=== PATIENT | female | born 1970 | race Hispanic/Latino ===

== ENCOUNTER 2022-12-30 19:39 | Emergency (ER) | payer OTHER ==
--- OUTSIDE RECORDS SUMMARY | 2022-12-30 19:44 | XMS REPORT | Continuity of Care Document ---
:1970 Author Organization [facility] Address [address] [place] [address] [place] [id number] Care Team Providers Name Role Phone ROSSY RODRIGUES Primary Care Physician Unavailable RADIOLOGY Attending Clinician Unavailable Cayla Attending Clinician Unavailable Schiffmagnus_Ashley Attending Clinician Unavailable Armspapito_Iam Attending Clinician Unavailable Doctor Unassigned, [place] Attending Clinician Unavailable Ya Mcconnell Attending Clinician YA SHIELDS Attending Clinician Unavailable LEIGH FREEMAN Attending Clinician Unavailable Moraima Attending Clinician Unavailable DR LITZY JESUS Attending Clinician Unavailable DR SANKET BETTS Attending Clinician Unavailable Cayla Admitting Clinician Unavailable Jill Admitting Clinician Unavailable Cruz Admitting Clinician Unavailable YA SHIELDS Admitting Clinician Unavailable Moraima Admitting Clinician Unavailable DR LITZY JESUS Admitting Clinician Unavailable DR SANKET BETTS Admitting Clinician Unavailable Payers Payer Name Policy Type Policy Number Effective Date Expiration Date S michael [facility] [id number] 2022 2023 [facility]CARE 00:00:00 00:00:00 [facility] [id number] (O) [facility] [id number] - [place] PL[place] - [place] ([facility]) [facility] [id number] 2022 [employer] 00:00:00 HEALTHCARE - [place] - EXCHANGE PLAN (O) [place] - [id number] [facility] - [facility] 4 (PPO) Problems Condition Condition Condition Status Onset Resolution Last Treating Co mments Source Name Details Category Date Date Treatment Clinician Date Microscopi Microscopi Problem Active 2022-02 H gal c c 0-16 [facility] hematuria Hematuria 00:00: Urol ogy 00 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 5- Metr o 00:00: Urology 00 Diabetes Diabetes Problem Active 2018-02 [place] mellitus Mellitus 2-13 [facility] 00:00: Urology 00 Vitamin D Vitamin D Problem Active 2018-02 Rosario ston deficiency Deficiency 2-13 Me tro 00:00: Urology 00 Hyperchole Hyperchole Problem Active 2018-02 H gal sterolemia sterolemia 2-13 Me tro 00:00: Urology 00 Hypertrigl Hypertrigl Problem Active 2018-02 H gal yceridemia yceridemia 2-13 Me tro 00:00: Urology Endometrio Endometrio Problem Active 2018-02 H gal sis sis 2-13 [facility] (clinical) (Clinical) 00:00: Ur ology 00 Prolapse Prolapse Problem Active 2018-02 [place] of female of Female 2-13 Met[facility] o genital Genital 00:00: Urology organs Organs 00 Atrophic Atrophic Problem Active 2018-02 [place] vaginitis Vaginitis 2-13 Metr o 00:00: Urology 00 Folic acid Folic Acid Problem Active 2018-02 H gal below below 2-13 [facility] reference Reference 00:00: Urol ogy range Range 00 Atrophic Atrophic Disease Active 2018-02 Unive rs vaginitis vaginitis 1-27 ity of 00:00: [place] [id number] Medical Branch Endometrio Endometrio Disease Active 2018-02 U danielers sis sis 0-01 ity of 00:00: [place] [facility] BMI BMI Disease Active 2018-02 Univers 31.0-31.9, 31.0-31.9, 0-01 it y of adult adult 00:00: [address] Branch Contracept Contracept Disease Active U nivers [place] dorota 8-09 ity of management management 00:[place]: [place] [facility] Obesity Obesity Disease Active Univers (BMI (BMI 8-09 ity of 30.0-34.9) 30.0-34.9) [place] [facility] Controlled Controlled Disease Active U nivers type 2 type 2 09-29 ity of diabetes diabetes 00:00: [place] mellitus mellitus 00 Medica l without without Branch complicati complicati on on Essential Essential Disease Active Uni vers hypertensi hypertensi 09-29 it y of on, benign on, benign 00:00: [place] [facility] History of History of Disease Active U nivers tubal tubal 09-29 ity of ligation ligation 00:00: [place] [facility] Irregular Irregular Disease Active Uni vers menstrual menstrual 09-29 ity of cycle cycle 00:00: Medical Branch 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 2-13 [facility] insipidus Insipidus 00:00: Urol ogy 00 Allergies, Adverse Reactions, Alerts Allergy Allergy Status Severity Reaction(s) Onset Inactive Treating Comm ents Source Name Type Date Date Clinician Iodine Propensi Active Other - See Burning Un sujata ty to comments 5- pain, ity of adverse 00:00: feels [place] reaction 00 like her Medica l s veins are Branch going to explode IODINE DRUG Active Other-Cmnt Univer s INGREDI 5- ity of 00:00: [place] [facility] Cephalex Propensi Active Other - See Lumps U nivers in ty to comments 8- ity of adverse 00:00: [place] reaction 00 Medical s Branch CEPHALEX DRUG Active Other-Cmnt Univ ers IN INGREDI 10-15 ity of 00:00: [place] [facility] Morphine Drug Active Itching Univers Intolera 03-24 ity of nce 00:00: Medical Branch MORPHINE DRUG Active ITCHING Univers INGREDI 2 ity of 00:00: Medical Branch Morphine Allergy Active [place] to [facility] substanc Urology e Fluconaz Allergy Active Photosensiti M chantelle francisco to vity da substanc [facility] Social History Social Habit Start Date Stop Date Quantity Comments Source Gender identity [facility] Sexual orientation Univer sity of [facility] Alcohol intake 2022-10-25 2022-10-25 Current University of 00:00:00 00:00:00 non-drinker of [facility] alcohol Branch (finding) History of Social 2019-09-23 2019-09-23 Univers ity of function 00:00:00 00:00:00 [facility] Tobacco use and 2017-09-29 2017-09-29 Smokeless Universit y of exposure 00:00:00 00:00:00 tobacco non-user [facility] Sex Ass[birth year] At [birth year] Universit y of 00:00:00 00:00:00 [facility] Smoking Status Start Date Stop Date Source Never Smoker [place] [facility] Medications Ordered Filled Start Stop Current Ordering Indication Dosage Frequency Signature Comments Components Source Medication Medication Date Date Medication? Clinician (SIG) Name Name norethindro norethindro No norethindr [place] ne ne 11-01 one [facility] (contracept (contracept 00:00: (contracep Urology [place]) 0.35 [place]ota) 0.35 00 tive) 0.35 mg tablet mg tablet mg tablet Take 1 Take 1 Take 1 tablet tablet tablet every day every day every day by oral by oral by oral route. route. route. acetaminoph acetaminoph No acetaminop [place] en 300 en 300 10-27 hen 300 Metro mg-codeine mg-codeine 00:00: mg-codeine Urology 30 mg 30 mg 00 30 mg tablet Take tablet Take tablet 1 tablet 1 tablet Take 1 every 8 every 8 tablet hours by hours by every 8 oral route oral route hours by as needed as needed oral route for 7 days. for 7 days. as needed for 7 days. ketorolac No 30mg 30 mg, Unive rs (TORADOL) 10-26 Slow IV ity of injection 02:00: 01:21 Push, [place] 30 mg 00 :00 ONCE, 1 Medical dose, On Branch Tue10/25/22 at 2100, Routine HYDROcodone 2022- No 1{tbl} 1 tablet, Univers -acetaminop 10-26 Oral, ity of hen (NORCO 01:45: 01:49 ONCE, 1 [place] as 5) 5-325 mg 00 :00 dose, On [facility] tablet 1 Tue10/25/22 Branc h tablet at 2045, MELVIN traMADoL 50 2022-0 2022- Yes 4647 50mg Take 1 Uni vers mg tablet 10-25 tablet by ity of 00:00: 04:59 mouth [place] 00 :00 every 6 Medical (six) Branch hours as needed for Pain (scale 7-10) for up to 3 days. Indication s: acute pain Ozempic Ozempic No Ozempic [place] 0.25 mg or 0.25 mg or 8-02 0.25 mg or Metro 0.5 mg (2 0.5 mg (2 00:00: 0.5 mg (2 Urology mg/3 mL) mg/3 mL) 00 mg/3 mL) subcutaneou subcutaneou subcutaneo s pen s pen us pen injector injector injector Inject 0.5 Inject 0.5 Inject 0.5 mg every mg every mg every week by week by week by subcutaneou subcutaneou subcutaneo s route for s route for us route 90 days. 90 days. for 90 days. atorvastati atorvastati No atorvastat [place] n 10 mg n 10 mg 6-29 in 10 mg [facility] tablet Take tablet Take 00:00: tablet Urology 1 tablet 1 tablet 00 Take 1 every day every day tablet by oral by oral every day route in route in by oral the the route in evening. evening. the evening. D3-2000 50 D3-2000 50 2022-0 No D3-2000 50 [place] mcg (2,000 mcg (2,000 6-29 mcg (2,000 [facility] unit) unit) 00:00: unit) Urology capsule capsule 00 capsule TAKE 1 TAKE 1 TAKE 1 TABLET BY TABLET BY TABLET BY MOUTH DAILY MOUTH DAILY MOUTH DAILY lisinopril lisinopril No lisinopril [place] 5 mg tablet 5 mg tablet 6-29 5 mg M etro Take 1 Take 1 00:00: tablet Urology tablet tablet 00 Take 1 every day every day tablet by oral by oral every day route in route in by oral the the route in morning. morning. the morning. metformin metformin No metformin [place] ER 500 mg ER 500 mg 6-29 ER 500 mg [facility] tablet,exte tablet,exte 00:00: tablet,ext Urology nded nded 00 ended release 24 release 24 release 24 hr TAKE 2 hr TAKE 2 hr TAKE 2 TABLETS BY TABLETS BY TABLETS BY MOUTH TWICE MOUTH TWICE MOUTH DAILY DAILY TWICE DAILY Accu-Chek Accu-Chek No Accu-Chek [place] Guide test Guide test 6-19 Guide test [facility] strips strips 00:00: strips Urology Check Check 00 Check glucose bid glucose bid glucose bid Accu-Chek Accu-Chek No Accu-Chek [place] Guide Me Guide Me 4-03 Guide Me Met ro Glucose Glucose 00:00: Glucose Urol ogy Meter USE Meter USE 00 Meter USE DAILY DAILY DAILY DIRECTED DIRECTED DIRECTED Ozempic 1 Ozempic 1 2021-02 No Ozempic 1 [place] mg/dose (4 mg/dose (4 1-21 mg/dose (4 [facility] mg/3 mL) mg/3 mL) 00:00: mg/3 mL) U rology subcutaneou subcutaneou 00 subcutaneo s pen s pen us pen injector injector injector Inject 1 mg Inject 1 mg Inject 1 every week every week mg every by by week by subcutaneou subcutaneou subcutaneo s route for s route for us route 90 days. 90 days. for 90 days. metFORMIN 2020-0 Yes metformin Uni vers 1,000 mg 2-18 1,000 mg ity of tablet 11:33: tablet [place] 55 Take 1 Medical tablet Branch twice a day by oral route for 90 days. metFORMIN 2020-0 Yes metformin Uni vers 1,000 mg 2-18 1,000 mg ity of tablet 11:33: tablet [place] 55 Take 1 Medical tablet Branch twice a day by oral route for 90 days. gemfibrozil 2020-0 Yes gemfibrozi Univers 600 mg 2-18 l 600 mg ity of tablet 11:33: tablet [place] 54 Take 1 Medical tablet Branch twice a day by oral route as needed for 90 days. gemfibrozil 2020-0 Yes gemfibrozi Univers 600 mg 2-18 l 600 mg ity of tablet 11:33: tablet [place] 54 Take 1 Medical tablet Branch twice a day by oral route as needed for 90 days. ergocalcife 2020-0 Yes Vitamin D2 Univers rol, 2-18 1,250 mcg ity of vitamin d2, 11:33: (50,000 [place] as 1,250 mcg 47 unit) Medical (50,000 capsule Branch unit) Take 1 capsule capsule every week by oral route as directed for 56 days. ergocalcife 2020-0 Yes Vitamin D2 Univers rol, 2-18 1,250 mcg ity of vitamin d2, 11:33: (50,000 [place] as 1,250 mcg 47 unit) Medical (50,000 capsule Branch unit) Take 1 capsule capsule every week by oral route as directed for 56 days. desmopressi 2020-0 Yes desmopress Univers n 0.2 mg 2-18 in 0.2 mg ity of tablet 11:33: tablet 46 Take 1 Medical tablet Branch every day by oral route in the evening. desmopressi 2020-0 Yes desmopress Univers n 0.2 mg 2-18 in 0.2 mg ity of tablet 11:33: tablet [place] 46 Take 1 Medical tablet Branch every day by oral route in the evening. MICROGESTIN 2020-0 Yes TAKE 1 Univ ers 1.5/30 1-15 TABLET BY ity of 1.5-30 00:00: MOUTH ONCE [place] mg-mcg per 00 DAILY Medical tablet CONTINOUS Branch ACTIVE PILL MICROGESTIN 2020-0 Yes TAKE 1 Univ ers 1.5/30 1-15 TABLET BY ity of 1.5-30 00:00: MOUTH ONCE [place] mg-mcg per 00 DAILY Medical tablet CONTINOUS Branch ACTIVE PILL desmopressi desmopressi No desmopress [place] n 0.2 mg n 0.2 mg in 0.2 mg Me tro tablet TAKE tablet TAKE tablet Urology ONE (1) ONE (1) TAKE ONE TABLET(S) TABLET(S) (1) BY MOUTH BY MOUTH TABLET(S) EVERY EVERY BY MOUTH EVENING. EVENING. EVERY EVENING. glipizide 5 glipizide 5 No glipizide [place] mg tablet mg tablet 5 mg [facility] TAKE ONE TAKE ONE tablet Urolo gy (1) (1) TAKE ONE TABLET(S) TABLET(S) (1) BY MOUTH BY MOUTH TABLET(S) TWICE A TWICE A BY MOUTH DAY. DAY. TWICE A DAY. OneTouch OneTouch No OneTouch [place] ston UltraSoft UltraSoft UltraSoft [facility] Lancets USE Lancets USE Lancets Urology DIRECTED DIRECTED USE DAILY TO DAILY TO DIRECTED TEST BLOOD TEST BLOOD DAILY TO GLUCOSE GLUCOSE TEST BLOOD LEVELS. LEVELS. GLUCOSE LEVELS. terbinafine terbinafine No terbinafin [place] HCl 250 mg HCl 250 mg e HCl 250 [facility] tablet TAKE tablet TAKE mg tablet Urology ONE (1) ONE (1) TAKE ONE TABLET(S) TABLET(S) (1) BY MOUTH BY MOUTH TABLET(S) DAILY. DAILY. BY MOUTH DAILY. tramadol 50 tramadol 50 No tramadol [place] mg tablet mg tablet 50 mg Metr o TAKE ONE TAKE ONE tablet Urolo gy (1) (1) TAKE ONE TABLET(S) TABLET(S) (1) BY MOUTH BY MOUTH TABLET(S) EVERY SIX EVERY SIX BY MOUTH HOURS HOURS EVERY SIX NEEDED FOR NEEDED FOR HOURS PAIN. PAIN. NEEDED FOR PAIN. atorvastati atorvastati No 1 Q1D atorvastat [place] 10 mg n 10 mg in 10 mg da tablet Take tablet Take tablet [facility] 1 tablet 1 tablet Take 1 al every day every day tablet Hea lth by oral by oral every day Outr eac route in route in by oral h the the route in Program evening. evening. the evening. Benadryl Benadryl No Benadryl [place] Allergy Allergy Allergy da [facility] Program cholecalcif cholecalcif No 1capsul Q1D cholecalci [place] taryn taryn e(s) ferol da (vitamin (vitamin (vitamin Epi scop D3) 25 mcg D3) 25 mcg D3) 25 mcg al (1,000 (1,000 (1,000 Health unit) unit) unit) Outreac capsule capsule capsule h Take 1 Take 1 Take 1 Program capsule capsule capsule every day every day every day by oral by oral by oral route. route. route. desmopressi desmopressi No desmopress [place] n 0.2 mg n 0.2 mg in 0.2 mg da tablet TAKE tablet TAKE tablet [facility] 1 TABLET BY 1 TABLET BY TAKE 1 al MOUTH EVERY MOUTH EVERY TABLET BY Health DAY IN THE DAY IN THE MOUTH Ou treac EVENING EVENING EVERY DAY h IN THE Program EVENING glipizide 5 glipizide 5 No glipizide [place] mg tablet mg tablet 5 mg da TAKE 1 TAKE 1 tablet [facility] TABLET BY TABLET BY TAKE 1 al MOUTH ONCE MOUTH ONCE TABLET BY Health DAILY IN DAILY IN MOUTH ONCE O [facility] THE MORNING THE MORNING DAILY IN h THE Program MORNING Januvia 100 Januvia 100 No 1 Q1D Januvia [place] mg tablet mg tablet 100 mg da Take 1 Take 1 tablet [facility] tablet tablet Take 1 al every day every day tablet Hea lth by oral by oral every day Outr eac route in route in by oral h the the route in Program morning. morning. the morning. lisinopril lisinopril No 1 Q1D lisinopril [place] 5 mg tablet 5 mg tablet 5 mg d a Take 1 Take 1 tablet [facility] tablet tablet Take 1 al every day every day tablet Hea lth by oral by oral every day Outr eac route in route in by oral h the the route in Program morning. morning. the morning. metformin metformin No metformin [place] ER 500 mg ER 500 mg ER 500 mg da tablet,exte tablet,exte tablet,ext [facility] nded nded ended al release 24 release 24 release 24 Health hr TAKE 2 hr TAKE 2 hr TAKE 2 Outreac TABLETS BY TABLETS BY TABLETS BY h MOUTH TWICE MOUTH TWICE MOUTH Program DAILY DAILY TWICE DAILY norethindro norethindro No 1 Q1D norethindr [place] ne ne one da (contracept (contracept (contracep [facility] [place]) 0.35 [place]) 0.35 tive) 0.35 al mg tablet mg tablet mg tablet Health Take 1 Take 1 Take 1 Outreac tablet tablet tablet h every day every day every day Program by oral by oral by oral route. route. route. terbinafine terbinafine No 1 Q1D terbinafin [place] HCl 250 mg HCl 250 mg e HCl 250 da tablet Take tablet Take mg tablet [facility] 1 tablet 1 tablet Take 1 al every day every day tablet Hea lth by oral by oral every day Outr eac route as route as by oral h directed directed route as Pro gram for 42 for 42 directed days. days. for 42 days. triamcinolo triamcinolo No triamcinol [place] ne ne one da acetonide acetonide acetonide [facility] 0.1 % 0.1 % 0.1 % al topical topical topical Health ointment ointment ointment Out reac APPLY A APPLY A APPLY A h THIN LAYER THIN LAYER THIN LAYER Program TO THE TO THE TO THE AFFECTED AFFECTED AFFECTED AREA(S) BY AREA(S) BY AREA(S) BY TOPICAL TOPICAL TOPICAL ROUTE 2 ROUTE 2 ROUTE 2 TIMES PER TIMES PER TIMES PER DAY as DAY as DAY as needed needed needed atorvastati atorvastati No 1 Q1D atorvastat [place] 10 mg n 10 mg in 10 mg da tablet Take tablet Take tablet [facility] 1 tablet 1 tablet Take 1 al every day every day tablet Hea lth by oral by oral every day Outr eac route in route in by oral h the the route in Program evening. evening. the evening. Benadryl Benadryl No Benadryl [place] Allergy Allergy Allergy da [facility] Program cholecalcif cholecalcif No 1capsul Q1D cholecalci [place] taryn taryn e(s) ferol da (vitamin (vitamin (vitamin Epi scop D3) 25 mcg D3) 25 mcg D3) 25 mcg al (1,000 (1,000 (1,000 Health unit) unit) unit) Outreac capsule capsule capsule h Take 1 Take 1 Take 1 Program capsule capsule capsule every day every day every day by oral by oral by oral route. route. route. D3-1999 50 D3-1999 50 No D3-1999 50 [place] mcg (2,000 mcg (2,000 mcg (2,000 da unit) unit) unit) [facility] capsule 1 capsule 1 capsule 1 al tab po qd tab po qd tab po qd Health Outreac h Program desmopressi desmopressi No desmopress [place] n 0.2 mg n 0.2 mg in 0.2 mg da tablet TAKE tablet TAKE tablet [facility] 1 TABLET BY 1 TABLET BY TAKE 1 al MOUTH EVERY MOUTH EVERY TABLET BY Health DAY IN THE DAY IN THE MOUTH Ou treac EVENING EVENING EVERY DAY h IN THE Program EVENING glipizide 5 glipizide 5 No glipizide [place] mg tablet mg tablet 5 mg da TAKE 1 TAKE 1 tablet [facility] TABLET BY TABLET BY TAKE 1 al MOUTH TWICE MOUTH TWICE TABLET BY Health DAILY DAILY MOUTH Outreac TWICE h DAILY Program Januvia 100 Januvia 100 No 1 Q1D Januvia [place] mg tablet mg tablet 100 mg da Take 1 Take 1 tablet [facility] tablet tablet Take 1 al every day every day tablet Hea lth by oral by oral every day Outr eac route in route in by oral h the the route in Program morning. morning. the morning. lisinopril lisinopril No 1 Q1D lisinopril [place] 5 mg tablet 5 mg tablet 5 mg d a Take 1 Take 1 tablet [facility] tablet tablet Take 1 al every day every day tablet Hea lth by oral by oral every day Outr eac route in route in by oral h the the route in Program morning. morning. the morning. metformin metformin No metformin [place] ER 500 mg ER 500 mg ER 500 mg da tablet,exte tablet,exte tablet,ext [facility] nded nded ended al release 24 release 24 release 24 Health hr TAKE 2 hr TAKE 2 hr TAKE 2 Outreac TABLETS BY TABLETS BY TABLETS BY h MOUTH TWICE MOUTH TWICE MOUTH Program DAILY DAILY TWICE DAILY norethindro norethindro No 1 Q1D norethindr [place] ne ne one da (contracept (contracept (contracep [facility] [place]) 0.35 [place]) 0.35 tive) 0.35 al mg tablet mg tablet mg tablet Health Take 1 Take 1 Take 1 Outreac tablet tablet tablet h every day every day every day Program by oral by oral by oral route. route. route. triamcinolo triamcinolo No triamcinol [place] ne ne one da acetonide acetonide acetonide [facility] 0.1 % 0.1 % 0.1 % al topical topical topical Health ointment ointment ointment Out reac APPLY A APPLY A APPLY A h THIN LAYER THIN LAYER THIN LAYER Program TO THE TO THE TO THE AFFECTED AFFECTED AFFECTED AREA(S) BY AREA(S) BY AREA(S) BY TOPICAL TOPICAL TOPICAL ROUTE 2 ROUTE 2 ROUTE 2 TIMES PER TIMES PER TIMES PER DAY as DAY as DAY as needed needed needed atorvastati atorvastati No 1 Q1D atorvastat [place] 10 mg n 10 mg in 10 mg da tablet Take tablet Take tablet [facility] 1 tablet 1 tablet Take 1 al every day every day tablet Hea lth by oral by oral every day Outr eac route in route in by oral h the the route in Program evening. evening. the evening. Benadryl Benadryl No Benadryl [place] Allergy Allergy Allergy da [facility] Program cholecalcif cholecalcif No 1capsul Q1D cholecalci [place] taryn taryn e(s) ferol da (vitamin (vitamin (vitamin Epi scop D3) 25 mcg D3) 25 mcg D3) 25 mcg al (1,000 (1,000 (1,000 Health unit) unit) unit) Outreac capsule capsule capsule h Take 1 Take 1 Take 1 Program capsule capsule capsule every day every day every day by oral by oral by oral route. route. route. D3-2000 50 D3-2000 50 No D3-2000 50 [place] mcg (2,000 mcg (2,000 mcg (2,000 da unit) unit) unit) [facility] capsule 1 capsule 1 capsule 1 al tab po qd tab po qd tab po qd Health Outreac h Program desmopressi desmopressi No desmopress [place] n 0.2 mg n 0.2 mg in 0.2 mg da tablet TAKE tablet TAKE tablet [facility] 1 TABLET BY 1 TABLET BY TAKE 1 al MOUTH EVERY MOUTH EVERY TABLET BY Health DAY IN THE DAY IN THE MOUTH Ou treac EVENING EVENING EVERY DAY h IN THE Program EVENING glipizide 5 glipizide 5 No glipizide [place] mg tablet mg tablet 5 mg da TAKE 1 TAKE 1 tablet [facility] TABLET BY TABLET BY TAKE 1 al MOUTH TWICE MOUTH TWICE TABLET BY Health DAILY DAILY MOUTH Outreac TWICE h DAILY Program Januvia 100 Januvia 100 No 1 Q1D Januvia [place] mg tablet mg tablet 100 mg da Take 1 Take 1 tablet [facility] tablet tablet Take 1 al every day every day tablet Hea lth by oral by oral every day Outr eac route in route in by oral h the the route in Program morning. morning. the morning. lisinopril lisinopril No 1 Q1D lisinopril [place] 5 mg tablet 5 mg tablet 5 mg d a Take 1 Take 1 tablet [facility] tablet tablet Take 1 al every day every day tablet Hea lth by oral by oral every day Outr eac route in route in by oral h the the route in Program morning. morning. the morning. metformin metformin No metformin [place] ER 500 mg ER 500 mg ER 500 mg da tablet,exte tablet,exte tablet,ext [facility] nded nded ended al release 24 release 24 release 24 Health hr TAKE 2 hr TAKE 2 hr TAKE 2 Outreac TABLETS BY TABLETS BY TABLETS BY h MOUTH TWICE MOUTH TWICE MOUTH Program DAILY DAILY TWICE DAILY norethindro norethindro No 1 Q1D norethindr [place] ne ne one da (contracept (contracept (contracep [facility] [place]) 0.35 [place]) 0.35 tive) 0.35 al mg tablet mg tablet mg tablet Health Take 1 Take 1 Take 1 Outreac tablet tablet tablet h every day every day every day Program by oral by oral by oral route. route. route. triamcinolo triamcinolo No triamcinol [place] ne ne one da acetonide acetonide acetonide [facility] 0.1 % 0.1 % 0.1 % al topical topical topical Health ointment ointment ointment Out reac APPLY A APPLY A APPLY A h THIN LAYER THIN LAYER THIN LAYER Program TO THE TO THE TO THE AFFECTED AFFECTED AFFECTED AREA(S) BY AREA(S) BY AREA(S) BY TOPICAL TOPICAL TOPICAL ROUTE 2 ROUTE 2 ROUTE 2 TIMES PER TIMES PER TIMES PER DAY as DAY as DAY as needed needed needed Accu-Chek Accu-Chek No Accu-Chek [place] Guide test Guide test Guide test da strips USE strips USE strips USE [facility] DIRECTED DIRECTED a l ONCE A DAY. ONCE A DAY. DIRECTED Health ONCE A Outreac DAY. h Program atorvastati atorvastati No 1 Q1D atorvastat [place] n 10 mg n 10 mg in 10 mg da tablet Take tablet Take tablet [facility] 1 tablet 1 tablet Take 1 al every day every day tablet Hea lth by oral by oral every day Outr eac route in route in by oral h the the route in Program evening. evening. the evening. Benadryl Benadryl No Benadryl [place] Allergy Allergy Allergy da [facility] Program cholecalcif cholecalcif No 1capsul Q1D cholecalci [place] taryn taryn e(s) ferol da (vitamin (vitamin (vitamin Epi scop D3) 25 mcg D3) 25 mcg D3) 25 mcg al (1,000 (1,000 (1,000 Health unit) unit) unit) Outreac capsule capsule capsule h Take 1 Take 1 Take 1 Program capsule capsule capsule every day every day every day by oral by oral by oral route. route. route. D3-1999 50 D3-2000 50 No D3-2000 50 [place] mcg (2,000 mcg (2,000 mcg (2,000 da unit) unit) unit) [facility] capsule 1 capsule 1 capsule 1 al tab po qd tab po qd tab po qd Health Outreac h Program desmopressi desmopressi No desmopress [place] n 0.2 mg n 0.2 mg in 0.2 mg da tablet TAKE tablet TAKE tablet [facility] ONE (1) ONE (1) TAKE ONE al TABLET(S) TABLET(S) (1) Healt h BY MOUTH BY MOUTH TABLET(S) Ou treac ONCE EVERY ONCE EVERY BY MOUTH h EVENING. EVENING. ONCE EVERY P rogram EVENING. lisinopril lisinopril No 1 Q1D lisinopril [place] 5 mg tablet 5 mg tablet 5 mg d a Take 1 Take 1 tablet [facility] tablet tablet Take 1 al every day every day tablet Hea lth by oral by oral every day Outr eac route in route in by oral h the the route in Program morning. morning. the morning. metformin metformin No metformin [facility] ER 500 mg ER 500 mg ER 500 mg da tablet,exte tablet,exte tablet,ext [facility] nded nded ended al release 24 release 24 release 24 Health hr TAKE 2 hr TAKE 2 hr TAKE 2 Outreac TABLETS BY TABLETS BY TABLETS BY h MOUTH TWICE MOUTH TWICE MOUTH Program DAILY DAILY TWICE DAILY norethindro norethindro No norethindr [facility] ne ne one da (contracept (contracept (contracep [facility] [place]) 0.35 dorota) 0.35 tive) 0.35 al mg tablet mg tablet mg tablet Health TAKE ONE TAKE ONE TAKE ONE Out reac (1) (1) (1) h TABLET(S) TABLET(S) TABLET(S) Program BY MOUTH BY MOUTH BY MOUTH DAILY. DAILY. DAILY. OneTouch OneTouch No OneTouch [facility] UltraSoft UltraSoft UltraSoft da Lancets USE Lancets USE Lancets [facility] DIRECTED DIRECTED USE al DAILY TO DAILY TO DIRECTED Hea lth TEST BLOOD TEST BLOOD DAILY TO Outreac GLUCOSE GLUCOSE TEST BLOOD h LEVELS. LEVELS. GLUCOSE Progra m LEVELS. Ozempic 1 Ozempic 1 No 1mg Q1W Ozempic 1 [facility] mg/dose (4 mg/dose (4 mg/dose (4 da mg/3 mL) mg/3 mL) mg/3 mL) Epi scop subcutaneou subcutaneou subcutaneo al s pen s pen us pen Health injector injector injector Out reac Inject 1 mg Inject 1 mg Inject 1 h every week every week mg every Program by by week by subcutaneou subcutaneou subcutaneo s route for s route for us route 90 days. 90 days. for 90 days. triamcinolo triamcinolo No triamcinol [facility] ne ne one da acetonide acetonide acetonide [facility] 0.1 % 0.1 % 0.1 % al topical topical topical Health ointment ointment ointment Out reac APPLY A APPLY A APPLY A h THIN LAYER THIN LAYER THIN LAYER Program TO THE TO THE TO THE AFFECTED AFFECTED AFFECTED AREA(S) BY AREA(S) BY AREA(S) BY TOPICAL TOPICAL TOPICAL ROUTE 2 ROUTE 2 ROUTE 2 TIMES PER TIMES PER TIMES PER DAY as DAY as DAY as needed needed needed Accu-Chek Accu-Chek No Accu-Chek [facility] Guide Me Guide Me Guide Me da Glucose Glucose Glucose [facility] p Meter USE Meter USE Meter USE al DAILY DAILY DAILY [facility]a [facility] DIRECTED DIRECTED DIRECTED Out reac h Program Accu-Chek Accu-Chek No Accu-Chek [facility] Guide test Guide test Guide test da strips USE strips USE strips USE [facility] DIRECTED DIRECTED a l ONCE A DAY. ONCE A DAY. DIRECTED Health ONCE A Outre DAY. h Program atorvastati atorvastati No 1 Q1D atorvastat [facility] n 10 mg n 10 mg in 10 mg da tablet Take tablet Take tablet [facility] 1 tablet 1 tablet Take 1 al every day every day tablet [facility]a l[facility] by oral by oral every day Outr eac route in route in by oral h the the route in Program evening. evening. the evening. Benadryl Benadryl No Benadryl [facility] Allergy Allergy Allergy da [facility] Program D3-1999 50 D3-1999 50 No D3-1999 50 [facility] mcg (2,000 mcg (2,000 mcg (2,000 da unit) unit) unit) [facility] capsule 1 capsule 1 capsule 1 al tab po qd tab po qd tab po qd Health Outreac h Program desmopressi desmopressi No desmopress [facility] n 0.2 mg n 0.2 mg in 0.2 mg da tablet TAKE tablet TAKE tablet [facility] ONE (1) ONE (1) TAKE ONE al TABLET(S) TABLET(S) (1) Healt h BY MOUTH IN BY MOUTH IN TABLET(S) Outreac THE THE BY MOUTH h EVENING. EVENING. IN THE Progr am EVENING. lisinopril lisinopril No 1 Q1D lisinopril [facility] 5 mg tablet 5 mg tablet 5 mg d a Take 1 Take 1 tablet [facility] tablet tablet Take 1 al every day every day tablet Hea lth by oral by oral every day Outr eac route in route in by oral h the the route in Program morning. morning. the morning. metformin metformin No metformin [facility] ER 500 mg ER 500 mg ER 500 mg da tablet,exte tablet,exte tablet,ext [facility] nded nded ended al release 24 release 24 release 24 Health hr TAKE TWO hr TAKE TWO hr TAKE Outreac (2) (2) TWO (2) h TABLET(S) TABLET(S) TABLET(S) Program BY MOUTH BY MOUTH BY MOUTH TWICE A TWICE A TWICE A DAY. DAY. DAY. norethindro norethindro No norethindr [facility] ne ne one da (contracept (contracept (contracep [facility] [place]) 0.35 dorota) 0.35 tive) 0.35 al mg tablet mg tablet mg tablet Health TAKE ONE TAKE ONE TAKE ONE Out reac (1) (1) (1) h TABLET(S) TABLET(S) TABLET(S) Program BY MOUTH BY MOUTH BY MOUTH DAILY. DAILY. DAILY. OneTouch OneTouch No OneTouch [facility] UltraSoft UltraSoft UltraSoft da Lancets USE Lancets USE Lancets [facility] DIRECTED DIRECTED USE al DAILY TO DAILY TO DIRECTED Hea lth TEST BLOOD TEST BLOOD DAILY TO Outreac GLUCOSE GLUCOSE TEST BLOOD h LEVELS. LEVELS. GLUCOSE Progra m LEVELS. Ozempic 1 Ozempic 1 No 1mg Q1W Ozempic 1 [facility] mg/dose (4 mg/dose (4 mg/dose (4 da mg/3 mL) mg/3 mL) mg/3 mL) Epi sc[facility] subcutaneou subcutaneou subcutaneo al s pen s pen [facility] injector injector injector Out reac Inject 1 mg Inject 1 mg Inject 1 h every week every week mg every Program by by week [facility] route for us route 90 days. 90 days. for 90 days. Accu-Chek Accu-Chek No Accu-Chek [facility] Guide Me Guide Me Guide Me da Glucose Glucose Glucose [facility] p Meter USE Meter USE Meter USE al DAILY DAILY DAILY [facility]a lth DIRECTED DIRECTED DIRECTED Out reac h Program Accu-Chek Accu-Chek No Accu-Chek [facility] Guide test Guide test Guide test da strips strips strips [facility] Check Check Check al glucose bid glucose bid glucose Health bid Outreac h Program atorvastati atorvastati No 1 Q1D atorvastat [facility] n 10 mg n 10 mg in 10 mg da tablet Take tablet Take tablet [facility] 1 tablet 1 tablet Take 1 al every day every day tablet [facility]a l[facility] by oral by oral every day Outr eac route in route in by oral h the the route in Program evening. evening. the evening. Benadryl Benadryl No Benadryl [facility] Allergy Allergy Allergy da [facility] Program D3 50 D3-1999 50 No D3 50 [facility] mcg (2,000 mcg (2,000 mcg (2,000 da unit) unit) unit) [facility] capsule 1 capsule 1 capsule 1 al tab po qd tab po qd tab po qd Health Outreac h Program desmopressi desmopressi No desmopress [place] n 0.2 mg n 0.2 mg in 0.2 mg da tablet TAKE tablet TAKE tablet [facility] 1 TABLET BY 1 TABLET BY TAKE 1 al MOUTH EVERY MOUTH EVERY TABLET BY Health DAY IN THE DAY IN THE MOUTH Ou treac EVENING EVENING EVERY DAY h IN THE Program EVENING lisinopril lisinopril No 1 Q1D lisinopril [facility] 5 mg tablet 5 mg tablet 5 mg d a Take 1 Take 1 tablet [facility] tablet tablet Take 1 al every day every day tablet [facility]a lth by oral by oral every day Outr eac route in route in by oral h the the route in Program morning. morning. the morning. metformin metformin No metformin [facility] ER 500 mg ER 500 mg ER 500 mg da tablet,exte tablet,exte tablet,ext [facility] nded nded ended al release 24 release 24 release 24 Health hr TAKE TWO hr TAKE TWO hr TAKE Outreac (2) (2) TWO (2) h TABLET(S) TABLET(S) TABLET(S) Program BY MOUTH BY MOUTH BY MOUTH TWICE A TWICE A TWICE A DAY. DAY. DAY. norethindro norethindro No norethindr [place] ne ne one da (contracept (contracept (contracep [facility] [place]) 0.35 dorota) 0.35 tive) 0.35 al mg tablet mg tablet mg tablet Health TAKE ONE TAKE ONE TAKE ONE Out reac (1) (1) (1) h TABLET(S) TABLET(S) TABLET(S) Program BY MOUTH BY MOUTH BY MOUTH DAILY. DAILY. DAILY. OneTouch OneTouch No OneTouch [facility] UltraSoft UltraSoft UltraSoft da Lancets USE Lancets USE Lancets [facility] DIRECTED DIRECTED USE al DAILY TO DAILY TO DIRECTED Hea lt TEST BLOOD TEST BLOOD DAILY TO Outreac GLUCOSE GLUCOSE TEST BLOOD h LEVELS. LEVELS. GLUCOSE Progra m LEVELS. Ozempic 1 Ozempic 1 No 1mg Q1W Ozempic 1 [facility] mg/dose (4 mg/dose (4 mg/dose (4 da mg/3 mL) mg/3 mL) mg/3 mL) E[facility] subcutaneou subcutaneou subcutaneo al s pen s pen [facility] injector injector injector Out reac Inject 1 mg Inject 1 mg Inject 1 h every week every week mg every Program by by week by subcutaneou subcutaneou subcutaneo s route for s route for us route 90 days. 90 days. for 90 days. Accu-Chek Accu-Chek No Accu-Chek [facility] Guide Me Guide Me Guide Me da Glucose Glucose Glucose [facility] p Meter USE Meter USE Meter USE al DAILY DAILY DAILY Hea lt DIRECTED DIRECTED DIRECTED Out reac h Program Accu-Chek Accu-Chek No Accu-Chek [facility] Guide test Guide test Guide test da strips strips strips [facility] Check Check Check al glucose bid glucose bid glucose Health bid Outreac h Program atorvastati atorvastati No 1 Q1D atorvastat [facility] n 10 mg n 10 mg in 10 mg da tablet Take tablet Take tablet [facility] 1 tablet 1 tablet Take 1 al every day every day tablet [facility]a l[facility] by oral by oral every day Outr eac route in route in by oral h the the route in Program evening. evening. the evening. Benadryl Benadryl No Benadryl [facility] Allergy Allergy Allergy da [facility] Program D3 50 D3-1999 50 No D3 50 [facility] mcg (2,000 mcg (2,000 mcg (2,000 da unit) unit) unit) [facility] capsule capsule capsule al TAKE 1 TAKE 1 TAKE 1 Health TABLET BY TABLET BY TABLET BY Outreac MOUTH DAILY MOUTH DAILY MOUTH h DAILY Program desmopressi desmopressi No desmopress [facility] n 0.2 mg n 0.2 mg in 0.2 mg da tablet TAKE tablet TAKE tablet [facility] ONE (1) ONE (1) TAKE ONE al TABLET(S) TABLET(S) (1) Healt h BY MOUTH BY MOUTH TABLET(S) Ou treac EVERY EVERY BY MOUTH h EVENING. EVENING. EVERY Progra m EVENING. fluconazole fluconazole No fluconazol [facility] 150 mg 150 mg e 150 mg da tablet TAKE tablet TAKE tablet [facility] 1 TABLET BY 1 TABLET BY TAKE 1 al MOUTH x 1 MOUTH x 1 TABLET BY Health MOUTH x 1 Outreac h Program lisinopril lisinopril No 1 Q1D lisinopril [facility] 5 mg tablet 5 mg tablet 5 mg d a Take 1 Take 1 tablet [facility] tablet tablet Take 1 al every day every day tablet [facility]a l[facility] by oral by oral every day Outr eac route in route in by oral h the the route in Program morning. morning. the morning. metformin metformin No metformin [facility] ER 500 mg ER 500 mg ER 500 mg da tablet,exte tablet,exte tablet,ext [facility] nded nded ended al release 24 release 24 release 24 Health hr TAKE 2 hr TAKE 2 hr TAKE 2 Outreac TABLETS BY TABLETS BY TABLETS BY h MOUTH TWICE MOUTH TWICE MOUTH Program DAILY DAILY TWICE DAILY norethindro norethindro No norethindr [place] ne ne one da (contracept (contracept (contracep [facility] [place]) 0.35 dorota) 0.35 tive) 0.35 al mg tablet mg tablet mg tablet Health TAKE ONE TAKE ONE TAKE ONE Out reac (1) (1) (1) h TABLET(S) TABLET(S) TABLET(S) Program BY MOUTH BY MOUTH BY MOUTH DAILY. DAILY. DAILY. OneTouch OneTouch No OneTouch [facility] UltraSoft UltraSoft UltraSoft da Lancets USE Lancets USE Lancets [facility] DIRECTED DIRECTED USE al DAILY TO DAILY TO DIRECTED Hea lth TEST BLOOD TEST BLOOD DAILY TO Outreac GLUCOSE GLUCOSE TEST BLOOD h LEVELS. LEVELS. GLUCOSE Progra m LEVELS. Ozempic Ozempic No .5mL Q1W Ozempic [facility] 0.25 mg or 0.25 mg or 0.25 mg or da 0.5 mg (2 0.5 mg (2 0.5 mg (2 [facility] mg/3 mL) mg/3 mL) mg/3 mL) al subcutaneou subcutaneou subcutameo Health s pen s pen us pen Outreac injector injector injector h Inject 0.5 Inject 0.5 Inject 0.5 Program mL every mL every mL every week by week by week by subcutaneou subcutaneou subcutaneo s route for s route for us route 90 days. 90 days. for 90 days. Ozempic 1 Ozempic 1 No 1mg Q1W Ozempic 1 [facility] mg/dose (4 mg/dose (4 mg/dose (4 da mg/3 mL) mg/3 mL) mg/3 mL) [facility] subcutaneou subcutaneou subcutaneo al s pen s pen us pen Health injector injector injector Out reac Inject 1 mg Inject 1 mg Inject 1 h every week every week mg every Program by by week by subcutaneou subcutaneou subcutaneo s route for s route for us route 90 days. 90 days. for 90 days. terbinafine terbinafine No 1 Q1D terbinafin [facility] HCl 250 mg HCl 250 mg e HCl 250 da tablet Take tablet Take mg tablet [facility] 1 tablet 1 tablet Take 1 al every day every day tablet [facility]a [facility]th by oral by oral every day Outr eac route as route as by oral h directed directed route as Pro gram for 42 for 42 directed days. days. for 42 days. Accu-Chek Accu-Chek No Accu-Chek [facility] Guide Me Guide Me Guide Me da Glucose Glucose Glucose [facility] p Meter USE Meter USE Meter USE al DAILY DAILY DAILY [facility] DIRECTED DIRECTED DIRECTED Out reac h Program Accu-Chek Accu-Chek No Accu-Chek [facility] Guide test Guide test Guide test da strips strips strips [facility] Check Check Check al glucose bid glucose bid glucose Health bid Outreac h Program acetaminoph acetaminoph No 1 Q8H acetaminop [facility] en 300 en 300 hen 300 da mg-codeine mg-codeine mg-codeine [facility] 30 mg 30 mg 30 mg al tablet Take tablet Take tablet Health 1 tablet 1 tablet Take 1 Outre ac every 8 every 8 tablet h hours by hours by every 8 Prog neli oral route oral route hours by as needed as needed oral route for 7 days. for 7 days. as needed for 7 days. atorvastati atorvastati No 1 Q1D atorvastat [facility] n 10 mg n 10 mg in 10 mg da tablet Take tablet Take tablet [facility] 1 tablet 1 tablet Take 1 al every day every day tablet [facility] by oral by oral every day Outr eac route in route in by oral h the the route in Program evening. evening. the evening. Benadryl Benadryl No Benadryl [facility] Allergy Allergy Allergy da [facility] Program D3-1999 50 D3-1999 50 No D3 50 [facility] mcg (2,000 mcg (2,000 mcg (2,000 da unit) unit) unit) [facility] capsule capsule capsule al TAKE 1 TAKE 1 TAKE 1 Health TABLET BY TABLET BY TABLET BY Outreac MOUTH DAILY MOUTH DAILY MOUTH h DAILY Program desmopressi desmopressi No desmopress [place] n 0.2 mg n 0.2 mg in 0.2 mg da tablet TAKE tablet TAKE tablet [facility] ONE (1) ONE (1) TAKE ONE al TABLET(S) TABLET(S) (1) Healt h BY MOUTH BY MOUTH TABLET(S) O[facility] treac EVERY EVERY BY MOUTH h EVENING. EVENING. EVERY Progra m EVENING. fluconazole fluconazole No fluconazol [facility] 150 mg 150 mg e 150 mg da tablet TAKE tablet TAKE tablet [facility] ONE (1) ONE (1) TAKE ONE al TABLET(S) TABLET(S) (1) Healt h BY MOUTH BY MOUTH TABLET(S) [facility] treac ONCE. ONCE. BY MOUTH h ONCE. Program lisinopril lisinopril No 1 Q1D lisinopril [facility] 5 mg tablet 5 mg tablet 5 mg d a Take 1 Take 1 tablet [facility] tablet tablet Take 1 al every day every day tablet [facility] by oral by oral every day Outr eac route in route in by oral h the the route in Program morning. morning. the morning. metformin metformin No metformin [facility] ER 500 mg ER 500 mg ER 500 mg da tablet,exte tablet,exte tablet,ext [facility] nded nded ended al release 24 release 24 release 24 Health hr TAKE 2 hr TAKE 2 hr TAKE 2 Outreac TABLETS BY TABLETS BY TABLETS BY h MOUTH TWICE MOUTH TWICE MOUTH Program DAILY DAILY TWICE DAILY norethindro norethindro No norethindr [place] ne ne one da (contracept (contracept (contracep [facility] [place]) 0.35 dorota) 0.35 tive) 0.35 al mg tablet mg tablet mg tablet Health TAKE ONE TAKE ONE TAKE ONE Out reac (1) (1) (1) h TABLET(S) TABLET(S) TABLET(S) Program BY MOUTH BY MOUTH BY MOUTH DAILY. DAILY. DAILY. OneTouch OneTouch No OneTouch [facility] UltraSoft UltraSoft UltraSoft da Lancets USE Lancets USE Lancets [facility] DIRECTED DIRECTED USE al DAILY TO DAILY TO DIRECTED Hea [facility]th TEST BLOOD TEST BLOOD DAILY TO Outreac GLUCOSE GLUCOSE TEST BLOOD h LEVELS. LEVELS. GLUCOSE Progra m LEVELS. Ozempic Ozempic No Ozempic [facility] 0.25 mg or 0.25 mg or 0.25 mg or da 0.5 mg (2 0.5 mg (2 0.5 mg (2 [facility] mg/3 mL) mg/3 mL) mg/3 mL) al [facility] s pen s pen us pen Outreac injector injector injector h Inject 0.5 Inject 0.5 Inject 0.5 Program mg every mg every mg every week by week by week by [facility] s route for s route for us route 90 days. 90 days. for 90 days. Ozempic 1 Ozempic 1 No 1mg Q1W Ozempic 1 [facility] mg/dose (4 mg/dose (4 mg/dose (4 da mg/3 mL) mg/3 mL) mg/3 mL) Epi scop subcutaneou subcutaneou subcutaneo al s pen s pen us [facility] injector injector injector Out reac Inject 1 mg Inject 1 mg Inject 1 h every week every week mg every Program by by week by subcutaneou subcutaneou subcutaneo s route for s route for us route 90 days. 90 days. for 90 days. terbinafine terbinafine No terbinafin [facility] HCl 250 mg HCl 250 mg e HCl 250 da tablet TAKE tablet TAKE mg tablet [facility] ONE (1) ONE (1) TAKE ONE al TABLET(S) TABLET(S) (1) Healt h BY MOUTH BY MOUTH TABLET(S) Ou treac DAILY. DAILY. BY MOUTH h DAILY. Program tramadol 50 tramadol 50 No tramadol [facility] mg tablet mg tablet 50 mg da TAKE ONE TAKE ONE tablet [facility] (1) (1) TAKE ONE al TABLET(S) TABLET(S) (1) Healt h BY MOUTH BY MOUTH TABLET(S) [facility] EVERY SIX EVERY SIX BY MOUTH h HOURS HOURS EVERY SIX Pr ogram NEEDED FOR NEEDED FOR HOURS PAIN. PAIN. NEEDED FOR PAIN. Accu-Chek Accu-Chek No Accu-Chek [facility] Guide Me Guide Me Guide Me da Glucose Glucose Glucose [facility] p Meter USE Meter USE Meter USE al DAILY DAILY DAILY [facility] DIRECTED DIRECTED DIRECTED Out reac h Program Accu-Chek Accu-Chek No Accu-Chek [facility] Guide test Guide test Guide test da strips strips strips [facility] Check Check Check al glucose bid glucose bid glucose Health bid Outreac h Program acetaminoph acetaminoph No 1 Q8H acetaminop [facility] en 300 en 300 hen 300 da mg-codeine mg-codeine mg-codeine [facility] 30 mg 30 mg 30 mg al tablet Take tablet Take tablet Health 1 tablet 1 tablet Take 1 Outre ac every 8 every 8 tablet h hours by hours by every 8 Prog neli oral route oral route hours by as needed as needed oral route for 7 days. for 7 days. as needed for 7 days. atorvastati atorvastati No 1 Q1D atorvastat [facility] n 10 mg n 10 mg in 10 mg da tablet Take tablet Take tablet [facility] 1 tablet 1 tablet Take 1 al every day every day tablet [facility]a [facility] by oral by oral every day Outr eac route in route in by oral h the the route in Program evening. evening. the evening. Benadryl Benadryl No Benadryl [facility] Allergy Allergy Allergy da [facility] Program D3 50 D3-1999 50 No D3 50 [facility] mcg (2,000 mcg (2,000 mcg (2,000 da unit) unit) unit) [facility] capsule capsule capsule al TAKE 1 TAKE 1 TAKE 1 Health TABLET BY TABLET BY TABLET BY Outreac MOUTH DAILY MOUTH DAILY MOUTH h DAILY Program desmopressi desmopressi No desmopress [facility] n 0.2 mg n 0.2 mg in 0.2 mg da tablet TAKE tablet TAKE tablet [facility] ONE (1) ONE (1) TAKE ONE al TABLET(S) TABLET(S) (1) Healt h BY MOUTH BY MOUTH TABLET(S) [facility] treac EVERY EVERY BY MOUTH h EVENING. EVENING. EVERY Progra m EVENING. lisinopril lisinopril No 1 Q1D lisinopril [facility] 5 mg tablet 5 mg tablet 5 mg d a Take 1 Take 1 tablet [facility] tablet tablet Take 1 al every day every day tablet [facility]a [facility]th by oral by oral every day Outr eac route in route in by oral h the the route in Program morning. morning. the morning. metformin metformin No metformin [facility] ER 500 mg ER 500 mg ER 500 mg da tablet,exte tablet,exte tablet,ext [facility] nded nded ended al release 24 release 24 release 24 Health hr TAKE 2 hr TAKE 2 hr TAKE 2 Outreac TABLETS BY TABLETS BY TABLETS BY h MOUTH TWICE MOUTH TWICE MOUTH Program DAILY DAILY TWICE DAILY norethindro norethindro No 1 Q1D norethindr [place] ne ne one da (contracept (contracept (contracep [facility] [place]) 0.35 dorota) 0.35 tive) 0.35 al mg tablet mg tablet mg tablet Health Take 1 Take 1 Take 1 Outreac tablet tablet tablet h every day every day every day Program by oral by oral by oral route. route. route. OneTouch OneTouch No OneTouch [facility] UltraSoft UltraSoft UltraSoft da Lancets USE Lancets USE Lancets [facility] DIRECTED DIRECTED USE al DAILY TO DAILY TO DIRECTED Hea [facility]th TEST BLOOD TEST BLOOD DAILY TO Outreac GLUCOSE GLUCOSE TEST BLOOD h LEVELS. LEVELS. GLUCOSE Progra m LEVELS. Ozempic Ozempic No Ozempic [facility] 0.25 mg or 0.25 mg or 0.25 mg or da 0.5 mg (2 0.5 mg (2 0.5 mg (2 [facility] mg/3 mL) mg/3 mL) mg/3 mL) al subcutaneou subcutaneou subcutaneo Health s pen s pen us pen Outreac injector injector injector h Inject 0.5 Inject 0.5 Inject 0.5 Program mg every mg every mg every week by week by week by subcutane subcutane subcutaneo s route for s route for us route 90 days. 90 days. for 90 days. Ozempic 1 Ozempic 1 No 1mg Q1W Ozempic 1 [facility] mg/dose (4 mg/dose (4 mg/dose (4 da mg/3 mL) mg/3 mL) mg/3 mL) Epi scop subcutaneou subcutaneou subcutaneo al s pen s pen us pen Health injector injector injector Out reac Inject 1 mg Inject 1 mg Inject 1 h every week every week mg every Program by by week by subcutane subcutane subcutaneo s route for s route for us route 90 days. 90 days. for 90 days. terbinafine terbinafine No terbinafin [facility] HCl 250 mg HCl 250 mg e HCl 250 da tablet TAKE tablet TAKE mg tablet [facility] ONE (1) ONE (1) TAKE ONE al TABLET(S) TABLET(S) (1) Healt h BY MOUTH BY MOUTH TABLET(S) [facility] treac DAILY. DAILY. BY MOUTH h DAILY. Program tramadol 50 tramadol 50 No tramadol [facility] mg tablet mg tablet 50 mg da TAKE ONE TAKE ONE tablet [facility] (1) (1) TAKE ONE al TABLET(S) TABLET(S) (1) Healt h BY MOUTH BY MOUTH TABLET(S) [facility] EVERY SIX EVERY SIX BY MOUTH h HOURS HOURS EVERY SIX Pr ogram NEEDED FOR NEEDED FOR HOURS PAIN. PAIN. NEEDED FOR PAIN. Accu-Chek Accu-Chek No Accu-Chek [facility] Guide Me Guide Me Guide Me da Glucose Glucose Glucose [facility] p Meter USE Meter USE Meter USE al DAILY DAILY DAILY [facility] DIRECTED DIRECTED DIRECTED Out reac h Program Accu-Chek Accu-Chek No Accu-Chek [facility] Guide test Guide test Guide test da strips strips strips [facility] Check Check Check al glucose bid glucose bid glucose Health bid Outreac h Program acetaminoph acetaminoph No 1 Q8H acetaminop [facility] en 300 en 300 hen 300 da mg-codeine mg-codeine mg-codeine [facility] 30 mg 30 mg 30 mg al tablet Take tablet Take tablet Health 1 tablet 1 tablet Take 1 Outre ac every 8 every 8 tablet h hours by hours by every 8 Prog neli oral route oral route hours by as needed as needed oral route for 7 days. for 7 days. as needed for 7 days. atorvastati atorvastati No 1 Q1D atorvastat [facility] n 10 mg n 10 mg in 10 mg da tablet Take tablet Take tablet [facility] 1 tablet 1 tablet Take 1 al every day every day tablet [facility]a [facility]th by oral by oral every day Outr eac route in route in by oral h the the route in Program evening. evening. the evening. Benadryl Benadryl No Benadryl [facility] Allergy Allergy Allergy da [facility]re[facility] Program D3-1999 50 D3-1999 50 No D3 50 [facility] mcg (2,000 mcg (2,000 mcg (2,000 da unit) unit) unit) [facility] capsule capsule capsule al TAKE 1 TAKE 1 TAKE 1 Health TABLET BY TABLET BY TABLET BY Outreac MOUTH DAILY MOUTH DAILY MOUTH h DAILY Program desmopressi desmopressi No desmopress [facility] n 0.2 mg n 0.2 mg in 0.2 mg da tablet TAKE tablet TAKE tablet [facility] ONE (1) ONE (1) TAKE ONE al TABLET(S) TABLET(S) (1) Healt h BY MOUTH BY MOUTH TABLET(S) [facility] treac EVERY EVERY BY MOUTH h EVENING. EVENING. EVERY Progra m EVENING. lisinopril lisinopril No 1 Q1D lisinopril [facility] 5 mg tablet 5 mg tablet 5 mg d a Take 1 Take 1 tablet [facility] tablet tablet Take 1 al every day every day tablet Hea lth by oral by oral every day Outr eac route in route in by oral h the the route in Program morning. morning. the morning. metformin metformin No metformin [facility] ER 500 mg ER 500 mg ER 500 mg da tablet,exte tablet,exte tablet,ext [facility] nded nded ended al release 24 release 24 release 24 Health hr TAKE 2 hr TAKE 2 hr TAKE 2 Outreac TABLETS BY TABLETS BY TABLETS BY h MOUTH TWICE MOUTH TWICE MOUTH Program DAILY DAILY TWICE DAILY norethindro norethindro No 1 Q1D norethindr [place] ne ne one da (contracept (contracept (contracep [facility] [place]) 0.35 dorota) 0.35 tive) 0.35 al mg tablet mg tablet mg tablet Health Take 1 Take 1 Take 1 Outreac tablet tablet tablet h every day every day every day Program by oral by oral by oral route. route. route. OneTouch OneTouch No OneTouch [facility] UltraSoft UltraSoft UltraSoft da Lancets USE Lancets USE Lancets [facility] DIRECTED DIRECTED USE al DAILY TO DAILY TO DIRECTED Hea lth TEST BLOOD TEST BLOOD DAILY TO Outreac GLUCOSE GLUCOSE TEST BLOOD h LEVELS. LEVELS. GLUCOSE Progra m LEVELS. Ozempic Ozempic No Ozempic [facility] 0.25 mg or 0.25 mg or 0.25 mg or da 0.5 mg (2 0.5 mg (2 0.5 mg (2 [facility] mg/3 mL) mg/3 mL) mg/3 mL) al subcutaneou subcutaneou subcutaneo Health s pen s pen us pen Outreac injector injector injector h Inject 0.5 Inject 0.5 Inject 0.5 Program mg every mg every mg every week by week by week by subcutaneou subcutaneou subcutaneo s route for s route for us route 90 days. 90 days. for 90 days. Ozempic 1 Ozempic 1 No 1mg Q1W Ozempic 1 [facility] mg/dose (4 mg/dose (4 mg/dose (4 da mg/3 mL) mg/3 mL) mg/3 mL) Epi scop subcutaneou subcutaneou subcutaneo al s pen s pen us pen Health injector injector injector Out reac Inject 1 mg Inject 1 mg Inject 1 h every week every week mg every Program by by week by subcutaneou subcutaneou subcutaneo s route for s route for us route 90 days. 90 days. for 90 days. tramadol 50 tramadol 50 No tramadol [place] mg tablet mg tablet 50 mg da TAKE ONE TAKE ONE tablet [facility] (1) (1) TAKE ONE al TABLET(S) TABLET(S) (1) Healt h BY MOUTH BY MOUTH TABLET(S) Ou treac EVERY SIX EVERY SIX BY MOUTH h HOURS HOURS EVERY SIX Pr ogram NEEDED FOR NEEDED FOR HOURS PAIN. PAIN. NEEDED FOR PAIN. Immunizations Ordered Immunization Filled Immunization Date Status Commen ts Source Name Name pneumococcal pneumococcal 2020-01-28 Completed [place] polysaccharide PPV23 polysaccharide PPV23 12:22:00 [facility] pneumococcal pneumococcal 2020-01-28 Completed [place] polysaccharide PPV23 polysaccharide PPV23 12:22:00 [facility] pneumococcal pneumococcal 2020-01-28 Completed [place] polysaccharide PPV23 polysaccharide PPV23 12:22:00 [facility] pneumococcal pneumococcal 2020-01-28 Completed [place] polysaccharide PPV23 polysaccharide PPV23 12:22:00 [facility] pneumococcal pneumococcal 2020-01-28 Completed [place] polysaccharide PPV23 polysaccharide PPV23 12:22:00 [facility] pneumococcal pneumococcal 2020-01-28 Completed [place] polysaccharide PPV23 polysaccharide PPV23 12:22:00 [facility] pneumococcal pneumococcal 2020-01-28 Completed [place] polysaccharide PPV23 polysaccharide PPV23 12:22:00 [facility] pneumococcal pneumococcal 2020-01-28 Completed [place] polysaccharide PPV23 polysaccharide PPV23 12:22:00 [facility] pneumococcal pneumococcal 2020-01-28 Completed [place] polysaccharide PPV23 polysaccharide PPV23 12:22:00 [facility] Tdap Tdap 2020-01-28 Completed [place] 12:20:00 [facility] Tdap Tdap 2020-01-28 Completed [place] 12:20:00 [facility] Tdap Tdap 2020-01-28 Completed [place] 12:20:00 [facility] Tdap Tdap 2020-01-28 Completed [place] 12:20:00 [facility] Tdap Tdap 2020-01-28 Completed [place] 12:20:00 [facility] Tdap Tdap 2020-01-28 Completed [place] 12:20:00 [facility] Tdap Tdap 2020-01-28 Completed [place] 12:20:00 [facility] Tdap Tdap 2020-01-28 Completed [place] 12:20:00 [facility] Tdap Tdap 2020-01-28 Completed [place] 12:20:00 [facility] influenza, influenza, Unknown Completed [facility] unspecified unspecified Urology formulation formulation COVID-19 COVID-[address] [facility] (SARS-COV-2) (SARS-COV-2) Urology vaccine, unspecified vaccine, unspecified Tdap Tdap Unknown Completed [facility] Urolog pneumococcal pneumococcal Unknown Completed [facility] polysaccharide PPV23 polysaccharide PPV23 Urology pneumococcal pneumococcal Unknown Completed [place] polysaccharide PPV23 polysaccharide PPV23 [facility] Tdap Tdap Unknown Completed [place] [facility] Vital Signs Vital Name Observation Time Observation Value Comments Source BP Diastolic 2022-12-06 00:00:00 72 mm[Hg] [facility] Urology Body Weight 2022-12-06 00:00:00 159 [lb_av] [facility] Urology BP Systolic 2022-12-06 00:00:00 134 mm[Hg] [facility] Urology Height 2022-12-06 00:00:00 60 [in_i] 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 Index) [facility] BP Systolic 2022-11-22 00:00:00 137 mm[Hg] [place] [facility] Height 2022-11-22 00:00:00 61 [in_i] [place] [facility] Height 2022-11-01 00:00:00 61 [in_i] [place] [facility] Body Weight 2022-11-01 00:00:00 154 [lb_av] [place] [facility] BMI (Body Mass 2022-11-01 00:00:00 29.1 kg/m2 [facility] 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 Index) [facility] BP Systolic 2022-11-01 00:00:00 130 mm[Hg] [place] [facility] BP Diastolic 2022-11-01 00:00:00 72 mm[Hg] [place] [facility] BP Diastolic 2022-10-27 00:00:00 70 mm[Hg] [place] [facility] Body Weight 2022-10-27 00:00:00 2438 [oz_av] [place] [facility] BMI (Body Mass 2022-10-27 00:00:00 28.8 kg/m2 [facility] 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 Index) [facility] BP Systolic 2022-10-27 00:00:00 140 mm[Hg] [place] [facility] Height 2022-10-27 00:00:00 61 [in_i] [place] [facility] Systolic blood 2022-10-26 01:30:00 139 mm[Hg] Univer sity of pressure [facility] Diastolic blood 2022-10-26 01:30:00 83 mm[Hg] [facility] 2022-10-26 01:30:00 80 /min [facility] Respiratory rate 2022-10-26 01:30:00 14 /min [facility] Oxygen saturation in 2022-10-26 01:30:00 97 /min [facility] Arterial blood by [facility] Pulse oximetry [place] Body temperature 2022-10-25 23:37:00 37.22 Renu [facility] Body height 2022-10-25 23:37:00 157.5 cm [facility] Body weight 2022-10-25 23:37:00 72.122 kg [facility] BMI 2022-10-25 23:37:00 29.08 kg/m2 [facility] BP Diastolic 2022-09-15 00:00:00 77 mm[Hg] [place] [facility] Height 2022-09-15 00:00:00 61 [in_i] [place] [facility] BMI (Body Mass 2022-09-15 00:00:00 30.1 kg/m2 [facility] 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 Index) [facility] BP Systolic 2022-09-15 00:00:00 122 mm[Hg] [place] [facility] Body Weight 2022-09-15 00:00:00 2553 [oz_av] [place] [facility] BP Diastolic 2022-08-09 00:00:00 77 mm[Hg] [place] [facility] Height 2022-08-09 00:00:00 61 [in_i] [place] [facility] BMI (Body Mass 2022-08-09 00:00:00 31.4 kg/m2 [facility] 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 Index) [facility] BP Systolic 2022-08-09 00:00:00 134 mm[Hg] [place] [facility] Body Weight 2022-08-09 00:00:00 2663 [oz_av] [place] [facility] BP Diastolic 2022-07-05 00:00:00 71 mm[Hg] [place] [facility] Height 2022-07-05 00:00:00 61 [in_i] [place] [facility] BMI (Body Mass 2022-07-05 00:00:00 31 kg/m2 [place] 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 Index) [facility] BP Systolic 2022-07-05 00:00:00 130 mm[Hg] [place] [facility] Body Weight 2022-07-05 00:00:00 2629 [oz_av] [place] [facility] BP Diastolic 2022-05-05 00:00:00 89 mm[Hg] [place] [facility] Height 2022-05-05 00:00:00 61 [in_i] [place] [facility] BMI (Body Mass 2022-05-05 00:00:00 31.2 kg/m2 [place] 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 Index) [facility] BP Systolic 2022-05-05 00:00:00 139 mm[Hg] [place] [facility] Body Weight 2022-05-05 00:00:00 2641 [oz_av] [place] [facility] BP Diastolic 2022-01-04 00:00:00 80 mm[Hg] [place] [facility] Height 2022-01-04 00:00:00 61 [in_i] [place] [facility] BMI (Body Mass 2022-01-04 00:00:00 31.2 kg/m2 [place] 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 Index) [facility] BP Systolic 2022-01-04 00:00:00 140 mm[Hg] [place] [facility] Body Weight 2022-01-04 00:00:00 2642 [oz_av] [place] [facility] BP Diastolic 2021-09-21 00:00:00 75 mm[Hg] [place] [facility] Height 2021-09-21 00:00:00 61 [in_i] [place] [facility] BMI (Body Mass 2021-09-21 00:00:00 30.7 kg/m2 [place] 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 Index) [facility] BP Systolic 2021-09-21 00:00:00 144 mm[Hg] [place] [facility] Body Weight 2021-09-21 00:00:00 2596 [oz_av] [place] [facility] BP Diastolic 2021-05-25 00:00:00 78 mm[Hg] [place] [facility] Height 2021-05-25 00:00:00 61 [in_i] [place] [facility] BMI (Body Mass 2021-05-25 00:00:00 30.4 kg/m2 [place] 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 Index) [facility] BP Systolic 2021-05-25 00:00:00 134 mm[Hg] [place] [facility] Body Weight 2021-05-25 00:00:00 2576 [oz_av] [place] [facility] BP Diastolic 2021-02-20 00:00:00 79 mm[Hg] [place] [facility] Height 2021-02-20 00:00:00 61 [in_i] [place] [facility] BMI (Body Mass 2021-02-20 00:00:00 30.3 kg/m2 [place] 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 Index) [facility] BP Systolic 2021-02-20 00:00:00 131 mm[Hg] [place] [facility] Body Weight 2021-02-20 00:00:00 2561.6 [oz_av] [place] 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 BP Diastolic 2020-05-05 00:00:00 73 mm[Hg] [place] [facility] Height 2020-05-05 00:00:00 61 [in_i] [place] [facility] BMI (Body Mass 2020-05-05 00:00:00 30.6 kg/m2 [place] 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 Index) [facility] BP Systolic 2020-05-05 00:00:00 125 mm[Hg] [place] [facility] Body Weight 2020-05-05 00:00:00 2592 [oz_av] [place] [facility] BP Diastolic 2020-01-28 00:00:00 76 mm[Hg] [place] [facility] Height 2020-01-28 00:00:00 61 [in_i] [place] [facility] BMI (Body Mass 2020-01-28 00:00:00 30.8 kg/m2 [place] 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 Index) [facility] BP Systolic 2020-01-28 00:00:00 130 mm[Hg] [place] [facility] Body Weight 2020-01-28 00:00:00 2609.6 [oz_av] [place] 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 [facility] Height 2019-11-02 00:00:00 61 [in_i] [place] [facility] BP Diastolic 2019-07-30 00:00:00 82 mm[Hg] [place] [facility] Height 2019-07-30 00:00:00 61 [in_i] [place] [facility] BMI (Body Mass 2019-07-30 00:00:00 31.5 kg/m2 [place] 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 Index) [facility] BP Systolic 2019-07-30 00:00:00 131 mm[Hg] [place] [facility] Body Weight 2019-07-30 00:00:00 2665 [oz_av] [place] [facility] BP Diastolic 2019-04-30 00:00:00 78 mm[Hg] [place] [facility] Height 2019-04-30 00:00:00 61 [in_i] [place] [facility] BMI (Body Mass 2019-04-30 00:00:00 32.4 kg/m2 [place] 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 Index) [facility] BP Systolic 2019-04-30 00:00:00 131 mm[Hg] [place] [facility] Body Weight 2019-04-30 00:00:00 171.7 [lb_av] [place] [facility] BP Diastolic 2019-04-25 00:00:00 83 mm[Hg] [place] [facility] Height 2019-04-25 00:00:00 61 [in_i] [place] [facility] BMI (Body Mass 2019-04-25 00:00:00 32.1 kg/m2 [place] 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 Index) [facility] BP Systolic 2019-04-25 00:00:00 136 mm[Hg] [place] [facility] Body Weight 2019-04-25 00:00:00 169.8 [lb_av] [place] [facility] BP Diastolic 2019-03-05 00:00:00 93 mm[Hg] [place] [facility] Height 2019-03-05 00:00:00 61 [in_i] [place] [facility] BMI (Body Mass 2019-03-05 00:00:00 31.7 kg/m2 [place] 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 Index) [facility] BP Systolic 2019-03-05 00:00:00 150 mm[Hg] [place] [facility] Body Weight 2019-03-05 00:00:00 168 [lb_av] [place] [facility] BP Diastolic 2019-02-02 00:00:00 90 mm[Hg] [place] [facility] Height 2019-02-02 00:00:00 61 [in_i] [place] [facility] BMI (Body Mass 2019-02-02 00:00:00 32 kg/m2 [place] 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 Index) [facility] BP Systolic 2019-02-02 00:00:00 150 mm[Hg] [place] [facility] Body Weight 2019-02-02 00:00:00 169.4 [lb_av] [place] [facility] Procedures Procedure Date / Time Performing Clinician Source Performed MAMMO, screening, 2022-11-01 00:00:00 [place] [facility] ABDOMEN PELVIS WO 2022-10-26 00:26:00 Ya Shields [facility] CONTRAST [facility] Branch LIPASE 2022-10-26 00:15:00 Ya Shields [facility] COMP. METABOLIC PANEL 2022-10-26 00:15:00 Ya Shields [facility] ([id number]) Medical Branch CBC WITH DIFF 2022-10-26 00:15:00 Ya Shields [facility] URINALYSIS 2022-10-26 00:15:00 Ya Shields [facility] RAPID STREP SCREEN FOR 2022-10-26 00:15:00 Ya Shields [facility] GROUP A [facility] RAPID INFLUENZA A/B 2022-10-26 00:15:00 Ya Shields [facility] CONSENT/REFUSAL FOR 2022-10-25 23:28:59 Doctor Delaney [facility] DIAGNOSIS AND TREATMENT [place] [facility] NOTICE OF PRIVACY 2022-10-25 23:28:23 Doctor Delaney [facility] PRACTICES [place] [facility] MAMMO, screening, digital, 2021-05-25 00:00:00 M caseygoreyna [facility] MAMMO, screening, 2019-02-02 00:00:00 [place] [facility] CHEST X-RAY 2019-02-02 00:00:00 [place] [facility] Tubal Ligation [place] [facility] Hernia Repair W/mesh [place] [facility] Appendectomy [place] [facility] Cholecystectomy [place] [facility] Plan of Care Planned Activity Planned Date Details Comments Source Diagnostic Test 2022-12-06 urinalysis, [place] r o Pending 00:00:00 dipstick [code = Urology urinalysis, dipstick] Diagnostic Test 2022-11-22 HbA1c (hemoglobin [place] [facility] Pending 00:00:00 A1c), blood [code = Health O utreach HbA1c (hemoglobin Program A1c), blood] Diagnostic Test 2022-11-22 CMP, serum or [place] [facility] Pending 00:00:00 plasma [code = CMP, Health O [facility]reach serum or plasma] Program Diagnostic Test 2022-11-22 CBC w/ auto diff [place] [facility] Pending 00:00:00 [code = CBC w/ auto Health O [facility]reach diff] Program Diagnostic Test 2022-11-22 vitamin D, [place] [facility] Pending 00:00:00 25-hydroxy, total, Health Ou tre[place] serum [code = Program vitamin D, 25-hydroxy, total, serum] Future Appointment 2023-03-01 Vincenzo Tucker [facility] 09:30:[address]; , [place] [address] Program Future Appointment 2023-01-06 Ward Sewell 00:00:[id number] [facility] Urology [facility] [address]; , [place] [address] Encounters Start End Encounter Admission Attending Care Care Encounter Source Date/Time Date/Time Type Type Clinicians Facility Department ID 2022-12-31 2022-12-31 Outpatient R RADIOLOGY [facility] [id number] Univers 00:00:00 00:00:00 ity of [facility] 2022-12-24 2022-12-24 Outpatient Cayla [place] AKSAGAR [id number] [place] 00:00:00 00:00:00 1103 [facility] 2022-12-06 2022-12-06 Outpatient Schiffman_Z [facility] 501 [id number] [place] 00:00:00 00:00:00 [id number] [facility] 2022-12-06 2022-12-06 Outpatient Schiffman_Z [facility] 501 4 [place] 00:00:00 00:00:00 [id number] [facility] 2022-12-06 2022-12-06 Otoniel U [place] - [id number] H gal 00:00:00 00:00:00 Ward Morrow MD: [id number] [facility] Urology BRANDEN [facility] [address], [place] [address] , Ph. 2022-12-05 2022-12-05 Outpatient Schiffman_Z [facility] 501 4 [place] 00:00:00 00:00:00 [id number] [facility] 2022-11-25 2022-11-25 Outpatient Schiffman_Z [facility] 501 4 [place] 00:00:00 00:00:00 [id number] [facility] 2022-11-25 2022-11-25 Outpatient Schiffman_Z U [facility] 501 4 [place] 00:00:00 00:00:00 [id number] [facility] 2022-11-23 2022-11-23 Outpatient Ravi_Rossy MOJICA [facility] [id number] [place] 00:00:00 00:00:00 1003 [facility] 2022-11-22 2022-11-22 Outpatient Cayla MOJICA [facility] [id number] [place] 00:00:00 00:00:00 1002 [facility] 2022-11-22 2022-11-22 Rossy MO[place] - [id number] M [place] 00:00:00 00:00:00 BRANDEN Rodrigues: Rachelle brewster [id number] [facility] [address] HOP - MEHOP al [facility] [phone] Walsh , Ph. Program 2022-11-19 2022-11-19 Outpatient Lezak_Javiyla [facility] [id number] [place] 00:00:00 00:00:00 0929 [facility] 2022-11-16 2022-11-16 Outpatient Armstrong_B U [facility] 501 [id number] [place] 00:00:00 00:00:00 [id number] [facility] 2022-11-11 2022-11-11 Outpatient Lezak_Javiyla [facility] [id number] [place] 00:00:00 00:00:00 0926 [facility] 2022-11-01 2022-11-01 Outpatient Armstrong_B U U 501 [id number] [place] 00:00:00 00:00:00 [id number] [facility] 2022-11-01 2022-11-01 Outpatient Armstrong_B U U 501 [id number] [place] 00:00:00 00:00:00 [id number] [facility] 2022-11-01 2022-11-01 Outpatient Armstrong_B U U 501 [id number] [place] 00:00:00 00:00:00 [id number] [facility] 2022-11-01 2022-11-01 Bonny [facility] [place] - [id number] [place] 00:00:00 00:00:00 Emilee Bryanteni-Ibit [facility] vin boyer MD: [facility] 2 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 [phone] 2022-10-27 2022-10-27 Outpatient Lezak_Javiyla [facility] [id number] [place] 00:00:00 00:00:00 [id number] [facility] 2022-10-27 2022-10-27 Outpatient Lezak_Javiyla [facility] [id number] [place] 00:00:00 00:00:00 0911 [facility] 2022-10-27 2022-10-27 Outpatient LezakSolo MEHOP MEHOP [id number] [place] 00:00:00 00:00:00 0913 [facility] 2022-10-27 2022-10-27 Outpatient Lezak_Rossy MEHOP MEHOP [id number] [place] 00:00:00 00:00:00 0915 [facility] 2022-10-27 2022-10-27 Outpatient LezakLisayla MEHOP MEHOP [id number] [place] 00:00:00 00:00:00 0919 [facility] 2022-10-27 2022-10-27 Outpatient Lezak_Javiyla MEHOP MEHOP [id number] [place] 00:00:00 00:00:00 0920 [facility] 2022-10-27 2022-10-27 Rossy Glass [facility] [place] - [id number] M atagor 00:00:00 00:00:00 BRANDEN Rodrigues: Rachelle brewster [phone] [facility] [address] HOP - AKHOP [facility] Outre [id number] [facility] , Ph. Program 2022-10-26 2022-10-26 Patient Doctor KHOI [id number] Univers 00:00:00 00:00:00 Secure Msg Unassigned, BRITTANY [id number] [facility] [id number] Edgar [id number] [facility] 019 Branch 2022-10-25 2022-10-25 Emergency [facility] [id number] Univers 18:40:00 21:05:00 Ya SANCHEZ [id number] ity of [place] [id number] [facility] [id number] [facility] 084 Branch 2022-10-25 2022-10-25 Emergency X [facility] ERT [id number] Univers 18:40:00 21:05:00 [facility] 2022-09-17 2022-09-17 Outpatient SFA [facility] [id number] [place] 15:03:42 15:03:42 [id number] Ijeoma Cortés 2022-09-15 2022-09-15 Rossy MO[place] - [id number] M [place] 00:00:00 00:00:00 BRANDEN Rodrigues: Rachelle brewster [id number] [place] [facility] [address] HOP - MEHOP [facility] Outreac [id number] Marie frederick , Ph. Program 2022-09-07 2022-09-07 Outpatient Lezak_Kayla MEHOP MEHOP [id number] [place] 00:00:00 00:00:00 0718 [facility] 2022-09-07 2022-09-07 Outpatient Lezak_aJviyla MEHOP MEHOP [id number] [place] 00:00:00 00:00:00 0726 [facility] 2022-09-07 2022-09-07 Outpatient Lezak_Javiyla MEHOP MEHOP [id number] [place] 00:00:00 00:00:00 0727 [facility] 2022-08-09 2022-08-09 Outpatient Lezak_Javiyla MEHOP MEHOP [id number] [place] 00:00:00 00:00:00 0619 [facility] 2022-08-09 2022-08-09 Outpatient Lezak_Javiyla MEHOP MEHOP [id number] [place] 00:00:00 00:00:00 0620 [facility] 2022-08-09 2022-08-09 Rossy [place] - [id number] M [place] 00:00:00 00:00:00 BRANDEN Rodrigues: Rachelle brewster [id number] [place] [facility] [address] HOP - MEHOP [facility] Outreac [id number] Marie frederick , Ph. Program 2022-07-05 2022-07-05 Outpatient LezakSolo DONALDHOP MEHOP [id number] [place] 00:00:00 00:00:00 0515 [facility] 2022-07-05 2022-07-05 Outpatient LezakSolo DONALDHOP MEHOP [id number] [place] 00:00:00 00:00:00 0516 [facility] 2022-07-05 2022-07-05 Rossy Quan [facility] [place] - [id number] M atagor 00:00:00 00:00:00 BRANDEN Rodrigues: Rachelle brewster [id number] [place] [facility] [address] HOP - [facility] Outre [phone] Marie frederick , Ph. Program 2022-05-27 2022-05-27 Outpatient Lezak_Hueya MEHOP AKHOP [id number] [place] 00:00:00 00:00:00 0512 [facility] 2022-05-05 2022-05-05 Outpatient Lezak_Javiyla MEHOP MEHOP [id number] [place] 00:00:00 00:00:00 0315 [facility] 2022-05-05 2022-05-05 Outpatient LezakSkinnya MEHOP MEHOP [id number] [place] 00:00:00 00:00:00 0316 [facility] 2022-05-05 2022-05-05 Rossy Quan [facility] [place] - [id number] M at[place]or 00:00:00 00:00:00 BRANDEN Rodrigues: Rachelle brewster [id number] [place] [facility] HOP - [facility] [address], [facility] Program [id number] , Ph. 2022-01-04 2022-01-04 Outpatient LezakSkinnya MEHOP MEHOP [id number] [place] 00:00:00 00:00:00 1114 [facility] 2022-01-04 2022-01-04 Rossy [place] - [id number] M at[place] 00:00:00 00:00:00 BRANDEN Rodrigues: Rachelle brewster [phone] [place] [facility] [address] [facility] [place] Program [phone] , Ph. 2021-10-06 2021-10-06 Outpatient Lezak_Rossy AKHOP AKHOP 793 [place] 00:00:00 00:00:00 0816 [facility] 2021-09-21 2021-09-21 Outpatient Lezak_Hueya AK[facility]OP AK[facility]OP [address] [place] 00:00:00 00:00:00 [facility] 2021-09-21 2021-09-21 Ross[place] - [id number] M [place] 00:00:00 00:00:00 BRANDEN Rodrigues: Rachelle brewster [id number] [facility] [place] [facility] [id number] , Ph. 2021-09-17 2021-09-17 Outpatient Lezak_Javiyla AKHOP AKHOP 793 [address] [place] 00:00:00 00:00:00 [facility] 2021-09-09 2021-09-09 Outpatient Lezak_Javiyla MEHOP MEHOP 793 [address] [place] 11:24:00 11:24:00 0720 [facility] 2021-05-25 2021-05-25 Outpatient Lezak_Javiyla AKHOP MEHOP [address] [place] 02:12:00 02:12:00 0404 [facility] 2021-05-25 2021-05-25 Rossy Glass [facility] [place] - [id number] Jamir [place] 00:00:00 00:00:00 BRANDEN Rodrigues: Rachelle brewster [address] [facility] [address] [facility] Program [address] , Ph. 2021-03-30 2021-03-30 Outpatient Lezak_Javiyla AKHOP [facility] [address] [place] 02:57:00 02:57:00 0207 [facility] 2021-02-20 2021-02-20 Outpatient Lezak_Javiyla AKHOP [facility] [address] [place] 04:09:00 04:09:00 1231 [facility] 2021-02-20 2021-02-20 Aixa [place] - [id number] Jamir [place] 00:00:00 00:00:00 Nelson James, [facility] NEWS ASSIGNMENT EDITOR-BC: [facility] [address] [facility] 59 [facility] [address] [place] [address] , Ph. 2021-02-18 2021-02-18 Outpatient Lezak_Javiyla AKHOP [facility] [address] [place] 11:07:00 11:07:00 1229 [facility] 2021-02-10 2021-02-10 Outpatient Lezak_Javiyla AKHOP [facility] 793 [address] [place] 11:25:00 11:25:00 1221 [facility] 2020-05-05 2020-05-05 Outpatient Lezak_Javiyla AKHOP AK[facility]OP 793 [address] [place] 02:08:00 02:08:00 0315 [facility] 2020-05-05 2020-05-05 Rossy Glass [place] - [id number] M [place] 00:00:00 00:00:00 BRANDEN Rodrigues: Rachelle brewster [address] [facility] HOP - [facility] [address], [facility] [place] Program [address] , Ph. 2020-04-21 2020-04-21 Outpatient Lezak_Kayla MEHOP MEHOP [address]93 [address] [place] 02:24:00 02:24:00 0301 [facility] 2020-02-18 2020-02-18 Outpatient Lezak_Kayla MEHOP MEHOP [address] [place] 01:03:00 01:03:00 1228 [facility] 2020-01-28 2020-01-28 Outpatient Lezak_Kayla MEHOP MEHOP [address] [place] 04:34:00 04:34:00 1207 [facility] 2020-01-28 2020-01-28 Rossy Glass [facility] [place] - [id number] [place] 00:00:00 00:00:00 BRANDEN Rodrigues: Rachlele brewster [id number] [facility] [address] [facility] [address], [facility] [place] Program [address] , Ph. 2020-01-14 2020-01-14 Outpatient Lezak_Kayla MEHOP MEHOP [address] [place] 01:02:00 01:02:00 1123 [facility] 2019-12-09 2019-12-09 Outpatient Lezak_Kayla MEHOP MEHOP [address] [place] 01:01:00 01:01:00 1018 [facility] 2019-12-06 2019-12-06 Khalif [facility] [id number] [facility] 09:30:00 09:30:00 LEIGH sotomayor [facility] 2019-11-07 2019-11-07 Outpatient Lezak_Kayla MEHOP MEHOP 793 [address] [place] 10:25:00 10:25:00 0916 [facility] 2019-11-03 2019-11-03 Outpatient LezakSolo MEHOP MEHOP [address] [place] 12:22:00 12:22:00 0912 [facility] 2019-11-02 2019-11-02 Outpatient LezakSolo DONALDHOP MEHOP [address] [place] 12:04:00 12:04:00 0911 [facility] 2019-11-02 2019-11-02 Rossy Glass [facility] [place] - [id number] M [place] 00:00:00 00:00:00 BRANDEN Rodrigues: Rachelle brewster [address] [place] [facility] [place] [facility] [address] , Ph. 2019-11-01 2019-11-01 Outpatient LezakSolo MEHOP MEHOP [address] [place] 01:23:00 01:23:00 0910 [facility] 2019-09-18 2019-09-18 Outpatient LezakSolo MEHOP MEHOP [address]93 [place] 03:08:00 03:08:00 0728 [facility] 2019-07-30 2019-07-30 Outpatient LezakSolo MEHOP MEHOP [address]93 [place] 05:15:00 05:15:00 0608 [facility] 2019-07-30 2019-07-30 Rossy Glass [place] - [id number] M [place] 00:00:00 00:00:00 BRANDEN Rodrigues: Rachelle brewster [address] [place] [facility] [place] [facility] [address] , Ph. 2019-07-10 2019-07-10 Outpatient LezakLisayla MEHOP MEHOP [address] [place] 12:30:00 12:30:00 0519 [facility] 2019-06-05 2019-06-05 Outpatient LezakSolo MEHOP MEHOP 793 [address] [place] 12:38:00 12:38:00 0414 [facility] 2019-05-01 2019-05-01 Outpatient PriyankazakSolo DONALDHOP MEHOP [address]93 [place] 03:08:00 03:08:00 0310 [facility] 2019-04-30 2019-04-30 Outpatient LezakSolo MEHOP MEHOP [address]93 [place] 02:20:00 02:20:00 0309 [facility] 2019-04-30 2019-04-30 Rossy J [facility] [place] - [id number] M [place] 00:00:00 00:00:00 BRANDEN Rodrigues: Rachelle brewster [address] [place] [facility] HOP - [facility]OP [facility] [address] [place] [facility] [address] , Ph. 2019-04-25 2019-04-25 Outpatient StacikSolo MEHOP MEHOP [address] [place] 05:58:00 05:58:00 0304 [facility] 2019-04-25 2019-04-25 Rossy Quan [facility] [place] - [id number] M [place] 00:00:00 00:00:00 BRANDEN Rodrigues: Rachelle brewster [address] [place] [facility] HOP - AK[facility] [address] [place] [facility] [address] , Ph. 2019-03-06 2019-03-06 Outpatient Palermo_Javii MEHOP MEHOP [address] [place] 11:54:00 11:54:00 tlin 0114 [facility] 2019-03-05 2019-03-05 Outpatient Palermo_Kai MEHOP MEHOP [address]93 [place] 12:06:00 12:06:00 tlin 0113 [facility] 2019-03-05 2019-03-05 Jared [place] - [id number] M [place] 00:00:00 00:00:00 Nathaniel Heard MD: [facility] [address] [facility] [address], [facility] [place] Outre [address] h , Ph. Program 2019-02-02 2019-02-02 Aixa [place] - [id number] M atagor 00:00:00 00:00:00 Nelson James, [facility] LOFTSMAN/WOMAN, S: [facility] [address], [address], [place] [address] , Ph. 2017-12-23 2017-12-23 Outpatient C [facility] RAD [id number] [address] 16:52:00 23:59:00 [facility] 2014-04-20 2014-04-20 Emergency E BA, [facility] ECC [id number] [address] 16:59:00 19:05:00 [facility] Results Test Description Test Time Test Comments Results Result Comments Source Urinalysis macro (dipstick) panel - Urine 2022-12-06 15:06:0 0 Test Item Value Reference Range Interpretation Comme nts leukocytes (test code = negative neg leukocytes) urobilinogen (test code = 0.2 E.U./dL sm amt (.5-1mg/dL) urobilinogen) protein (test code = negative See_Comment [Autom ated message] The protein) system which ge nerated this result tra nsmitted reference range : <=150 mg/d. The refer ence range was not used to interpret this result as normal/abnormal . pH (test code = pH) 6.5 4.5-8 blood (test code = blood) trace-intact See_Comment A [ Automated message] The system which ge nerated this result tra nsmitted reference range : <=3 RBC. The reference r shun was not used to int erpret this result as normal/abnormal . specific gravity (test 1.020 1.005-1.025 code = specific gravity) ketone (test code = negative none ketone) bilirubin (test code = negative neg bilirubin) glucose (test code = negative See_Comment [Autom ated message] The glucose) system which ge nerated this result tra nsmitted reference range : <=130 mg/d. The refer ence range was not used to interpret this result as normal/abnormal . color (test code = color) yellow yellow clarity (test code = clear clear or cloudy clarity) nitrite (test code = negative neg nitrite) [facility] UrologyBacterial vaginosis and vaginitis DNA panel - Vaginal fluid by Probe with signal [id number] 00:00:00 Test Item Value Reference Range Interpretation Comments bv result (test code = bv positive A result) lactobacillus spp. (test code = not detected lactobacillus spp.) gardnerella vaginalis (test code detected = gardnerella vaginalis) atopobium vaginae (test code = detected atopobium vaginae) bvab2 (test code = bvab2) detected megasphera spp. (test code = detected megasphera spp.) mobiluncus curtisii (test code = not detected mobiluncus curtisii) mobiluncus mulieris (test code = not detected mobiluncus mulieris) prevotella bivia (test code = not detected prevotella bivia) lactobacillus iners (test code = detected lactobacillus iners) specimen (test code = specimen) see note emy albicans (test code = not detected emy albicans) emy glabrata (test code = not detected emy glabrata) emy parapsilosis (test code not detected = emy parapsilosis) emy tropicalis (test code = not detected emy tropicalis) emy krusei (test code = not detected emy krusei) trichomonas, naat (test code = negative negative trichomonas, naat) [facility] Programpap, IG + CT/NG + HR [id number] 00:00:00 Test Item Value Reference Range Interpretation Comments source: (test code = unspecified source:) slides: (test code = 1 slides:) LMP: (test code = not given LMP:) specimen adequacy: (note) (test code = specimen adequacy:) interpretation: (test nilm/no epith. code = abnormality;see below interpretation:) button broacher: SCOTT christine(ascp) (test code = IAC button broacher:) location: (test code = (note) location:) CPT: (test code = (note) CPT:) HPV high risk interp negative negative (test code = HPV high risk interp) HPV 16 (test code = negative HPV 16) HPV 18 (test code = negative HPV 18) HPV, HR, other negative genotypes (test code = HPV, HR, other genotypes) gonorrhea, naat, negative negative thinprep (test code = gonorrhea, naat, thinprep) chlamydia, naat, negative negative thinprep (test code = chlamydia, naat, thinprep) [facility] Neisseria gonorrhoeae and Trichomonas vaginalis DNA panel - Specimen by MIGUEL with probe [id number] 00:00:00 Test Item Value Reference Range Interpretation Comments Chlamydia trachomatis rRNA negative negative [Presence] in Specimen by MIGUEL with probe detection (test code = 64905-7) Neisseria gonorrhoeae rRNA negative negative [Presence] in Specimen by MIGUEL with probe detection (test code = 61556-2) Trichomonas vaginalis rRNA negative negative [Presence] in Specimen by MIGUEL with probe detection (test code = 76151-9) [facility] - Serum or Plasma by MIGUEL with probe [id number] 00:00:00 Test Item Value Reference Range Interpretation Comments HIV 1 RNA [Presence] in Serum or non reactive non reactive Plasma by MIGUEL with probe detection (test code = 65041-9) HIV 2 RNA [Presence] in Serum or non reactive non reactive Plasma by MIGUEL with probe detection (test code = 37649-3) [facility] panel - Serum or [id number] 00:00:00 Test Item Value Reference Range Interpretation Comments Glucose [Mass/volume] in Serum 91 mg/dL 70-99 or Plasma (test code = 2345-7) Urea nitrogen [Mass/volume] in 10 mg/dL 6-24 Serum or Plasma (test code = 3094-0) Creatinine [Mass/volume] in 0.83 mg/dL 0.57-1.00 Serum or Plasma (test code = 2160-0) Glomerular filtration 86 mL/min/1.73 >59 rate/1.73 sq M.predicted [Volume Rate/Area] in Serum, Plasma or Blood by Creatinine-based formula (CKD-EPI 2020) (test code = 41284-4) Urea nitrogen/Creatinine [Mass 12 9-23 Ratio] in Serum or Plasma (test code = 3097-3) Sodium [Moles/volume] in Serum 142 mmol/L 134-144 or Plasma (test code = 2951-2) Potassium [Moles/volume] in 4.5 mmol/L 3.5-5.2 Serum or Plasma (test code = 2823-3) Chloride [Moles/volume] in 103 mmol/L 96-106 Serum or Plasma (test code = 2074-0) Carbon dioxide, total 23 mmol/L 20-29 [Moles/volume] in Serum or Plasma (test code = 2027-) Calcium [Mass/volume] in Serum 9.4 mg/dL 8.7-10.2 or Plasma (test code = 47243-8) Protein [Mass/volume] in Serum 7.1 g/dL 6.0-8.5 or Plasma (test code = 2885-2) Albumin [Mass/volume] in Serum 4.8 g/dL 3.9-4.9 or Plasma (test code = 1751-7) Globulin [Mass/volume] in 2.3 g/dL 1.5-4.5 Serum by calculation (test code = 64251-2) Albumin/Globulin [Mass Ratio] 2.1 1.2-2.2 in Serum or Plasma (test code = 1759-0) Bilirubin.total [Mass/volume] 0.6 mg/dL 0.0-1.2 in Serum or Plasma (test code = 1974-) Alkaline phosphatase 67 IU/L 44-121 [Enzymatic activity/volume] in Serum or Plasma (test code = 6768-6) Aspartate aminotransferase 15 IU/L 0-40 [Enzymatic activity/volume] in Serum or Plasma (test code = 0-8) Alanine aminotransferase 15 IU/L 0-32 [Enzymatic activity/volume] in Serum or Plasma (test code = 1741-6) [facility] W Auto Differential panel - Blood 2022-10-28 00:00:00 Test Item Value Reference Range Interpretation Comments Leukocytes [#/volume] in Blood 12.5 x10e3/uL 3.4-10.8 H by Automated count (test code = 6690-2) Erythrocytes [#/volume] in 4.99 x10e6/uL 3.77-5.28 Blood by Automated count (test code = 789-8) Hemoglobin [Mass/volume] in 14.9 g/dL 11.1-15.9 Blood (test code = 718-7) Hematocrit [Volume Fraction] of 47.3 % 34.0-46.6 H Blood by Automated count (test code = 4544-3) Erythrocyte mean corpuscular 95 fL 79-97 volume [Entitic volume] by Automated count (test code = 787-2) Erythrocyte mean corpuscular 29.9 pg 26.6-33.0 hemoglobin [Entitic mass] by Automated count (test code = 785-6) Erythrocyte mean corpuscular 31.5 g/dL 31.5-35.7 hemoglobin concentration [Mass/volume] by Automated count (test code = 786-4) Erythrocyte distribution width 12.7 % 11.7-15.4 [Ratio] by Automated count (test code = 788-0) Platelets [#/volume] in Blood 336 x10e3/uL 150-450 by Automated count (test code = 777-3) Neutrophils/100 leukocytes in 71 % not estab. Blood by Automated count (test code = 770-8) Lymphocytes/100 leukocytes in 22 % not estab. Blood by Automated count (test code = 736-9) Monocytes/100 leukocytes in 5 % not estab. Blood by Automated count (test code = 5905-5) Eosinophils/100 leukocytes in 1 % not estab. Blood by Automated count (test code = 713-8) Basophils/100 leukocytes in 1 % not estab. Blood by Automated count (test code = 706-2) immature cells (test code = ballpoint pens assembler immature cells) Neutrophils [#/volume] in Blood 8.8 x10e3/uL 1.4-7.0 H by Automated count (test code = 751-8) Lymphocytes [#/volume] in Blood 2.8 x10e3/uL 0.7-3.1 by Automated count (test code = 731-0) Monocytes [#/volume] in Blood 0.6 x10e3/uL 0.1-0.9 by Automated count (test code = 742-7) Eosinophils [#/volume] in Blood 0.2 x10e3/uL 0.0-0.4 by Automated count (test code = 711-2) Basophils [#/volume] in Blood 0.1 x10e3/uL 0.0-0.2 by Automated count (test code = 704-7) Immature granulocytes/100 0 % not estab. leukocytes in Blood by Automated count (test code = 61342-0) Immature granulocytes 0.0 x10e3/uL 0.0-0.1 [#/volume] in Blood by Automated count (test code = 65767-3) Nucleated erythrocytes/100 ballpoint pens assembler leukocytes [Ratio] in Blood by Automated count (test code = 90765-1) Morphology [Interpretation] in ballpoint pens assembler Blood Narrative (test code = 23298-0) [facility] [Presence] in Serum by RPR 2022-10-28 00:00:00 Test Item Value Reference Range Interpretation Comments Reagin Ab [Presence] in Serum by non reactive non reactive RPR (test code = 34064-2) [facility]atitis [facility] virus IgG Ab [Presence] in Serum or Plasma by [id number] 00:00:00 Test Item Value Reference Range Interpretation Comments Hepatitis C virus IgG Ab non reactive non reactive [Presence] in Serum or Plasma by Immunoassay (test code = 90410-2) [facility]OL[facility] PAN[facility] ([id number]) 2022-10-26 00:48:32 Test Item Value Reference Range Interpretation Comments NA (test code = 142 mmol/L 135-145 9244111708) K (test code = 3.1 mmol/L 3.5-5.0 L 8954030138) CL (test code = 101 mmol/L 98-108 8060280291) CO2 TOTAL (test code = 31 mmol/L 23-31 1384405103) AGAP (test code = 10 2-16 2322344050) BUN (test code = 11 mg/dL 7-23 6423253885) GLUCOSE (test code = 219 mg/dL 70-110 H 6221447014) CREATININE (test code = 0.84 mg/dL 0.50-1.04 1033288139) TOTAL BILI (test code = 0.5 mg/dL 0.1-1.3 8975889837) CALCIUM (test code = 9.7 mg/dL 8.6-10.6 4357584677) T PROTEIN (test code = 8.9 g/dL 6.3-8.2 H 7060276383) ALBUMIN (test code = 4.9 g/dL 3.5-5.0 5737760952) ALK PHOS (test code = 63 U/L 34-122 9454764981) ALTv (test code = 21 U/L 5-35 2-6) AST(SGOT) (test code = 24 U/L 13-40 7706280154) eGFR (test code = 71.8 mL/min/1.73m2 7441738096) YULY (test code = YULY) Association of Glomerular Filtration Rate (GFR) and Staging of Kidney Disease* + --+ --+ ------+| GFR (mL/min/1.73 m2) ?| With Kidney Damage ?| ?Without Kidney Damage+ --------+ --------+ +| ?>90 ?| ?Stage one ?| ? Normal ?+ ---+ ---+ -------+| ?60-89 ?| ?Stage two ?| ? Decreased GFR ? + --+ --+ ------+| ?30-59 ?| ?Stage three ?| ? Stage three ? + --+ --+ ------+| ?15-29 ?| ?Stage four ? | ? Stage four ?+ ---+ ---+ -------+| ?<15 (or dialysis) ? ?| ?Stage five ? | ? Stage five ?+ ---+ ---+ -------+ *Each stage assumes the associated GFR level has been in effect for at least three months. ?Stages 1 to 5, with or without kidney disease, indicate chronic kidney disease. Notes: Determination of stages one and two (with eGFR >59mL/min/1.73 m2) requires estimation of kidney damage for at least three months as defined by structural or functional abnormalities of the kidney, manifested by either:Pathological abnormalities or Markers of kidney damage (including abnormalities in the composition of the blood or urine or abnormalities in imaging tests). Lab Interpretation Abnormal (test code = 63604-6) [facility] 00:47:31 Test Item Value Reference Range Interpretation Comments LIPASE (test code = 8279686535) 247 U/L 0-220 H Lab Interpretation (test code = Abnormal 74513-9) [facility] TexasCBC WITH [id number] 00:44:15 Test Item Value Reference Range Interpretation Comments WBC (test code = 13.10 See_Comment H [Automated 6690-2) message] The sy stem which generated this result transmitted reference range : 4.30 - 11.10 10*3/?L. The reference range was not used to interpret this result as normal/abnormal . RBC (test code = 5.06 See_Comment [Automated 789-8) message] The sy stem which generated this result transmitted reference range : 3.93 - 5.25 10*6/?L. The reference range was not used to interpret this result as normal/abnormal . HGB (test code = 15.2 g/dL 11.6-15.0 H 718-7) HCT (test code = 45.6 % 35.7-45.2 H 4544-3) MCV (test code = 90.1 fL 80.6-95.5 787-2) MCH (test code = 30.0 pg 25.9-32.8 785-6) MCHC (test code = 33.3 g/dL 31.6-35.1 786-4) RDW-SD (test code = 41.4 fL 39.0-49.9 60192-1) RDW-CV (test code = 12.5 % 12.0-15.5 788-0) PLT (test code = 363 See_Comment H [Automated 777-3) message] The sy stem which generated this result transmitted reference range : 166 - 358 10*3/ ?L. The reference r shun was not used to interpret this result as normal/abnormal . MPV (test code = 8.6 fL 9.5-12.9 L 87349-8) NRBC/100 WBC (test 0.0 See_Comment [Automat ed code = 6125387832) message] The system which generated this result transmitted reference range : 0.0 - 10.0 /100 WBCs. The refer ence range was not u sed to interpret th is result as normal/abnormal . NRBC x10^3 (test code See_Comment [Auto mated = 0949469965) message] The s ystem which generated this result transmitted reference range : 10*3/?L. The reference range was not used to interpret this result as normal/abnormal . GRAN MAT (NEUT) % 63.5 % (test code = 770-8) IMM GRAN % (test code 0.40 % = 6947049401) LYMPH % (test code = 28.5 % 736-9) MONO % (test code = 5.3 % 5905-5) EOS % (test code = 1.5 % 713-8) BASO % (test code = 0.8 % 706-2) GRAN MAT x10^3(ANC) 8.33 10*3/uL 1.88-7.09 H (test code = 8483067835) IMM GRAN x10^3 (test 0.05 10*3/uL 0.00-0.06 code = 2696086364) LYMPH x10^3 (test code 3.74 10*3/uL 1.32-3.29 H = 731-0) MONO x10^3 (test code 0.69 10*3/uL 0.33-0.92 = 742-7) EOS x10^3 (test code = 0.19 10*3/uL 0.03-0.39 711-2) BASO x10^3 (test code 0.10 10*3/uL 0.01-0.07 H = 704-7) Lab Interpretation Abnormal (test code = 94723-1) [facility] TexasUrinalysis complete W Reflex Culture panel - [id number] 00:00:00 Test Item Value Reference Range Interpretation Comments Specific gravity of Urine by Test 1.020 1.005-1.030 strip (test code = 5811-5) pH of Urine by Test strip (test 6.5 5.0-7.5 code = 5803-2) Color of Urine (test code = 5778-6) yellow yellow Appearance of Urine (test code = clear clear 5767-9) Leukocyte esterase [Presence] in 1+ negative A Urine by Test strip (test code = 5799-2) Protein [Presence] in Urine by Test trace negative/trace strip (test code = 95341-9) Glucose [Presence] in Urine by Test negative negative strip (test code = 38507-9) Ketones [Presence] in Urine by Test negative negative strip (test code = 2514-8) Hemoglobin [Presence] in Urine by negative negative Test strip (test code = 5794-3) Bilirubin.total [Presence] in Urine negative negative by Test strip (test code = 5770-3) Urobilinogen [Mass/volume] in Urine 1.0 mg/dL 0.2-1.0 by Test strip (test code = 36592-2) Nitrite [Presence] in Urine by Test negative negative strip (test code = 5802-4) Microscopic observation ballpoint pens assembler [Identifier] in Urine sediment by Light microscopy (test code = 60851-0) Leukocytes [#/area] in Urine 0-5 0-5 sediment by Microscopy high power field (test code = 5821-4) Erythrocytes [#/area] in Urine 3-10 0-2 A sediment by Microscopy high power field (test code = 77995-4) Epithelial cells [#/area] in Urine 0-10 0-10 sediment by Microscopy high power field (test code = 5787-7) Epithelial cells.renal [#/area] in ballpoint pens assembler Urine sediment by Microscopy high power field (test code = 61820-7) Casts [Presence] in Urine sediment none seen none seen by Light microscopy (test code = 39051-5) Casts [Type] in Urine sediment by ballpoint pens assembler Light microscopy (test code = 58647-1) Unidentified crystals [Presence] in ballpoint pens assembler Urine sediment by Light microscopy (test code = 5783-6) Crystals [type] in Urine sediment ballpoint pens assembler by Light microscopy (test code = 5782-8) Mucus [Presence] in Urine sediment ballpoint pens assembler by Light microscopy (test code = 8247-9) Bacteria [#/area] in Urine sediment few none seen/few by Microscopy high power field (test code = 5769-5) Yeast [#/area] in Urine sediment by ballpoint pens assembler Microscopy high power field (test code = 5822-2) Trichomonas vaginalis [Presence] in ballpoint pens assembler Urine sediment by Light microscopy (test code = 5813-1) Urine sediment comments by Light ballpoint pens assembler microscopy Narrative (test code = 60311-2) urinalysis reflex (test code = comment urinalysis reflex) Bacteria identified in Urine by no growth Culture (test code = 630-4) [facility]inal[facility] complete W Reflex Culture panel - [id number] 00:00:00 Test Item Value Reference Range Interpretation Comments Specific gravity of Urine by Test 1.020 1.005-1.030 strip (test code = 5811-5) pH of Urine by Test strip (test 6.5 5.0-7.5 code = 5803-2) Color of Urine (test code = 5778-6) yellow yellow Appearance of Urine (test code = clear clear 5767-9) Leukocyte esterase [Presence] in 1+ negative A Urine by Test strip (test code = 5799-2) Protein [Presence] in Urine by Test trace negative/trace strip (test code = 66479-9) Glucose [Presence] in Urine by Test negative negative strip (test code = 53102-4) Ketones [Presence] in Urine by Test negative negative strip (test code = 2514-8) Hemoglobin [Presence] in Urine by negative negative Test strip (test code = 5794-3) Bilirubin.total [Presence] in Urine negative negative by Test strip (test code = 5770-3) Urobilinogen [Mass/volume] in Urine 1.0 mg/dL 0.2-1.0 by Test strip (test code = 78999-1) Nitrite [Presence] in Urine by Test negative negative strip (test code = 5802-4) Microscopic observation ballpoint pens assembler [Identifier] in Urine sediment by Light microscopy (test code = 87349-6) Leukocytes [#/area] in Urine 0-5 0-5 sediment by Microscopy high power field (test code = 5821-4) Erythrocytes [#/area] in Urine 3-10 0-2 A sediment by Microscopy high power field (test code = 87568-0) Epithelial cells [#/area] in Urine 0-10 0-10 sediment by Microscopy high power field (test code = 5787-7) Epithelial cells.renal [#/area] in ballpoint pens assembler Urine sediment by Microscopy high power field (test code = 89850-3) Casts [Presence] in Urine sediment none seen none seen by Light microscopy (test code = 26572-9) Casts [Type] in Urine sediment by ballpoint pens assembler Light microscopy (test code = 12492-5) Unidentified crystals [Presence] in ballpoint pens assembler Urine sediment by Light microscopy (test code = 5783-6) Crystals [type] in Urine sediment ballpoint pens assembler by Light microscopy (test code = 5782-8) Mucus [Presence] in Urine sediment ballpoint pens assembler by Light microscopy (test code = 8247-9) Bacteria [#/area] in Urine sediment few none seen/few by Microscopy high power field (test code = 5769-5) Yeast [#/area] in Urine sediment by ballpoint pens assembler Microscopy high power field (test code = 5822-2) Trichomonas vaginalis [Presence] in ballpoint pens assembler Urine sediment by Light microscopy (test code = 5813-1) Urine sediment comments by Light ballpoint pens assembler microscopy Narrative (test code = 65129-5) urinalysis reflex (test code = comment urinalysis reflex) Bacteria identified in Urine by no growth Culture (test code = 630-4) [facility] ProgramHemoglobin.gastrointestinal.lower [Presence] in Stool by [id number] 00:00:00 Test Item Value Reference Range Interpretation Comments occult blood panel, ia, stool (test negative code = occult blood panel, ia, stool) [facility] ProgramSCR MAMM BILATERAL SARAH CAD DIGITAL 2021-11-20 12:26:29 Name: Destiney : 1970 Sex: F - SCR MAMM BILATERAL SARAH CAD DIGITALBILATERAL DIGITAL SCREENING MAMMOGRAM 3D/2D WITH CAD: 11/17/2021LINICAL: Asymptomatic. Digital breasttomosynthesis was performed in addition to routine CC and MLO views. Current mammographic images were evaluated by [employer] ImageChecker CAD (computer-aided detection) software. Comparison is made to exams dated 10/23/2019 mammogram - [facility] and 10/03/2017 mammogram - [facility]. The tissue of both breasts is heterogeneously dense. This may lower the sensitivity of mammography. There are benign calcifications in both breasts. No suspicious mass, architectural distortion, malignant type calcification, or lymph node abnormality detected. Breast architecture is stable compared to prior exams.IMPRESSION: BENIGNThere is no mammographic evidence of malignancy. Resume annual screeningmammography in one year. (11/18/2022) Snehal Rizvi M.D. scg/penrad:11/20/2021 12:26:29 Technical Support Specialist: Greta Shirley MM, [facility] Mammographyletter sent: BIRADS 1-2 Normal Mammogram BI-RADS: 2 Benignpregnancy test, [id number] 14:37:35 Test Item Value Reference Range Interpretation Comments HCG (test code = HCG) negative [facility] Program[facility] MAMM BILATERAL SARAH CAD DIGITAL 2019-11-07 08:33:03 - SCR MAMM BILATERAL SARAH CAD DIGITALBILATERAL DIGITAL SCREENING MAMMOGRAM 3D/2D WITH CAD: 10/23/2019CLINICAL: Asymptomatic. Digital breast tomosynthesis was performed in addition to routine CC and MLO views. Current mammographic images were evaluated by either a [facility]u or a [employer] ImageChecker CAD (computer aided detection system). No prior exams were available for comparison. The tissue of both breasts is heterogeneously dense. This may lower the sensitivity of mammography. No suspicious mass, architectural distortion, malignant type calcification, or lymph node abnormality detected. IMPRESSION: NEGATIVEThere is no mammographic evidence of malignancy. Resume annual screening mammography in one year. Darius Garcia M.D. /penrad:11/07/2019 08:33:03 Attending Technologist: Laureen Armendariz MM, [facility] MammographyImaging Technologist: Mignon Rodarte MM, [facility] Mammographyletter sent: BIRADS 1-2 Normal Mammogram BI-RADS: 1 NegativeSCR MAMM BILATERAL SARAH CAD [id number] 08:33:03AMENDMENT: 11/09/2019 Darius Garcia M.D. Comparison mammogram now available from 2018Impressionremains the same: There is no mammographic evidence of malignancy. Resume annual screening mammography in one year.Amended BI-RADS: 1 Negative letter sent: BIRADS 1-2 NormalLipid 1995 panel - Serum or [id number] 00:00:00 Test Item Value Reference Range Interpretation Comments cholesterol (test code = 185 mg/dL <200 cholesterol) triglycerides (test code = 313 mg/dL <150 H triglycerides) HDL cholesterol (test code = HDL 34 mg/dL >39 L cholesterol) Cholesterol in LDL [Mass/volume] 109 mg/dL <100 H in Serum or Plasma (test code = 2089-1) risk ratio LDL/HDL (test code = 2.60 ratio <3.22 risk ratio LDL/HDL) [facility]25-Hydroxyvitamin D [Mass/volume] in Serum or [id number] 00:00:00 Test Item Value Reference Range Interpretation Comments vitamin D, 25 oh (test code = 20 NG/mL see below L vitamin D, 25 oh) [facility] 2000 panel - Serum or [id number] 00:00:00 Test Item Value Reference Range Interpretation Comments glucose (test code = glucose) 242 mg/dL 70-99 H BUN (test code = BUN) 11 mg/dL 6-20 creatinine (test code = 0.71 mg/dL 0.60-1.30 creatinine) eGFR amer. (test code 118 mL/min/1.73 >60 = eGFR amer.) eGFR non- amer. (test 102 mL/min/1.73 >60 code = eGFR non- amer.) calc BUN/creat (test code = 15 ratio 6-28 calc BUN/creat) sodium (test code = sodium) 138 mEq/L 133-146 potassium (test code = 4.5 mEq/L 3.5-5.4 potassium) chloride (test code = 97 mEq/L 95-107 chloride) carbon dioxide (test code = 23 mEq/L 19-31 carbon dioxide) calcium (test code = calcium) 9.5 mg/dL 8.5-10.5 protein, total (test code = 7.5 g/dL 6.1-8.3 protein, total) albumin (test code = albumin) 4.3 g/dL 3.5-5.2 calc globulin (test code = 3.2 g/dL 1.9-3.7 calc globulin) calc A/G ratio (test code = 1.3 ratio 1.0-2.6 calc A/G ratio) bilirubin, total (test code = <0.2 <=1.2 bilirubin, total) alkaline phosphatase (test 52 U/L 40-118 code = alkaline phosphatase) AST (test code = AST) 15 U/L 9-40 ALT (test code = ALT) 11 U/L 5-40 [facility] W Auto Differential panel - Blood 2019-04-26 00:00:00 Test Item Value Reference Range Interpretation Comments WBC (test code = WBC) 9.4 K/uL 4.0-11.0 RBC (test code = RBC) 4.56 M/uL 3.80-5.10 hemoglobin (test code = hemoglobin) 13.6 g/dL 11.5-15.5 hematocrit (test code = hematocrit) 41.2 % 34.0-45.0 MCV (test code = MCV) 90.4 fL 80.0-100.0 MCH (test code = MCH) 29.8 pg 27.0-34.0 MCHC (test code = MCHC) 33.0 g/dL 32.0-35.5 RDW (test code = RDW) 12.2 % 11.0-15.0 neutrophils (test code = 63.9 % 40.0-74.0 neutrophils) lymphocytes (test code = 29.1 % 19.0-48.0 lymphocytes) monocytes (test code = monocytes) 4.6 % 4.0-13.0 eosinophils (test code = 1.5 % 0.0-7.0 eosinophils) basophils (test code = basophils) 0.9 % 0.0-2.0 platelet count (test code = 304 K/uL 130-400 platelet count) [facility]Folate [Mass/volume] in Serum or [id number] 00:00:00 Test Item Value Reference Range Interpretation Comments folic acid (test code = folic acid) 4.1 ug/L see below L [facility] HospitalHemoglobin A1c/Hemoglobin.total in [id number] 00:00:00 Test Item Value Reference Range Interpretation Comments Hemoglobin A1c/Hemoglobin.total in 8.5 % 4.2-5.6 H Blood (test code = 4548-4) [facility] Hospital[facility]inalysis complete panel - Urine 2019-04-25 00:00:00 Test Item Value Reference Range Interpretation Comments color (test code = color) yellow yellow-straw appearance (test code = appearance) clear clear specific gravity (test code = 1.014 1.005-1.035 specific gravity) leukocyte esterase (test code = negative negative leukocyte esterase) nitrite (test code = nitrite) negative negative pH (test code = pH) 7.0 5.0-9.0 protein (test code = protein) negative negative glucose (test code = glucose) 3+ negative A ketones (test code = ketones) negative negative urobilinogen (test code = <2.0 <=2.0 urobilinogen) bilirubin (test code = bilirubin) negative negative occult blood (test code = occult 2+ negative A blood) white blood cells (test code = white 0-5 0-5 blood cells) red blood cells (test code = red 0-2 0-5 blood cells) epithelial cells (test code = 0-5 0-10 epithelial cells) bacteria (test code = bacteria) trace negative A [facility]inalysis macro (dipstick) panel - [id number] 09:47:00 Test Item Value Reference Range Interpretation Comments Leukocytes (test code = Leukocytes) small Nitrite (test code = Nitrite) negative Urobilinogen (test code = 1.015 Urobilinogen) Protein (test code = Protein) negative pH (test code = pH) 6.5 Blood (test code = Blood) negative Ketone (test code = Ketone) negative Bilirubin (test code = Bilirubin) negative Glucose (test code = Glucose) negative Appearance (test code = Appearance) cloudy Color (test code = Color) yellow [facility] HospitalThyrotropin [Units/volume] in Serum or [id number] 00:00:00 Test Item Value Reference Range Interpretation Comments TSH reflex to free T4 (test code 1.940 uIU/mL 0.400-4.100 = TSH reflex to free T4) [facility]25-Hydroxyvitamin D [Mass/volume] in Serum or [id number] 00:00:00 Test Item Value Reference Range Interpretation Comments vitamin D, 25 oh (test code = 13 NG/mL see below L vitamin D, 25 oh) [facility] HospitalFolate+Cyanocobalamin [interpretation] in Serum or [id number] 00:00:00 Test Item Value Reference Range Interpretation Comments vitamin B-12 (test code = vitamin 669 pg/mL 200-950 B-12) folic acid (test code = folic acid) 5.6 ug/L see below L [facility] 2000 panel - Serum or [id number] 00:00:00 Test Item Value Reference Range Interpretation Comments glucose (test code = glucose) 191 mg/dL 70-99 H BUN (test code = BUN) 8 mg/dL 6-20 creatinine (test code = 0.67 mg/dL 0.60-1.30 creatinine) eGFR amer. (test code 122 mL/min/1.73 >60 = eGFR amer.) eGFR non- amer. (test 105 mL/min/1.73 >60 code = eGFR non- amer.) calc BUN/creat (test code = 12 ratio 6-28 calc BUN/creat) sodium (test code = sodium) 138 mEq/L 133-146 potassium (test code = 4.2 mEq/L 3.5-5.4 potassium) chloride (test code = 97 mEq/L 95-107 chloride) carbon dioxide (test code = 28 mEq/L 19-31 carbon dioxide) calcium (test code = calcium) 9.9 mg/dL 8.5-10.5 protein, total (test code = 8.3 g/dL 6.1-8.3 protein, total) albumin (test code = albumin) 4.8 g/dL 3.5-5.2 calc globulin (test code = 3.5 g/dL 1.9-3.7 calc globulin) calc A/G ratio (test code = 1.4 ratio 1.0-2.6 calc A/G ratio) bilirubin, total (test code = 0.4 mg/dL <=1.2 bilirubin, total) alkaline phosphatase (test 92 U/L 40-118 code = alkaline phosphatase) AST (test code = AST) 37 U/L 9-40 ALT (test code = ALT) 35 U/L 5-40 [facility]Hem[facility] A1c/Hemoglobin.total in [id number] 00:00:00 Test Item Value Reference Range Interpretation Comments Hemoglobin A1c/Hemoglobin.total in 9.9 % 4.2-5.6 H Blood (test code = 4548-4) [facility] complete panel - Urine 2019-02-03 00:00:00 Test Item Value Reference Range Interpretation Comments color (test code = color) yellow yellow-straw appearance (test code = appearance) cloudy clear A specific gravity (test code = 1.006 1.005-1.035 specific gravity) leukocyte esterase (test code = 3+ negative A leukocyte esterase) nitrite (test code = nitrite) negative negative pH (test code = pH) 7.0 5.0-9.0 protein (test code = protein) negative negative glucose (test code = glucose) negative negative ketones (test code = ketones) negative negative urobilinogen (test code = <2.0 <=2.0 urobilinogen) bilirubin (test code = bilirubin) negative negative occult blood (test code = occult trace negative A blood) white blood cells (test code = white 15-20 0-5 A blood cells) red blood cells (test code = red 5-10 0-5 A blood cells) epithelial cells (test code = 30-50 0-10 A epithelial cells) bacteria (test code = bacteria) 3+ negative A crystals (test code = crystals) (note) none [facility] Hospital[facility] 1996 panel - Serum or Plasma 2019-02-03 00:00:00 Test Item Value Reference Range Interpretation Comments cholesterol (test code = 219 mg/dL <200 H cholesterol) triglycerides (test code = 266 mg/dL <150 H triglycerides) HDL cholesterol (test code = HDL 38 mg/dL >39 L cholesterol) Cholesterol in LDL [Mass/volume] 128 mg/dL <100 H in Serum or Plasma (test code = 2089-1) risk ratio LDL/HDL (test code = 3.36 ratio <3.22 H risk ratio LDL/HDL) [facility] Differential panel - Blood 2019-02-03 00:00:00 Test Item Value Reference Range Interpretation Comments WBC (test code = WBC) 10.3 K/uL 4.0-11.0 RBC (test code = RBC) 5.41 M/uL 3.80-5.10 H hemoglobin (test code = hemoglobin) 16.2 g/dL 11.5-15.5 H hematocrit (test code = hematocrit) 47.3 % 34.0-45.0 H MCV (test code = MCV) 87.4 fL 80.0-100.0 MCH (test code = MCH) 29.9 pg 27.0-34.0 MCHC (test code = MCHC) 34.2 g/dL 32.0-35.5 RDW (test code = RDW) 12.8 % 11.0-15.0 neutrophils (test code = 56.2 % 40.0-74.0 neutrophils) lymphocytes (test code = 35.5 % 19.0-48.0 lymphocytes) monocytes (test code = monocytes) 5.9 % 4.0-13.0 eosinophils (test code = 1.7 % 0.0-7.0 eosinophils) basophils (test code = basophils) 0.7 % 0.0-2.0 platelet count (test code = 245 K/uL 130-400 platelet count) [facility] HospitalGlucose [Mass/volume] in Capillary [id number] 11:33:00 Test Item Value Reference Range Interpretation Comments Blood Glucose: mg/dl (test code = Blood 213 Glucose: mg/dl) [facility]-U/S PELVIS [id number] 16:10:30PELVIC ULTRASOUND:Location code: [id number] HISTORY: Mixed incontinenceComparison: NoneTECHNIQUE: Transabdominal sonography of the pelvis was performed followed byendovaginal scanning for better characterization of the ovaries. FINDINGS: The uterus is uniform in echogenicity measuring 8.9 x 3.6 x 5.0 cm.The endometrium is unremarkable at 5 mm. The right ovary measures 3.0 x 1.0 x 1.9 cm. The left ovary measures 1.6 x 0.8x 1.3 cm. Small follicles are noted bilaterally. Color flow is normal in theovaries bilaterally. There is no adnexal mass or free fluid. IMPRESSION:No acute sonographic abnormality.[facility]-U/S [id number] 16:10:30PELVIC ULTRASOUND:Location code: [id number] HISTORY: Mixed incontinenceComparison: NoneTECHNIQUE: Transabdominal sonography of the pelvis was performed followed byendovaginal scanning for better characterization of the ovaries. FINDINGS: The uterus is uniform in echogenicity measuring 8.9 x 3.6 x 5.0 cm.The endometrium is unremarkable at 5 mm. The right ovary measures 3.0 x 1.0 x 1.9 cm. The left ovary measures 1.6 x 0.8x 1.3 cm. Small follicles are noted bilaterally. Color flow is normal in theovaries bilaterally. There is no adnexal mass or free fluid. IMPRESSION:No acute sonographic abnormality."
[2022-12-30 21:02] LABS: Absolute Lymphocytes (CBC) 3.9 K/uL (0.7-4.9); Hematocrit 41.8 % (36.0-45.0); Lymphocytes % 26.3 % (15.3-44.8); MCV 90.3 fL (80-100); MPV 6.4 fL (7.6-11.3); Platelets 306 thou/uL (152-406); RBC Red Blood Cell Count 4.63 M/uL (3.86-4.86)
[2022-12-30] MEDS ORDERED: METOCLOPRAMIDE 10 MG/2mL INJ ONE (21:11)
[2022-12-30] MEDS ORDERED: DIPHENHYDRAMINE 50 MG/ML VIAL ONE (21:11)
[2022-12-30] MEDS ORDERED: NA CHLORIDE 0.9% 1,000 ML ONE (21:12)
[2022-12-30] MEDS ORDERED: KETOROLAC 30 MG/ML INJ ONE (21:12)
[2022-12-30 21:20] LABS: Potassium 3.4 mEq/L (3.5-5.1)
--- NOTE | 2022-12-30 22:11 | RAD REPORT ---
EXAM DESCRIPTION: CT - Head Brain Wo Cont - 12/30/2022 9:52 pm CLINICAL HISTORY: HEADACHE COMPARISON: Head angio dated 12/30/2022 TECHNIQUE: Noncontrast head CT images were obtained without IV contrast. Multiplanar reformats were generated and reviewed. All CT scans are performed using dose optimization technique as appropriate and may include automated exposure control or mA/KV adjustment according to patient size. FINDINGS: No intracranial hemorrhage, mass, or edema. Midline structures are unremarkable. Normal ventricular caliber for age. Ornelas-white matter differentiation is preserved, without evidence of acute infarct. No abnormal extra- axial fluid collections. Mastoid air cells and visualized portions of the paranasal sinuses are clear. No acute bony findings. IMPRESSION: No evidence of an acute intracranial process.
--- NOTE | 2022-12-30 22:30 | RAD REPORT ---
EXAM DESCRIPTION: CT - Head angio - 12/30/2022 9:52 pm CLINICAL HISTORY: HEADACHE COMPARISON: Neck Angio dated 12/30/2022; Head Brain Wo Cont dated 12/30/2022 TECHNIQUE: Axial CT angiography images of the head was performed with multiplanar and maximum intens ity projection reconstructions. Images performed following intravenous administration of 100mL Isovue 370. All CT scans are performed using dose optimization technique as appropriate and may include automated exposure control or mA/KV adjustment according to patient size. FINDINGS: No evidence of large vessel occlusion. No evidence of aneurysm or dissection flap is detec zee. No flow-limiting stenosis or vascular malformation identified. Antegrade flow is seen in the vertebral arteries. The vertebral arteries are codominant. The visualized dural venous sinuses are grossly patent. IMPRESSION: No evidence of large vessel occlusion or flow-limiting stenosis.
--- NOTE | 2022-12-30 22:48 | RAD REPORT ---
EXAM DESCRIPTION: CT - Neck Angio - 12/30/2022 9:52 pm CLINICAL HISTORY: neck pain with headache COMPARISON: THORAX WO CONTRAST dated 08/14/2011 TECHNIQUE: Axial CT angiography images of the head was performed with multiplanar and maximum intens ity projection reconstructions. Images performed following intravenous administration of 100mL Isovue 370. All CT scans are performed using dose optimization technique as appropriate and may include automated exposure control or mA/KV adjustment according to patient size. Quantification of carotid stenosis, if any, is performed according to NASCET criteria. FINDINGS: A left aortic arch is identified with normal three vessel configuration of the great vesse ls. No significant flow abnormality is seen of the common carotid bilaterally. No significant stenosis is identified involving the cervical segments of both internal carotid arteri es. Normal flow is seen within both vertebral arteries. 5 millimeter left apical nodule, appears new since 2011. IMPRESSION: No significant flow abnormality of the neck vessels is identified. New left apical 5 millimeter nodule since 2011. Additional evaluation by dedicated CT of the chest on outpatient basis is recommended. CAROTID STENOSIS REFERENCE USING NASCET CRITERIA: % ICA stenosis = (1 - narrowest ICA diameter/diameter of distal cervical ICA) x 100. Mild - <50% stenosis. Moderate - 50-69% stenosis. Severe - 70-94% stenosis. Near occlusion - 95-99% stenosis. Occluded - 100% stenosis.
--- NOTE | 2022-12-30 22:55 | ER ---
Nurse's Notes [facility] Name: Keturah Cardoso Age: 52 yrs Sex: Female : 1970 Arrival Date: 12/30/2022 Time: 19:39 Bed 10 Private MD: Diagnosis: Headache;Solitary pulmonary nodule Presentation: 12/30 20:19 Chief complaint: Patient states: I started to have a pain that started in the back of kd3 my neck that started two days ago and now it had spread up to the sides and front of my head. the pain is a 10/10. I have never had a migraine before. Coronavirus screen: Vaccine status:. Coronavirus screen: Vaccine status: Patient reports receiving the 2nd dose of the covid vaccine. Ebola Screen: No symptoms or risks identified at this time. Initial Sepsis Screen: Does the patient meet any 2 criteria? No. Patient's initial sepsis screen is negative. Does the patient have a suspected source of infection? No. Patient's initial sepsis screen is negative. Risk Assessment: Do you want to hurt yourself or someone else? Patient reports no desire to harm self or others. Onset of symptoms was December 30, 2022. 20:19 Method Of Arrival: Ambulatory kd3 20:19 Acuity: STEPHANY 3 kd3 Triage Assessment: 20:21 Headache History: Denies prior headaches. General: Appears uncomfortable, Behavior is kd3 calm, cooperative. Pain: Pain currently is 10 out of 10 on a pain scale. Pain began gradually, Also complains of decreased appetite. Neuro: Level of Consciousness is awake, alert, obeys commands, Oriented to person, place, time, situation. 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 - Social history:: Smoking status: Patient denies any tobacco usage or history of. Screenin:00 [facility] ED Fall Risk Assessment (Adult) History of falling in the last 3 months, iw including since admission No falls in past 3 months (0 pts) Confusion or Disorientation No (0 pts) Intoxicated or Sedated No (0 pts) Impaired Gait No (0 pts) Mobility Assist Device Used No (0 pt) Altered Elimination No (0 pt) Score/Fall Risk Level 0 - 2 = Low Risk. Abuse screen: Denies threats or abuse. Nutritional screening: No deficits noted. Tuberculosis screening: No symptoms or risk factors identified. Assessment: 21:00 General: Appears uncomfortable, well groomed, well developed, well nourished, Behavior iw is calm, cooperative, appropriate for age, Reports I started to have a pain that started in the back of my neck that started two days ago and now it had spread up to the sides and front of my head. the pain is a 10/10. I have never had a migraine before. 21:00 Pain: Complains of pain in neck and head. Pain does not radiate. Pain currently is 10 iw out of 10 on a pain scale. Quality of pain is described as aching, Pain began 2-3 days ago. Is continuous. 21:00 Neuro: Level of Consciousness is awake, alert, obeys commands, Oriented to person, iw place, time, situation, Appropriate for age. Cardiovascular: Capillary refill < 3 seconds Patient's skin is warm and dry. Respiratory: Airway is patent Respiratory effort is even, unlabored, Respiratory pattern is regular, symmetrical. Vital Signs: 20:19 Pulse 76; Resp 16; Temp 98.4(TE); Pulse Ox 98% ; Weight 67.59 kg; kd3 20:19 BP 144 / 86; kd3 22:54 BP 123 / 64; Pulse 77; Resp 16; Pulse Ox 100% on R/A; Pain 8/10; iw 22:54 Pain Scale: Adult iw ED Course: 19:43 Patient arrived in ED. mr 19:45 Talon Baez DO is Attending Physician. ms3 20:21 Triage completed. kd3 20:22 Arm band placed on left wrist. kd3 20:50 Praful Vanegas, RN is Primary Nurse. rv 21:00 Patient has correct armband on for positive identification. Bed in low position. Call iw light in reach. Side rails up X 1. Provided Education on: POC. Verbalized understanding.. 21:00 No provider procedures requiring assistance completed. Flushed left antecubital. iw 21:04 Inserted saline lock: 20 gauge in left antecubital area, using aseptic technique. Blood rv collected. 21:23 Attending Physician role handed off by Talon Baez DO rt 21:23 Steve Poe MD is Attending Physician. rt 21:54 CT Head Brain wo Cont In Process Unspecified. EDMS 21:54 CT Head Angio In Process Unspecified. EDMS 21:54 CT Neck Angio In Process Unspecified. EDMS 22:38 Narcisa Knight, RN is Primary Nurse. iw 23:19 IV discontinued, intact, bleeding controlled, No redness/swelling at site. Pressure iw dressing applied. Administered Medications: 21:03 Drug: metoCLOPramide IVP 10 mg IVP once; over 1 to 2 minutes Route: IVP; Site: left rv antecubital; 22:52 Follow up: Response: No adverse reaction iw 21:03 Drug: diphenhydrAMINE IVP 25 mg IVP once Route: IVP; Site: left antecubital; rv 22:52 Follow up: Response: No adverse reaction iw 21:04 Drug: NS 0.9% IV 1000 ml IV at 1000 ml once Route: IV; Rate: 1000 ml; Site: left rv antecubital; 22:38 Follow up: IV Status: Completed infusion iw 21:04 Drug: Ketorolac IVP 10 mg 10 mg IVP once Route: IVP; Site: left antecubital; rv 22:52 Follow up: Response: No adverse reaction; Pain is decreased iw 23:01 Drug: Cyclobenzaprine PO 10 mg PO once Route: PO; iw 23:13 Follow up: Response: No adverse reaction iw Medication: 21:00 VIS not applicable for this client. iw Outcome: 22:55 Discharge ordered by . rt 23:19 Discharged to home ambulatory, with friend, iw 23:19 Condition: stable 23:19 Discharge instructions given to patient, family, Instructed on discharge instructions, follow up and referral plans. medication usage, Demonstrated understanding of instructions, follow-up care, medications, Prescriptions given X 1, 23:19 Patient left the ED. iw Signatures: Dispatcher [employer] EDWY Milagros Hood, Reg Reg mr Narcisa Knight, RN RN iw Praful Vanegas RN RN rv Talon Baez DO DO ms3 Darlyn Armando RN RN kd3 Steve Poe MD MD rt Corrections: (The following items were deleted from the chart) 23:05 20:19 Chief complaint: Patient states: I started to have a pain that started in the iw back of my neck that started two days ago and now it had spread up to the sides and front of my head. the pain is a 10/. I have never had a migraine before. kd3
--- NOTE | 2022-12-30 22:56 | EDPHYS ---
Physician Documentation [facility] Name: Keturah Cardoso Age: 52 yrs Sex: Female : 1970 Arrival Date: 12/30/2022 Time: 19:39 Bed 10 Private MD: ED Physician Steve Poe HPI: 12/30 20:49 This 52 yrs old Female presents to ER via Ambulatory with complaints of ms3 Headache, Neck pain. 20:49 52-year-old female with past medical history of diabetes and angina presents for ms3 headache that has been ongoing for 2 days. Patient states the pain is in her right neck radiating to her head. Patient endorses nausea. Patient states pain is 10/10.. 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 - Social history:: Smoking status: Patient denies any tobacco usage or history of. ROS: 20:49 Constitutional: Negative for fever, and chills. Neck: Negative for injury, pain, and ms3 swelling, Cardiovascular: Negative for chest pain, and palpitations. Respiratory: Negative for shortness of breath, cough, wheezing, and pleuritic chest pain, Abdomen/GI: Negative for abdominal pain, nausea, vomiting, diarrhea, and constipation, MS/Extremity: Negative for injury and deformity, 20:49 Neuro: Positive for headache, 20:49 All other systems are negative, Exam: 20:49 Constitutional: This is a well developed, well nourished patient who is awake, alert, ms3 and in no acute distress. Head/Face: Normocephalic, atraumatic. Neck: Trachea midline, no cervical lymphadenopathy. Supple, full range of motion without nuchal rigidity, or vertebral point tenderness. No Meningismus. Chest/axilla: Normal chest wall appearance and motion. Nontender with no deformity. Cardiovascular: Regular rate and rhythm with a normal S1 and S2. No gallops, murmurs, or rubs. Normal PMI, no JVD. No pulse deficits. Respiratory: Lungs have equal breath sounds bilaterally, clear to auscultation and percussion. No rales, rhonchi or wheezes noted. No increased work of breathing, no retractions or nasal flaring. Abdomen/GI: Soft, non-tender, with normal bowel sounds. No distension or tympany. No guarding or rebound. No evidence of tenderness throughout. Skin: Warm, dry with normal turgor. Normal color with no rashes, no lesions, and no evidence of cellulitis. MS/ Extremity: Pulses equal, no cyanosis. Neurovascular intact. Full, normal range of motion. Neuro: Awake and alert, GCS 15, oriented to person, place, time, and situation. Cranial nerves II-XII grossly intact. Motor strength 5/5 in all extremities. Sensory grossly intact. Cerebellar exam normal. Normal gait. Vital Signs: 20:19 Pulse 76; Resp 16; Temp 98.4(TE); Pulse Ox 98% ; Weight 67.59 kg; kd3 20:19 BP 144 / 86; kd3 22:54 BP 123 / 64; Pulse 77; Resp 16; Pulse Ox 100% on R/A; Pain 8/10; iw 22:54 Pain Scale: Adult iw MDM: 19:55 Patient medically screened. ms3 20:49 Differential diagnosis: intracerebral hemorrhage, subarachnoid bleed, tension headache. ms3 ED course: Patient with neck pain that radiates to her head. Patient states pain is worse on the right side of her neck. Will obtain labs and CTA head and neck to rule out vertebral artery dissection.. 12/31 01:01 Data reviewed: vital signs, nurses notes, radiologic studies. Independent rt interpretation of the following test(s) in the Emergency Department CT Scan: My interpretation is No hemorrhage seen on interpretation of CT scan images. Counseling: I had a detailed discussion with the patient and/or guardian regarding the historical points, exam findings, and any diagnostic results supporting the discharge/admit diagnosis, lab results, radiology results, the need for outpatient follow up. Response to treatment: the patient's symptoms have markedly improved after treatment. 12/30 19:55 Order name: CBC with Diff; Complete Time: 21:21 ms3 12/30 19:55 Order name: BMP; Complete Time: 21:21 ms3 12/30 19:55 Order name: CT Head Brain wo Cont; Complete Time: 22:34 ms3 12/30 19:55 Order name: CT Head Angio; Complete Time: 22:34 ms3 12/30 19:55 Order name: CT Neck Angio; Complete Time: 22:51 ms3 Administered Medications: 12/30 21:03 Drug: metoCLOPramide IVP 10 mg IVP once; over 1 to 2 minutes Route: IVP; Site: left rv antecubital; 22:52 Follow up: Response: No adverse reaction iw 21:03 Drug: diphenhydrAMINE IVP 25 mg IVP once Route: IVP; Site: left antecubital; rv 22:52 Follow up: Response: No adverse reaction iw 21:04 Drug: NS 0.9% IV 1000 ml IV at 1000 ml once Route: IV; Rate: 1000 ml; Site: left rv antecubital; 22:38 Follow up: IV Status: Completed infusion iw 21:04 Drug: Ketorolac IVP 10 mg 10 mg IVP once Route: IVP; Site: left antecubital; rv 22:52 Follow up: Response: No adverse reaction; Pain is decreased iw 23:01 Drug: Cyclobenzaprine PO 10 mg PO once Route: PO; iw 23:13 Follow up: Response: No adverse reaction iw Disposition Summary: 12/30/22 22:55 Discharge Ordered Notes: Location: Home rt Problem: new rt Symptoms: have improved rt Condition: Stable rt Diagnosis - Headache rt - Solitary pulmonary nodule rt Followup: rt - With: Private Physician - When: 2 - 3 days - Reason: Discharge Instructions: - Discharge Summary Sheet rt - General Headache Without Cause rt - Incidental Abnormal Radiological Finding rt Forms: - Medication Reconciliation Form rt - Thank You Letter rt - Antibiotic Education rt - Prescription Opioid Use rt - Patient Portal Instructions rt - Leadership Thank You Letter rt Prescriptions: - Cyclobenzaprine 10 mg Oral tablet - take 1 tablet ORAL route every 8 hours As needed; 15 tablet; Refills: 0, rt Product Selection Permitted Signatures: Dispatcher [employer] Narcisa Kaminski RN RN iw Praful Vanegas RN RN rv Sims, Marcus, DO DO ms3 Darlyn Armando RN RN kd3 Steve Poe MD MD rt
[2022-12-30] MEDS ORDERED: CYCLOBENZAPRINE 10 MG TAB ONE (23:12)
[2022-12-30 23:48] VITALS: TEMP 98.4
[2022-12-30 23:50] VITALS: BP 123/64; O2SAT 100
== END 2022-12-30 23:19 | disposition home or self-care (01) ==
LOC: ER 19:39
DX: R51.9 Headache, unspecified (principal); R91.1 Solitary pulmonary nodule; M54.2 Cervicalgia; E11.9 Type 2 diabetes mellitus without complications; I10 Essential (primary) hypertension; Z88.5 Allergy status to narcotic agent; Z88.8 Allergy status to other drugs, medicaments and biological substances
CPT/HCPCS: 96361; 85025; 80048; 36415; 70450; 70496; 70498; 96375; 96374; 99284; Q9967; J2765; J1200; J7030

== ENCOUNTER 2023-01-27 20:20 | Emergency (ER) | payer OTHER ==
--- OUTSIDE RECORDS SUMMARY | 2023-01-27 20:25 | XMS REPORT | Continuity of Care Document ---
Author Name Unknown Address [address] [facility] [address] [place] [address] [facility] thconnect Address 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 Name Role Phone RONA RODRIGUES Primary Care Physician Unavailab le RADIOLOGY Attending Clinician Unavailable Cayla Attending Clinician Unavailable Schiffman_Ashley Attending Clinician Unavailable Armstrong_B Attending Clinician Unavailable Doctor Unassigned, [place] Attending Clinician U Ya Chaudhry Attending Clinician YA SHIELDS Attending Clinician Unavailab LEIGH Greco Attending Clinician Unavailabl e Moraima Attending Clinician Unavailable DR LITZY JESUS Attending Clinician DR SANKET Powell BA Attending Clinician Unavailable Cayla Admitting Clinician Unavailable Schiffman_Ashley Admitting Clinician Unavailable Armstrong_B Admitting Clinician Unavailable YA SHIELDS Admitting Clinician Unavailab rich Valera Admitting Clinician Unavailable DR LITZY JESUS Admitting Clinician DR SANKET Powell BA Admitting Clinician Unavailable Payers Payer Name Policy Type Policy Number Effective Date Expirati on Date Source HIM [facility] [id number] 2022 00:00:00 2023 00:00:00 [facility] (O) [id number] [facility] [place] [id number] [facility] [place] - EXCHANGE PLAN (HMO) [id number] 2022 00:00:00 JASVIR [facility] 4 (O) [id number] Problems Condition Name Condition Details Condition Category Status Onset Date Resolution Date Last Treatment Date Treating Clinician Comments Source Microscopi c hematuria Microscopi c Hematuria Problem Active 2022-02 0 00:00: [facility] Diabetes insipidus Diabetes Insipidus Problem Active 06-21 00:00: 00 [facility] Diabetes mellitus Diabetes Mellitus Problem Active 2018-02 00:00: 00 [facility] Vitamin D deficiency Vitamin D Deficiency Problem Active 2018-02 00:00: 00 [facility] Hyperchole sterolemia Hyperchole sterolemia Problem Active 2018-02 00:00: 00 [facility] Hypertrigl yceridemia Hypertrigl yceridemia Problem Active 2018-02 00:00: 00 [facility] Endometrio sis (clinical) Endometrio sis (Clinical) Problem Active 2018-02 00:00: 00 [facility] 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 Problem Active 2018-02 00:00: 00 [facility] Atrophic vaginitis Atrophic Vaginitis Problem Active 2018-02 00:00: 00 [facility] Folic acid below reference range Folic Acid below Reference Range Problem Active 2018-02 00:00: 00 [facility] Atrophic vaginitis Atrophic vaginitis Disease Active 2018-02 00:00: 00 [facility] Endometrio sis Endometrio sis Disease Active 2018-02 00:00: 00 [facility] BMI 31.0-31.9, adult BMI 31.0-31.9, adult Disease Active 2018-02 0 00:00: 00 [facility] Contracept dorota management Contracept dorota management Disease Active 09-29 00:00: 00 [facility] Obesity (BMI 30.0-34.9) Obesity (BMI 30.0-34.9) Disease Active 09-29 00:00: 00 [facility] Controlled type 2 diabetes mellitus without complicati on Controlled type 2 diabetes mellitus without complicati on Disease Active 09-29 00:00: 00 [facility] Essential hypertensi on, benign Essential hypertensi on, benign Disease Active 09-29 00:00: 00 [facility] History of tubal ligation History of tubal ligation Disease Active 09-29 00:00: 00 [facility] Irregular menstrual cycle Irregular menstrual cycle Disease Active 09-29 00:00: 00 [facility] Secondary diabetes insipidus Secondary Diabetes Insipidus Problem Active 2008-02 00:00: 00 [facility] Allergies, Adverse Reactions, Alerts Allergy Name Allergy Type Status Severity Reaction(s) Onset Date Inactive Date Treating Clinician Comments Source Iodine Propensi ty to adverse reaction s Active Other - See comments 07-18 00:00: 00 Burning pain, feels like her veins are going to explode [facility] IODINE DRUG INGREDI Active Other-Cmnt 07-18 00:00: 00 [facility] Cephalex in Propensi ty to adverse reaction s Active Other - See comments 10-15 00:00: 00 Lumps [facility] CEPHALEX IN DRUG INGREDI Active Other-Cmnt 10-15 00:00: 00 [facility] Morphine Drug Intolera nce Active Itching 03-24 00:00: 00 [facility] MORPHINE DRUG INGREDI Active ITCHING 03-24 00:00: 00 [facility] Morphine Allergy to substanc e Active [facility] Fluconaz ole Allergy to substanc e Active Photos[facility]iti vity [facility] Social History Social Habit Start Date Stop Date Quantity Comments Source [facility] Alcohol intake 2022-10-25 00:00:00 2022-10-25 00:00:00 Current non-drinker of alcohol (finding) [facility] History of Social function 2019-09-23 00:00:00 2019-09-23 00:00:00 [facility] Tobacco use and exposure 2017-09-29 00:00:00 2017-09-29 00:00:00 Smokeless tobacco non-user [facility] Sex Assigned At 1970 00:00:00 1970 00:00:00 [facility] Smoking Status Start Date Stop Date Source Never Smoker [facility] Medications Ordered Medication Name Filled Medication Name Start Date Stop Date Current Medication? Ordering Clinician Indication Dosage Frequency Signature (SIG) Comments Components Source norethindro ne (contracept dorota) 0.35 mg tablet Take 1 tablet every day by oral route. norethindro ne (contracept dorota) 0.35 mg tablet Take 1 tablet every day by oral route. 11-01 00:00: 00 No norethindr one (contracep tive) 0.35 mg tablet Take 1 tablet every day by oral route. [facility] acetaminoph en 300 mg-codeine 30 mg tablet Take 1 tablet every 8 hours by oral route as needed for 7 days. acetaminoph en 300 mg-codeine 30 mg tablet Take 1 tablet every 8 hours by oral route as needed for 7 days. 10-27 00:00: 00 No acetaminop hen 300 mg-codeine 30 mg tablet Take 1 tablet every 8 hours by oral route as needed for 7 days. [facility] ketorolac (TORADOL) injection 30 mg 10-26 02:00: 00 10-26 01:21 :00 No 30mg 30 mg, Slow IV Push, ONCE, 1 dose, On Tue10/25/22 at 2100, Routine [facility] HYDROcodone -acetaminop hen (NORCO 5) 5-325 mg tablet 1 tablet 10-26 01:45: 00 10-26 01:49 :00 No 1{tbl} 1 tablet, Oral, ONCE, 1 dose, On Tue10/25/22 at 2045, MELVIN [facility] traMADoL 50 mg tablet 10-25 00:00: 00 10-29 04:59 :00 No 4647 50mg Take 1 tablet by mouth every 6 (six) hours as needed for Pain (scale 7-10) for up to 3 days. Indication s: acute pain [facility] Ozempic 0.25 mg or 0.5 mg (2 mg/3 mL) subcutaneou s pen injector Inject 0.5 mg every week by subcutaneou s route for 90 days. Ozempic 0.25 mg or 0.5 mg (2 mg/3 mL) subcutaneou s pen injector Inject 0.5 mg every week by subcutaneou s route for 90 days. 09-22 00:00: 00 No Ozempic 0.25 mg or 0.5 mg (2 mg/3 mL) subcutaneo us pen injector Inject 0.5 mg every week by subcutaneo us route for 90 days. [facility] atorvastati n 10 mg tablet Take 1 tablet every day by oral route in the evening. atorvastati n 10 mg tablet Take 1 tablet every day by oral route in the evening. 08-19 00:00: 00 No atorvastat in 10 mg tablet Take 1 tablet every day by oral route in the evening. [facility] D3-2000 50 mcg (2,000 unit) capsule TAKE 1 TABLET BY MOUTH DAILY D3-2000 50 mcg (2,000 unit) capsule TAKE 1 TABLET BY MOUTH DAILY 08-19 00:00: 00 No D3-2000 50 mcg (2,000 unit) capsule TAKE 1 TABLET BY MOUTH DAILY [facility] lisinopril 5 mg tablet Take 1 tablet every day by oral route in the morning. lisinopril 5 mg tablet Take 1 tablet every day by oral route in the morning. 08-19 00:00: 00 No lisinopril 5 mg tablet Take 1 tablet every day by oral route in the morning. [facility] metformin ER 500 mg tablet,exte nded release 24 hr TAKE 2 TABLETS BY MOUTH TWICE DAILY metformin ER 500 mg tablet,exte nded release 24 hr TAKE 2 TABLETS BY MOUTH TWICE DAILY 08-19 00:00: 00 No metformin ER 500 mg tablet,ext ended release 24 hr TAKE 2 TABLETS BY MOUTH TWICE DAILY [facility] Accu-Chek Guide test strips Check glucose bid Accu-Chek Guide test strips Check glucose bid 6-19 00:00: 00 No Accu-Chek Guide test strips Check glucose bid [facility] Accu-Chek Guide Me Glucose Meter USE DAILY DIRECTED Accu-Chek Guide Me Glucose Meter USE DAILY DIRECTED 4-03 00:00: 00 No Accu-Chek Guide Me Glucose Meter USE DAILY DIRECTED [facility] Ozempic 1 mg/dose (4 mg/3 mL) subcutaneou s pen injector Inject 1 mg every week by subcutaneou s route for 90 days. Ozempic 1 mg/dose (4 mg/3 mL) subcutaneou s pen injector Inject 1 mg every week by subcutaneou s route for 90 days. 2021-02 1 00:00: 00 No Ozempic 1 mg/dose (4 mg/3 mL) subcutaneo us pen injector Inject 1 mg every week by subcutaneo us route for 90 days. [facility] metFORMIN 1,000 mg tablet 04-10 11:33: 55 Yes metformin 1,000 mg tablet Take 1 tablet twice a day by oral route for 90 days. [facility] metFORMIN 1,000 mg tablet 04-10 11:33: 55 Yes metformin 1,000 mg tablet Take 1 tablet twice a day by oral route for 90 days. [facility] gemfibrozil 600 mg tablet 04-10 11:33: 54 Yes gemfibrozi l 600 mg tablet Take 1 tablet twice a day by oral route as needed for 90 days. [facility] gemfibrozil 600 mg tablet 04-10 11:33: 54 Yes gemfibrozi l 600 mg tablet Take 1 tablet twice a day by oral route as needed for 90 days. [facility] ergocalcife rol, vitamin d2, 1,250 mcg (50,000 unit) capsule 04-10 11:33: 47 Yes Vitamin D2 1,250 mcg (50,000 unit) capsule Take 1 capsule every week by oral route as directed for 56 days. [facility] ergocalcife rol, vitamin d2, 1,250 mcg (50,000 unit) capsule 04-10 11:33: 47 Yes Vitamin D2 1,250 mcg (50,000 unit) capsule Take 1 capsule every week by oral route as directed for 56 days. [facility] desmopressi n 0.2 mg tablet 04-10 11:33: 46 Yes desmopress in 0.2 mg tablet Take 1 tablet every day by oral route in the evening. [facility] desmopressi n 0.2 mg tablet 04-10 11:33: 46 Yes desmopress in 0.2 mg tablet Take 1 tablet every day by oral route in the evening. [facility] MICROGESTIN 1.5/30 1.5-30 mg-mcg per tablet 03-07 00:00: 00 Yes TAKE 1 TABLET BY MOUTH ONCE DAILY CONTINOUS ACTIVE PILL [facility] MICROGESTIN 1.5/30 1.5-30 mg-mcg per tablet 03-07 00:00: 00 Yes TAKE 1 TABLET BY MOUTH ONCE DAILY CONTINOUS ACTIVE PILL [facility] atorvastati n 10 mg tablet Take 1 tablet every day by oral route in the evening. atorvastati n 10 mg tablet Take 1 tablet every day by oral route in the evening. No 1 Q1D atorvastat in 10 mg tablet Take 1 tablet every day by oral route in the evening. [facility] Benadryl Allergy Benadryl Allergy No Benadryl Allergy [facility] cholecalcif taryn (vitamin D3) 25 mcg (1,000 unit) capsule Take 1 capsule every day by oral route. cholecalcif taryn (vitamin D3) 25 mcg (1,000 unit) capsule Take 1 capsule every day by oral route. No 1capsul e(s) Q1D cholecalci ferol (vitamin D3) 25 mcg (1,000 unit) capsule Take 1 capsule every day by oral route. [facility] desmopressi n 0.2 mg tablet TAKE 1 TABLET BY MOUTH EVERY DAY IN THE EVENING desmopressi n 0.2 mg tablet TAKE 1 TABLET BY MOUTH EVERY DAY IN THE EVENING No desmopress in 0.2 mg tablet TAKE 1 TABLET BY MOUTH EVERY DAY IN THE EVENING [facility] glipizide 5 mg tablet TAKE 1 TABLET BY MOUTH ONCE DAILY IN THE MORNING glipizide 5 mg tablet TAKE 1 TABLET BY MOUTH ONCE DAILY IN THE MORNING No glipizide 5 mg tablet TAKE 1 TABLET BY MOUTH ONCE DAILY IN THE MORNING [facility] Januvia 100 mg tablet Take 1 tablet every day by oral route in the morning. Januvia 100 mg tablet Take 1 tablet every day by oral route in the morning. No 1 Q1D Januvia 100 mg tablet Take 1 tablet every day by oral route in the morning. [facility] lisinopril 5 mg tablet Take 1 tablet every day by oral route in the morning. lisinopril 5 mg tablet Take 1 tablet every day by oral route in the morning. No 1 Q1D lisinopril 5 mg tablet Take 1 tablet every day by oral route in the morning. [facility] metformin ER 500 mg tablet,exte nded release 24 hr TAKE 2 TABLETS BY MOUTH TWICE DAILY metformin ER 500 mg tablet,exte nded release 24 hr TAKE 2 TABLETS BY MOUTH TWICE DAILY No metformin ER 500 mg tablet,ext ended release 24 hr TAKE 2 TABLETS BY MOUTH TWICE DAILY [facility] norethindro ne (contracept dorota) 0.35 mg tablet Take 1 tablet every day by oral route. norethindro ne (contracept dorota) 0.35 mg tablet Take 1 tablet every day by oral route. No 1 Q1D norethindr one (contracep tive) 0.35 mg tablet Take 1 tablet every day by oral route. [facility] terbinafine HCl 250 mg tablet Take 1 tablet every day by oral route as directed for 42 days. terbinafine HCl 250 mg tablet Take 1 tablet every day by oral route as directed for 42 days. No 1 Q1D terbinafin e HCl 250 mg tablet Take 1 tablet every day by oral route as directed for 42 days. [facility] triamcinolo ne acetonide 0.1 % topical ointment APPLY A THIN LAYER TO THE AFFECTED AREA(S) BY TOPICAL ROUTE 2 TIMES PER DAY as needed triamcinolo ne acetonide 0.1 % topical ointment APPLY A THIN LAYER TO THE AFFECTED AREA(S) BY TOPICAL ROUTE 2 TIMES PER DAY as needed No triamcinol one acetonide 0.1 % topical ointment APPLY A THIN LAYER TO THE AFFECTED AREA(S) BY TOPICAL ROUTE 2 TIMES PER DAY as needed [facility] atorvastati n 10 mg tablet Take 1 tablet every day by oral route in the evening. atorvastati n 10 mg tablet Take 1 tablet every day by oral route in the evening. No 1 Q1D atorvastat in 10 mg tablet Take 1 tablet every day by oral route in the evening. [facility] Benadryl Allergy Benadryl Allergy No Benadryl Allergy [facility] cholecalcif taryn (vitamin D3) 25 mcg (1,000 unit) capsule Take 1 capsule every day by oral route. cholecalcif taryn (vitamin D3) 25 mcg (1,000 unit) capsule Take 1 capsule every day by oral route. No 1capsul e(s) Q1D cholecalci ferol (vitamin D3) 25 mcg (1,000 unit) capsule Take 1 capsule every day by oral route. [facility] D3-2000 50 mcg (2,000 unit) capsule 1 tab po qd D3-2000 50 mcg (2,000 unit) capsule 1 tab po qd No D3-2000 50 mcg (2,000 unit) capsule 1 tab po qd [facility] desmopressi n 0.2 mg tablet TAKE 1 TABLET BY MOUTH EVERY DAY IN THE EVENING desmopressi n 0.2 mg tablet TAKE 1 TABLET BY MOUTH EVERY DAY IN THE EVENING No desmopress in 0.2 mg tablet TAKE 1 TABLET BY MOUTH EVERY DAY IN THE EVENING [facility] glipizide 5 mg tablet TAKE 1 TABLET BY MOUTH TWICE DAILY glipizide 5 mg tablet TAKE 1 TABLET BY MOUTH TWICE DAILY No glipizide 5 mg tablet TAKE 1 TABLET BY MOUTH TWICE DAILY [facility] Januvia 100 mg tablet Take 1 tablet every day by oral route in the morning. Januvia 100 mg tablet Take 1 tablet every day by oral route in the morning. No 1 Q1D Januvia 100 mg tablet Take 1 tablet every day by oral route in the morning. [facility] lisinopril 5 mg tablet Take 1 tablet every day by oral route in the morning. lisinopril 5 mg tablet Take 1 tablet every day by oral route in the morning. No 1 Q1D lisinopril 5 mg tablet Take 1 tablet every day by oral route in the morning. [facility] metformin ER 500 mg tablet,exte nded release 24 hr TAKE 2 TABLETS BY MOUTH TWICE DAILY metformin ER 500 mg tablet,exte nded release 24 hr TAKE 2 TABLETS BY MOUTH TWICE DAILY No metformin ER 500 mg tablet,ext ended release 24 hr TAKE 2 TABLETS BY MOUTH TWICE DAILY [facility] norethindro ne (contracept dorota) 0.35 mg tablet Take 1 tablet every day by oral route. norethindro ne (contracept dorota) 0.35 mg tablet Take 1 tablet every day by oral route. No 1 Q1D norethindr one (contracep tive) 0.35 mg tablet Take 1 tablet every day by oral route. [facility] triamcinolo ne acetonide 0.1 % topical ointment APPLY A THIN LAYER TO THE AFFECTED AREA(S) BY TOPICAL ROUTE 2 TIMES PER DAY as needed triamcinolo ne acetonide 0.1 % topical ointment APPLY A THIN LAYER TO THE AFFECTED AREA(S) BY TOPICAL ROUTE 2 TIMES PER DAY as needed No triamcinol one acetonide 0.1 % topical ointment APPLY A THIN LAYER TO THE AFFECTED AREA(S) BY TOPICAL ROUTE 2 TIMES PER DAY as needed [facility] atorvastati n 10 mg tablet Take 1 tablet every day by oral route in the evening. atorvastati n 10 mg tablet Take 1 tablet every day by oral route in the evening. No 1 Q1D atorvastat in 10 mg tablet Take 1 tablet every day by oral route in the evening. [facility] Benadryl Allergy Benadryl Allergy No Benadryl Allergy [facility] cholecalcif taryn (vitamin D3) 25 mcg (1,000 unit) capsule Take 1 capsule every day by oral route. cholecalcif taryn (vitamin D3) 25 mcg (1,000 unit) capsule Take 1 capsule every day by oral route. No 1capsul e(s) Q1D cholecalci ferol (vitamin D3) 25 mcg (1,000 unit) capsule Take 1 capsule every day by oral route. [facility] D3-2000 50 mcg (2,000 unit) capsule 1 tab po qd D3-2000 50 mcg (2,000 unit) capsule 1 tab po qd No D3-2000 50 mcg (2,000 unit) capsule 1 tab po qd [facility] desmopressi n 0.2 mg tablet TAKE 1 TABLET BY MOUTH EVERY DAY IN THE EVENING desmopressi n 0.2 mg tablet TAKE 1 TABLET BY MOUTH EVERY DAY IN THE EVENING No desmopress in 0.2 mg tablet TAKE 1 TABLET BY MOUTH EVERY DAY IN THE EVENING [facility] glipizide 5 mg tablet TAKE 1 TABLET BY MOUTH TWICE DAILY glipizide 5 mg tablet TAKE 1 TABLET BY MOUTH TWICE DAILY No glipizide 5 mg tablet TAKE 1 TABLET BY MOUTH TWICE DAILY [facility] Januvia 100 mg tablet Take 1 tablet every day by oral route in the morning. Januvia 100 mg tablet Take 1 tablet every day by oral route in the morning. No 1 Q1D Januvia 100 mg tablet Take 1 tablet every day by oral route in the morning. [facility] lisinopril 5 mg tablet Take 1 tablet every day by oral route in the morning. lisinopril 5 mg tablet Take 1 tablet every day by oral route in the morning. No 1 Q1D lisinopril 5 mg tablet Take 1 tablet every day by oral route in the morning. [facility] metformin ER 500 mg tablet,exte nded release 24 hr TAKE 2 TABLETS BY MOUTH TWICE DAILY metformin ER 500 mg tablet,exte nded release 24 hr TAKE 2 TABLETS BY MOUTH TWICE DAILY No metformin ER 500 mg tablet,ext ended release 24 hr TAKE 2 TABLETS BY MOUTH TWICE DAILY [facility] norethindro ne (contracept dorota) 0.35 mg tablet Take 1 tablet every day by oral route. norethindro ne (contracept dorota) 0.35 mg tablet Take 1 tablet every day by oral route. No 1 Q1D norethindr one (contracep tive) 0.35 mg tablet Take 1 tablet every day [facility] route. [facility] triamcinolo ne acetonide 0.1 % topical ointment APPLY A THIN LAYER TO THE AFFECTED AREA(S) BY TOPICAL ROUTE 2 TIMES PER DAY as needed triamcinolo ne acetonide 0.1 % topical ointment APPLY A THIN LAYER TO THE AFFECTED AREA(S) BY TOPICAL ROUTE 2 TIMES PER DAY as needed No triamcinol one acetonide 0.1 % topical ointment APPLY A THIN LAYER TO THE AFFECTED AREA(S) BY TOPICAL ROUTE 2 TIMES PER DAY as needed [facility] Accu-Chek Guide test strips USE DIRECTED ONCE A DAY. Accu-Chek Guide test strips USE DIRECTED ONCE A DAY. No Accu-Chek Guide test strips USE DIRECTED ONCE A DAY. [facility] atorvastati n 10 mg tablet Take 1 tablet every day by oral route in the evening. atorvastati n 10 mg tablet Take 1 tablet every day by oral route in the evening. No 1 Q1D atorvastat in 10 mg tablet Take 1 tablet every day by oral route in the evening. [facility] Benadryl Allergy Benadryl Allergy No Benadryl Allergy [facility] cholecalcif taryn (vitamin D3) 25 mcg (1,000 unit) capsule Take 1 capsule every day by oral route. cholecalcif taryn (vitamin D3) 25 mcg (1,000 unit) capsule Take 1 capsule every day by oral route. No 1capsul e(s) Q1D cholecalci ferol (vitamin D3) 25 mcg (1,000 unit) capsule Take 1 capsule every day by oral route. [facility] D3-2000 50 mcg (2,000 unit) capsule 1 tab po qd D3-2000 50 mcg (2,000 unit) capsule 1 tab po qd No D3-2000 50 mcg (2,000 unit) capsule 1 tab po qd [facility] desmopressi n 0.2 mg tablet TAKE ONE (1) TABLET(S) BY MOUTH ONCE EVERY EVENING. desmopressi n 0.2 mg tablet TAKE ONE (1) TABLET(S) BY MOUTH ONCE EVERY EVENING. No desmopress in 0.2 mg tablet TAKE ONE (1) TABLET(S) BY MOUTH ONCE EVERY EVENING. [facility] lisinopril 5 mg tablet Take 1 tablet every day by oral route in the morning. lisinopril 5 mg tablet Take 1 tablet every day by oral route in the morning. No 1 Q1D lisinopril 5 mg tablet Take 1 tablet every day by oral route in the morning. [facility] metformin ER 500 mg tablet,exte nded release 24 hr TAKE 2 TABLETS BY MOUTH TWICE DAILY metformin ER 500 mg tablet,exte nded release 24 hr TAKE 2 TABLETS BY MOUTH TWICE DAILY No metformin ER 500 mg tablet,ext ended release 24 hr TAKE 2 TABLETS BY MOUTH TWICE DAILY [facility] norethindro ne (contracept dorota) 0.35 mg tablet TAKE ONE (1) TABLET(S) BY MOUTH DAILY. norethindro ne (contracept dorota) 0.35 mg tablet TAKE ONE (1) TABLET(S) BY MOUTH DAILY. No norethindr one (contracep tive) 0.35 mg tablet TAKE ONE (1) TABLET(S) BY MOUTH DAILY. [facility] OneTouch UltraSoft Lancets USE DIRECTED DAILY TO TEST BLOOD GLUCOSE LEVELS. OneTouch UltraSoft Lancets USE DIRECTED DAILY TO TEST BLOOD GLUCOSE LEVELS. No OneTouch UltraSoft Lancets USE DIRECTED DAILY TO TEST BLOOD GLUCOSE LEVELS. [facility] Ozempic 1 mg/dose (4 mg/3 mL) subcutaneou s pen injector Inject 1 mg every week by subcutaneou s route for 90 days. Ozempic 1 mg/dose (4 mg/3 mL) subcutaneou s pen injector Inject 1 mg every week by subcutaneou s route for 90 days. No 1mg Q1W Ozempic 1 mg/dose (4 mg/3 mL) subcutaneo us pen injector Inject 1 mg every week by subcutaneo us route for [address]. [facility] [facility] triamcinolo ne acetonide 0.1 % topical ointment APPLY A THIN LAYER TO THE AFFECTED AREA(S) BY TOPICAL ROUTE 2 TIMES PER DAY as needed triamcinolo ne acetonide 0.1 % topical ointment APPLY A THIN LAYER TO THE AFFECTED AREA(S) BY TOPICAL ROUTE 2 TIMES PER DAY as needed No triamcinol one acetonide 0.1 % topical ointment APPLY A THIN LAYER TO THE AFFECTED AREA(S) BY TOPICAL ROUTE 2 TIMES PER DAY as needed [facility] Accu-Chek Guide Me Glucose Meter USE DAILY DIRECTED Accu-Chek Guide Me Glucose Meter USE DAILY DIRECTED No Accu-Chek Guide Me Glucose Meter USE DAILY DIRECTED [facility] Accu-Chek Guide test strips USE DIRECTED ONCE A DAY. Accu-Chek Guide test strips USE DIRECTED ONCE A DAY. No Accu-Chek Guide test strips USE DIRECTED ONCE A DAY. [facility] atorvastati n 10 mg tablet Take 1 tablet every day by oral route in the evening. atorvastati n 10 mg tablet Take 1 tablet every day by oral route in the evening. No 1 Q1D atorvastat in 10 mg tablet Take 1 tablet every day by oral route in the evening. [facility] Benadryl Allergy Benadryl Allergy No Benadryl Allergy [facility] D3-2000 50 mcg (2,000 unit) capsule 1 tab po qd D3-2000 50 mcg (2,000 unit) capsule 1 tab po qd No D3-2000 50 mcg (2,000 unit) capsule 1 tab po qd [facility] desmopressi n 0.2 mg tablet TAKE ONE (1) TABLET(S) BY MOUTH IN THE EVENING. desmopressi n 0.2 mg tablet TAKE ONE (1) TABLET(S) BY MOUTH IN THE EVENING. No desmopress in 0.2 mg tablet TAKE ONE (1) TABLET(S) BY MOUTH IN THE EVENING. [facility] lisinopril 5 mg tablet Take 1 tablet every day by oral route in the morning. lisinopril 5 mg tablet Take 1 tablet every day by oral route in the morning. No 1 Q1D lisinopril 5 mg tablet Take 1 tablet every day by oral route in the morning. [facility] metformin ER 500 mg tablet,exte nded release 24 hr TAKE TWO (2) TABLET(S) BY MOUTH TWICE A DAY. metformin ER 500 mg tablet,exte nded release 24 hr TAKE TWO (2) TABLET(S) BY MOUTH TWICE A DAY. No metformin ER 500 mg tablet,ext ended release 24 hr TAKE TWO (2) TABLET(S) BY MOUTH TWICE A DAY. [facility] norethindro ne (contracept dorota) 0.35 mg tablet TAKE ONE (1) TABLET(S) BY MOUTH DAILY. norethindro ne (contracept dorota) 0.35 mg tablet TAKE ONE (1) TABLET(S) BY MOUTH DAILY. No norethindr one (contracep tive) 0.35 mg tablet TAKE ONE (1) TABLET(S) BY MOUTH DAILY. [facility] OneTouch UltraSoft Lancets USE DIRECTED DAILY TO TEST BLOOD GLUCOSE LEVELS. OneTouch UltraSoft Lancets USE DIRECTED DAILY TO TEST BLOOD GLUCOSE LEVELS. No OneTouch UltraSoft Lancets USE DIRECTED DAILY TO TEST BLOOD GLUCOSE LEVELS. [facility] Ozempic 1 mg/dose (4 mg/3 mL) subcutaneou s pen injector Inject 1 mg every week by subcutaneou s route for 90 days. Ozempic 1 mg/dose (4 mg/3 mL) subcutaneou s pen injector Inject 1 mg every week by subcutaneou s route for 90 days. No 1mg Q1W Ozempic 1 mg/dose (4 mg/3 mL) subcutaneo us pen injector Inject 1 mg every week by subcutaneo us route for 90 days. [facility] Accu-Chek Guide Me Glucose Meter USE DAILY DIRECTED Accu-Chek Guide Me Glucose Meter USE DAILY DIRECTED No Accu-Chek Guide Me Glucose Meter USE DAILY DIRECTED [facility] Accu-Chek Guide test strips Check glucose bid Accu-Chek Guide test strips Check glucose bid No Accu-Chek Guide test strips Check glucose bid [facility] atorvastati n 10 mg tablet Take 1 tablet every day by oral route in the evening. atorvastati n 10 mg tablet Take 1 tablet every day by oral route in the evening. No 1 Q1D atorvastat in 10 mg tablet Take 1 tablet every day by oral route in the evening. [facility] Benadryl Allergy Benadryl Allergy No Benadryl Allergy [facility] D3-2000 50 mcg (2,000 unit) capsule 1 tab po qd D3-2000 50 mcg (2,000 unit) capsule 1 tab po qd No D3-2000 50 mcg (2,000 unit) capsule 1 tab po qd [facility] desmopressi n 0.2 mg tablet TAKE 1 TABLET BY MOUTH EVERY DAY IN THE EVENING desmopressi n 0.2 mg tablet TAKE 1 TABLET BY MOUTH EVERY DAY IN THE EVENING No desmopress in 0.2 mg tablet TAKE 1 TABLET BY MOUTH EVERY DAY IN THE EVENING [facility] lisinopril 5 mg tablet Take 1 tablet every day by oral route in the morning. lisinopril 5 mg tablet Take 1 tablet every day by oral route in the morning. No 1 Q1D lisinopril 5 mg tablet Take 1 tablet every day by oral route in the morning. [facility] metformin ER 500 mg tablet,exte nded release 24 hr TAKE TWO (2) TABLET(S) BY MOUTH TWICE A DAY. metformin ER 500 mg tablet,exte nded release 24 hr TAKE TWO (2) TABLET(S) BY MOUTH TWICE A DAY. No metformin ER 500 mg tablet,ext ended release 24 hr TAKE TWO (2) TABLET(S) BY MOUTH TWICE A DAY. [facility] norethindro ne (contracept dorota) 0.35 mg tablet TAKE ONE (1) TABLET(S) BY MOUTH DAILY. norethindro ne (contracept dorota) 0.35 mg tablet TAKE ONE (1) TABLET(S) BY MOUTH DAILY. No norethindr one (contracep tive) 0.35 mg tablet TAKE ONE (1) TABLET(S) BY MOUTH DAILY. [facility] OneTouch UltraSoft Lancets USE DIRECTED DAILY TO TEST BLOOD GLUCOSE LEVELS. OneTouch UltraSoft Lancets USE DIRECTED DAILY TO TEST BLOOD GLUCOSE LEVELS. No OneTouch UltraSoft Lancets USE DIRECTED DAILY TO TEST BLOOD GLUCOSE LEVELS. [facility] Ozempic 1 mg/dose (4 mg/3 mL) subcutaneou s pen injector Inject 1 mg every week by subcutaneou s route for 90 days. Ozempic 1 mg/dose (4 mg/3 mL) subcutaneou s pen injector Inject 1 mg every week by subcutaneou s route for 90 days. No 1mg Q1W Ozempic 1 mg/dose (4 mg/3 mL) subcutaneo us pen injector Inject 1 mg every week by subcutaneo us route for 90 days. [facility] Accu-Chek Guide Me Glucose Meter USE DAILY DIRECTED Accu-Chek Guide Me Glucose Meter USE DAILY DIRECTED No Accu-Chek Guide Me Glucose Meter USE DAILY DIRECTED [facility] Accu-Chek Guide test strips Check glucose bid Accu-Chek Guide test strips Check glucose bid No Accu-Chek Guide test strips Check glucose bid [facility] atorvastati n 10 mg tablet Take 1 tablet every day by oral route in the evening. atorvastati n 10 mg tablet Take 1 tablet every day by oral route in the evening. No 1 Q1D atorvastat in 10 mg tablet Take 1 tablet every day by oral route in the evening. [facility] Benadryl Allergy Benadryl Allergy No [facility]ad[facility]ergy [facility] D3-2000 50 mcg (2,000 unit) capsule TAKE 1 TABLET BY MOUTH DAILY D3-2000 50 mcg (2,000 unit) capsule TAKE 1 TABLET BY MOUTH DAILY No D3-2000 50 mcg (2,000 unit) capsule TAKE 1 TABLET BY MOUTH DAILY [facility] desmopressi n 0.2 mg tablet TAKE ONE (1) TABLET(S) BY MOUTH EVERY EVENING. desmopressi n 0.2 mg tablet TAKE ONE (1) TABLET(S) BY MOUTH EVERY EVENING. No desmopress in 0.2 mg tablet TAKE ONE (1) TABLET(S) BY MOUTH EVERY EVENING. [facility] fluconazole 150 mg tablet TAKE 1 TABLET BY MOUTH x 1 fluconazole 150 mg tablet TAKE 1 TABLET BY MOUTH x 1 No fluconazol e 150 mg tablet TAKE 1 TABLET BY MOUTH x 1 [facility] lisinopril 5 mg tablet Take 1 tablet every day by oral route in the morning. lisinopril 5 mg tablet Take 1 tablet every day by oral route in the morning. No 1 Q1D lisinopril 5 mg tablet Take 1 tablet every day by oral route in the morning. [facility] metformin ER 500 mg tablet,exte nded release 24 hr TAKE 2 TABLETS BY MOUTH TWICE DAILY metformin ER 500 mg tablet,exte nded release 24 hr TAKE 2 TABLETS BY MOUTH TWICE DAILY No metformin ER 500 mg tablet,ext ended release 24 hr TAKE 2 TABLETS BY MOUTH TWICE DAILY [facility] norethindro ne (contracept dorota) 0.35 mg tablet TAKE ONE (1) TABLET(S) BY MOUTH DAILY. norethindro ne (contracept dorota) 0.35 mg tablet TAKE ONE (1) TABLET(S) BY MOUTH DAILY. No norethindr one (contracep tive) 0.35 mg tablet TAKE ONE (1) TABLET(S) BY MOUTH DAILY. [facility] OneTouch UltraSoft Lancets USE DIRECTED DAILY TO TEST BLOOD GLUCOSE LEVELS. OneTouch UltraSoft Lancets USE DIRECTED DAILY TO TEST BLOOD GLUCOSE LEVELS. No OneTouch UltraSoft Lancets USE DIRECTED DAILY TO TEST BLOOD GLUCOSE LEVELS. [facility] Ozempic 0.25 mg or 0.5 mg (2 mg/3 mL) subcutaneou s pen injector Inject 0.5 mL every week by subcutaneou s route for 90 days. Ozempic 0.25 mg or 0.5 mg (2 mg/3 mL) subcutaneou s pen injector Inject 0.5 mL every week by subcutaneou s route for 90 days. No .5mL Q1W Ozempic 0.25 mg or 0.5 mg (2 mg/3 mL) subcutaneo us pen injector Inject 0.5 mL every week by subcutaneo us route for 90 days. [facility] Ozempic 1 mg/dose (4 mg/3 mL) subcutaneou s pen injector Inject 1 mg every week by subcutaneou s route for 90 days. Ozempic 1 mg/dose (4 mg/3 mL) subcutaneou s pen injector Inject 1 mg every week by subcutaneou s route for 90 days. No 1mg Q1W Ozempic 1 mg/dose (4 mg/3 mL) subcutaneo us pen injector Inject 1 mg every week by subcutaneo us route for [address] [facility] terbinafine HCl 250 mg tablet Take 1 tablet every day by oral route as directed for 42 days. terbinafine HCl 250 mg tablet Take 1 tablet every day by oral route as directed for 42 days. No 1 Q1D terbinafin e HCl 250 mg tablet Take 1 tablet every day by oral route as directed for 42 days. [facility] Accu-Chek Guide Me Glucose Meter USE DAILY DIRECTED Accu-Chek Guide Me Glucose Meter USE DAILY DIRECTED No Accu-Chek Guide Me Glucose Meter USE DAILY [facility]ED [facility] Accu-Chek Guide test strips Check glucose bid Accu-Chek Guide test strips Check glucose bid No Accu-Chek Guide test strips Check glucose bid [facility] acetaminoph en 300 mg-codeine 30 mg tablet Take 1 tablet every 8 hours by oral route as needed for 7 days. acetaminoph en 300 mg-codeine 30 mg tablet Take 1 tablet every 8 hours by oral route as needed for 7 days. No 1 Q8H acetaminop hen 300 mg-codeine 30 mg tablet Take 1 tablet every 8 hours by oral route as needed for 7 days. [facility] atorvastati n 10 mg tablet Take 1 tablet every day by oral route in the evening. atorvastati n 10 mg tablet Take 1 tablet every day by oral route in the evening. No 1 Q1D atorvastat in 10 mg tablet Take 1 tablet every day by oral route in the evening. [facility] Benadryl Allergy Benadryl Allergy No Benadryl Allergy [facility] D3-2000 50 mcg (2,000 unit) capsule TAKE 1 TABLET BY MOUTH DAILY D3-2000 50 mcg (2,000 unit) capsule TAKE 1 TABLET BY MOUTH DAILY No D3-2000 50 mcg (2,000 unit) capsule TAKE 1 TABLET BY MOUTH DAILY [facility] desmopressi n 0.2 mg tablet TAKE ONE (1) TABLET(S) BY MOUTH EVERY EVENING. desmopressi n 0.2 mg tablet TAKE ONE (1) TABLET(S) BY MOUTH EVERY EVENING. No desmopress in 0.2 mg tablet TAKE ONE (1) TABLET(S) BY MOUTH EVERY EVENING. [facility] fluconazole 150 mg tablet TAKE ONE (1) TABLET(S) BY MOUTH ONCE. fluconazole 150 mg tablet TAKE ONE (1) TABLET(S) BY MOUTH ONCE. No fluconazol e 150 mg tablet TAKE ONE (1) TABLET(S) BY MOUTH ONCE. [facility] lisinopril 5 mg tablet Take 1 tablet every day by oral route in the morning. lisinopril 5 mg tablet Take 1 tablet every day by oral route in the morning. No 1 Q1D lisinopril 5 mg tablet Take 1 tablet every day by oral route in the morning. [facility] metformin ER 500 mg tablet,exte nded release 24 hr TAKE 2 TABLETS BY MOUTH TWICE DAILY metformin ER 500 mg tablet,exte nded release 24 hr TAKE 2 TABLETS BY MOUTH TWICE DAILY No metformin ER 500 mg tablet,ext ended release 24 hr TAKE 2 TABLETS BY MOUTH TWICE DAILY [facility] norethindro ne (contracept dorota) 0.35 mg tablet TAKE ONE (1) TABLET(S) BY MOUTH DAILY. norethindro ne (contracept dorota) 0.35 mg tablet TAKE ONE (1) TABLET(S) BY MOUTH DAILY. No norethindr one (contracep tive) 0.35 mg tablet TAKE ONE (1) TABLET(S) BY MOUTH DAILY. [facility] OneTouch UltraSoft Lancets USE DIRECTED DAILY TO TEST BLOOD GLUCOSE LEVELS. OneTouch UltraSoft Lancets USE DIRECTED DAILY TO TEST BLOOD GLUCOSE LEVELS. No OneTouch UltraSoft Lancets USE DIRECTED DAILY TO TEST BLOOD GLUCOSE LEVELS. [facility] Ozempic 0.25 mg or 0.5 mg (2 mg/3 mL) subcutaneou s pen injector Inject 0.5 mg every week by subcutaneou s route for 90 days. Ozempic 0.25 mg or 0.5 mg (2 mg/3 mL) subcutaneou s pen injector Inject 0.5 mg every week by subcutaneou s route for 90 days. No Ozempic 0.25 mg or 0.5 mg (2 mg/3 mL) subcutaneo us pen injector Inject 0.5 mg every week by subcutaneo us route for [address] days. [address] [facility] Ozempic 1 mg/dose (4 mg/3 mL) subcutaneou s pen injector Inject 1 mg every week by subcutaneou s route for 90 days. Ozempic 1 mg/dose (4 mg/3 mL) subcutaneou s pen injector Inject 1 mg every week by subcutaneou s route for 90 days. No 1mg Q1W Ozempic 1 mg/dose (4 mg/3 mL) subcutaneo us pen injector Inject 1 mg every week by subcutaneo us route for 90 days. [address] [facility] terbinafine HCl 250 mg tablet TAKE ONE (1) TABLET(S) BY MOUTH DAILY. terbinafine HCl 250 mg tablet TAKE ONE (1) TABLET(S) BY MOUTH DAILY. No terbinafin e HCl 250 mg tablet TAKE ONE (1) TABLET(S) BY MOUTH DAILY. [facility] tramadol 50 mg tablet TAKE ONE (1) TABLET(S) BY MOUTH EVERY SIX HOURS NEEDED FOR PAIN. tramadol 50 mg tablet TAKE ONE (1) TABLET(S) BY MOUTH EVERY SIX HOURS NEEDED FOR PAIN. No tramadol 50 mg tablet TAKE ONE (1) TABLET(S) BY MOUTH EVERY SIX HOURS NEEDED FOR PAIN. [facility] Accu-Chek Guide Me Glucose Meter USE DAILY DIRECTED Accu-Chek Guide Me Glucose Meter USE DAILY DIRECTED No Accu-Chek Guide Me Glucose Meter USE DAILY DIRECTED [facility] Accu-Chek Guide test strips Check glucose bid Accu-Chek Guide test strips Check glucose bid No Accu-Chek Guide test strips Check glucose bid [facility] acetaminoph en 300 mg-codeine 30 mg tablet Take 1 tablet every 8 hours by oral route as needed for 7 days. acetaminoph en 300 mg-codeine 30 mg tablet Take 1 tablet every 8 hours by oral route as needed for 7 days. No 1 Q8H acetaminop hen 300 mg-codeine 30 mg tablet Take 1 tablet every 8 hours by oral route as needed for 7 days. [facility] atorvastati n 10 mg tablet Take 1 tablet every day by oral route in the evening. atorvastati n 10 mg tablet Take 1 tablet every day by oral route in the evening. No 1 Q1D atorvastat in 10 mg tablet Take 1 tablet every day by oral route in the evening. [facility] Benadryl Allergy Benadryl Allergy No Benadryl Allergy [facility] D3-2000 50 mcg (2,000 unit) capsule TAKE 1 TABLET BY MOUTH DAILY D3-2000 50 mcg (2,000 unit) capsule TAKE 1 TABLET BY MOUTH DAILY No D3-2000 50 mcg (2,000 unit) capsule TAKE 1 TABLET BY MOUTH DAILY [facility] desmopressi n 0.2 mg tablet TAKE ONE (1) TABLET(S) BY MOUTH EVERY EVENING. desmopressi n 0.2 mg tablet TAKE ONE (1) TABLET(S) BY MOUTH EVERY EVENING. No desmopress in 0.2 mg tablet TAKE ONE (1) TABLET(S) BY MOUTH EVERY EVENING. [facility] lisinopril 5 mg tablet Take 1 tablet every day by oral route in the morning. lisinopril 5 mg tablet Take 1 tablet every day by oral route in the morning. No 1 Q1D lisinopril 5 mg tablet Take 1 tablet every day by oral route in the morning. [facility] metformin ER 500 mg tablet,exte nded release 24 hr TAKE 2 TABLETS BY MOUTH TWICE DAILY metformin ER 500 mg tablet,exte nded release 24 hr TAKE 2 TABLETS BY MOUTH TWICE DAILY No metformin ER 500 mg tablet,ext ended release 24 hr TAKE 2 TABLETS BY MOUTH TWICE DAILY [facility] norethindro ne (contracept dorota) 0.35 mg tablet Take 1 tablet every day by oral route. norethindro ne (contracept dorota) 0.35 mg tablet Take 1 tablet every day by oral route. No 1 Q1D norethindr one (contracep tive) 0.35 mg tablet Take 1 tablet every day by oral route. [facility] OneTouch UltraSoft Lancets USE DIRECTED DAILY TO TEST BLOOD GLUCOSE LEVELS. OneTouch UltraSoft Lancets USE DIRECTED DAILY TO TEST BLOOD GLUCOSE LEVELS. No OneTouch UltraSoft Lancets USE DIRECTED DAILY TO TEST BLOOD GLUCOSE LEVELS. [facility] Ozempic 0.25 mg or 0.5 mg (2 mg/3 mL) subcutaneou s pen injector Inject 0.5 mg every week by subcutaneou s route for 90 days. Ozempic 0.25 mg or 0.5 mg (2 mg/3 mL) subcutaneou s pen injector Inject 0.5 mg every week by subcutaneou s route for 90 days. No Ozempic 0.25 mg or 0.5 mg (2 mg/3 mL) subcutaneo us pen injector Inject 0.5 mg every week by subcutaneo us route for 90 days. [facility] Ozempic 1 mg/dose (4 mg/3 mL) subcutaneou s pen injector Inject 1 mg every week by subcutaneou s route for 90 days. Ozempic 1 mg/dose (4 mg/3 mL) subcutaneou s pen injector Inject 1 mg every week by subcutaneou s route for 90 days. No 1mg Q1W Ozempic 1 mg/dose (4 mg/3 mL) subcutaneo us pen injector Inject 1 mg every week by subcutaneo us route for 90 days. [facility] terbinafine HCl 250 mg tablet TAKE ONE (1) TABLET(S) BY MOUTH DAILY. terbinafine HCl 250 mg tablet TAKE ONE (1) TABLET(S) BY MOUTH DAILY. No terbinafin e HCl 250 mg tablet TAKE ONE (1) TABLET(S) BY MOUTH DAILY. [facility] tramadol 50 mg tablet TAKE ONE (1) TABLET(S) BY MOUTH EVERY SIX HOURS NEEDED FOR PAIN. tramadol 50 mg tablet TAKE ONE (1) TABLET(S) BY MOUTH EVERY SIX HOURS NEEDED FOR PAIN. No tramadol 50 mg tablet TAKE ONE (1) TABLET(S) BY MOUTH EVERY SIX HOURS NEEDED FOR PAIN. [facility] Accu-Chek Guide Me Glucose Meter USE DAILY DIRECTED Accu-Chek Guide Me Glucose Meter USE DAILY DIRECTED No Accu-Chek Guide Me Glucose Meter USE DAILY DIRECTED [facility] Accu-Chek Guide test strips Check glucose bid Accu-Chek Guide test strips Check glucose bid No Accu-Chek Guide test strips Check glucose bid [facility] acetaminoph en 300 mg-codeine 30 mg tablet Take 1 tablet every 8 hours by oral route as needed for 7 days. acetaminoph en 300 mg-codeine 30 mg tablet Take 1 tablet every 8 hours by oral route as needed for 7 days. No 1 Q8H acetaminop hen 300 mg-codeine 30 mg tablet Take 1 tablet every 8 hours by oral route as needed for 7 days. [facility] atorvastati n 10 mg tablet Take 1 tablet every day by oral route in the evening. atorvastati n 10 mg tablet Take 1 tablet every day by oral route in the evening. No 1 Q1D atorvastat in 10 mg tablet Take 1 tablet every day by oral route in the evening. [facility] Benadryl Allergy Benadryl Allergy No Benadryl Allergy [facility] D3-2000 50 mcg (2,000 unit) capsule TAKE 1 TABLET BY MOUTH DAILY D3-2000 50 mcg (2,000 unit) capsule TAKE 1 TABLET BY MOUTH DAILY No D3-2000 50 mcg (2,000 unit) capsule TAKE 1 TABLET BY MOUTH DAILY [facility] desmopressi n 0.2 mg tablet TAKE ONE (1) TABLET(S) BY MOUTH EVERY EVENING. desmopressi n 0.2 mg tablet TAKE ONE (1) TABLET(S) BY MOUTH EVERY EVENING. No desmopress in 0.2 mg tablet TAKE ONE (1) TABLET(S) BY MOUTH EVERY EVENING. [facility] lisinopril 5 mg tablet Take 1 tablet every day by oral route in the morning. lisinopril 5 mg tablet Take 1 tablet every day by oral route in the morning. No 1 Q1D lisinopril 5 mg tablet Take 1 tablet every day by oral route in the morning. [facility] metformin ER 500 mg tablet,exte nded release 24 hr TAKE 2 TABLETS BY MOUTH TWICE DAILY metformin ER 500 mg tablet,exte nded release 24 hr TAKE 2 TABLETS BY MOUTH TWICE DAILY No metformin ER 500 mg tablet,ext ended release 24 hr TAKE 2 TABLETS BY MOUTH TWICE DAILY [facility] norethindro ne (contracept dorota) 0.35 mg tablet Take 1 tablet every day by oral route. norethindro ne (contracept dorota) 0.35 mg tablet Take 1 tablet every day by oral route. No 1 Q1D norethindr one (contracep tive) 0.35 mg tablet Take 1 tablet every day by oral route. [facility] OneTouch UltraSoft Lancets USE DIRECTED DAILY TO TEST BLOOD GLUCOSE LEVELS. OneTouch UltraSoft Lancets USE DIRECTED DAILY TO TEST BLOOD GLUCOSE LEVELS. No OneTouch UltraSoft Lancets USE DIRECTED DAILY TO TEST BLOOD GLUCOSE LEVELS. [facility] Ozempic 0.25 mg or 0.5 mg (2 mg/3 mL) subcutaneou s pen injector Inject 0.5 mg every week by subcutaneou s route for 90 days. Ozempic 0.25 mg or 0.5 mg (2 mg/3 mL) subcutaneou s pen injector Inject 0.5 mg every week by subcutaneou s route for 90 days. No Ozempic 0.25 mg or 0.5 mg (2 mg/3 mL) subcutaneo us pen injector Inject 0.5 mg every week by subcutaneo us route for 90 days. [facility] Program Ozempic 1 mg/dose (4 mg/3 mL) subcutaneou s pen injector Inject 1 mg every week by subcutaneou s route for 90 days. Ozempic 1 mg/dose (4 mg/3 mL) subcutaneou s pen injector Inject 1 mg every week by subcutaneou s route for 90 days. No 1mg Q1W Ozempic 1 mg/dose (4 mg/3 mL) subcutaneo us pen injector Inject 1 mg every week by subcutaneo us route for 90 days. [facility] tramadol 50 mg tablet TAKE ONE (1) TABLET(S) BY MOUTH EVERY SIX HOURS NEEDED FOR PAIN. tramadol 50 mg tablet TAKE ONE (1) TABLET(S) BY MOUTH EVERY SIX HOURS NEEDED FOR PAIN. No tramadol 50 mg tablet TAKE ONE (1) TABLET(S) BY MOUTH EVERY SIX HOURS NEEDED FOR PAIN. [facility] Program desmopressi n 0.2 mg tablet TAKE ONE (1) TABLET(S) BY MOUTH EVERY EVENING. desmopressi n 0.2 mg tablet TAKE ONE (1) TABLET(S) BY MOUTH EVERY EVENING. No desmopress in 0.2 mg tablet TAKE ONE (1) TABLET(S) BY MOUTH EVERY EVENING. [facility] glipizide 5 mg tablet TAKE ONE (1) TABLET(S) BY MOUTH TWICE A DAY. glipizide 5 mg tablet TAKE ONE (1) TABLET(S) BY MOUTH TWICE A DAY. No glipizide 5 mg tablet TAKE ONE (1) TABLET(S) BY MOUTH TWICE A DAY. [facility] OneTouch UltraSoft Lancets USE DIRECTED DAILY TO TEST BLOOD GLUCOSE LEVELS. OneTouch UltraSoft Lancets USE DIRECTED DAILY TO TEST BLOOD GLUCOSE LEVELS. No OneTouch UltraSoft Lancets USE DIRECTED DAILY TO TEST BLOOD GLUCOSE LEVELS. [facility] terbinafine HCl 250 mg tablet TAKE ONE (1) TABLET(S) BY MOUTH DAILY. terbinafine HCl 250 mg tablet TAKE ONE (1) TABLET(S) BY MOUTH DAILY. No terbinafin e HCl 250 mg tablet TAKE ONE (1) TABLET(S) BY MOUTH DAILY. [facility] tramadol 50 mg tablet TAKE ONE (1) TABLET(S) BY MOUTH EVERY SIX HOURS NEEDED FOR PAIN. tramadol 50 mg tablet TAKE ONE (1) TABLET(S) BY MOUTH EVERY SIX HOURS NEEDED FOR PAIN. No tramadol 50 mg tablet TAKE ONE (1) TABLET(S) BY MOUTH EVERY SIX HOURS NEEDED FOR PAIN. [facility] Immunizations Ordered Immunization Name Filled Immunization Name Date Status Comments Source pneumococcal polysaccharide PPV23 pneumococcal polysaccharide PPV23 2020-01-28 12:22:00 Completed [facility] pneumococcal polysaccharide PPV23 pneumococcal polysaccharide PPV23 2020-01-28 12:22:00 Completed [facility] pneumococcal polysaccharide PPV23 pneumococcal polysaccharide PPV23 2020-01-28 12:22:00 Completed [facility] pneumococcal polysaccharide PPV23 pneumococcal polysaccharide PPV23 2020-01-28 12:22:00 Completed [facility] pneumococcal polysaccharide PPV23 pneumococcal polysaccharide PPV23 2020-01-28 12:22:00 Completed [facility] pneumococcal polysaccharide PPV23 pneumococcal polysaccharide PPV23 2020-01-28 12:22:00 Completed [facility] pneumococcal polysaccharide PPV23 pneumococcal polysaccharide PPV23 2020-01-28 12:22:00 Completed [facility] pneumococcal polysaccharide PPV23 pneumococcal polysaccharide PPV23 2020-01-28 12:22:00 Completed [facility] pneumococcal polysaccharide PPV23 pneumococcal polysaccharide PPV23 2020-01-28 12:22:00 Completed [facility] Tdap Tdap 2020-01-28 12:20:00 Completed [facility] Tdap Tdap 2020-01-28 12:20:00 Completed [facility] Tdap Tdap 2020-01-28 12:20:00 Completed [facility] Tdap Tdap 2020-01-28 12:20:00 Completed [facility] Tdap Tdap 2020-01-28 12:20:00 Completed [facility] Tdap Tdap 2020-01-28 12:20:00 Completed [facility] Tdap Tdap 2020-01-28 12:20:00 Completed [facility] Tdap Tdap 2020-01-28 12:20:00 Completed [facility] Tdap Tdap 2020-01-28 12:20:00 Completed [facility] influenza, unspecified formulation influenza, unspecified formulation Unknown Completed [facility] COVID-19 (SARS-COV-2) vaccine, unspecified COVID-19 (SARS-COV-2) vaccine, unspecified Unknown Completed [facility] Tdap Tdap Unknown Completed [facility] pneumococcal polysaccharide PPV23 pneumococcal polysaccharide PPV23 Unknown Completed [facility]rology pneumococcal polysaccharide PPV23 pneumococcal polysaccharide PPV23 Unknown Completed [facility] Tdap Tdap Unknown Completed [facility] Vital Signs Vital Name Observation Time Observation Value Comments S ource BP Diastolic 2022-12-06 00:00:00 72 mm[Hg[facility] Weight 2022-12-06 00:00:00 159 [lb_av] [facility] BP Systolic 2022-12-06 00:00:00 134 mm[Hg] Isabella l[facility]pez [facility] Height 2022-12-06 00:00:00 60 [in_i] [facility] BMI (Body Mass Index) 2022-12-06 00:00:00 31.1 kg/m2 [facility] BP Diastolic 2022-11-22 00:00:00 46 mm[Hg] [facility] Body Weight 2022-11-22 00:00:00 2417.6 [oz_av] [facility] BMI (Body Mass Index) 2022-11-22 00:00:00 28.5 kg/m2 [facility] BP Systolic 2022-11-22 00:00:00 137 mm[Hg] Rogel tor[facility] Height 2022-11-22 00:00:00 61 [in_i] [facility] Height 2022-11-01 00:00:00 61 [in_i] [facility] Body Weight 2022-11-01 00:00:00 154 [lb_av] [facility] BMI (Body Mass Index) 2022-11-01 00:00:00 29.1 kg/m2 [facility] BP Systolic 2022-11-01 00:00:00 130 mm[Hg] Rogel tor[facility] BP Diastolic 2022-11-01 00:00:00 72 mm[Hg] [facility] BP Diastolic 2022-10-27 00:00:00 70 mm[Hg] [facility] Body Weight 2022-10-27 00:00:00 2438 [oz_av] [facility] BMI (Body Mass Index) 2022-10-27 00:00:00 28.8 kg/m2 [facility] BP Systolic 2022-10-27 00:00:00 140 mm[Hg] Rogel tor[facility] Height 2022-10-27 00:00:00 61 [in_i] [facility] Systolic blood pressure 2022-10-26 01:30:00 139 mm[Hg] [facility] Diastolic blood pressure 2022-10-26 01:30:00 83 mm[Hg] [facility] Heart rate 2022-10-26 01:30:00 80 /min [facility] Respiratory rate 2022-10-26 01:30:00 14 /min [facility] Oxygen saturation in Arterial blood by Pulse oximetry 2022-10-26 01:30:00 97 /min [facility] Body temperature 2022-10-25 23:37:00 37.22 Renu [facility] Body height 2022-10-25 23:37:00 157.5 cm [facility] Body weight 2022-10-25 23:37:00 72.122 kg [facility] BMI 2022-10-25 23:37:00 29.08 kg/m2 [facility] BP Diastolic 2022-09-15 00:00:00 77 mm[Hg] [facility] Height 2022-09-15 00:00:00 61 [in_i] Laura or[facility] BMI (Body Mass Index) 2022-09-15 00:00:00 30.1 kg/m2 [facility] BP Systolic 2022-09-15 00:00:00 122 mm[Hg] Juan F diamonda [facility] Body Weight 2022-09-15 00:00:00 2553 [oz_av] Nicolette [facility]kiord[facility] BP Diastolic 2022-08-09 00:00:00 77 mm[Hg] [facility] Height 2022-08-09 00:00:00 61 [in_i] Matanika [facility] BMI (Body Mass Index) 2022-08-09 00:00:00 31.4 kg/m2 [facility] BP Systolic 2022-08-09 00:00:00 134 mm[Hg] Rogel tor[facility] Body Weight 2022-08-09 00:00:00 2663 [oz_av] Nicolette [facility]ord[facility] BP Diastolic 2022-07-05 00:00:00 71 mm[Hg] [facility] Height 2022-07-05 00:00:00 61 [in_i] [facility] BMI (Body Mass Index) 2022-07-05 00:00:00 31 kg/m2 [facility] BP Systolic 2022-07-05 00:00:00 130 mm[Hg] Rogel tor[facility] Body Weight 2022-07-05 00:00:00 2629 [oz_av] Nicolette tagord[facility] BP Diastolic 2022-05-05 00:00:00 89 mm[Hg] [facility] Height 2022-05-05 00:00:00 61 [in_i] Matan[facility] BMI (Body Mass Index) 2022-05-05 00:00:00 31.2 kg/m2 [facility] BP Systolic 2022-05-05 00:00:00 139 mm[Hg] Rogel torrie [facility] Body Weight 2022-05-05 00:00:00 2641 [oz_av] Nicolette [facility] BP Diastolic 2022-01-04 00:00:00 80 mm[Hg] [facility] Height 2022-01-04 00:00:00 61 [in_i] [facility] BMI (Body Mass Index) 2022-01-04 00:00:00 31.2 kg/m2 [facility] BP Systolic 2022-01-04 00:00:00 140 mm[Hg] Rogel torrie [facility] Body Weight 2022-01-04 00:00:00 2642 [oz_av] Nicolette tagord[facility] BP Diastolic 2021-09-21 00:00:00 75 mm[Hg] [facility] Height 2021-09-21 00:00:00 61 [in_i] Matan[facility] BMI (Body Mass Index) 2021-09-21 00:00:00 30.7 kg/m2 [facility] BP Systolic 2021-09-21 00:00:00 144 mm[Hg] Rogel torrie [facility] Body Weight 2021-09-21 00:00:00 2596 [oz_av] Nicolette tagord[facility] BP Diastolic 2021-05-25 00:00:00 78 mm[Hg] [facility] Height 2021-05-25 00:00:00 61 [in_i] Matanika [facility] BMI (Body Mass Index) 2021-05-25 00:00:00 30.4 kg/m2 [facility] BP Systolic 2021-05-25 00:00:00 134 mm[Hg] Rogel torrie [facility] Body Weight 2021-05-25 00:00:00 2576 [oz_av] Nicolette tagord[facility] BP Diastolic 2021-02-20 00:00:00 79 mm[Hg] [facility] Height 2021-02-20 00:00:00 61 [in_i] Mat[facility] BMI (Body Mass Index) 2021-02-20 00:00:00 30.3 kg/m2 [facility] BP Systolic 2021-02-20 00:00:00 131 mm[Hg] Rogel torrie [facility] Body Weight 2021-02-20 00:00:00 2561.6 [oz_av] [facility] BP Diastolic 2020-05-05 00:00:00 73 mm[Hg] [facility] Height 2020-05-05 00:00:00 61 [in_i] [facility] BMI (Body Mass Index) 2020-05-05 00:00:00 30.6 kg/m2 [facility] BP Systolic 2020-05-05 00:00:00 125 mm[Hg] Rogel torrie [facility] Body Weight 2020-05-05 00:00:00 2592 [oz_av] [facility] BP Diastolic 2020-01-28 00:00:00 76 mm[Hg] [facility] Height 2020-01-28 00:00:00 61 [in_i] [facility] BMI (Body Mass Index) 2020-01-28 00:00:00 30.8 kg/m2 [facility] BP Systolic 2020-01-28 00:00:00 130 mm[Hg] Rogel torrie [facility] Body Weight 2020-01-28 00:00:00 2609.6 [oz_av] [facility] Height 2019-11-02 00:00:00 61 [in_i] [facility] BP Diastolic 2019-07-30 00:00:00 82 mm[Hg] [facility] Height 2019-07-30 00:00:00 61 [in_i] [facility] BMI (Body Mass Index) 2019-07-30 00:00:00 31.5 kg/m2 [facility] BP Systolic 2019-07-30 00:00:00 131 mm[Hg] Rogel torrie [facility] Body Weight 2019-07-30 00:00:00 2665 [oz_av] [facility] BP Diastolic 2019-04-30 00:00:00 78 mm[Hg] [facility] Height 2019-04-30 00:00:00 61 [in_i] [facility] BMI (Body Mass Index) 2019-04-30 00:00:00 32.4 kg/m2 [facility] BP Systolic 2019-04-30 00:00:00 131 mm[Hg] Rogel torrie [facility] Body Weight 2019-04-30 00:00:00 171.7 [lb_av] [facility] BP Diastolic 2019-04-25 00:00:00 83 mm[Hg] [facility] Height 2019-04-25 00:00:00 61 [in_i] [facility] BMI (Body Mass Index) 2019-04-25 00:00:00 32.1 kg/m2 [facility] BP Systolic 2019-04-25 00:00:00 136 mm[Hg] Rogel torrie [facility] Body Weight 2019-04-25 00:00:00 169.8 [lb_av] [facility] BP Diastolic 2019-03-05 00:00:00 93 mm[Hg] [facility] Height 2019-03-05 00:00:00 61 [in_i] [facility] BMI (Body Mass Index) 2019-03-05 00:00:00 31.7 kg/m2 [facility] BP Systolic 2019-03-05 00:00:00 150 mm[Hg] Rogel torrie [facility] Body Weight 2019-03-05 00:00:00 168 [lb_av] [facility] BP Diastolic 2019-02-02 00:00:00 90 mm[Hg] [facility] Height 2019-02-02 00:00:00 61 [in_i] [facility] BMI (Body Mass Index) 2019-02-02 00:00:00 32 kg/m2 [facility] BP Systolic 2019-02-02 00:00:00 150 mm[Hg] Rogel tor[facility] Body Weight 2019-02-02 00:00:00 169.4 [lb_av] [facility] Procedures Procedure Date / Time Performed Performing Clinician Source MAMMO, screening, bilateral 2022-11-01 00:00:00 [facility] CT ABDOMEN PELVIS WO CONTRAST 2022-10-26 00:26:00 Ya Shields [facility] LIPASE 2022-10-26 00:15:00 [facility]OL[facility] ([id number]) 2022-10-26 00:15:00 Ya Shields [facility] CBC WITH DIFF 2022-10-26 00:15:00 [facility] 2022-10-26 00:15:00 [facility] S[facility]EN FOR GROUP A 2022-10-26 00:15:00 Ya Shields [facility] RAPID INFLUENZA A/B 2022-10-26 00:15:00 Ya Shields [facility] CONSENT/REFUSAL FOR DIAGNOSIS AND TREATMENT 2022-10-25 23:28:59 Doctor Unassigned, [place] [facility] NOTICE OF PRIVACY PRACTICES 2022-10-25 23:28:23 Doctor Unassigned, [place] [facility] MAMMO, screening, digital, bilateral 2021-05-25 00:00:00 [facility] MAMMO, screening, bilateral 2019-02-02 00:00:00 [facility] CHEST X-RAY 2019-02-02 00:00:00 [facility] Tubal Ligation [facility] Hernia Repair W/mesh [facility] Appendectomy [facility] Cholecystectomy [facility] Plan of Care Planned Activity Planned Date Details Comments Source Diagnostic Test Pending 2022-12-06 00:00:00 urinalysis, dipstick [code = urinalysis, dipstick] [facility] Diagnostic Test Pending 2022-11-22 00:00:00 HbA1c (hemoglobin A1c), blood [code = HbA1c (hemoglobin A1c), blood] [facility] Diagnostic Test Pending 2022-11-22 00:00:00 CMP, serum or plasma [code = CMP, serum or plasma] [facility] Test Pending 2022-11-22 00:00:00 CBC w/ auto diff [code = CBC w/ auto diff] [facility] Diagnostic Test Pending 2022-11-22 00:00:00 vitamin D, 25-hydroxy, total, serum [code = vitamin D, 25-hydroxy, total, serum] [facility] Future Appointment 2023-03-01 09:30:00 Kia Ruvalcaba, [address] , [place] [address] [facility] Encounters Start Date/Time End Date/Time Encounter Type Admission Type Attending [facility] Facility Care Department Encounter ID Source 2022-12-31 00:00:00 2022-12-31 00:00:00 Outpatient R [facility] [id number] [facility] 2022-12-24 00:00:00 2022-12-24 00:00:00 Outpatient Stacik_Rona MNSAGAR [facility] [id number] [facility] 2022-12-06 00:00:00 2022-12-06 00:00:00 Outpatient Schiffman_Z [facility] [id number] [place] 2022-12-06 00:00:00 2022-12-06 00:00:00 Outpatient Schiffman_Z [facility] [id number] [facility] 2022-12-06 00:00:00 2022-12-06 00:00:00 Otoniel Morrow MD: [id number] [address] , Ph. [facility] - [id number] [facility] 2022-12-05 00:00:00 2022-12-05 00:00:00 Outpatient Schiffman_Z [facility] [id number] [facility] 2022-11-25 00:00:00 2022-11-25 00:00:00 Outpatient Schiffman_Z [facility] [id number] [facility] 2022-11-25 00:00:00 2022-11-25 00:00:00 Outpatient Schiffman_Z [facility] [id number] [facility] 2022-11-23 00:00:00 2022-11-23 00:00:00 Outpatient Lezak_Javiyla [facility] [id number] [facility] 2022-11-22 00:00:00 2022-11-22 00:00:00 Outpatient Lezak_Javiyla [facility] [id number] [facility] 2022-11-22 00:00:00 2022-11-22 00:00:00 BRANDEN Hoffman: [id number] [address] , [facility] [id number] [facility] 2022-11-19 00:00:00 2022-11-19 00:00:00 Outpatient Lezak_Javiyla [facility] [id number] [facility] 2022-11-16 00:00:00 2022-11-16 00:00:00 Outpatient Armstrong_B [facility] [id number] [facility] 2022-11-11 00:00:00 2022-11-11 00:00:00 Outpatient Lezak_Kayla [facility] [id number] [facility] 2022-11-01 00:00:00 2022-11-01 00:00:00 Outpatient Armstrong_B [facility] U [id number] [facility] 2022-11-01 00:00:00 2022-11-01 00:00:00 Outpatient Armstrong_B [facility] [id number] [facility] 2022-11-01 00:00:00 2022-11-01 00:00:00 Outpatient Armstrong_B [facility] [id number] [facility] 2022-11-01 00:00:00 2022-11-01 00:00:00 Bonny boyer MD: [id number], [place] [address] , Ph. 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 [place] [id number] [facility] 2022-10-27 00:00:00 2022-10-27 00:00:00 Outpatient Lezak_Kayla [facility] [id number] [facility] 2022-10-27 00:00:00 2022-10-27 00:00:00 Outpatient Lezak_Kayla [facility] [id number] [facility] 2022-10-27 00:00:00 2022-10-27 00:00:00 Outpatient Lezak_Kayla [facility] [id number] [facility] 2022-10-27 00:00:00 2022-10-27 00:00:00 Outpatient Lezak_Kayla [facility] [id number] [facility] 2022-10-27 00:00:00 2022-10-27 00:00:00 Outpatient Lezak_Kayla [facility] [id number] [facility] 2022-10-27 00:00:00 2022-10-27 00:00:00 Outpatient Lezak_Kayla [facility] [id number] [facility] 2022-10-27 00:00:00 2022-10-27 00:00:00 BRANDEN Hoffman: [id number] [place] [address] , Ph. [facility] [place] [facility] Marie [id number] [facility] 2022-10-26 00:00:00 2022-10-26 00:00:00 Patient Secure Msg Doctor Unassigned, [place] [facility] [id number] [facility] 2022-10-25 18:40:00 2022-10-25 21:05:00 Emergency Ya Shields [facility] [id number] [facility] 2022-10-25 18:40:00 2022-10-25 21:05:00 Emergency X [facility] [id number] [facility] 2022-09-17 15:03:42 2022-09-17 15:03:42 Outpatient [facility] [id number] Isaiah Raphael Moo 2022-09-15 00:00:00 2022-09-15 00:00:00 BRANDEN Hoffman: [id number] [address] [place] [address] , Ph. [facility] [id number] [facility] 2022-09-07 00:00:00 2022-09-07 00:00:00 Outpatient Lezak_Kayla [facility] [id number] [facility] 2022-09-07 00:00:00 2022-09-07 00:00:00 Outpatient Lezak_Kayla [facility] [id number] [facility] 2022-09-07 00:00:00 2022-09-07 00:00:00 Outpatient Lezak_Kayla [facility] [id number] [facility] 2022-08-09 00:00:00 2022-08-09 00:00:00 Outpatient Lezak_Kayla [facility] [id number] [facility] 2022-08-09 00:00:00 2022-08-09 00:00:00 Outpatient Lezak_Kayla [facility] [id number] [facility] 2022-08-09 00:00:00 2022-08-09 00:00:00 BRANDEN Hoffman: [id number] [place] [address] , [facility]. [facility] [id number] [facility] 2022-07-05 00:00:00 2022-07-05 00:00:00 Outpatient Lezak_Kayla [facility] [id number] [facility] 2022-07-05 00:00:00 2022-07-05 00:00:00 Outpatient Lezak_Kayla [facility] [id number] [facility] 2022-07-05 00:00:00 2022-07-05 00:00:00 BRANDEN Hoffman: [id number] [address] [place] [address] , [facility]. [facility] [id number] [facility] 2022-05-27 00:00:00 2022-05-27 00:00:00 Outpatient Lezak_Kayla [facility] [id number] [facility] 2022-05-05 00:00:00 2022-05-05 00:00:00 Outpatient Lezak_Kayla [facility] [id number] [facility] 2022-05-05 00:00:00 2022-05-05 00:00:00 Outpatient Lezak_Javiylney [facility] [id number] [facility] 2022-05-05 00:00:00 2022-05-05 00:00:00 Rona [place]: [address], [facility] [place] [address] , Ph. [facility] [id number] [facility] 2022-01-04 00:00:00 2022-01-04 00:00:00 Outpatient Lezak_Hueya [facility] [id number] [facility] 2022-01-04 00:00:00 2022-01-04 00:00:00 Rona Rodrigues PA: [address], [facility] [place] [address] , Ph. [facility] [id number] [facility] 2021-10-06 00:00:00 2021-10-06 00:00:00 Outpatient Lezak_Rona [facility] [id number] [facility] 2021-09-21 00:00:00 2021-09-21 00:00:00 Outpatient Lezak_Javiyla [facility] [id number] [facility] 2021-09-21 00:00:00 2021-09-21 00:00:00 Rona Rodrigues PA: [address], [facility] [place] [address] , Ph. [facility] [id number] [facility] 2021-09-17 00:00:00 2021-09-17 00:00:00 Outpatient Lezak_Kayla [facility] [id number] [facility] 2021-09-09 11:24:00 2021-09-09 11:24:00 Outpatient Lezak_Kayla [facility] [id number] [facility] 2021-05-25 02:12:00 2021-05-25 02:12:00 Outpatient Lezak_Kayla [facility] [id number] [facility] 2021-05-25 00:00:00 2021-05-25 00:00:00 Rona Rodrigues PA: [address] [place] [address] , Ph. [facility] [id number] [facility] 2021-03-30 02:57:00 2021-03-30 02:57:00 Outpatient Lezak_Javiyla [facility] [id number] [facility] 2021-02-20 04:09:00 2021-02-20 04:09:00 Outpatient Lezak_Kayla [facility] [id number] [facility] 2021-02-20 00:00:00 2021-02-20 00:00:00 NICOLE Salinas: [address] [place] [address] , Ph. [facility] [id number] [facility] 2021-02-18 11:07:00 2021-02-18 11:07:00 Outpatient Lezak_Javiyla [facility] [id number] [facility] 2021-02-10 11:25:00 2021-02-10 11:25:00 Outpatient Lezak_Javiyla [facility] [id number] [facility] 2020-05-05 02:08:00 2020-05-05 02:08:00 Outpatient Lezak_Javiyla [facility] [id number] [facility] 2020-05-05 00:00:00 2020-05-05 00:00:00 BRANDEN Hoffman: [address] [address] , [facility]. [facility] [id number] [facility] 2020-04-21 02:24:00 2020-04-21 02:24:00 Outpatient Lezak_Javiyla [facility] [id number] [facility] 2020-02-18 01:03:00 2020-02-18 01:03:00 Outpatient Lezak_Javiyla [facility] [id number] [facility] 2020-01-28 04:34:00 2020-01-28 04:34:00 Outpatient Lezak_Javiyla [facility] [id number] [facility] 2020-01-28 00:00:00 2020-01-28 00:00:00 BRANDEN Hoffman: [address] [address] , Ph. [facility] [id number] [facility] 2020-01-14 01:02:00 2020-01-14 01:02:00 Outpatient Lezak_Kayla [facility] [id number] [facility] 2019-12-09 01:01:00 2019-12-09 01:01:00 Outpatient Lezak_Kayla [facility] [id number] [facility] 2019-12-06 09:30:00 2019-12-06 09:30:00 Outpatient [facility] [id number] [facility] 2019-11-07 10:25:00 2019-11-07 10:25:00 Outpatient Lezak_Kayla [facility] [id number] [facility] 2019-11-03 12:22:00 2019-11-03 12:22:00 Outpatient Lezak_Kayla [facility] [id number] [facility] 2019-11-02 12:04:00 2019-11-02 12:04:00 Outpatient Lezak_Kayla [facility] 0911 [facility] 2019-11-02 00:00:00 2019-11-02 00:00:00 BRANDEN Hoffman: [address], [address], [place] [address] , Ph. [facility] [place] [facility] [place] [facility] [id number] [facility] 2019-11-01 01:23:00 2019-11-01 01:23:00 Outpatient Lezak_Kayla [facility] [id number] [facility] 2019-09-18 03:08:00 2019-09-18 03:08:00 Outpatient Lezak_Kayla [facility] [id number] [facility] 2019-07-30 05:15:00 2019-07-30 05:15:00 Outpatient Lezak_Kayla [facility] [id number] [facility] 2019-07-30 00:00:00 2019-07-30 00:00:00 BRANDEN Hoffman: [address] [place] [address] , Ph. [facility] [place] [facility] [place] [facility] HOP - [facility] [id number] [facility] 2019-07-10 12:30:00 2019-07-10 12:30:00 Outpatient Lezak_Kayla [facility] [id number] [facility] 2019-06-05 12:38:00 2019-06-05 12:38:00 Outpatient Lezak_Kayla [facility] [id number] [facility] 2019-05-01 03:08:00 2019-05-01 03:08:00 Outpatient Lezak_Kayla [facility] [id number] [facility] 2019-04-30 02:20:00 2019-04-30 02:20:00 Outpatient Lezak_Kayla [facility] [id number] [facility] 2019-04-30 00:00:00 2019-04-30 00:00:00 BRANDEN Hoffman: [address] [place] [address] , Ph. [facility] [place] [facility] [place] [facility] H[facility] - [facility] [id number] [facility] 2019-04-25 05:58:00 2019-04-25 05:58:00 Outpatient Lezak_Kayla [facility] [id number] [facility] 2019-04-25 00:00:00 2019-04-25 00:00:00 BRANDEN Hoffman: [address] [place] [address] , Ph. [facility] [place] [facility] - [facility] [place] [id number] [facility] 2019-03-06 11:54:00 2019-03-06 11:54:00 Outpatient Palermo_Kai tlin [facility] [id number] [facility] 2019-03-05 12:06:00 2019-03-05 12:06:00 Outpatient Palermo_Kai tlin [facility] [id number] [facility] 2019-03-05 00:00:00 2019-03-05 00:00:00 Jared Esquivel MD: [address] [place] [address] , Ph. [facility] [place] [facility] [place] [facility] HOP - MEHOP CARE NURSE RN [id number] [facility] 2019-02-02 00:00:00 2019-02-02 00:00:00 Aixa Walsh, RAY, S: [address] [place] [address] , Ph. [facility] [place] [facility] - [facility] [place] [id number] [facility] 2017-12-23 16:52:00 2017-12-23 23:59:00 Outpatient LITZY CRAVEN [facility] [id number] [facility] 2014-04-20 16:59:00 2014-04-20 19:05:00 Emergency E SANKET BETTS [facility] [id number] [facility] Results Test Description Test Time Test Comments Results Result Co mments Source [facility] UrologyB[facility]inosis and vaginitis DNA panel - Vaginal fluid by Probe with signal [id number] 00:00:00* Test Item Value Reference Range Interpretation Comme nts bv result (test code = bv result) positive A lactobacillus spp. (test cod e = lactobacillus spp.) not detected gardnerella vaginalis (test code = gardnerella vaginalis) detected atopobium vaginae (test code = atopobium vaginae) detected bvab2 (test code = bvab2) detected megasphera spp. (test code = megasphera spp.) detected mobiluncus curtisii (test co de = mobiluncus curtisii) not detected mobiluncus mulieris (test co de = mobiluncus mulieris) not detected prevotella bivia (test code = prevotella bivia) not detected lactobacillus iners (test co de = lactobacillus iners) detected specimen (test code = specimen) see note emy albicans (test code = emy albicans) not detected emy glabrata (test code = emy glabrata) not detected emy parapsilosis (test c ode = emy parapsilosis) not detected emy tropicalis (test cod e = emy tropicalis) not detected emy krusei (test code = emy krusei) not detected trichomonas, naat (test code = trichomonas, naat) negative negative [facility], IG + CT/NG + HR [id number] 00:00:00* Test Item Value Reference Range Interpretation Comme nts source: (test code = source:) unspecified slides: (test code = slides:) 1 LMP: (test code = LMP:) not given specimen adequacy: (test code = specimen adequacy:) (note) interpretation: (test code = interpretation:) nilm/no epith. abnormality;see below computer clerk: (test code = computer clerk:) SCOTT chirstine(ascp) IAC location: (test code = location:) (note) CPT: (test code = CPT:) (note) HPV high risk interp (test code = HPV high risk interp) negative negative HPV 16 (test code = HPV 16) negative HPV 18 (test code = HPV 18) negative HPV, HR, other genotypes (test code = HPV, HR, other genotypes) negative gonorrhea, naat, thinprep (test code = gonorrhea, naat, thinprep) negative negative chlamydia, naat, thinprep (test code = chlamydia, naat, thinprep) negative negative [place] [facility] ProgramChlamydia trachomatis and Neisseria gonorrhoeae and Trichomonas vaginalis DNA panel - Specimen by MIGUEL with probe [id number] 00:00:00* Test Item Value Reference Range Interpretation Comme nts Chlamydia trachomatis rRNA [Presence] in Specimen by MIGUEL with probe detection (test code = 70893-8) negative negative Neisseria gonorrhoeae rRNA [Presence] in Specimen by MIGUEL with probe detection (test code = 43724-7) negative negative Trichomonas vaginalis rRNA [Presence] in Specimen by MIGUEL with probe detection (test code = 23767-1) negative negative [facility] panel - Serum or Plasma by MIGUEL with probe [id number] 00:00:00* Test Item Value Reference Range Interpretation Comme nts HIV 1 RNA [Presence] in Seru m or Plasma by MIGUEL with probe detection (test code = 02887-5) non reactive non reactive HIV 2 RNA [Presence] in Seru m or Plasma by MIGUEL with probe detection (test code = 31912-5) non reactive non reactive [facility] Center[facility] 2000 panel - Serum or [id number] 00:00:00* Test Item Value Reference Range Interpretation Comme nts Glucose [Mass/volume] in Ser um or Plasma (test code = 2345-7) 91 mg/dL 70-99 Urea nitrogen [Mass/volume] in Serum or Plasma (test code = 3094-0) 10 mg/dL 6-24 Creatinine [Mass/volume] in Serum or Plasma (test code = 2160-0) 0.83 mg/dL 0.57-1.00 Glomerular filtration rate/1.73 sq M.predicted [Volume Rate/Area] in Serum, Plasma or Blood by Creatinine-based formula (CKD-EPI 2020) (test code = 19407-5) 86 mL/min/1.73 >59 Urea nitrogen/Creatinine [Ma ss Ratio] in Serum or Plasma (test code = 3097-3) 12 9-23 Sodium [Moles/volume] in Ser um or Plasma (test code = 2951-2) 142 mmol/L 134-144 Potassium [Moles/volume] in Serum or Plasma (test code = 2823-3) 4.5 mmol/L 3.5-5.2 Chloride [Moles/volume] in Serum or Plasma (test code = 2074-0) 103 mmol/L 96-106 Carbon dioxide, total [Moles/volume] in Serum or Plasma (test code = 2027-) 23 mmol/L 20-29 Calcium [Mass/volume] in Ser um or Plasma (test code = 56714-4) 9.4 mg/dL 8.7-10.2 Protein [Mass/volume] in Ser um or Plasma (test code = 2885-2) 7.1 g/dL 6.0-8.5 Albumin [Mass/volume] in Ser um or Plasma (test code = 175-7) 4.8 g/dL 3.9-4.9 Globulin [Mass/volume] in Serum by calculation (test code = 60066-0) 2.3 g/dL 1.5-4.5 Albumin/Globulin [Mass Ratio ] in Serum or Plasma (test code = 1759-0) 2.1 1.2-2.2 Bilirubin.total [Mass/volume ] in Serum or Plasma (test code = 1974-) 0.6 mg/dL 0.0-1.2 Alkaline phosphatase [Enzymatic activity/volume] in Serum or Plasma (test code = 6768-6) 67 IU/L 44-121 Aspartate aminotransferase [Enzymatic activity/volume] in Serum or Plasma (test code = 1920-8) 15 IU/L 0-40 Alanine aminotransferase [Enzymatic activity/volume] in Serum or Plasma (test code = 1742-6) 15 IU/L 0-32 [facility] W Auto Differential panel - Blood 2022-10-28 00:00:00* Test Item Value Reference Range Interpretation Comme nts Leukocytes [#/volume] in Blo od by Automated count (test code = 6690-2) 12.5 x10e3/uL 3.4-10.8 H Erythrocytes [#/volume] in Blood by Automated count (test code = 789-8) 4.99 x10e6/uL 3.77-5.28 Hemoglobin [Mass/volume] in Blood (test code = 718-7) 14.9 g/dL 11.1-15.9 Hematocrit [Volume Fraction] of Blood by Automated count (test code = 4544-3) 47.3 % 34.0-46.6 H Erythrocyte mean corpuscular volume [Entitic volume] by Automated count (test code = 787-2) 95 fL 79-97 Erythrocyte mean corpuscular hemoglobin [Entitic mass] by Automated count (test code = 785-6) 29.9 pg 26.6-33.0 Erythrocyte mean corpuscular hemoglobin concentration [Mass/volume] by Automated count (test code = 786-4) 31.5 g/dL 31.5-35.7 Erythrocyte distribution wid th [Ratio] by Automated count (test code = 788-0) 12.7 % 11.7-15.4 Platelets [#/volume] in Bloo d by Automated count (test code = 777-3) 336 x10e3/uL 150-450 Neutrophils/100 leukocytes i n Blood by Automated count (test code = 770-8) 71 % not estab. Lymphocytes/100 leukocytes i n Blood by Automated count (test code = 736-9) 22 % not estab. Monocytes/100 leukocytes in Blood by Automated count (test code = 5905-5) 5 % not estab. Eosinophils/100 leukocytes i n Blood by Automated count (test code = 713-8) 1 % not estab. Basophils/100 leukocytes in Blood by Automated count (test code = 706-2) 1 % not estab. 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 METABOLIC PANEL (17047) 2022-10-26 00:48:32* Test Item Value Reference Range Interpretation Comme nts NA (test code = 0658475887) 142 mmol/L 135-145 K (test code = 1205251722) 3.1 mmol/L 3.5-5.0 L CL (test code = 0221658994) 101 mmol/L 98-108 CO2 TOTAL (test code = 0678094705) 31 mmol/L 23-31 AGAP (test code = 6288488340) 10 2-16 BUN (test code = 3697594436) 11 mg/dL 7-23 GLUCOSE (test code = 7661869042) 219 mg/dL 70-110 H CREATININE (test code = 1309584267) 0.84 mg/dL 0.50-1.04 TOTAL BILI (test code = 7728773954) 0.5 mg/dL 0.1-1.1 CALCIUM (test code = 3689068330) 9.7 mg/dL 8.6-10.6 T PROTEIN (test code = 6438113346) 8.9 g/dL 6.3-8.2 H ALBUMIN (test code = 1188002625) 4.9 g/dL 3.5-5.0 ALK PHOS (test code = 4897962679) 63 U/L 34-122 ALTv (test code = 1742-6) 21 U/L 5-35 AST(SGOT) (test code = 4453727828) 24 U/L 13-40 eGFR (test code = 9940254523) 71.8 mL/min/1.73m2 YULY (test code = YULY) Association of [...] or abnormalities in imaging tests). Lab Interpretation (test code = 99552-9) [facility]47:31* Test Item Value Reference Range Interpretation Comme nts LIPASE (test code = 6660540067) 247 U/L 0-220 H Lab Interpretation (test cod e = 97895-1) Abnormal [facility] WITH [id number] 00:44:15* Test Item Value Reference Range Interpretation Comme nts WBC (test code = 6690-2) 13.10 See_Comment H [Automated messa ge] The system which generated this result transmitted reference range: 4.30 - 11.10 10*3/?L. The reference range was not used to interpret this result as normal/abnormal. RBC (test code = 789-8) 5.06 See_Comment [Automated messa ge] The system which generated this result transmitted reference range: 3.93 - 5.25 10*6/?L. The reference range was not used to interpret this result as normal/abnormal. HGB (test code = 718-7) 15.2 g/dL 11.6-15.0 H HCT (test code = 4544-3) 45.6 % 35.7-45.2 H MCV (test code = 787-2) 90.1 fL 80.6-95.5 MCH (test code = 785-6) 30.0 pg 25.9-32.8 MCHC (test code = 786-4) 33.3 g/dL 31.6-35.1 RDW-SD (test code = 60540-1) 41.4 fL 39.0-49.9 RDW-CV (test code = 788-0) 12.5 % 12.0-15.5 PLT (test code = 777-3) 363 See_Comment H [Automated messa ge] The system which generated this result transmitted reference range: 166 - 358 10*3/?L. The reference range was not used to interpret this result as normal/abnormal. MPV (test code = 40212-1) 8.6 fL 9.5-12.9 L NRBC/100 WBC (test code = 8212784222) 0.0 See_Comment [Automated LC [employer] ssage] The system which generated this result transmitted reference range: 0.0 - 10.0 /100 WBCs. The reference range was not used to interpret this result as normal/abnormal. NRBC x10^3 (test code = 7840111921) See_Comment [Automated messa ge] The system which generated this result transmitted reference range: 10*3/?L. The reference range was not used to interpret this result as normal/abnormal. GRAN MAT (NEUT) % (test code = 770-8) 63.5 % IMM GRAN % (test code = 0872333464) 0.40 % LYMPH % (test code = 736-9) 28.5 % MONO % (test code = 5905-5) 5.3 % EOS % (test code = 713-8) 1.5 % BASO % (test code = 706-2) 0.8 % GRAN MAT x10^3(ANC) (test code = 9434001468) 8.33 10*3/uL 1.88-7.09 H IMM GRAN x10^3 (test code = 9480533393) 0.05 10*3/uL 0.00-0.06 LYMPH x10^3 (test code = 731-0) 3.74 10*3/uL 1.32-3.29 H MONO x10^3 (test code = 742-7) 0.69 10*3/uL 0.33-0.92 EOS x10^3 (test code = 711-2) 0.19 10*3/uL 0.03-0.39 BASO x10^3 (test code = 704-7) 0.10 10*3/uL 0.01-0.07 H Lab Interpretation (test code = 83147-5) Abnormal [facility] Hospital[facility]inal[facility] complete W Reflex Culture panel - [id number] 00:00:00* Test Item Value Reference Range Interpretation Comme nts Specific gravity of Urine by Test strip (test code = 5811-5) 1.020 1.005-1.030 pH of Urine by Test strip (t est code = 5803-2) 6.5 5.0-7.5 Color of Urine (test code = 5778-6) yellow yellow Appearance of Urine (test co de = 5767-9) clear clear Leukocyte esterase [Presence ] in Urine by Test strip (test code = 5799-2) 1+ negative A Protein [Presence] in Urine by Test strip (test code = 40963-2) trace negative/trace Glucose [Presence] in Urine by Test strip (test code = 89001-8) negative negative Ketones [Presence] in Urine by Test strip (test code = 2514-8) negative negative Hemoglobin [Presence] in Uri ne by Test strip (test code = 5794-3) negative negative Bilirubin.total [Presence] i n Urine by Test strip (test code = 5770-3) negative negative Urobilinogen [Mass/volume] i n Urine by Test strip (test code = 23010-2) 1.0 mg/dL 0.2-1.0 Nitrite [Presence] in Urine by Test strip (test code = 5802-4) negative negative Microscopic observation [Identifier] in Urine sediment by Light microscopy (test code = 08807-3) 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 Leukocytes [#/area] in Urine sediment by Microscopy high power field (test code = 5821-4) 0-5 0-5 Erythrocytes [#/area] in Uri ne sediment by Microscopy high power field (test code = 13574-8) 3-10 0-2 A Epithelial cells [#/area] in Urine sediment by Microscopy high power field (test code = 5787-7) 0-10 0-10 Epithelial cells.renal [#/ar ea] in Urine sediment by Microscopy high power field (test code = 59262-9) 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 Casts [Presence] in Urine se diment by Light microscopy (test code = 51548-7) none seen none seen Casts [Type] in Urine sedime nt by Light microscopy (test code = 64410-8) 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 Unidentified crystals [Prese nce] in Urine sediment by Light microscopy (test code = 5783-6) 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 Crystals [type] in Urine sed iment by Light microscopy (test code = 5782-8) 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 Mucus [Presence] in Urine se diment by Light microscopy (test code = 8247-9) 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 Bacteria [#/area] in Urine s ediment by Microscopy high power field (test code = 5769-5) few none seen/few Yeast [#/area] in Urine sedi ment by Microscopy high power field (test code = 5822-2) 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 Trichomonas vaginalis [Prese nce] in Urine sediment by Light microscopy (test code = 5813-1) 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 Urine sediment comments by L ight microscopy Narrative (test code = 34944-6) 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 urinalysis reflex (test code = urinalysis reflex) comment Bacteria identified in Urine by Culture (test code = 630-4) no growth [facility] ProgramUrinalysis complete W Reflex Culture panel - [id number] 00:00:00* Test Item Value Reference Range Interpretation Comme nts Specific gravity of Urine by Test strip (test code = 5811-5) 1.020 1.005-1.030 pH of Urine by Test strip (t est code = 5803-2) 6.5 5.0-7.5 Color of Urine (test code = 5778-6) yellow yellow Appearance of Urine (test co de = 5767-9) clear clear Leukocyte esterase [Presence ] in Urine by Test strip (test code = 5799-2) 1+ negative A Protein [Presence] in Urine by Test strip (test code = 95098-6) trace negative/trace Glucose [Presence] in Urine by Test strip (test code = 61329-2) negative negative Ketones [Presence] in Urine by Test strip (test code = 2514-8) negative negative Hemoglobin [Presence] in Uri ne by Test strip (test code = 5794-3) negative negative Bilirubin.total [Presence] i n Urine by Test strip (test code = 5770-3) negative negative Urobilinogen [Mass/volume] i n Urine by Test strip (test code = 67403-9) 1.0 mg/dL 0.2-1.0 Nitrite [Presence] in Urine by Test strip (test code = 5802-4) negative negative Microscopic observation [Identifier] in Urine sediment by Light microscopy (test code = 81170-2) 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 Leukocytes [#/area] in Urine sediment by Microscopy high power field (test code = 5821-4) 0-5 0-5 Erythrocytes [#/area] in Uri ne sediment by Microscopy high power field (test code = 41535-5) 3-10 0-2 A Epithelial cells [#/area] in Urine sediment by Microscopy high power field (test code = 5787-7) 0-10 0-10 Epithelial cells.renal [#/ar ea] in Urine sediment by Microscopy high power field (test code = 12903-8) 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 Casts [Presence] in Urine se diment by Light microscopy (test code = 31773-7) none seen none seen Casts [Type] in Urine sedime nt by Light microscopy (test code = 15768-4) 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 Unidentified crystals [Prese nce] in Urine sediment by Light microscopy (test code = 5783-6) 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 Crystals [type] in Urine sed iment by Light microscopy (test code = 5782-8) 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 Mucus [Presence] in Urine se diment by Light microscopy (test code = 8247-9) 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 Bacteria [#/area] in Urine s ediment by Microscopy high power field (test code = 5769-5) few none seen/few Yeast [#/area] in Urine sedi ment by Microscopy high power field (test code = 5822-2) 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 Trichomonas vaginalis [Prese nce] in Urine sediment by Light microscopy (test code = 5813-1) 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 Urine sediment comments by L ight microscopy Narrative (test code = 41329-4) 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 urinalysis reflex (test code = urinalysis reflex) comment Bacteria identified in Urine by Culture (test code = 630-4) no growth [facility] ProgramHemoglobin.gastrointestinal.lower [Presence] in Stool by Kjmhngwbida8055-23-83 00:00:00* Test Item Value Reference Range Interpretation Comme nts occult blood panel, ia, stoo l (test code = occult blood panel, ia, stool) negative [facility] ProgramSCR MAMM BILATERAL SARAH CAD DIGITAL 2021-11-20 12:26:29 Name: Destiney : 1970 Sex: F - SCR MAMM BILATERAL SARAH CAD DIGITALBILATERAL DIGITAL SCREENING MAMMOGRAM 3D/2D WITH CAD: 2CLINICAL: Asymptomatic. Digital breast tomosynthesis was performed in addition to routine CC and MLO views. Current mammographic images were evaluated by [employer] CAD (computer-aided detection) software. Comparison is madeto exams dated 10/23/2019 mammogram - [facility] Mammography and 10/03/2017 mammogram - [facility]. The tissue of both breasts is heterogeneously dense. This may lower the sensitivity of mammography. There are benign calcifications in both breasts. No suspicious mass, architectural distortion,malignant type calcification, or lymph node abnormality detected. Breast architecture is stable compared to prior exams.IMPRESSION: BENIGNThere is no mammographic evidence of malignancy. Resume annual screening mammography in one year. (11/18/2022) Snehal Rizvi M.D. scg/penrad:11/20/2021 12:26:29 Drill Instructor: Greta Shirley MM, [facility] [facility] Mammographyletter sent: BIRADS 1-2 Normal Mammogram BI-RADS: 2 Benignpregnancy test, [id number] 14:37:35* Test Item Value Reference Range Interpretation Comme nts HCG (test code = HCG) negative [facility]AH CAD DIGITAL 2019-11-07 08:33:03- SCR MAMM BILATERAL SARAH CAD DIGITALBILATERAL DIGITAL SCREENING MAMMOGRAM 3D/2D WITH CAD: 10/23/2019CLINICAL: Asymptomatic. Digital breast tomosynthesis was performed in addition to routine CC and MLOviews. Current mammographic images were evaluated by either a [employer] or a [employer] (computer aided detection system). No prior exams were available for comparison. The tissue of both breasts is heterogeneously dense. This may lower the sensitivity of mammography. No suspicious mass, architectural distortion, malignant type calcification, or lymph node abnormality detected. IMPRESSION: NEGATIVEThere is no mammographic evidence of malignancy. Resume annual screening mammography in one year. Darius Garcia M.D. ss/penrad:11/07/2019 08:33:03 Attending Technologist: Laureen Armendariz MM, [facility] [facility] MammographyImaging Technologist: Mignon Rodarte MM, [facility] [place] [facility] Mammographyletter sent: BIRADS 1-2 Normal Mammogram BI-RADS: 1 NegativeSCR MAMM BILATERAL SARAH CAD [id number] 08:33:03AMENDMENT: 11/09/2019 Darius Garcia M.D. Comparison mammogram now available from 2018Impression remains the same: There is no mammographic evidence of malignancy. Resume annual screening mammography in one year.Amended BI-RADS: 1 Negative letter sent: BIRADS 1-2 NormalLipid 1995 panel - Serum or Pnawkm8411-24-31 00:00:00* Test Item Value Reference Range Interpretation Comme nts cholesterol (test code = cholesterol) 185 mg/dL <200 triglycerides (test code = triglycerides) 313 mg/dL <150 H HDL cholesterol (test code = HDL cholesterol) 34 mg/dL >39 L Cholesterol in LDL [Mass/vol ume] in Serum or Plasma (test code = 2089-1) 109 mg/dL <100 H risk ratio LDL/HDL (test cod e = risk ratio LDL/HDL) 2.60 ratio <3.22 [facility]25-Hydroxyvitamin D [Mass/volume] in Serum or Lsdxvo8155-33-26 00:00:00* Test Item Value Reference Range Interpretation Comme nts vitamin D, 25 oh (test code = vitamin D, 25 oh) 20 NG/mL see below L [facility] CenterComprehensive metabolic 1999 panel - Serum or Yoioky6272-52-98 00:00:00* Test Item Value Reference Range Interpretation Comme nts glucose (test code = glucose) 242 mg/dL 70-99 H BUN (test code = BUN) 11 mg/dL 6-20 creatinine (test code = creatinine) 0.71 mg/dL 0.60-1.30 eGFR amer. (test cod e = eGFR amer.) 118 mL/min/1.73 >60 eGFR non- amer. (test code = eGFR non- amer.) 102 mL/min/1.73 >60 calc BUN/creat (test code = calc BUN/creat) 15 ratio 6-28 sodium (test code = sodium) 138 mEq/L 133-146 potassium (test code = potassium) 4.5 mEq/L 3.5-5.4 chloride (test code = chloride) 97 mEq/L 95-107 carbon dioxide (test code = carbon dioxide) 23 mEq/L 19-31 calcium (test code = calcium) 9.5 mg/dL 8.5-10.5 protein, total (test code = protein, total) 7.5 g/dL 6.1-8.3 albumin (test code = albumin) 4.3 g/dL 3.5-5.2 calc globulin (test code = calc globulin) 3.2 g/dL 1.9-3.7 calc A/G ratio (test code = calc A/G ratio) 1.3 ratio 1.0-2.6 bilirubin, total (test code = bilirubin, total) <0.2 <=1.2 alkaline phosphatase (test code = alkaline phosphatase) 52 U/L 40-118 AST (test code = AST) 15 U/L 9-40 ALT (test code = ALT) 11 U/L 5-40 [facility] CenterCBC W Auto Differential panel - Blood 2019-04-26 00:00:00* Test Item Value Reference Range Interpretation Comme nts WBC (test code = WBC) 9.4 K/uL [...] 12.2 % 11.0-15.0 neutrophils (test code = neutrophils) 63.9 % 40.0-74.0 lymphocytes (test code = lymphocytes) 29.1 % 19.0-48.0 monocytes (test code = monocytes) 4.6 % 4.0-13.0 eosinophils (test code = eosinophils) 1.5 % 0.0-7.0 basophils (test code = basophils) 0.9 % 0.0-2.0 platelet count (test code = platelet count) 304 K/uL 130-400 [facility] CenterFolate [Mass/volume] in Serum or Sqnmdh9284-96-56 00:00:00* Test Item Value Reference Range Interpretation Comme nts folic acid (test code = folic acid) 4.1 ug/L see below L [facility] CenterHemoglobin A1c/Hemoglobin.total in Mvyns0172-75-91 00:00:00* Test Item Value Reference Range Interpretation Comme nts Hemoglobin A1c/Hemoglobin.to trang in Blood (test code = 4548-4) 8.5 % 4.2-5.6 H [facility] CenterUrinalysis complete panel - Urine 2019-04-25 00:00:00* Test Item Value Reference Range Interpretation Comme nts color (test code = color) yellow yellow-straw appearance (test code = appearance) clear clear specific gravity (test code = specific gravity) 1.014 1.005-1.035 leukocyte esterase (test cod e = leukocyte esterase) negative negative nitrite (test code = nitrite) negative negative pH (test code = pH) 7.0 5.0-9.0 protein (test code = protein) negative negative glucose (test code = glucose) 3+ negative A ketones (test code = ketones) negative negative urobilinogen (test code = urobilinogen) <2.0 <=2.0 bilirubin (test code = bilirubin) negative negative occult blood (test code = oc cult blood) 2+ negative A white blood cells (test code = white blood cells) 0-5 0-5 red blood cells (test code = red blood cells) 0-2 0-5 epithelial cells (test code = epithelial cells) 0-5 0-10 bacteria (test code = bacteria) trace negative A [facility] CenterUrinalysis macro (dipstick) panel - [id number] 09:47:00* Test Item Value Reference Range Interpretation Comme nts Leukocytes (test code = Leukocytes) small Nitrite (test code = Nitrite) negative Urobilinogen (test code = Urobilinogen) 1.015 Protein (test code = Protein) negative pH (test code = pH) 6.5 Blood (test code = Blood) negative Ketone (test code = Ketone) negative Bilirubin (test code = Bilirubin) negative Glucose (test code = Glucose) negative Appearance (test code = Appearance) cloudy Color (test code = Color) yellow [facility] CenterThyrotropin [Units/volume] in Serum or Velsah4206-76-93 00:00:00* Test Item Value Reference Range Interpretation Comme nts TSH reflex to free T4 (test code = TSH reflex to free T4) 1.940 uIU/mL 0.400-4.100 [facility]25-Hydroxyvitamin D [Mass/volume] in Serum or Ekrwrv6823-96-00 00:00:00* Test Item Value Reference Range Interpretation Comme [facility] vitamin D, 25 oh (test code = vitamin D, 25 oh) 13 NG/mL see below L [facility] CenterFolate+Cyanocobalamin [interpretation] in Serum or [id number] 00:00:00* Test Item Value Reference Range Interpretation Comme [facility] vitamin B-12 (test code = vi tamin B-12) 669 pg/mL 200-950 folic acid (test code = folic acid) 5.6 ug/L see below L [facility] CenterComprehensive metabolic 2000 panel - Serum or Gpviqk6491-62-05 00:00:00* Test Item Value Reference Range Interpretation Comme [facility] glucose (test code = glucose) 191 mg/dL 70-99 H BUN (test code = BUN) 8 mg/dL 6-20 creatinine (test code = creatinine) 0.67 mg/dL 0.60-1.30 eGFR amer. (test cod e = eGFR amer.) 122 mL/min/1.73 >60 eGFR non- amer. (test code = eGFR non- amer.) 105 mL/min/1.73 >60 calc BUN/creat (test code = calc BUN/creat) 12 ratio 6-28 sodium (test code = sodium) 138 mEq/L 133-146 potassium (test code = potassium) 4.2 mEq/L 3.5-5.4 chloride (test code = chloride) 97 mEq/L 95-107 carbon dioxide (test code = carbon dioxide) 28 mEq/L 19-31 calcium (test code = calcium) 9.9 mg/dL 8.5-10.5 protein, total (test code = protein, total) 8.3 g/dL 6.1-8.3 albumin (test code = albumin) 4.8 g/dL 3.5-5.2 calc globulin (test code = calc globulin) 3.5 g/dL 1.9-3.7 calc A/G ratio (test code = calc A/G ratio) 1.4 ratio 1.0-2.6 bilirubin, total (test code = bilirubin, total) 0.4 mg/dL <=1.2 alkaline phosphatase (test code = alkaline phosphatase) 92 U/L 40-118 AST (test code = AST) 37 U/L 9-40 ALT (test code = ALT) 35 U/L 5-40 [facility] CenterHemoglobin A1c/Hemoglobin.total in Sglin8952-95-57 00:00:00* Test Item Value Reference Range Interpretation Comme nts Hemoglobin A1c/Hemoglobin.to trang in Blood (test code = 4548-4) 9.9 % 4.2-5.6 H [facility] CenterUrinalysis complete panel - Urine 2019-02-03 00:00:00* Test Item Value Reference Range Interpretation Comme nts color (test code = color) yellow yellow-straw appearance (test code = appearance) cloudy clear A specific gravity (test code = specific gravity) 1.006 1.005-1.035 leukocyte esterase (test cod e = leukocyte esterase) 3+ negative A nitrite (test code = nitrite) negative negative pH (test code = pH) 7.0 5.0-9.0 protein (test code = protein) negative negative glucose (test code = glucose) negative negative ketones (test code = ketones) negative negative urobilinogen (test code = urobilinogen) <2.0 <=2.0 bilirubin (test code = bilirubin) negative negative occult blood (test code = oc cult blood) trace negative A white blood cells (test code = white blood cells) 15-20 0-5 A red blood cells (test code = red blood cells) 5-10 0-5 A epithelial cells (test code = epithelial cells) 30-50 0-10 A bacteria (test code = bacteria) 3+ negative A crystals (test code = crystals) (note) none [facility] CenterLipid 1996 panel - Serum or Plasma 2019-02-03 00:00:00* Test Item Value Reference Range Interpretation Comme nts cholesterol (test code = cholesterol) 219 mg/dL <200 H triglycerides (test code = triglycerides) 266 mg/dL <150 H HDL cholesterol (test code = HDL cholesterol) 38 mg/dL >39 L Cholesterol in LDL [Mass/vol ume] in Serum or Plasma (test code = 2089-1) 128 mg/dL <100 H risk ratio LDL/HDL (test cod e = risk ratio LDL/HDL) 3.36 ratio <3.22 H [facility] CenterCBC W Auto Differential panel - Blood 2019-02-03 00:00:00* Test Item Value Reference Range Interpretation Comme nts WBC (test code = WBC) 10.3 K/uL [...] 12.8 % 11.0-15.0 neutrophils (test code = neutrophils) 56.2 % 40.0-74.0 lymphocytes (test code = lymphocytes) 35.5 % 19.0-48.0 monocytes (test code = monocytes) 5.9 % 4.0-13.0 eosinophils (test code = eosinophils) 1.7 % 0.0-7.0 basophils (test code = basophils) 0.7 % 0.0-2.0 platelet count (test code = platelet count) 245 K/uL 130-400 [facility] CenterGlucose [Mass/volume] in Capillary [id number] 11:33:00* Test Item Value Reference Range Interpretation Comme nts Blood Glucose: mg/dl (test c ode = Blood Glucose: mg/dl) 213 [facility]/S PELVIS [id number] 16:10:30PELVIC ULTRASOUND:Location code: [id number] HISTORY: Mixed incontinenceComparison: NoneTECHNIQUE: Transabdominal sonography of the pelvis was performed followed byendovaginal scanning for better characterization of the ovaries. FINDINGS: The uterus is uniform in echogenicity measuring 8.9 x 3.6 x 5.0 cm.The endometrium is unremarkable at 5 mm. The right ovary measures 3.0 x 1.0 x 1.9 cm. The leftovary measures 1.6 x 0.8x 1.3 cm. Small follicles are noted bilaterally. Color flow is normal in theovaries bilaterally. There is no adnexal mass or free fluid. IMPRESSION:No acute sonographic abnormality.WID-U/S [id number] 16:10:30PELVIC ULTRASOUND:Location code: [id number] HISTORY: Mixed incontinenceComparison: NoneTECHNIQUE: Transabdominal sonography of the pelvis was performed followed byendovaginal scanning for better characterization of the ovaries. FINDINGS: The uterus is uniform in echogenicity measuring 8.9 x 3.6 x 5.0 cm.The endometrium is unremarkable at 5 mm. The right ovary measures 3.0 x 1.0 x 1.9 cm. The leftovary measures 1.6 x 0.8x 1.3 cm. Small follicles are noted bilaterally. Color flow is normal in theovaries bilaterally. There is no adnexal mass or free fluid. IMPRESSION:No acute sonographic abnormality. Notes Date/Time Note Provider Source 2022-10-25 21:02:39 4533-64-07B65:02:39F ormatting of this note might be different from the original.Pt given printed and verbal discharge instructions regarding abdominal pain, encouraged hydration.1 Prescriptions sent to pharmacy.Discussed ibuprofen and to take with food to avoid GI distress.Discussed tramadol side affects and to avoid driving/operating machinery/or engaging in activities requiring alertness while taking.Pt verbalized understanding of instructions, pt awake alert oriented, resp reg unlabored, skin w/d, color appropriate for race, moves all ext well,pt encouraged to follow up with pcp and [facility].Advised to seek medical attention for new/prolonged/worsening of symptoms,Symptoms improved.No adverse reaction to meds given in ER noted upon discharge.PIV d'cd, dressing to site, catheter in tact.Awake, alert oriented, resp reg unlabored, skin w/d, pt leaving amb with steady gait, in no apparent distress. 64369-9Imhgijvqc department UlpwKB6276-03-18V44:05:09[facility] NoteTXT1.2.840.205693.1.13.104 .2.7.2.656794|[id number] lable for patient [id number] brenton Bowie August RN[address]TXTX[id number] 14-11-03T21:05:091.2.840.88808 0.1.72.3.15|1.2.840.491353.1.1 [id number] Britany Koch RN [facility] 2022-10-25 18:35:18 2485-24-98P43:35:18F ormatting of this note might be different from the original.CC: patient presents to the ER with complaints of abdominal pain that began 2 weeks ago and a sore throat that began two days ago. Patient states she has been exposed to strep throat recently, patient states she has taken OTC ibuprofen without relief. Denies NVD, states she feels like she is starting an endometriosis attack.PMHx: see historyAwake, alert, oriented, resp reg unlabored, skin warm and dry, color appropriate for race, moves all ext without difficulty, amb without assistance. Appears in no distress. 14633-0Kmnuxairf department Triage izruNR1640-52-13B15:40:09[facility] department Triage noteTXT1.2.840.011540.1.13.104 .[id number] lable for patient ludb92414-4Eersdysqp department [id number] M Rivera RNUT[address]TXTX[address] [id number] 14-11-038:40:091.2.840.18182 0.1.72.3.15|1.2.840.615503.1.1 [id number] Modesta Hood RN [facility]"
[2023-01-27] MEDS ORDERED: OFLOXACIN OPH 0.3%-5 ML BTL ONE (22:36)
[2023-01-27 22:51] LABS: Absolute Lymphocytes (CBC) 3.6 K/uL (0.7-4.9); Hematocrit 40.5 % (36.0-45.0); MCV 89.8 fL (80-100); MPV 6.2 fL (7.6-11.3); Platelets 457 thou/uL (152-406); RBC Red Blood Cell Count 4.51 M/uL (3.86-4.86)
[2023-01-27] MEDS ORDERED: FAMOTIDINE 20 MG/2 ML VIAL IV ONE (22:59)
[2023-01-27] MEDS ORDERED: SMZ./TMP. 800/160 MG TABLET ONE (22:59)
[2023-01-27] MEDS ORDERED: NA CHLORIDE 0.9% 500 ML ONE (22:59)
[2023-01-27] MEDS ORDERED: Levofloxacin500mg IV 500 MG/100 ML BAG IV ONE (22:59)
[2023-01-27] MEDS ORDERED: DIPHENHYDRAMINE 50 MG/ML VIAL ONE (22:59)
[2023-01-27 23:03] LABS: Albumin 3.4 g/dL (3.4-5.0); Bilirubin Total 0.3 mg/dL (0.2-1.0); Potassium 3.2 mEq/L (3.5-5.1); Protein, Total 7.8 g/dL (6.4-8.2)
[2023-01-27] MEDS ORDERED: POTASSIUM 25 MEQ EFFERV TAB ONE (23:38)
--- NOTE | 2023-01-27 23:44 | ER ---
Nurse's Notes [facility] Name: Keturah Cardoso Age: 52 yrs Sex: Female : 1970 Arrival Date: 01/27/2023 Time: 20:20 Bed 13 Private MD: Diagnosis: Cellulitis of left external ear;Cellulitis of right external ear;Diffuse otitis externa, left ear;Diffuse otitis externa, right ear;Type 2 diabetes mellitus with hyperglycemia;Hypokalemia;Elevated white blood cell count Presentation: 01/27 20:37 Chief complaint: Patient states: right ear pain that started a few days ago. cotton as6 ball in ear observed. Coronavirus screen: At this time, the client does not indicate any symptoms associated with coronavirus-19. Ebola Screen: No symptoms or risks identified at this time. Initial Sepsis Screen: Does the patient meet any 2 criteria? No. Patient's initial sepsis screen is negative. Does the patient have a suspected source of infection? No. Patient's initial sepsis screen is negative. Risk Assessment: Do you want to hurt yourself or someone else? Patient reports no desire to harm self or others. Onset of symptoms was January 23, 2023. 20:37 Method Of Arrival: Ambulatory as6 20:37 Acuity: STEPHANY 4 as6 Triage Assessment: 20:42 General: Appears in no apparent distress. Behavior is calm, cooperative. Pain: as6 Complains of pain in right ear. Historical: - Allergies: 20:41 Losartan; as6 20:41 Morphine; as6 20:41 Keflex; as6 20:41 FLUCONAZOLE; as6 - PMHx: 20:41 Diabetes - NIDDM; Endometrosis; Hypertension; Hypercholesterolemia; as6 - PSHx: 20:41 hernia; Cholecystectomy; Appendectomy; as6 - Immunization history:: Adult Immunizations up to date. - Social history:: Smoking status: Patient denies any tobacco usage or history of. Screenin:25 [facility] ED Fall Risk Assessment (Adult) History of falling in the last 3 months, km8 including since admission No falls in past 3 months (0 pts) Confusion or Disorientation No (0 pts) Intoxicated or Sedated No (0 pts) Impaired Gait No (0 pts) Mobility Assist Device Used No (0 pt) Altered Elimination No (0 pt) Score/Fall Risk Level 0 - 2 = Low Risk Oriented to surroundings, Maintained a safe environment, Educated pt \T\ family on fall prevention, incl call for assistance when getting out of bed, Assessed \T\ reinforced patient's understanding of fall precautions. Abuse screen: Denies threats or abuse. Denies injuries from another. Nutritional screening: No deficits noted. Tuberculosis screening: No symptoms or risk factors identified. Assessment: 21:25 General: Appears in no apparent distress. comfortable, Behavior is calm, cooperative, km8 appropriate for age. Pain: Complains of pain in right ear Pain currently is 8 out of 10 on a pain scale. Quality of pain is described as pressure. Neuro: Gomez Agitation-Sedation Scale (RASS): 0 - Alert and Calm Level of Consciousness is awake, alert, obeys commands, Oriented to person, place, time, situation. Cardiovascular: Denies chest pain, shortness of breath, Capillary refill < 3 seconds Patient's skin is warm and dry. Respiratory: Airway is patent Respiratory effort is even, unlabored, Respiratory pattern is regular, symmetrical. GI: No signs and/or symptoms were reported involving the gastrointestinal system. : No signs and/or symptoms were reported regarding the genitourinary system. EENT: Reports nasal congestion nasal discharge. Derm: Skin is intact, is healthy with good turgor, Skin is dry, Skin is pink, warm \T\ dry. normal, Skin temperature is warm. Musculoskeletal: No signs and/or symptoms reported regarding the musculoskeletal system. Range of motion: intact in all extremities. 22:30 Reassessment: Patient appears in no apparent distress at this time. No changes from km8 previously documented assessment. Patient and/or family updated on plan of care and expected duration. Pain level reassessed. Patient is alert, oriented x 3, equal unlabored respirations, skin warm/dry/pink. 23:06 Reassessment: Patient appears in no apparent distress at this time. No changes from km8 previously documented assessment. Patient and/or family updated on plan of care and expected duration. Pain level reassessed. Patient is alert, oriented x 3, equal unlabored respirations, skin warm/dry/pink. 01/28 00:23 Reassessment: Patient appears in no apparent distress at this time. No changes from km8 previously documented assessment. Patient and/or family updated on plan of care and expected duration. Pain level reassessed. Patient is alert, oriented x 3, equal unlabored respirations, skin warm/dry/pink. Vital Signs: 01/27 20:37 BP 150 / 77; Pulse 80; Resp 18 S; Temp 97.3(TE); Pulse Ox 100% on R/A; Weight 68.04 kg as6 (R); Height 5 ft. 2 in. (R); Pain 8/10; 21:30 BP 128 / 84; Pulse 88; Resp 16; Pulse Ox 100% on R/A; km8 22:00 BP 123 / 74; Pulse 86; Resp 16; Pulse Ox 100% on R/A; km8 22:30 BP 124 / 83; Pulse 81; Resp 16; Pulse Ox 100% on R/A; km8 23:00 BP 135 / 78; Pulse 80; Resp 16; Pulse Ox 100% on R/A; km8 23:30 BP 155 / 91; Pulse 81; Resp 16; Pulse Ox 100% on R/A; km8 01/28 00:00 BP 132 / 71; Pulse 75; Resp 16; Pulse Ox 100% on R/A; km8 01/27 20:37 Body Mass Index 27.44 (68.04 kg, 157.48 cm) as6 01/27 20:37 Pain Scale: Adult as6 [place] Coma Score: 01/27 21:25 Eye Response: spontaneous(4). Motor Response: obeys commands(6). Verbal Response: km8 oriented(5). Total: 15. ED Course: 20:26 Patient arrived in ED. jj6 20:41 Triage completed. as6 20:42 Arm band placed on. as6 21:01 Kelvin Buckner MD is Attending Physician. [facility] 21:22 Bethanie Pérez, RENU is Primary Nurse. km8 21:25 Patient has correct armband on for positive identification. Bed in low position. Call km8 light in reach. Side rails up X 1. Pulse ox on. NIBP on. 21:25 No provider procedures requiring assistance completed. Patient maintains SpO2 km8 saturation greater than 95% on room air. 22:42 Inserted saline lock: 20 gauge in left antecubital area, using aseptic technique. Blood km8 collected. 22:42 Comprehensive Metabolic Panel Sent. km8 22:42 CBC with Diff Sent. km8 23:43 Bhavna Sosa MD is Referral Physician. [facility] 01/28 00:37 Provided Education on: d/c teaching. [facility] 00:37 IV discontinued, intact, bleeding controlled, No redness/swelling at site. Pressure km8 dressing applied. Administered Medications: 01/27 22:23 CANCELLED (Duplicate Order): ciprodexdrops 4 drops Otic once [facility] 22:56 Drug: NS 0.9% IV 500 ml IV at bolus once Route: IV; Rate: bolus; Site: left antecubital;km8 01/28 00:30 Follow up: IV Status: Completed infusion; IV Intake: 500ml 8 01/27 22:56 Drug: Famotidine IVP 20 mg IVP once; dilute with 10 mL 0.9% NaCl; give over 2 minutes km8 Route: IVP; Site: left antecubital; 23:19 Follow up: Response: No adverse reaction [facility] 22:56 Drug: diphenhydrAMINE IVP 25 mg IVP once Route: IVP; Site: left antecubital; km8 23:19 Follow up: Response: No adverse reaction [facility] 22:56 Drug: Trimethoprim-Sulfamethoxazole PO (160 mg-800 mg (DS) 1 tablet PO once Route: PO; km8 23:19 Follow up: Response: No adverse reaction [facility] 22:56 Drug: levofloxacin IVPB 500 mg 100 ml IVPB once over 60 mins Volume: 100 ml; Route: km8 IVPB; Infused Over: 60 mins; Site: left antecubital; 23:57 Follow up: IV Status: Completed infusion; IV Intake: 100ml [facility] 22:56 Drug: Ofloxacin Ophthalmic Drops 0.3 % 1 drops Ophthalmic once; 4 drops to each ear km8 {Note: both ears per Dr. Buckner.} Route: Ophthalmic; Site: both eyes; 23:19 Follow up: Response: No adverse reaction km8 23:31 Drug: Potassium PO Effervescent Tablet 50 mEq PO once; dissolve in 4 ounces of water or km8 juice Route: PO; 23:59 Follow up: Response: No adverse reaction 8 Medication: 21:25 VIS not applicable for this client. km8 Intake: 23:57 IV: 100ml; Total: 100ml. km8 01/28 00:30 IV: 500ml; Total: 600ml. km8 Outcome: 01/27 23:43 Discharge ordered by . leeroy 01/28 00:37 Discharged to home ambulatory, km8 Condition: good Discharge instructions given to patient, Instructed on discharge instructions, follow up and referral plans. medication usage, Demonstrated understanding of instructions, follow-up care, medications, Prescriptions given X 5 00:38 Patient left the ED. km8 Signatures: Kelvin Buckner MD MD cha Jeffries, Jennifer jj6 Jose Glass, RN RN as6 Bethanie Pérez RN RN km8
--- NOTE | 2023-01-27 23:44 | EDPHYS ---
Physician Documentation [facility] Name: Keturah Cardoso Age: 52 yrs Sex: Female : 1970 Arrival Date: 01/27/2023 Time: 20:20 Bed 13 Private MD: LURDES Physician Kelvin Buckner HPI: 01/27 22:42 This 52 yrs old Female presents to ER via Ambulatory with complaints of Ear leeroy Pain. 22:42 The patient presents with pain, that is acute, swelling, tenderness. The complaints leeroy affect the right ear and left ear. Onset: The symptoms/episode began/occurred 3 day(s) ago. Modifying factors: The symptoms are alleviated by nothing, the symptoms are aggravated by nothing. Associated signs and symptoms: The patient has no apparent associated signs or symptoms. Severity of symptoms: At their worst the symptoms were mild in the emergency department the symptoms are unchanged. The patient has not experienced similar symptoms in the past. Historical: - Allergies: 20:41 Losartan; as6 20:41 Morphine; as6 20:41 Keflex; as6 20:41 FLUCONAZOLE; as6 - PMHx: 20:41 Diabetes - NIDDM; Endometrosis; Hypertension; Hypercholesterolemia; as6 - PSHx: 20:41 hernia; Cholecystectomy; Appendectomy; as6 - Immunization history:: Adult Immunizations up to date. - Social history:: Smoking status: Patient denies any tobacco usage or history of. ROS: 22:42 Constitutional: Negative for fever, chills, and weight loss, Eyes: Negative for injury, leeroy pain, redness, and discharge, Neck: Negative for injury, pain, and swelling, Cardiovascular: Negative for chest pain, palpitations, and edema, Respiratory: Negative for shortness of breath, cough, wheezing, and pleuritic chest pain, Abdomen/GI: Negative for abdominal pain, nausea, vomiting, diarrhea, and constipation, Back: Negative for injury and pain, : Negative for injury, bleeding, discharge, and swelling, MS/Extremity: Negative for injury and deformity, Skin: Negative for injury, rash, and discoloration, Neuro: Negative for headache, weakness, numbness, tingling, and seizure, Psych: Negative for depression, anxiety, suicide ideation, homicidal ideation, and hallucinations, Allergy/Immunology: Negative for hives, rash, and allergies, Endocrine: Negative for neck swelling, polydipsia, polyuria, polyphagia, and marked weight changes, Hematologic/Lymphatic: Negative for swollen nodes, abnormal bleeding, and unusual bruising, 22:42 ENT: Positive for ear pain, Exam: 22:42 Constitutional: This is a well developed, well nourished patient who is awake, alert, leeroy and in no acute distress. Head/Face: Normocephalic, atraumatic. Eyes: Pupils equal round and reactive to light, extra-ocular motions intact. Lids and lashes normal. Conjunctiva and sclera are non-icteric and not injected. Cornea within normal limits. Periorbital areas with no swelling, redness, or edema. Neck: Trachea midline, no thyromegaly or masses palpated, and no cervical lymphadenopathy. Supple, full range of motion without nuchal rigidity, or vertebral point tenderness. No Meningismus. Chest/axilla: Normal chest wall appearance and motion. Nontender with no deformity. No lesions are appreciated. Cardiovascular: Regular rate and rhythm with a normal S1 and S2. No gallops, murmurs, or rubs. Normal PMI, no JVD. No pulse deficits. Respiratory: Lungs have equal breath sounds bilaterally, clear to auscultation and percussion. No rales, rhonchi or wheezes noted. No increased work of breathing, no retractions or nasal flaring. Abdomen/GI: Soft, non-tender, with normal bowel sounds. No distension or tympany. No guarding or rebound. No evidence of tenderness throughout. Back: No spinal tenderness. No costovertebral tenderness. Full range of motion. Skin: Warm, dry with normal turgor. Normal color with no rashes, no lesions, and no evidence of cellulitis. MS/ Extremity: Pulses equal, no cyanosis. Neurovascular intact. Full, normal range of motion. Neuro: Awake and alert, GCS 15, oriented to person, place, time, and situation. Cranial nerves II-XII grossly intact. Motor strength 5/5 in all extremities. Sensory grossly intact. Cerebellar exam normal. Normal gait. 22:42 ENT: External ear(s): cellulitis, that is minimal, bilaterally, erythema, that is minimal, bilaterally, Vital Signs: 20:37 BP 150 / 77; Pulse 80; Resp 18 S; Temp 97.3(TE); Pulse Ox 100% on R/A; Weight 68.04 kg as6 (R); Height 5 ft. 2 in. (R); Pain 8/10; 21:30 BP 128 / 84; Pulse 88; Resp 16; Pulse Ox 100% on R/A; km8 22:00 BP 123 / 74; Pulse 86; Resp 16; Pulse Ox 100% on R/A; km8 22:30 BP 124 / 83; Pulse 81; Resp 16; Pulse Ox 100% on R/A; km8 23:00 BP 135 / 78; Pulse 80; Resp 16; Pulse Ox 100% on R/A; km8 23:30 BP 155 / 91; Pulse 81; Resp 16; Pulse Ox 100% on R/A; km8 01/28 00:00 BP 132 / 71; Pulse 75; Resp 16; Pulse Ox 100% on R/A; km8 01/27 20:37 Body Mass Index 27.44 (68.04 kg, 157.48 cm) as6 01/27 20:37 Pain Scale: Adult as6 [place] Coma Score: 01/27 21:25 Eye Response: spontaneous(4). Motor Response: obeys commands(6). Verbal Response: km8 oriented(5). Total: 15. MDM: 21:01 Patient medically screened. leeroy 22:44 Differential diagnosis: otitis media, otitis externa. Data reviewed: vital signs, [facility] nurses notes, lab test result(s). Consideration of Admission/Observation Escalation of care including admission/observation considered. I considered the following discharge prescriptions or medication management in the emergency department Medications were administered in the Emergency Department. See MAR. Test considered but Not performed: CT: no ct head. Care significantly affected by the following chronic conditions: Diabetes, Hypertension, Obesity, high cholesterol. Counseling: I had a detailed discussion with the patient and/or guardian regarding the historical points, exam findings, and any diagnostic results supporting the discharge/admit diagnosis, lab results, the need for outpatient follow up, for definitive care, an ENT specialist, a family practitioner. 01/27 22:17 Order name: CBC with Diff; Complete Time: 23:43 leeroy 01/27 22:17 Order name: Comprehensive Metabolic Panel; Complete Time: 23:17 leeroy Administered Medications: 22:23 CANCELLED (Duplicate Order): ciprodexdrops 4 drops Otic once leeroy 22:56 Drug: NS 0.9% IV 500 ml IV at bolus once Route: IV; Rate: bolus; Site: left antecubital;[facility] 01/28 00:30 Follow up: IV Status: Completed infusion; IV Intake: 500ml [facility] 01/27 22:56 Drug: Famotidine IVP 20 mg IVP once; dilute with 10 mL 0.9% NaCl; give over 2 minutes 8 Route: IVP; Site: left antecubital; 23:19 Follow up: Response: No adverse reaction [facility] 22:56 Drug: diphenhydrAMINE IVP 25 mg IVP once Route: IVP; Site: left antecubital; [facility] 23:19 Follow up: Response: No adverse reaction [facility] 22:56 Drug: Trimethoprim-Sulfamethoxazole PO (160 mg-800 mg (DS) 1 tablet PO once Route: PO; [facility] 23:19 Follow up: Response: No adverse reaction [facility] 22:56 Drug: levofloxacin IVPB 500 mg 100 ml IVPB once over 60 mins Volume: 100 ml; Route: [facility] IVPB; Infused Over: 60 mins; Site: left antecubital; 23:57 Follow up: IV Status: Completed infusion; IV Intake: 100ml [facility] 22:56 Drug: Ofloxacin Ophthalmic Drops 0.3 % 1 drops Ophthalmic once; 4 drops to each ear 8 {Note: both ears per Dr. Buckner.} Route: Ophthalmic; Site: both eyes; 23:19 Follow up: Response: No adverse reaction [facility] 23:31 Drug: Potassium PO Effervescent Tablet 50 mEq PO once; dissolve in 4 ounces of water or km8 juice Route: PO; 23:59 Follow up: Response: No adverse reaction [facility] Disposition Summary: 01/27/23 23:43 Discharge Ordered Notes: Location: Home leeroy Problem: new leeroy Symptoms: have improved leeroy Condition: Stable leeroy Diagnosis - Cellulitis of left external ear leeroy - Cellulitis of right external ear leeroy - Diffuse otitis externa, left ear leeroy - Diffuse otitis externa, right ear leeroy - Type 2 diabetes mellitus with hyperglycemia leeroy - Hypokalemia leeroy - Elevated white blood cell count leeroy Followup: leeroy - With: Private Physician - When: 2 - 3 days - Reason: Recheck today's complaints, Continuance of care, Re-evaluation by your physician Followup: leeroy - With: Bhavna Sosa MD - When: 1 - 2 days - Reason: Recheck today's complaints, Continuance of care, Re-evaluation by your physician Discharge Instructions: - Discharge Summary Sheet [facility] - Cellulitis, Adult [facility] - Type 2 Diabetes Mellitus, Diagnosis, Adult [facility] - Potassium Content of Foods [facility] - Otitis Externa [facility] - Hyperglycemia leeroy - Otitis Externa, [id number] leeroy - Cellulitis, Adult, [id number] [facility] - Blood Glucose Monitoring, Adult [facility] - Diabetes Mellitus and Nutrition, Adult [facility] - Hypokalemia [facility] Forms: - Medication Reconciliation Form [facility] - Thank You Letter [facility] - Antibiotic Education [facility] - Prescription Opioid Use [facility] - Patient Portal Instructions [facility] - Leadership Thank You Letter [facility] Prescriptions: - ciprofloxacin-dexamethasone 0.3-0.1 % Otic drops, suspension - instill 4 drop OTIC route every 12 hours; 10 milliliter; Refills: 0, Product [facility] Selection Permitted - Benadryl 25 mg Oral Capsule - take 1 capsule ORAL route every 6 hours As needed; 30 tablet; Refills: 0, [facility] Product Selection Permitted - Pepcid 20 mg Oral Tablet - take 1 tablet ORAL route every 12 hours for 10 days; 20 tablet; Refills: 0, [facility] Product Selection Permitted - Bactrim DS 800-160 mg Oral Tablet - take 1 tablet ORAL route every 12 hours for 10 days; 20 tablet; Refills: 0, [facility] Product Selection Permitted - levofloxacin 500 mg Oral tablet - take 1 tablet ORAL route once daily for 8-10 days; 9 tablet; Refills: 0, [facility] Product Selection Permitted Signatures: Dispatcher [employer] Kelvin Acosta MD MD cha Slawson, Ashby RN RN as6 Bethanie Pérez RN RN km8 Corrections: (The following items were deleted from the chart) 22:23 22:17 CIPRODEX Otic Drops 4 drops Otic in both ears once ordered. [facility] leeroy
[2023-01-28 00:59] VITALS: TEMP 97.3; O2SAT 100
[2023-01-28 01:19] VITALS: BP 132/71
== END 2023-01-28 00:38 | disposition home or self-care (01) ==
LOC: ER 20:20
DX: H60.13 Cellulitis of external ear, bilateral (principal); H60.313 Diffuse otitis externa, bilateral; E11.65 Type 2 diabetes mellitus with hyperglycemia; E87.6 Hypokalemia; D72.829 Elevated white blood cell count, unspecified; I10 Essential (primary) hypertension; Z88.1 Allergy status to other antibiotic agents; Z88.5 Allergy status to narcotic agent; Z88.8 Allergy status to other drugs, medicaments and biological substances
CPT/HCPCS: 96365; 96361; 85025; 36415; 80053; 96375; 99285; J1200; J7040

== ENCOUNTER → 2023-03-09 | Emergency (ER) | payer OTHER ==
[~2023-03-09] MED LIST: OFLOXACIN OPH 0.3%-5 ML BTL ONE
--- OUTSIDE RECORDS SUMMARY | 2023-03-09 20:51 | XMS REPORT | Continuity of Care Document ---
Author Name Unknown Address [address] [facility] [address] [place] [address] [facility] thconnect Address [address] [facility] [address] [place] [address] Care Team Providers Care Wound Care Nurse Name Role Phone RONA RODRIGUES Primary Care Physician Unavailab le Cristhian_Ashley Attending Clinician Unavailable Cayla Attending Clinician Unavailable RADIOLOGY Attending Clinician Unavailable Armstrong_B Attending Clinician Unavailable Doctor Unassigned, [place] Attending Clinician U Ya Chaudhry Attending Clinician YA SHIELDS Attending Clinician Unavailab LEIGH Greco Attending Clinician Unavailabl e Moraima Attending Clinician Unavailable DR LITZY JESUS Attending Clinician DR SANKET Powell BA Attending Clinician Unavailable Schiffmagnus_Ashley Admitting Clinician Unavailable Cayla Admitting Clinician Unavailable Casimiro_B Admitting Clinician Unavailable YA SHIELDS Admitting Clinician Unavailab rich Valera Admitting Clinician Unavailable DR LITZY JESUS Admitting Clinician DR SANKET Powell BA Admitting Clinician Unavailable Payers Payer Name Policy Type Policy Number Effective Date Expirati on Date Source JUAN CR [place] - [facility] 4 (O) [id number] [facility] [id number] [facility] [id number] 2022 00:00:00 2023 00:00:00 [facility] ([facility] [id number] [facility] [place] EXCHANGE PLAN (HMO) [id number] 2022 00:00:00 Problems Condition Name Condition Details Condition Category Status Onset Date Resolution Date Last Treatment Date Treating Clinician Comments Source Microscopi c hematuria Microscopi c Hematuria Problem Active 2022-02 0 [facility] Diabetes insipidus Diabetes Insipidus Problem Active 06-21 00:00: 00 [facility] Diabetes mellitus Diabetes Mellitus Problem Active 2018-02 00:00: 00 [facility] Vitamin D deficiency Vitamin D Deficiency Problem Active 2018-02 00:00: 00 [facility] Hyperchole sterolemia Hyperchole sterolemia Problem Active 2018-02 00:00: 00 [facility] Hypertrigl yceridemia Hypertrigl yceridemia Problem Active 2018-02 00:00: 00 [facility] Endometrio sis (clinical) Endometrio sis (Clinical) Problem Active 2018-02 00:00: 00 [facility] 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 Problem Active 2018-02 00:00: 00 [facility] Atrophic vaginitis Atrophic Vaginitis Problem Active 2018-02 00:00: 00 [facility] Folic acid below reference range Folic Acid below Reference Range Problem Active 2018-02 00:00: 00 [facility] Atrophic vaginitis Atrophic vaginitis Disease Active 2018-02 00:00: 00 [facility] Endometrio sis Endometrio sis Disease Active 2018-02 00:00: 00 [facility] BMI 31.0-31.9, adult BMI 31.0-31.9, adult Disease Active 2018-02 0 00:00: 00 [facility] Contracept dorota management Contracept dorota management Disease Active 09-29 00:00: 00 [facility] Obesity (BMI 30.0-34.9) Obesity (BMI 30.0-34.9) Disease Active 09-29 00:00: [address] [facility] Controlled type 2 diabetes mellitus without complicati on Controlled type 2 diabetes mellitus without complicati on Disease Active 09-29 00:00: [address] [facility] Essential hypertensi on, benign Essential hypertensi on, benign Disease Active 09-29 00:00: 00 [facility] History of tubal ligation History of tubal ligation Disease Active 09-29 00:00: [address] [facility] Irregular menstrual cycle Irregular menstrual cycle Disease Active 09-29 00:00: 00 [facility] Secondary diabetes insipidus Secondary Diabetes Insipidus Problem Active 2008-02 00:00: 00 [facility] Allergies, Adverse Reactions, Alerts Allergy Name Allergy Type Status Severity Reaction(s) Onset Date Inactive Date Treating Clinician Comments Source Iodine Propensi ty to adverse reaction s Active Other - See comments 07-18 00:00: 00 Burning pain, feels like her veins are going to explode [facility] IODINE DRUG INGREDI Active Other-Cmnt 07-18 00:00: 00 [facility] Cephalex in Propensi ty to adverse reaction s Active Other - See comments 10-15 00:00: [address] [facility] CEPHALEX IN DRUG INGREDI Active Other-Cmnt 10-15 00:00: [address] [facility] Morphine Drug Intolera nce Active Itching 03-24 00:00: [address] [facility] MORPHINE DRUG INGREDI Active ITCHING 03-24 00:00: [address] [facility] Morphine Allergy to substanc e Active [facility] Fluconaz ole Allergy to substanc e Active Photos[facility] Magnjacobu m Allergy to substanc e Active [facility] Social History Social Habit Start Date Stop Date Quantity Comments Source Gender identity [facility] Sexual orientation [facility] Alcohol intake 2022-10-25 00:00:00 2022-10-25 00:00:00 Current non-drinker of alcohol (finding) [facility] History of Social function 2019-09-23 00:00:00 2019-09-23 00:00:00 [facility] Tobacco use and exposure 2017-09-29 00:00:00 2017-09-29 00:00:00 Smokeless tobacco non-user [facility] Sex Assigned At 1970 00:00:00 1970 00:00:00 [facility] Smoking Status Start Date Stop Date Source Never Smoker [facility] U rolog Medications Ordered Medication Name Filled Medication Name [...] 1 tablet every day by oral route. [facility] acetaminoph en 300 mg-codeine 30 mg tablet [...] oral route as needed for 7 days. [facility] ketorolac (TORADOL) injection 30 mg 10-26 02:00: 00 10-26 01:21 :00 No 30mg 30 mg, Slow IV Push, ONCE, 1 dose, On Tue10/25/22 at 2100, Routine [facility] HYDROcodone -acetaminop hen (NORCO 5) 5-325 mg tablet 1 tablet 10-26 01:45: 00 10-26 01:49 :00 No 1{tbl} 1 tablet, Oral, ONCE, 1 dose, On Tue10/25/22 at 2045, MELVIN [facility] traMADoL 50 mg tablet 10-25 00:00: 00 10-29 04:59 :00 No 4647 50mg Take 1 tablet by mouth every 6 (six) hours as needed for Pain (scale 7-10) for up to 3 days. Indication s: acute pain [facility] Ozempic 0.25 mg or 0.5 mg (2 [...] by subcutaneo us route for 90 days. [facility] atorvastati n 10 mg tablet Take 1 tablet every day by oral route in the evening. atorvastati n 10 mg tablet Take 1 tablet every day by oral route in the evening. 08-19 00:00: 00 No atorvastat in 10 mg tablet Take 1 tablet every day by oral route in the evening. [facility] D3-2000 50 mcg (2,000 unit) capsule TAKE 1 TABLET BY MOUTH DAILY D3-2000 50 mcg (2,000 unit) capsule TAKE 1 TABLET BY MOUTH DAILY 08-19 00:00: 00 No D3-2000 50 mcg (2,000 unit) capsule TAKE 1 TABLET BY MOUTH DAILY [facility] lisinopril 5 mg tablet Take 1 tablet every day by oral route in the morning. lisinopril 5 mg tablet Take 1 tablet every day by oral route in the morning. 08-19 00:00: 00 No lisinopril 5 mg tablet Take 1 tablet every day by oral route in the morning. [facility] metformin ER 500 mg tablet,exte nded release 24 hr TAKE 2 TABLETS BY MOUTH TWICE DAILY metformin ER 500 mg tablet,exte nded release 24 hr TAKE 2 TABLETS BY MOUTH TWICE DAILY 08-19 00:00: 00 No metformin ER 500 mg tablet,ext ended release 24 hr TAKE 2 TABLETS BY MOUTH TWICE DAILY [facility] Accu-Chek Guide test strips Check glucose bid Accu-Chek Guide test strips Check glucose bid 6-19 00:00: 00 No Accu-Chek Guide test strips Check glucose bid [facility] Accu-Chek Guide Me Glucose Meter USE DAILY DIRECTED Accu-Chek Guide Me Glucose Meter USE DAILY DIRECTED 4-03 00:00: 00 No Accu-Chek Guide Me Glucose Meter USE DAILY DIRECTED [facility] Ozempic 1 mg/dose (4 mg/3 [...] by subcutaneo us route for 90 days. [facility] metFORMIN 1,000 mg tablet 04-10 11:33: 55 Yes metformin 1,000 mg tablet Take 1 tablet twice a day by oral route for 90 days. [facility] metFORMIN 1,000 mg tablet 04-10 11:33: 55 Yes metformin 1,000 mg tablet Take 1 tablet twice a day by oral route for 90 days. [facility] gemfibrozil 600 mg tablet 04-10 11:33: 54 Yes gemfibrozi l 600 mg tablet Take 1 tablet twice a day by oral route as needed for 90 days. [facility] gemfibrozil 600 mg tablet 04-10 11:33: 54 Yes gemfibrozi l 600 mg tablet Take 1 tablet twice a day by oral route as needed for 90 days. [facility] ergocalcife rol, vitamin d2, 1,250 mcg (50,000 unit) capsule 04-10 11:33: 47 Yes Vitamin D2 1,250 mcg (50,000 unit) capsule Take 1 capsule every week by oral route as directed for 56 days. [facility] ergocalcife rol, vitamin d2, 1,250 mcg (50,000 unit) capsule 04-10 11:33: 47 Yes Vitamin D2 1,250 mcg (50,000 unit) capsule Take 1 capsule every week by oral route as directed for 56 days. [facility] desmopressi n 0.2 mg tablet 04-10 11:33: 46 Yes desmopress in 0.2 mg tablet Take 1 tablet every day by oral route in the evening. [facility] desmopressi n 0.2 mg tablet 04-10 11:33: 46 Yes desmopress in 0.2 mg tablet Take 1 tablet every day by oral route in the evening. [facility] MICROGESTIN 1.5/30 1.5-30 mg-mcg per tablet 03-07 00:00: 00 Yes TAKE 1 TABLET BY MOUTH ONCE DAILY CONTINOUS ACTIVE PILL [facility] MICROGESTIN 1.5/30 1.5-30 mg-mcg per tablet 03-07 00:00: 00 Yes TAKE 1 TABLET BY MOUTH ONCE DAILY CONTINOUS ACTIVE PILL [facility] desmopressi n 0.2 mg tablet TAKE ONE (1) TABLET(S) BY MOUTH EVERY EVENING. desmopressi n 0.2 mg tablet TAKE ONE (1) TABLET(S) BY MOUTH EVERY EVENING. No desmopress in 0.2 mg tablet TAKE ONE (1) TABLET(S) BY MOUTH EVERY EVENING. [facility] glipizide 5 mg tablet TAKE ONE (1) TABLET(S) BY MOUTH TWICE A DAY. glipizide 5 mg tablet TAKE ONE (1) TABLET(S) BY MOUTH TWICE A DAY. No glipizide 5 mg tablet TAKE ONE (1) TABLET(S) BY MOUTH TWICE A DAY. [facility] OneTouch UltraSoft Lancets USE DIRECTED DAILY TO TEST BLOOD GLUCOSE LEVELS. OneTouch UltraSoft Lancets USE DIRECTED DAILY TO TEST BLOOD GLUCOSE LEVELS. No OneTouch UltraSoft Lancets USE DIRECTED DAILY TO TEST BLOOD GLUCOSE LEVELS. [facility] terbinafine HCl 250 mg tablet TAKE ONE (1) TABLET(S) BY MOUTH DAILY. terbinafine HCl 250 mg tablet TAKE ONE (1) TABLET(S) BY MOUTH DAILY. No terbinafin e HCl 250 mg tablet TAKE ONE (1) TABLET(S) BY MOUTH DAILY. [facility] tramadol 50 mg tablet TAKE ONE (1) TABLET(S) BY MOUTH EVERY SIX HOURS NEEDED FOR PAIN. tramadol 50 mg tablet TAKE ONE (1) TABLET(S) BY MOUTH EVERY SIX HOURS NEEDED FOR PAIN. No tramadol 50 mg tablet TAKE ONE (1) TABLET(S) BY MOUTH EVERY SIX HOURS NEEDED FOR PAIN. [facility] atorvastati n 10 mg tablet Take 1 tablet every day by oral route in the evening. atorvastati n 10 mg tablet Take 1 tablet every day by oral route in the evening. No 1 Q1D atorvastat in 10 mg tablet Take 1 tablet every day by oral route in the evening. [facility] Benadryl Allergy Benadryl Allergy No Benadryl Allergy [facility] cholecalcif taryn (vitamin D3) 25 mcg (1,000 unit) capsule Take 1 capsule every day by oral route. cholecalcif taryn (vitamin D3) 25 mcg (1,000 unit) capsule Take 1 capsule every day by oral route. No 1capsul e(s) Q1D cholecalci ferol (vitamin D3) 25 mcg (1,000 unit) capsule Take 1 capsule every day by oral route. [facility] desmopressi n 0.2 mg tablet TAKE 1 TABLET BY MOUTH EVERY DAY IN THE EVENING desmopressi n 0.2 mg tablet TAKE 1 TABLET BY MOUTH EVERY DAY IN THE EVENING No desmopress in 0.2 mg tablet TAKE 1 TABLET BY MOUTH EVERY DAY IN THE EVENING [facility] glipizide 5 mg tablet TAKE 1 TABLET BY MOUTH ONCE DAILY IN THE MORNING glipizide 5 mg tablet TAKE 1 TABLET BY MOUTH ONCE DAILY IN THE MORNING No glipizide 5 mg tablet TAKE 1 TABLET BY MOUTH ONCE DAILY IN THE MORNING [facility] Januvia 100 mg tablet Take 1 tablet every day by oral route in the morning. Januvia 100 mg tablet Take 1 tablet every day by oral route in the morning. No 1 Q1D Januvia 100 mg tablet Take 1 tablet every day by oral route in the morning. [facility] lisinopril 5 mg tablet Take 1 tablet every day by oral route in the morning. lisinopril 5 mg tablet Take 1 tablet every day by oral route in the morning. No 1 Q1D lisinopril 5 mg tablet Take 1 tablet every day by oral route in the morning. [facility] metformin ER 500 mg tablet,exte nded release 24 hr TAKE 2 TABLETS BY MOUTH TWICE DAILY metformin ER 500 mg tablet,exte nded release 24 hr TAKE 2 TABLETS BY MOUTH TWICE DAILY No metformin ER 500 mg tablet,ext ended release 24 hr TAKE 2 TABLETS BY MOUTH TWICE DAILY [facility] norethindro ne (contracept dorota) 0.35 mg tablet Take 1 tablet every day by oral route. norethindro ne (contracept dorota) 0.35 mg tablet Take 1 tablet every day by oral route. No 1 Q1D norethindr one (contracep tive) 0.35 mg tablet Take 1 tablet every day by oral route. [facility] terbinafine HCl 250 mg tablet Take 1 tablet every day by oral route as directed for 42 days. terbinafine HCl 250 mg tablet Take 1 tablet every day by oral route as directed for 42 days. No 1 Q1D terbinafin e HCl 250 mg tablet Take 1 tablet every day by oral route as directed for 42 days. [facility] triamcinolo ne acetonide 0.1 % [...] ROUTE 2 TIMES PER DAY as needed [facility] atorvastati n 10 mg tablet Take 1 tablet every day by oral route in the evening. atorvastati n 10 mg tablet Take 1 tablet every day by oral route in the evening. No 1 Q1D atorvastat in 10 mg tablet Take 1 tablet every day by oral route in the evening. [facility] Benadryl Allergy Benadryl Allergy No Benadryl Allergy [facility] cholecalcif taryn (vitamin D3) 25 mcg (1,000 unit) capsule Take 1 capsule every day by oral route. cholecalcif taryn (vitamin D3) 25 mcg (1,000 unit) capsule Take 1 capsule every day by oral route. No 1capsul e(s) Q1D cholecalci ferol (vitamin D3) 25 mcg (1,000 unit) capsule Take 1 capsule every day by oral route. [facility] D3-2000 50 mcg (2,000 unit) capsule 1 tab po qd D3-2000 50 mcg (2,000 unit) capsule 1 tab po qd No D3-2000 50 mcg (2,000 unit) capsule 1 tab po qd [facility] desmopressi n 0.2 mg tablet TAKE 1 TABLET BY MOUTH EVERY DAY IN THE EVENING desmopressi n 0.2 mg tablet TAKE 1 TABLET BY MOUTH EVERY DAY IN THE EVENING No desmopress in 0.2 mg tablet TAKE 1 TABLET BY MOUTH EVERY DAY IN THE EVENING [facility] glipizide 5 mg tablet TAKE 1 TABLET BY MOUTH TWICE DAILY glipizide 5 mg tablet TAKE 1 TABLET BY MOUTH TWICE DAILY No glipizide 5 mg tablet TAKE 1 TABLET BY MOUTH TWICE DAILY [facility] Januvia 100 mg tablet Take 1 tablet every day by oral route in the morning. Januvia 100 mg tablet Take 1 tablet every day by oral route in the morning. No 1 Q1D Januvia 100 mg tablet Take 1 tablet every day by oral route in the morning. [facility] lisinopril 5 mg tablet Take 1 tablet every day by oral route in the morning. lisinopril 5 mg tablet Take 1 tablet every day by oral route in the morning. No 1 Q1D lisinopril 5 mg tablet Take 1 tablet every day by oral route in the morning. [facility] metformin ER 500 mg tablet,exte nded release 24 hr TAKE 2 TABLETS BY MOUTH TWICE DAILY metformin ER 500 mg tablet,exte nded release 24 hr TAKE 2 TABLETS BY MOUTH TWICE DAILY No metformin ER 500 mg tablet,ext ended release 24 hr TAKE 2 TABLETS BY MOUTH TWICE DAILY [facility] norethindro ne (contracept dorota) 0.35 mg tablet Take 1 tablet every day by oral route. norethindro ne (contracept dorota) 0.35 mg tablet Take 1 tablet every day by oral route. No 1 Q1D norethindr one (contracep tive) 0.35 mg tablet Take 1 tablet every day by oral route. [facility] triamcinolo ne acetonide 0.1 % [...] ROUTE 2 TIMES PER DAY as needed [facility] atorvastati n 10 mg tablet Take 1 tablet every day by oral route in the evening. atorvastati n 10 mg tablet Take 1 tablet every day by oral route in the evening. No 1 Q1D atorvastat in 10 mg tablet Take 1 tablet every day by oral route in the evening. [facility] Benadryl Allergy Benadryl Allergy No Benadryl Allergy [facility] cholecalcif taryn (vitamin D3) 25 mcg (1,000 unit) capsule Take 1 capsule every day by oral route. cholecalcif taryn (vitamin D3) 25 mcg (1,000 unit) capsule Take 1 capsule every day by oral route. No 1capsul e(s) Q1D cholecalci ferol (vitamin D3) 25 mcg (1,000 unit) capsule Take 1 capsule every day by oral route. [facility] D3-2000 50 mcg (2,000 unit) capsule 1 tab po qd D3-2000 50 mcg (2,000 unit) capsule 1 tab po qd No D3-2000 50 mcg (2,000 unit) capsule 1 tab po qd [facility] desmopressi n 0.2 mg tablet TAKE 1 TABLET BY MOUTH EVERY DAY IN THE EVENING desmopressi n 0.2 mg tablet TAKE 1 TABLET BY MOUTH EVERY DAY IN THE EVENING No desmopress in 0.2 mg tablet TAKE 1 TABLET BY MOUTH EVERY DAY IN THE EVENING [facility] glipizide 5 mg tablet TAKE 1 TABLET BY MOUTH TWICE DAILY glipizide 5 mg tablet TAKE 1 TABLET BY MOUTH TWICE DAILY No glipizide 5 mg tablet TAKE 1 TABLET BY MOUTH TWICE DAILY [facility] Januvia 100 mg tablet Take 1 tablet every day by oral route in the morning. Januvia 100 mg tablet Take 1 tablet every day by oral route in the morning. No 1 Q1D Januvia 100 mg tablet Take 1 tablet every day by oral route in the morning. [facility] lisinopril 5 mg tablet Take 1 tablet every day by oral route in the morning. lisinopril 5 mg tablet Take 1 tablet every day by oral route in the morning. No 1 Q1D lisinopril 5 mg tablet Take 1 tablet every day by oral route in the morning. [facility] metformin ER 500 mg tablet,exte nded release 24 hr TAKE 2 TABLETS BY MOUTH TWICE DAILY metformin ER 500 mg tablet,exte nded release 24 hr TAKE 2 TABLETS BY MOUTH TWICE DAILY No metformin ER 500 mg tablet,ext ended release 24 hr TAKE 2 TABLETS BY MOUTH TWICE DAILY [facility] norethindro ne (contracept dorota) 0.35 mg tablet Take 1 tablet every day by oral route. norethindro ne (contracept dorota) 0.35 mg tablet Take 1 tablet every day by oral route. No 1 Q1D norethindr one (contracep tive) 0.35 mg tablet Take 1 tablet every day by oral route. [facility] triamcinolo ne acetonide 0.1 % [...] ROUTE 2 TIMES PER DAY as needed [facility] Accu-Chek Guide test strips USE DIRECTED ONCE A DAY. Accu-Chek Guide test strips USE DIRECTED ONCE A DAY. No Accu-Chek Guide test strips USE DIRECTED ONCE A DAY. [facility] atorvastati n 10 mg tablet Take 1 tablet every day by oral route in the evening. atorvastati n 10 mg tablet Take 1 tablet every day by oral route in the evening. No 1 Q1D atorvastat in 10 mg tablet Take 1 tablet every day by oral route in the evening. [facility] Benadryl Allergy Benadryl Allergy No Benadryl Allergy [facility] cholecalcif taryn (vitamin D3) 25 mcg (1,000 unit) capsule Take 1 capsule every day by oral route. cholecalcif taryn (vitamin D3) 25 mcg (1,000 unit) capsule Take 1 capsule every day by oral route. No 1capsul e(s) Q1D cholecalci ferol (vitamin D3) 25 mcg (1,000 unit) capsule Take 1 capsule every day [facility] oral route. [facility] D3-2000 50 mcg (2,000 unit) capsule 1 tab po qd D3-2000 50 mcg (2,000 unit) capsule 1 tab po qd No D3-2000 50 mcg (2,000 unit) capsule 1 tab po qd [facility] desmopressi n 0.2 mg tablet TAKE ONE (1) TABLET(S) BY MOUTH ONCE EVERY EVENING. desmopressi n 0.2 mg tablet TAKE ONE (1) TABLET(S) BY MOUTH ONCE EVERY EVENING. No desmopress in 0.2 mg tablet TAKE ONE (1) TABLET(S) BY MOUTH ONCE EVERY EVENING. [facility] lisinopril 5 mg tablet Take 1 tablet every day by oral route in the morning. lisinopril 5 mg tablet Take 1 tablet every day by oral route in the morning. No 1 Q1D lisinopril 5 mg tablet Take 1 tablet every day by oral route in the morning. [facility] metformin ER 500 mg tablet,exte nded release 24 hr TAKE 2 TABLETS BY MOUTH TWICE DAILY metformin ER 500 mg tablet,exte nded release 24 hr TAKE 2 TABLETS BY MOUTH TWICE DAILY No metformin ER 500 mg tablet,ext ended release 24 hr TAKE 2 TABLETS BY MOUTH TWICE DAILY [facility] norethindro ne (contracept dorota) 0.35 mg tablet TAKE ONE (1) TABLET(S) BY MOUTH DAILY. norethindro ne (contracept dorota) 0.35 mg tablet TAKE ONE (1) TABLET(S) BY MOUTH DAILY. No norethindr one (contracep tive) 0.35 mg tablet TAKE ONE (1) TABLET(S) BY MOUTH DAILY. [facility] OneTouch UltraSoft Lancets USE DIRECTED DAILY TO TEST BLOOD GLUCOSE LEVELS. OneTouch UltraSoft Lancets USE DIRECTED DAILY TO TEST BLOOD GLUCOSE LEVELS. No OneTouch UltraSoft Lancets USE DIRECTED DAILY TO TEST BLOOD GLUCOSE LEVELS. [facility] Ozempic 1 mg/dose (4 mg/3 [...] by subcutaneo us route for 90 days. [facility] triamcinolo ne acetonide 0.1 % [...] ROUTE 2 TIMES PER DAY as needed [facility] Accu-Chek Guide Me Glucose Meter USE DAILY DIRECTED Accu-Chek Guide Me Glucose Meter USE DAILY DIRECTED No Accu-Chek Guide Me Glucose Meter USE DAILY DIRECTED [facility] Accu-Chek Guide test strips USE DIRECTED ONCE A DAY. Accu-Chek Guide test strips USE DIRECTED ONCE A DAY. No Accu-Chek Guide test strips USE DIRECTED ONCE A DAY. [facility] atorvastati n 10 mg tablet Take 1 tablet every day by oral route in the evening. atorvastati n 10 mg tablet Take 1 tablet every day by oral route in the evening. No 1 Q1D atorvastat in 10 mg tablet Take 1 tablet every day by oral route in the evening. [facility] Benadryl Allergy Benadryl Allergy No Benadryl Allergy [facility] D3-2000 50 mcg (2,000 unit) capsule 1 tab po qd D3-2000 50 mcg (2,000 unit) capsule 1 tab po qd No D3-2000 50 mcg (2,000 unit) capsule 1 tab po qd [facility] desmopressi n 0.2 mg tablet TAKE ONE (1) TABLET(S) BY MOUTH IN THE EVENING. desmopressi n 0.2 mg tablet TAKE ONE (1) TABLET(S) BY MOUTH IN THE EVENING. No desmopress in 0.2 mg tablet TAKE ONE (1) TABLET(S) BY MOUTH IN THE EVENING. [facility] lisinopril 5 mg tablet Take 1 tablet every day by oral route in the morning. lisinopril 5 mg tablet Take 1 tablet every day by oral route in the morning. No 1 Q1D lisinopril 5 mg tablet Take 1 tablet every day by oral route in the morning. [facility] metformin ER 500 mg tablet,exte nded release 24 hr TAKE TWO (2) TABLET(S) BY MOUTH TWICE A DAY. metformin ER 500 mg tablet,exte nded release 24 hr TAKE TWO (2) TABLET(S) BY MOUTH TWICE A DAY. No metformin ER 500 mg tablet,ext ended release 24 hr TAKE TWO (2) TABLET(S) BY MOUTH TWICE A DAY. [facility] norethindro ne (contracept dorota) 0.35 mg tablet TAKE ONE (1) TABLET(S) BY MOUTH DAILY. norethindro ne (contracept dorota) 0.35 mg tablet TAKE ONE (1) TABLET(S) BY MOUTH DAILY. No norethindr one (contracep tive) 0.35 mg tablet TAKE ONE (1) TABLET(S) BY MOUTH DAILY. [facility] OneTouch UltraSoft Lancets USE DIRECTED DAILY TO TEST BLOOD GLUCOSE LEVELS. OneTouch UltraSoft Lancets USE DIRECTED DAILY TO TEST BLOOD GLUCOSE LEVELS. No OneTouch UltraSoft Lancets USE DIRECTED DAILY TO TEST BLOOD GLUCOSE LEVELS. [facility] Ozempic 1 mg/dose (4 mg/3 [...] by subcutaneo us route for 90 days. [facility] Accu-Chek Guide Me Glucose Meter USE DAILY DIRECTED Accu-Chek Guide Me Glucose Meter USE DAILY DIRECTED No Accu-Chek Guide Me Glucose Meter USE DAILY DIRECTED [facility] Accu-Chek Guide test strips Check glucose bid Accu-Chek Guide test strips Check glucose bid No Accu-Chek Guide test strips Check glucose bid [facility] atorvastati n 10 mg tablet Take 1 tablet every day by oral route in the evening. atorvastati n 10 mg tablet Take 1 tablet every day by oral route in the evening. No 1 Q1D atorvastat in 10 mg tablet Take 1 tablet every day by oral route in the evening. [facility] Benadryl Allergy Benadryl Allergy No Benadryl Allergy [facility] D3-2000 50 mcg (2,000 unit) capsule 1 tab po qd D3-2000 50 mcg (2,000 unit) capsule 1 tab po qd No D3-2000 50 mcg (2,000 unit) capsule 1 tab po qd [facility] desmopressi n 0.2 mg tablet TAKE 1 TABLET BY MOUTH EVERY DAY IN THE EVENING desmopressi n 0.2 mg tablet TAKE 1 TABLET BY MOUTH EVERY DAY IN THE EVENING No desmopress in 0.2 mg tablet TAKE 1 TABLET BY MOUTH EVERY DAY IN THE EVENING [facility] lisinopril 5 mg tablet Take 1 tablet every day by oral route in the morning. lisinopril 5 mg tablet Take 1 tablet every day by oral route in the morning. No 1 Q1D lisinopril 5 mg tablet Take 1 tablet every day by oral route in the morning. [facility] metformin ER 500 mg tablet,exte nded release 24 hr TAKE TWO (2) TABLET(S) BY MOUTH TWICE A DAY. metformin ER 500 mg tablet,exte nded release 24 hr TAKE TWO (2) TABLET(S) BY MOUTH TWICE A DAY. No metformin ER 500 mg tablet,ext ended release 24 hr TAKE TWO (2) TABLET(S) BY MOUTH TWICE A DAY. [facility] norethindro ne (contracept dorota) 0.35 mg tablet TAKE ONE (1) TABLET(S) BY MOUTH DAILY. norethindro ne (contracept dorota) 0.35 mg tablet TAKE ONE (1) TABLET(S) BY MOUTH DAILY. No norethindr one (contracep tive) 0.35 mg tablet TAKE ONE (1) TABLET(S) BY MOUTH DAILY. [facility] OneTouch UltraSoft Lancets USE DIRECTED DAILY TO TEST BLOOD GLUCOSE LEVELS. OneTouch UltraSoft Lancets USE DIRECTED DAILY TO TEST BLOOD GLUCOSE LEVELS. No OneTouch UltraSoft Lancets USE DIRECTED DAILY TO TEST BLOOD GLUCOSE LEVELS. [facility] 1 mg/dose (4 mg/3 [...] by subcutaneo us route for 90 days. [facility] Accu-Chek Guide Me Glucose Meter USE DAILY DIRECTED Accu-Chek Guide Me Glucose Meter USE DAILY DIRECTED No Accu-Chek Guide Me Glucose Meter USE DAILY DIRECTED [facility] Accu-Chek Guide test strips Check glucose bid Accu-Chek Guide test strips Check glucose bid No Accu-Chek Guide test strips Check glucose bid [facility] atorvastati n 10 mg tablet Take 1 tablet every day by oral route in the evening. atorvastati n 10 mg tablet Take 1 tablet every day by oral route in the evening. No 1 Q1D atorvastat in 10 mg tablet Take 1 tablet every day by oral route in the evening. [facility] Benadryl Allergy Benadryl Allergy No Benadryl Allergy [facility] D3-2000 50 mcg (2,000 unit) capsule TAKE 1 TABLET BY MOUTH DAILY D3-2000 50 mcg (2,000 unit) capsule TAKE 1 TABLET BY MOUTH DAILY No D3-2000 50 mcg (2,000 unit) capsule TAKE 1 TABLET BY MOUTH DAILY [facility] desmopressi n 0.2 mg tablet TAKE ONE (1) TABLET(S) BY MOUTH EVERY EVENING. desmopressi n 0.2 mg tablet TAKE ONE (1) TABLET(S) BY MOUTH EVERY EVENING. No desmopress in 0.2 mg tablet TAKE ONE (1) TABLET(S) BY MOUTH EVERY EVENING. [facility] fluconazole 150 mg tablet TAKE 1 TABLET BY MOUTH x 1 fluconazole 150 mg tablet TAKE 1 TABLET BY MOUTH x 1 No fluconazol e 150 mg tablet TAKE 1 TABLET BY MOUTH x 1 [facility] lisinopril 5 mg tablet Take 1 tablet every day by oral route in the morning. lisinopril 5 mg tablet Take 1 tablet every day by oral route in the morning. No 1 Q1D lisinopril 5 mg tablet Take 1 tablet every day by oral route in the morning. [facility] metformin ER 500 mg tablet,exte nded release 24 hr TAKE 2 TABLETS BY MOUTH TWICE DAILY metformin ER 500 mg tablet,exte nded release 24 hr TAKE 2 TABLETS BY MOUTH TWICE DAILY No metformin ER 500 mg tablet,ext ended release 24 hr TAKE 2 TABLETS BY MOUTH TWICE DAILY [facility] norethindro ne (contracept dorota) 0.35 mg tablet TAKE ONE (1) TABLET(S) BY MOUTH DAILY. norethindro ne (contracept dorota) 0.35 mg tablet TAKE ONE (1) TABLET(S) BY MOUTH DAILY. No norethindr one (contracep tive) 0.35 mg tablet TAKE ONE (1) TABLET(S) BY MOUTH DAILY. [facility] OneTouch UltraSoft Lancets USE DIRECTED DAILY TO TEST BLOOD GLUCOSE LEVELS. OneTouch UltraSoft Lancets USE DIRECTED DAILY TO TEST BLOOD GLUCOSE LEVELS. No OneTouch UltraSoft Lancets USE DIRECTED DAILY TO TEST BLOOD GLUCOSE LEVELS. [facility] Ozempic 0.25 mg or 0.5 mg [...] by subcutaneo us route for 90 days. [facility] Ozempic 1 mg/dose (4 [...] by subcutaneo us route for 90 days. [facility] terbinafine HCl 250 mg tablet Take 1 tablet every day by oral route as directed for 42 days. terbinafine HCl 250 mg tablet Take 1 tablet every day by oral route as directed for 42 days. No 1 Q1D terbinafin e HCl 250 mg tablet Take 1 tablet every day by oral route as directed for 42 days. [facility] Accu-Chek Guide Me Glucose Meter USE DAILY DIRECTED Accu-Chek Guide Me Glucose Meter USE DAILY DIRECTED No Accu-Chek Guide Me Glucose Meter USE DAILY DIRECTED [facility] Accu-Chek Guide test strips Check glucose bid Accu-Chek Guide test strips Check glucose bid No Accu-Chek Guide test strips Check glucose bid [facility] acetaminoph en 300 mg-codeine 30 mg [...] oral route as needed for 7 days. [facility] Program atorvastati n 10 mg tablet Take 1 tablet every day by oral route in the evening. atorvastati n 10 mg tablet Take 1 tablet every day by oral route in the evening. No 1 Q1D atorvastat in 10 mg tablet Take 1 tablet every day by oral route in the evening. [facility] Benadryl Allergy Benadryl Allergy No Benadryl Allergy [facility] D3-2000 50 mcg (2,000 unit) capsule TAKE 1 TABLET BY MOUTH DAILY D3-2000 50 mcg (2,000 unit) capsule TAKE 1 TABLET BY MOUTH DAILY No D3-2000 50 mcg (2,000 unit) capsule TAKE 1 TABLET BY MOUTH DAILY [facility] desmopressi n 0.2 mg tablet TAKE ONE (1) TABLET(S) BY MOUTH EVERY EVENING. desmopressi n 0.2 mg tablet TAKE ONE (1) TABLET(S) BY MOUTH EVERY EVENING. No desmopress in 0.2 mg tablet TAKE ONE (1) TABLET(S) BY MOUTH EVERY EVENING. [facility] fluconazole 150 mg tablet TAKE ONE (1) TABLET(S) BY MOUTH ONCE. fluconazole 150 mg tablet TAKE ONE (1) TABLET(S) BY MOUTH ONCE. No fluconazol e 150 mg tablet TAKE ONE (1) TABLET(S) BY MOUTH ONCE. [facility] lisinopril 5 mg tablet Take 1 tablet every day by oral route in the morning. lisinopril 5 mg tablet Take 1 tablet every day by oral route in the morning. No 1 Q1D lisinopril 5 mg tablet Take 1 tablet every day by oral route in the morning. [facility] metformin ER 500 mg tablet,exte nded release 24 hr TAKE 2 TABLETS BY MOUTH TWICE DAILY metformin ER 500 mg tablet,exte nded release 24 hr TAKE 2 TABLETS BY MOUTH TWICE DAILY No metformin ER 500 mg tablet,ext ended release 24 hr TAKE 2 TABLETS BY MOUTH TWICE DAILY [facility] norethindro ne (contracept dorota) 0.35 mg tablet TAKE ONE (1) TABLET(S) BY MOUTH DAILY. norethindro ne (contracept dorota) 0.35 mg tablet TAKE ONE (1) TABLET(S) BY MOUTH DAILY. No norethindr one (contracep tive) 0.35 mg tablet TAKE ONE (1) TABLET(S) BY MOUTH DAILY. [facility] OneTouch UltraSoft Lancets USE DIRECTED DAILY TO TEST BLOOD GLUCOSE LEVELS. OneTouch UltraSoft Lancets USE DIRECTED DAILY TO TEST BLOOD GLUCOSE LEVELS. No OneTouch UltraSoft Lancets USE DIRECTED DAILY TO TEST BLOOD GLUCOSE LEVELS. [facility] Ozempic 0.25 mg or [...] by subcutaneo us route for 90 days. [facility] Ozempic 1 mg/dose (4 [...] by subcutaneo us route for 90 days. [facility] terbinafine HCl 250 mg tablet TAKE ONE (1) TABLET(S) BY MOUTH DAILY. terbinafine HCl 250 mg tablet TAKE ONE (1) TABLET(S) BY MOUTH DAILY. No terbinafin e HCl 250 mg tablet TAKE ONE (1) TABLET(S) BY MOUTH DAILY. [facility] tramadol 50 mg tablet TAKE ONE (1) TABLET(S) BY MOUTH EVERY SIX HOURS NEEDED FOR PAIN. tramadol 50 mg tablet TAKE ONE (1) TABLET(S) BY MOUTH EVERY SIX HOURS NEEDED FOR PAIN. No tramadol 50 mg tablet TAKE ONE (1) TABLET(S) BY MOUTH EVERY SIX HOURS NEEDED FOR PAIN. [facility] Accu-Chek Guide Me Glucose Meter USE DAILY DIRECTED Accu-Chek Guide Me Glucose Meter USE DAILY DIRECTED No Accu-Chek Guide Me Glucose Meter USE DAILY DIRECTED [facility] Accu-Chek Guide test strips Check glucose bid Accu-Chek Guide test strips Check glucose bid No Accu-Chek Guide test strips Check glucose bid [facility] acetaminoph en 300 mg-codeine 30 [...] oral route as needed for 7 days. [facility] atorvastati n 10 mg tablet Take 1 tablet every day by oral route in the evening. atorvastati n 10 mg tablet Take 1 tablet every day by oral route in the evening. No 1 Q1D atorvastat in 10 mg tablet Take 1 tablet every day by oral route in the evening. [facility] Benadryl Allergy Benadryl Allergy No Benadryl Allergy [facility] D3-2000 50 mcg (2,000 unit) capsule TAKE 1 TABLET BY MOUTH DAILY D3-2000 50 mcg (2,000 unit) capsule TAKE 1 TABLET BY MOUTH DAILY No D3-2000 50 mcg (2,000 unit) capsule TAKE 1 TABLET BY MOUTH DAILY [facility] desmopressi n 0.2 mg tablet TAKE ONE (1) TABLET(S) BY MOUTH EVERY EVENING. desmopressi n 0.2 mg tablet TAKE ONE (1) TABLET(S) BY MOUTH EVERY EVENING. No desmopress in 0.2 mg tablet TAKE ONE (1) TABLET(S) BY MOUTH EVERY EVENING. [facility] lisinopril 5 mg tablet Take 1 tablet every day by oral route in the morning. lisinopril 5 mg tablet Take 1 tablet every day by oral route in the morning. No 1 Q1D lisinopril 5 mg tablet Take 1 tablet every day by oral route in the morning. [facility] metformin ER 500 mg tablet,exte nded release 24 hr TAKE 2 TABLETS BY MOUTH TWICE DAILY metformin ER 500 mg tablet,exte nded release 24 hr TAKE 2 TABLETS BY MOUTH TWICE DAILY No metformin ER 500 mg tablet,ext ended release 24 hr TAKE 2 TABLETS BY MOUTH TWICE DAILY [facility] norethindro ne (contracept dorota) 0.35 mg tablet Take 1 tablet every day by oral route. norethindro ne (contracept dorota) 0.35 mg tablet Take 1 tablet every day by oral route. No 1 Q1D norethindr one (contracep tive) 0.35 mg tablet Take 1 tablet every day by oral route. [facility] OneTouch UltraSoft Lancets USE DIRECTED DAILY TO TEST BLOOD GLUCOSE LEVELS. OneTouch UltraSoft Lancets USE DIRECTED DAILY TO TEST BLOOD GLUCOSE LEVELS. No OneTouch UltraSoft Lancets USE DIRECTED DAILY TO TEST BLOOD GLUCOSE LEVELS. [facility] Ozempic 0.25 mg or [...] by subcutaneo us route for 90 days. [facility] Ozempic 1 mg/dose (4 [...] by subcutaneo us route for 90 days. [facility] terbinafine HCl 250 mg tablet TAKE ONE (1) TABLET(S) BY MOUTH DAILY. terbinafine HCl 250 mg tablet TAKE ONE (1) TABLET(S) BY MOUTH DAILY. No terbinafin e HCl 250 mg tablet TAKE ONE (1) TABLET(S) BY MOUTH DAILY. [facility] tramadol 50 mg tablet TAKE ONE (1) TABLET(S) BY MOUTH EVERY SIX HOURS NEEDED FOR PAIN. tramadol 50 mg tablet TAKE ONE (1) TABLET(S) BY MOUTH EVERY SIX HOURS NEEDED FOR PAIN. No tramadol 50 mg tablet TAKE ONE (1) TABLET(S) BY MOUTH EVERY SIX HOURS NEEDED FOR PAIN. [facility] Accu-Chek Guide Me Glucose Meter USE DAILY DIRECTED Accu-Chek Guide Me Glucose Meter USE DAILY DIRECTED No Accu-Chek Guide Me Glucose Meter USE DAILY DIRECTED [facility] Accu-Chek Guide test strips Check glucose bid Accu-Chek Guide test strips Check glucose bid No Accu-Chek Guide test strips Check glucose bid [facility] acetaminoph en 300 mg-codeine 30 [...] oral route as needed for 7 days. [facility] atorvastati n 10 mg tablet Take 1 tablet every day by oral route in the evening. atorvastati n 10 mg tablet Take 1 tablet every day by oral route in the evening. No 1 Q1D atorvastat in 10 mg tablet Take 1 tablet every day by oral route in the evening. [facility] Benadryl Allergy Benadryl Allergy No Benadryl Allergy [facility] D3-2000 50 mcg (2,000 unit) capsule TAKE 1 TABLET BY MOUTH DAILY D3-2000 50 mcg (2,000 unit) capsule TAKE 1 TABLET BY MOUTH DAILY No D3-2000 50 mcg (2,000 unit) capsule TAKE 1 TABLET BY MOUTH DAILY [facility] desmopressi n 0.2 mg tablet TAKE ONE (1) TABLET(S) BY MOUTH EVERY EVENING. desmopressi n 0.2 mg tablet TAKE ONE (1) TABLET(S) BY MOUTH EVERY EVENING. No desmopress in 0.2 mg tablet TAKE ONE (1) TABLET(S) BY MOUTH EVERY EVENING. [facility] lisinopril 5 mg tablet Take 1 tablet every day by oral route in the morning. lisinopril 5 mg tablet Take 1 tablet every day by oral route in the morning. No 1 Q1D lisinopril 5 mg tablet Take 1 tablet every day by oral route in the morning. [facility] metformin ER 500 mg tablet,exte nded release 24 hr TAKE 2 TABLETS BY MOUTH TWICE DAILY metformin ER 500 mg tablet,exte nded release 24 hr TAKE 2 TABLETS BY MOUTH TWICE DAILY No metformin ER 500 mg tablet,ext ended release 24 hr TAKE 2 TABLETS BY MOUTH TWICE DAILY [facility] norethindro ne (contracept dorota) 0.35 mg tablet Take 1 tablet every day by oral route. norethindro ne (contracept dorota) 0.35 mg tablet Take 1 tablet every day by oral route. No 1 Q1D norethindr one (contracep tive) 0.35 mg tablet Take 1 tablet every day by oral route. [facility] OneTouch UltraSoft Lancets USE DIRECTED DAILY TO TEST BLOOD GLUCOSE LEVELS. OneTouch UltraSoft Lancets USE DIRECTED DAILY TO TEST BLOOD GLUCOSE LEVELS. No OneTouch UltraSoft Lancets USE DIRECTED DAILY TO TEST BLOOD GLUCOSE LEVELS. [facility] Ozempic 0.25 mg or [...] by subcutaneo us route for 90 days. [facility] Ozempic 1 mg/dose (4 [...] by subcutaneo us route for 90 days. [facility] tramadol 50 mg tablet TAKE ONE (1) TABLET(S) BY MOUTH EVERY SIX HOURS NEEDED FOR PAIN. tramadol 50 mg tablet TAKE ONE (1) TABLET(S) BY MOUTH EVERY SIX HOURS NEEDED FOR PAIN. No tramadol 50 mg tablet TAKE ONE (1) TABLET(S) BY MOUTH EVERY SIX HOURS NEEDED FOR PAIN. [facility] Accu-Chek Guide Me Glucose Meter USE DAILY DIRECTED Accu-Chek Guide Me Glucose Meter USE DAILY DIRECTED No Accu-Chek Guide Me Glucose Meter USE DAILY DIRECTED [facility] Accu-Chek Guide test strips Check glucose bid Accu-Chek Guide test strips Check glucose bid No Accu-Chek Guide test strips Check glucose bid [facility] atorvastati n 10 mg tablet Take 1 tablet every day by oral route in the evening. atorvastati n 10 mg tablet Take 1 tablet every day by oral route in the evening. No 1 Q1D atorvastat in 10 mg tablet Take 1 tablet every day by oral route in the evening. [facility] Benadryl Allergy Benadryl Allergy No Benadryl Allergy [facility] D3-2000 50 mcg (2,000 unit) capsule TAKE 2 TABLETS BY MOUTH DAILY D3-2000 50 mcg (2,000 unit) capsule TAKE 2 TABLETS BY MOUTH DAILY No D3-2000 50 mcg (2,000 unit) capsule TAKE 2 TABLETS BY MOUTH DAILY [facility] desmopressi n 0.2 mg tablet TAKE 1 TABLET BY MOUTH EVERY DAY IN THE EVENING desmopressi n 0.2 mg tablet TAKE 1 TABLET BY MOUTH EVERY DAY IN THE EVENING No desmopress in 0.2 mg tablet TAKE 1 TABLET BY MOUTH EVERY DAY IN THE EVENING [facility] famotidine 20 mg tablet famotidine 20 mg tablet No famotidine 20 mg tablet [facility] levofloxaci n 500 mg tablet levofloxaci n 500 mg tablet No levofloxac in 500 mg tablet [facility] lisinopril 5 mg tablet Take 1 tablet every day by oral route in the morning. lisinopril 5 mg tablet Take 1 tablet every day by oral route in the morning. No 1 Q1D lisinopril 5 mg tablet Take 1 tablet every day by oral route in the morning. [facility] metformin ER 500 mg tablet,exte nded release 24 hr TAKE 2 TABLETS BY MOUTH TWICE DAILY metformin ER 500 mg tablet,exte nded release 24 hr TAKE 2 TABLETS BY MOUTH TWICE DAILY No metformin ER 500 mg tablet,ext ended release 24 hr TAKE 2 TABLETS BY MOUTH TWICE DAILY [facility] norethindro ne (contracept dorota) 0.35 mg tablet Take 1 tablet every day by oral route. norethindro ne (contracept dorota) 0.35 mg tablet Take 1 tablet every day by oral route. No norethindr one (contracep tive) 0.35 mg tablet Take 1 tablet every day by oral route. [facility] OneTouch UltraSoft Lancets USE DIRECTED DAILY TO TEST BLOOD GLUCOSE LEVELS. OneTouch UltraSoft Lancets USE DIRECTED DAILY TO TEST BLOOD GLUCOSE LEVELS. No OneTouch UltraSoft Lancets USE DIRECTED DAILY TO TEST BLOOD GLUCOSE LEVELS. [facility] Ozempic 1 mg/dose (4 [...] by subcutaneo us route for 90 days. [facility] tramadol 50 mg tablet TAKE ONE (1) TABLET(S) BY MOUTH EVERY SIX HOURS NEEDED FOR PAIN. tramadol 50 mg tablet TAKE ONE (1) TABLET(S) BY MOUTH EVERY SIX HOURS NEEDED FOR PAIN. No tramadol 50 mg tablet TAKE ONE (1) TABLET(S) BY MOUTH EVERY SIX HOURS NEEDED FOR PAIN. [facility] Vitamin D3 125 mcg (5,000 unit) tablet Take 1 tablet every day by oral route for 90 days. Vitamin D3 125 mcg (5,000 unit) tablet Take 1 tablet every day by oral route for 90 days. No 1 Q1D Vitamin D3 125 mcg (5,000 unit) tablet Take 1 tablet every day by oral route for 90 days. [facility] Immunizations Ordered Immunization Name Filled Immunization Name Date Status Comments Source pneumococcal polysaccharide PPV23 pneumococcal polysaccharide PPV23 2020-01-28 12:22:00 [facility] pneumococcal polysaccharide PPV23 pneumococcal polysaccharide PPV23 2020-01-28 12:22:00 [facility] pneumococcal polysaccharide PPV23 pneumococcal polysaccharide PPV23 2020-01-28 12:22:00 [facility]pleted [facility] pneumococcal polysaccharide PPV23 pneumococcal polysaccharide PPV23 2020-01-28 12:22:00 [facility]pleted [facility] pneumococcal polysaccharide PPV23 pneumococcal polysaccharide PPV23 2020-01-28 12:22:00 Completed [facility] pneumococcal polysaccharide PPV23 pneumococcal polysaccharide PPV23 2020-01-28 12:22:00 Completed [facility] pneumococcal polysaccharide PPV23 pneumococcal polysaccharide PPV23 2020-01-28 12:22:00 Completed [facility] pneumococcal polysaccharide PPV23 pneumococcal polysaccharide PPV23 2020-01-28 12:22:00 Completed [facility] pneumococcal polysaccharide PPV23 pneumococcal polysaccharide PPV23 2020-01-28 12:22:00 Completed [facility] Tdap Tdap 2020-01-28 12:20:00 Completed [facility] Tdap Tdap 2020-01-28 12:20:00 Completed [facility] Tdap Tdap 2020-01-28 12:20:00 Completed [facility] Tdap Tdap 2020-01-28 12:20:00 Completed [facility] Tdap Tdap 2020-01-28 12:20:00 Completed [facility] Tdap Tdap 2020-01-28 12:20:00 Completed [facility] Tdap Tdap 2020-01-28 12:20:00 Completed [facility] Tdap Tdap 2020-01-28 12:20:00 Completed [facility] Tdap Tdap 2020-01-28 12:20:00 Completed [facility] influenza, unspecified formulation influenza, unspecified formulation Unknown Completed [facility] COVID-19 (SARS-COV-2) vaccine, unspecified COVID-19 (SARS-COV-2) vaccine, unspecified Unknown Completed [facility] Tdap Tdap Unknown Completed [facility] pneumococcal polysaccharide PPV23 pneumococcal polysaccharide PPV23 Unknown Completed [facility] pneumococcal polysaccharide PPV23 pneumococcal polysaccharide PPV23 Unknown Completed [facility] Tdap Tdap Unknown Completed [facility] pneumococcal polysaccharide PPV23 pneumococcal polysaccharide PPV23 Unknown Completed [facility] Tdap Tdap Unknown Completed [facility] Vital Signs Vital Name Observation Time Observation Value Comments S ource Height 2023-02-23 00:00:00 61 [in_i] Laura orda [facility] BP Diastolic 2023-02-23 00:00:00 83 mm[Hg] Vincenzo agorda [facility] BP Systolic 2023-02-23 00:00:00 136 mm[Hg] Rogel torrie [facility] BMI (Body Mass Index) 2023-02-23 00:00:00 26.7 kg/m2 [facility] Body Weight 2023-02-23 00:00:00 2258 [oz_av] Nicolette ramesha [facility] BP Diastolic 2022-12-06 00:00:00 72 mm[Hg] Rosario stoalirio [facility] Body Weight 2022-12-06 00:00:00 159 [lb_av] Rosario sto [facility] BP Systolic 2022-12-06 00:00:00 134 mm[Hg] Isabella ton [facility] Height 2022-12-06 00:00:00 60 [in_i] Kenna on [facility] BMI (Body Mass Index) 2022-12-06 00:00:00 31.1 kg/m2 [facility] BP Diastolic 2022-11-22 00:00:00 46 mm[Hg] Vincenzo jonesrda [facility] Body Weight 2022-11-22 00:00:00 2417.6 [oz_av] [facility] BMI (Body Mass Index) 2022-11-22 00:00:00 28.5 kg/m2 [facility] BP Systolic 2022-11-22 00:00:00 137 mm[Hg] Juan F diamonda [facility] Height 2022-11-22 00:00:00 61 [in_i] Laura orda [facility] Height 2022-11-01 00:00:00 61 [in_i] Matanika orda [facility] Body Weight 2022-11-01 00:00:00 154 [lb_av] Vincenzo agorda [facility] BMI (Body Mass Index) 2022-11-01 00:00:00 29.1 kg/m2 [facility] BP Systolic 2022-11-01 00:00:00 130 mm[Hg] Juan F diamonda [facility] BP Diastolic 2022-11-01 00:00:00 72 mm[Hg] Vincenzo jonesrda [facility] BP Diastolic 2022-10-27 00:00:00 70 mm[Hg] Vincenzo jonesrdney [facility] Body Weight 2022-10-27 00:00:00 2438 [oz_av] Sc yenny [facility] BMI (Body Mass Index) 2022-10-27 00:00:00 28.8 kg/m2 [facility] BP Systolic 2022-10-27 00:00:00 140 mm[Hg] Juan F diamonda [facility] Height 2022-10-27 00:00:00 61 [in_i] [facility] Systolic blood pressure 2022-10-26 01:30:00 139 mm[Hg] [facility] Diastolic blood pressure 2022-10-26 01:30:00 83 mm[Hg] [facility] Heart rate 2022-10-26 01:30:00 80 /min [facility] Respiratory rate 2022-10-26 01:30:00 14 /min [facility] Oxygen saturation in Arterial blood by Pulse oximetry 2022-10-26 01:30:00 97 /min [facility] Body temperature 2022-10-25 23:37:00 37.22 Renu [facility] Body height 2022-10-25 23:37:00 157.5 cm [facility] Body weight 2022-10-25 23:37:00 72.122 kg [facility] BMI 2022-10-25 23:37:00 29.08 kg/m2 [facility] BP Diastolic 2022-09-15 00:00:00 77 mm[Hg] Vincenzo stone [facility] Height 2022-09-15 00:00:00 61 [in_i] Laura goldstein [facility] BMI (Body Mass Index) 2022-09-15 00:00:00 30.1 kg/m2 [facility] BP Systolic 2022-09-15 00:00:00 122 mm[Hg] Rogel torrie [facility] Body Weight 2022-09-15 00:00:00 2553 [oz_av] Nicolette tagorda [facility] BP Diastolic 2022-08-09 00:00:00 77 mm[Hg] Mat agorda [facility] Height 2022-08-09 00:00:00 61 [in_i] Matanika orda [facility] BMI (Body Mass Index) 2022-08-09 00:00:00 31.4 kg/m2 [facility] BP Systolic 2022-08-09 00:00:00 134 mm[Hg] Rogel torrie [facility] Body Weight 2022-08-09 00:00:00 2663 [oz_av] Nicolette tagorda [facility] BP Diastolic 2022-07-05 00:00:00 71 mm[Hg] Mat karenrda [facility] Height 2022-07-05 00:00:00 61 [in_i] Matanika orda [facility] BMI (Body Mass Index) 2022-07-05 00:00:00 31 kg/m2 [facility] BP Systolic 2022-07-05 00:00:00 130 mm[Hg] Rogel torrie [facility] Body Weight 2022-07-05 00:00:00 2629 [oz_av] Nicolette tagorda [facility] BP Diastolic 2022-05-05 00:00:00 89 mm[Hg] Mat agorda [facility] Height 2022-05-05 00:00:00 61 [in_i] Matanika orda [facility] BMI (Body Mass Index) 2022-05-05 00:00:00 31.2 kg/m2 [facility] BP Systolic 2022-05-05 00:00:00 139 mm[Hg] Rogel torrie [facility] Body Weight 2022-05-05 00:00:00 2641 [oz_av] Nicolette tagorda [facility] BP Diastolic 2022-01-04 00:00:00 80 mm[Hg] Mat agorda [facility] Height 2022-01-04 00:00:00 61 [in_i] Matag or[facility] BMI (Body Mass Index) 2022-01-04 00:00:00 31.2 kg/m2 [facility] BP Systolic 2022-01-04 00:00:00 140 mm[Hg] Rogel torrie [facility] Body Weight 2022-01-04 00:00:00 2642 [oz_av] Nicolette tagorda [facility] BP Diastolic 2021-09-21 00:00:00 75 mm[Hg] Mat agorda [facility] Height 2021-09-21 00:00:00 61 [in_i] Matag or[facility] BMI (Body Mass Index) 2021-09-21 00:00:00 30.7 kg/m2 [facility] BP Systolic 2021-09-21 00:00:00 144 mm[Hg] Rogel torrie [facility] Body Weight 2021-09-21 00:00:00 2596 [oz_av] Nicolette tagorda [facility] BP Diastolic 2021-05-25 00:00:00 78 mm[Hg] Mat agorda [facility] Height 2021-05-25 00:00:00 61 [in_i] Matag or[facility] BMI (Body Mass Index) 2021-05-25 00:00:00 30.4 kg/m2 [facility] BP Systolic 2021-05-25 00:00:00 134 mm[Hg] Rogel torrie [facility] Body Weight 2021-05-25 00:00:00 2576 [oz_av] Nicolette tagorda [facility] BP Diastolic 2021-02-20 00:00:00 79 mm[Hg] Mat agorda [facility] Height 2021-02-20 00:00:00 61 [in_i] [facility] [facility] BMI (Body Mass Index) 2021-02-20 00:00:00 30.3 kg/m2 [facility] BP Systolic 2021-02-20 00:00:00 131 mm[Hg] Rogel torrie [facility] Body Weight 2021-02-20 00:00:00 2561.6 [oz_av] [facility] BP Diastolic 2020-05-05 00:00:00 73 mm[Hg] Mat agorda [facility] Height 2020-05-05 00:00:00 61 [in_i] Matanika orda [facility] BMI (Body Mass Index) 2020-05-05 00:00:00 30.6 kg/m2 [facility] BP Systolic 2020-05-05 00:00:00 125 mm[Hg] Rogel torrie [facility] Body Weight 2020-05-05 00:00:00 2592 [oz_av] Nicolette florezorda [facility] BP Diastolic 2020-01-28 00:00:00 76 mm[Hg] Mat agorda [facility] Height 2020-01-28 00:00:00 61 [in_i] Matanika orda [facility] BMI (Body Mass Index) 2020-01-28 00:00:00 30.8 kg/m2 [facility] BP Systolic 2020-01-28 00:00:00 130 mm[Hg] Rogel torrie [facility] Body Weight 2020-01-28 00:00:00 2609.6 [oz_av] [facility] Height 2019-11-02 00:00:00 61 [in_i] Matanika orda [facility] BP Diastolic 2019-07-30 00:00:00 82 mm[Hg] Mat agorda [facility] Height 2019-07-30 00:00:00 61 [in_i] Matanika orda [facility] BMI (Body Mass Index) 2019-07-30 00:00:00 31.5 kg/m2 [facility] BP Systolic 2019-07-30 00:00:00 131 mm[Hg] Rogel torrie [facility] Body Weight 2019-07-30 00:00:00 2665 [oz_av] Ma tagorda [facility] BP Diastolic 2019-04-30 00:00:00 78 mm[Hg] Mat agorda [facility] Height 2019-04-30 00:00:00 61 [in_i] [facility] BMI (Body Mass Index) 2019-04-30 00:00:00 32.4 kg/m2 [facility] BP Systolic 2019-04-30 00:00:00 131 mm[Hg] Rogel torrie [facility] Body Weight 2019-04-30 00:00:00 171.7 [lb_av] M atagorda [facility] BP Diastolic 2019-04-25 00:00:00 83 mm[Hg] Mat agorda [facility] Height 2019-04-25 00:00:00 61 [in_i] Matanika orda [facility] BMI (Body Mass Index) 2019-04-25 00:00:00 32.1 kg/m2 [facility] BP Systolic 2019-04-25 00:00:00 136 mm[Hg] Rogel torrie [facility] Body Weight 2019-04-25 00:00:00 169.8 [lb_av] M atag[place]a [facility] BP Diastolic 2019-03-05 00:00:00 93 mm[Hg] Mat agorda [facility] Height 2019-03-05 00:00:00 61 [in_i] Matanika orda [facility] BMI (Body Mass Index) 2019-03-05 00:00:00 31.7 kg/m2 [facility] BP Systolic 2019-03-05 00:00:00 150 mm[Hg] Rogel torrie [facility] Body Weight 2019-03-05 00:00:00 168 [lb_av] Mat agorda [facility] BP Diastolic 2019-02-02 00:00:00 90 mm[Hg] Vincenzo stone [facility] Height 2019-02-02 00:00:00 61 [in_i] Laura goldstein [facility] BMI (Body Mass Index) 2019-02-02 00:00:00 32 [facility]m2 [facility] BP Systolic 2019-02-02 00:00:00 150 mm[Hg] Juan F brownlee [facility] Body Weight 2019-02-02 00:00:00 169.4 [lb_av] [facility] Procedures Procedure Date / Time Performed Performing Clinician Source MAMMO, screening, bilateral 2022-11-01 00:00:00 [facility] ABDOMEN PELVIS WO CONTRAST 2022-10-26 00:26:00 Ya Shields [facility] LIPASE 2022-10-26 00:15:00 Ya Shields Un [facility] COMP. METABOLIC PANEL (23290) 2022-10-26 00:15:00 Ya Shields [facility] CBC WITH DIFF 2022-10-26 00:15:00 [facility] 2022-10-26 00:15:00 Ya Shields Un [facility] RAPID STREP SCREEN FOR GROUP A 2022-10-26 00:15:00 Ya Shields [facility] RAPID INFLUENZA A/B 2022-10-26 00:15:00 Ya Shields [facility] CONSENT/REFUSAL FOR DIAGNOSIS AND TREATMENT 2022-10-25 23:28:59 Doctor Unassigned, [place] [facility] NOTICE OF PRIVACY PRACTICES 2022-10-25 23:28:23 Doctor Unassigned, [place] [facility] MAMMO, screening, digital, bilateral 2021-05-25 00:00:00 [facility] MAMMO, screening, bilateral 2019-02-02 00:00:00 [facility] CHEST X-RAY 2019-02-02 00:00:00 [facility] Tubal Ligation [facility] Hernia Repair W/mesh [facility] Appendectomy [facility] Cholecystectomy [facility] Plan of Care Planned Activity Planned Date Details Comments Source Diagnostic Test Pending 2022-12-06 00:00:00 urinalysis, dipstick [code = urinalysis, dipstick] [facility] Diagnostic Test Pending 2022-11-22 00:00:00 HbA1c (hemoglobin A1c), blood [code = HbA1c (hemoglobin A1c), blood] [facility] Test Pending 2022-11-22 00:00:00 CMP, serum or plasma [code = CMP, serum or plasma] [facility] Diagnostic Test Pending 2022-11-22 00:00:00 CBC w/ auto diff [code = CBC w/ auto diff] [facility] Diagnostic Test Pending 2022-11-22 00:00:00 vitamin D, 25-hydroxy, total, serum [code = vitamin D, 25-hydroxy, total, serum] [facility] Encounters Start Date/Time End Date/Time Encounter Type Admission Type [facility] Care Department Encounter ID Source 2023-02-25 00:00:00 2023-02-25 00:00:00 Outpatient Schiffman_Z [facility] [id number] [facility] 2023-02-23 00:00:00 2023-02-23 00:00:00 Outpatient Ravi_Rona [facility] [id number] [facility] 2023-02-23 00:00:00 2023-02-23 00:00:00 BRANDEN Hoffman: [id number] [address] [facility] [place] [address] , Ph. [facility] [id number] [facility] 2023-02-22 00:00:00 2023-02-22 00:00:00 Outpatient Lezak_Kayla [facility] [id number] [facility] 2023-01-28 00:00:00 2023-01-28 00:00:00 Outpatient Lezak_Javiyla [facility] [id number] [facility] 2023-01-07 00:00:00 2023-01-07 00:00:00 Outpatient Schiffman_Z [facility] [id number] [facility] 2022-12-31 00:00:00 2022-12-31 00:00:00 Outpatient R RADIOLOGY [facility] [id number] [facility] 2022-12-24 00:00:00 2022-12-24 00:00:00 Outpatient Lezak_Javiyla [facility] [id number] [facility] 2022-12-06 00:00:00 2022-12-06 00:00:00 Outpatient Schiffman_Z [facility] [id number] [facility] 2022-12-06 00:00:00 2022-12-06 00:00:00 Outpatient Schiffman_Z [facility] [id number] [facility] 2022-12-06 00:00:00 2022-12-06 00:00:00 Otoniel Morrow MD: [id number] [address] , Ph. [facility] [place] - [id number] [facility] 2022-12-05 00:00:00 2022-12-05 00:00:00 Outpatient Schiffman_Z [facility] [id number] [facility] 2022-11-25 00:00:00 2022-11-25 00:00:00 Outpatient Schiffman_Z [facility] [id number] [facility] 2022-11-25 00:00:2022-11-25 00:00:00 Outpatient Schiffman_Z [id number] [facility] 2022-11-23 00:00:00 2022-11-23 00:00:00 Outpatient Lezak_Rona [facility] [id number] [facility] 2022-11-22 00:00:00 2022-11-22 00:00:00 Outpatient Lezak_Javiylney [facility] [id number] [facility] 2022-11-22 00:00:00 2022-11-22 00:00:00 BRANDEN Hoffman: [id number] [address] [place] [address] , Ph. [facility] [id number] [facility] 2022-11-19 00:00:00 2022-11-19 00:00:00 Outpatient Lezak_Javiyla [facility] [id number] [facility] 2022-11-16 00:00:00 2022-11-16 00:00:00 Outpatient Armstrong_B [facility] U [id number] [facility] 2022-11-11 00:00:00 2022-11-11 00:00:00 Outpatient Lezak_Javiyla [facility] [id number] [facility] 2022-11-01 00:00:00 2022-11-01 00:00:00 Outpatient Armstrong_B [facility] U [id number] [facility] 2022-11-01 00:00:00 2022-11-01 00:00:00 Outpatient Armstrong_B [facility] [id number] [facility] 2022-11-01 00:00:00 2022-11-01 00:00:00 Outpatient Armstrong_B [facility] [id number] [facility] 2022-11-01 00:00:00 2022-11-01 00:00:00 Bonny boyer MD: [id number] [facility] [address], [place] [address] , Ph. [phone] [facility] [place] [facility] [place] [facility] [place] [id number] [facility] 2022-10-27 00:00:00 2022-10-27 00:00:00 Outpatient Lezak_Kayla [facility] [id number] [facility] 2022-10-27 00:00:00 2022-10-27 00:00:00 Outpatient Lezak_Kayla [facility] [id number] [facility] 2022-10-27 00:00:00 2022-10-27 00:00:00 Outpatient Lezak_Kayla [facility] [id number] [facility] 2022-10-27 00:00:00 2022-10-27 00:00:00 Outpatient Lezak_Kayla [facility] [id number] [facility] 2022-10-27 00:00:00 2022-10-27 00:00:00 Outpatient Lezak_Kayla [facility] [id number] [facility] 2022-10-27 00:00:00 2022-10-27 00:00:00 Outpatient Lezak_Kayla [facility] [id number] [facility] 2022-10-27 00:00:00 2022-10-27 00:00:00 BRANDEN Hoffman: [id number], [place] [address] , Ph. [facility] [place] [facility] [id number] [facility] 2022-10-26 00:00:00 2022-10-26 00:00:00 Patient Secure Msg Doctor Unassigned, [place] [facility] [id number] [facility] 2022-10-25 18:40:00 2022-10-25 21:05:00 Emergency Ya Shields [facility] [id number] [facility] 2022-10-25 18:40:00 2022-10-25 21:05:00 Emergency X [facility] ERT [id number] [facility] 2022-09-17 15:03:42 2022-09-17 15:03:[address] [facility] [id number] Isaiah Raphael Moo 2022-09-15 00:00:00 2022-09-15 00:00:00 BRANDEN Hoffman: [id number] [address] [place] [address] , [address] [facility] [id number] [facility] 2022-09-07 00:00:00 2022-09-07 00:00:00 Outpatient Lezak_Kayla [facility] [id number] [facility] 2022-09-07 00:00:00 2022-09-07 00:00:00 Outpatient Lezak_Kayla [facility] [id number] [facility] 2022-09-07 00:00:00 2022-09-07 00:00:00 Outpatient Lezak_Kayla [facility] [id number] [facility] 2022-08-09 00:00:00 2022-08-09 00:00:00 Outpatient Lezak_Kayla [facility] [id number] [facility] 2022-08-09 00:00:00 2022-08-09 00:00:00 Outpatient Lezak_Kayla [facility] [id number] [facility] 2022-08-09 00:00:00 2022-08-09 00:00:00 Rona Rodrigues PA: [id number] [address] [place] [address] , [address] [facility] [id number] [facility] 2022-07-05 00:00:00 2022-07-05 00:00:00 Outpatient Lezak_Kayla [facility] [id number] [facility] 2022-07-05 00:00:00 2022-07-05 00:00:00 Outpatient Lezak_Javiyla [facility] [id number] [facility] 2022-07-05 00:00:00 2022-07-05 00:00:00 BRANDEN Hoffman: [id number] [address] [place] [address] , Ph. [facility] [id number] [facility] 2022-05-27 00:00:00 2022-05-27 00:00:00 Outpatient Lezak_Kayla [facility] [id number] [facility] 2022-05-05 00:00:00 2022-05-05 00:00:00 Outpatient Lezak_Kayla [facility] [id number] [facility] 2022-05-05 00:00:00 2022-05-05 00:00:00 Outpatient Lezak_Rona [facility] [id number] [facility] 2022-05-05 00:00:00 2022-05-05 00:00:00 Rona Rodrigues PA: [address], [facility] [place] [address] , Ph. [facility] [id number] [facility] 2022-01-04 00:00:00 2022-01-04 00:00:00 Outpatient Lezak_Hueya [facility] [id number] [facility] 2022-01-04 00:00:00 2022-01-04 00:00:00 Rona Rodrigues PA: [address], [place] [address] , Ph. [facility] [id number] [facility] 2021-10-06 00:00:00 2021-10-06 00:00:00 Outpatient Lezak_Rona [facility] [id number] [facility] 2021-09-21 00:00:00 2021-09-21 00:00:00 Outpatient Lezak_Javiyla [facility] [id number] [facility] 2021-09-21 00:00:00 2021-09-21 00:00:00 Rona Rodrigues PA: [address], [place] [address] , Ph. [facility] [id number] [facility] 2021-09-17 00:00:00 2021-09-17 00:00:00 Outpatient Lezak_Kayla [facility] [id number] [facility] 2021-09-09 11:24:00 2021-09-09 11:24:00 Outpatient Lezak_Kayla [facility] [id number] [facility] 2021-05-25 02:12:00 2021-05-25 02:12:00 Outpatient Lezak_Kayla [facility] [id number] [facility] 2021-05-25 00:00:00 2021-05-25 00:00:00 BRANDEN Hoffman: [id number] [address] , Ph. [facility] [id number] [facility] 2021-03-30 02:57:00 2021-03-30 02:57:00 Outpatient Lezak_Javiyla [facility] [id number] [facility] 2021-02-20 04:09:00 2021-02-20 04:09:00 Outpatient Lezak_Kayla [facility] [id number] [facility] 2021-02-20 00:00:00 2021-02-20 00:00:00 NICOLE Salinas: [id number] [address] , Ph. [facility] [id number] [facility] 2021-02-18 11:07:00 2021-02-18 11:07:00 Outpatient LezakLisayla [facility] [id number] [facility] 2021-02-10 11:25:00 2021-02-10 11:25:00 Outpatient LezakLisaylney [facility] [id number] 1221 [facility] 2020-05-05 02:08:00 2020-05-05 02:08:00 Outpatient LezakLisayla [facility] [id number] [id number] [facility] 2020-05-05 00:00:00 2020-05-05 00:00:00 BRANDEN Hoffman: [address] [address] , Ph. [facility] [id number] [facility] 2020-04-21 02:24:00 2020-04-21 02:24:00 Outpatient LezakLisaylney [facility] [id number] [id number] [facility] 2020-02-18 01:03:00 2020-02-18 01:03:00 Outpatient LezakLisayla [facility] [id number] [facility] 2020-01-28 04:34:00 2020-01-28 04:34:00 Outpatient Lezak_Javiylney [facility] [id number] [facility] 2020-01-28 00:00:00 2020-01-28 00:00:00 BRANDEN Hoffman: [address] [address] , Ph. [facility] [place] [facility] [id number] [facility] 2020-01-14 01:02:00 2020-01-14 01:02:00 Outpatient Lezak_Kayla [facility] [id number] [facility] 2019-12-09 01:01:00 2019-12-09 01:01:00 Outpatient Lezak_Kayla [facility] [id number] [facility] 2019-12-06 09:30:00 2019-12-06 09:30:00 Outpatient [facility] [id number] [facility] 2019-11-07 10:25:00 2019-11-07 10:25:00 Outpatient Lezak_Kayla [facility] [id number] 0916 [facility] 2019-11-03 12:22:00 2019-11-03 12:22:00 Outpatient Lezak_Kayla [facility] [id number] [id number] [facility] 2019-11-02 12:04:00 2019-11-02 12:04:00 Outpatient Lezak_Kayla [facility] 0911 [facility] 2019-11-02 00:00:00 2019-11-02 00:00:00 BRANDEN Hoffman: [address], [address], [place] [address] , [facility]. [facility] [id number] [facility] 2019-11-01 01:23:00 2019-11-01 01:23:00 Outpatient Lezak_Kayla [facility] [id number] [id number] [facility] 2019-09-18 03:08:00 2019-09-18 03:08:00 Outpatient Lezak_Kayla [facility] [id number] [facility] 2019-07-30 05:15:00 2019-07-30 05:15:00 Outpatient Lezak_Kayla [facility] [id number] [facility] 2019-07-30 00:00:00 2019-07-30 00:00:00 BRANDEN Hoffman: [address] [place] [address] , Ph. [facility] [place] [facility] [place] [facility] - [facility] [id number] [facility] 2019-07-10 12:30:00 2019-07-10 12:30:00 Outpatient Lezak_Kayla [facility] [id number] [facility] 2019-06-05 12:38:00 2019-06-05 12:38:00 Outpatient Lezak_Kayla [facility] [id number] [facility] 2019-05-01 03:08:00 2019-05-01 03:08:00 Outpatient Lezak_Javiyla [facility] [id number] [id number] [facility] 2019-04-30 02:20:00 2019-04-30 02:20:00 Outpatient Lezak_Kayla [facility] [id number] [facility] 2019-04-30 00:00:00 2019-04-30 00:00:00 BRANDEN Hoffman: [address] [place] [address] , Ph. [facility] [place] [facility] [place] [facility] - [facility] [id number] [facility] 2019-04-25 05:58:00 2019-04-25 05:58:00 Outpatient Lezak_Kayla [facility] [id number] [facility] 2019-04-25 00:00:00 2019-04-25 00:00:00 BRANDEN Hoffman: [address] [place] [address] , Ph. [facility] [place] [facility] - [facility] [id number] [facility] 2019-03-06 11:54:00 2019-03-06 11:54:00 Outpatient Palermo_Kai tlin [facility] [id number] 0114 [facility] 2019-03-05 12:06:00 2019-03-05 12:06:00 Outpatient Palermo_Kai tlin [facility] [id number] 0113 [facility] 2019-03-05 00:00:00 2019-03-05 00:00:00 Jared Esquivel MD: [address] [place] [address] , Ph. [facility] [place] [facility] - [facility] [id number] [facility] 2019-02-02 00:00:00 2019-02-02 00:00:00 Aixa Walsh, RAY, S: [address], [address], [place] [address] , Ph. [facility] [place] [facility] - [facility] [id number] [facility] 2017-12-23 16:52:00 2017-12-23 23:59:00 Outpatient LITZY CRAVEN [facility] [id number] [facility] 2014-04-20 16:59:00 2014-04-20 19:05:00 Emergency E SANKET BETTS [facility] [id number] [facility] Results Test Description Test Time Test Comments Results Result Co mments Source [facility] 2000 panel - Serum or [id number] 00:00:00* Test Item Value Reference Range Interpretation Comme nts Glucose [Mass/volume] in Ser um or Plasma (test code = 2345-7) 85 mg/dL 70-99 Urea nitrogen [Mass/volume] in Serum or Plasma (test code = 3094-0) 10 mg/dL 6-24 Creatinine [Mass/volume] in Serum or Plasma (test code = 2159-0) 0.86 mg/dL 0.57-1.00 Glomerular filtration rate/1.73 sq M.predicted [Volume Rate/Area] in Serum, Plasma or Blood by Creatinine-based formula (CKD-EPI 2020) (test code = 04199-3) 82 mL/min/1.73 >59 Urea nitrogen/Creatinine [Ma ss Ratio] in Serum or Plasma (test code = 3097-3) 12 9-23 Sodium [Moles/volume] in Ser um or Plasma (test code = 2951-2) 140 mmol/L 134-144 Potassium [Moles/volume] in Serum or Plasma (test code = 2823-3) 4.2 mmol/L 3.5-5.2 Chloride [Moles/volume] in Serum or Plasma (test code = 2074-0) 103 mmol/L 96-106 Carbon dioxide, total [Moles/volume] in Serum or Plasma (test code = 2027-) 23 mmol/L 20-29 Calcium [Mass/volume] in Ser um or Plasma (test code = 10625-0) 9.7 mg/dL 8.7-10.2 Protein [Mass/volume] in Ser um or Plasma (test code = 2885-2) 7.6 g/dL 6.0-8.5 Albumin [Mass/volume] in Ser um or Plasma (test code = 1751-7) 4.5 g/dL 3.9-4.9 Globulin [Mass/volume] in Serum by calculation (test code = 38915-3) 3.1 g/dL 1.5-4.5 Albumin/Globulin [Mass Ratio ] in Serum or Plasma (test code = 1759-0) 1.5 1.2-2.2 Bilirubin.total [Mass/volume ] in Serum or Plasma (test code = 1974-) 0.5 mg/dL 0.0-1.2 Alkaline phosphatase [Enzymatic activity/volume] in Serum or Plasma (test code = 6768-6) 75 IU/L 44-121 Aspartate aminotransferase [Enzymatic activity/volume] in Serum or Plasma (test code = 192-8) 11 IU/L 0-40 Alanine aminotransferase [Enzymatic activity/volume] in Serum or Plasma (test code = 1742-6) 8 IU/L 0-32 [facility]/Hemoglobin.total in [id number] 00:00:00* Test Item Value Reference Range Interpretation Comme nts Hemoglobin A1c/Hemoglobin.to trang in Blood (test code = 4548-4) 6.1 % 4.8-5.6 H [facility]25-Hydroxyvitamin D3+25- Hydroxyvitamin D2 [Mass/volume] in Serum or Rzwrbu8781-00-97 00:00:00* Test Item Value Reference Range Interpretation Comme nts 25-Hydroxyvitamin D3+25-Hydroxyvitamin D2 [Mass/volume] in Serum or Plasma (test code = 85580-3) 12.9 NG/mL 30.0-100.0 L [facility]wood[facility]inalysis macro (dipstick) panel - Yqfia5103-04-38 15:06:00* Test Item Value Reference Range Interpretation Comme nts leukocytes (test code = leukocytes) negative neg urobilinogen (test code = urobilinogen) 0.2 E.U./dL sm amt (.5-1mg/dL) protein (test code = protein) negative See_Comment [Automated [employer]] The system which generated this result transmitted reference range: <=150 mg/d. The reference range was not used to interpret this result as normal/abnormal. pH (test code = pH) 6.5 4.5-8 blood (test code = blood) trace-intact See_Comment A [Automated [employer] ge] The system which generated this result transmitted reference range: <=3 RBC. The reference range was not used to interpret this result as normal/abnormal. specific gravity (test code = specific gravity) 1.020 1.005-1.025 ketone (test code = ketone) negative none bilirubin (test code = bilirubin) negative neg glucose (test code = glucose) negative See_Comment [Automated [employer] ge] The system which generated this result transmitted reference range: <=130 mg/d. The reference range was not used to interpret this result as normal/abnormal. color (test code = color) yellow yellow clarity (test code = clarity) clear clear or cloudy nitrite (test code = nitrite) negative neg [facility]inosis [facility] vaginitis DNA panel - Vaginal fluid by Probe with signal [id number] 00:00:00* Test Item Value Reference Range Interpretation [...] (test code = trichomonas, naat) negative negative [facility] Programpap, IG + CT/NG + HR [id number] 00:00:00* Test Item Value Reference Range Interpretation Comme nts source: (test code = source:) unspecified slides: (test code = slides:) 1 LMP: (test code = LMP:) not given specimen adequacy: (test code = specimen adequacy:) (note) interpretation: (test code = interpretation:) nilm/no epith. abnormality;see below lead generation representative: (test code = lead generation representative:) SCOTT christine(ascp) IAC location: (test code = location:) (note) [...] code = chlamydia, naat, thinprep) negative negative [facility] ProgramChlamydia trachomatis and Neisseria gonorrhoeae and Trichomonas vaginalis DNA panel - Specimen by MIGUEL with probe [id number] 00:00:00* Test Item Value Reference Range Interpretation Comme nts Chlamydia trachomatis rRNA [Presence] in Specimen by MIGUEL with probe detection (test code = 92042-6) negative negative Neisseria gonorrhoeae rRNA [Presence] in Specimen by MIGUEL with probe detection (test code = 49011-2) negative negative Trichomonas vaginalis rRNA [Presence] in Specimen by MIGUEL with probe detection (test code = 66627-3) negative negative [facility] ProgramHIV 1 and 2 RNA panel - Serum or Plasma by MIGUEL with probe [id number] 00:00:00* Test Item Value Reference Range Interpretation Comme nts HIV 1 RNA [Presence] in Seru m or Plasma by MIGUEL with probe detection (test code = 27077-3) non reactive non reactive HIV 2 RNA [Presence] in Seru m or Plasma by MIGUEL with probe detection (test code = 18081-6) non reactive non reactive [facility] ProgramComprehensive metabolic 2000 panel - Serum or [id number] 00:00:00* Test Item Value Reference Range Interpretation [...] Creatinine-based formula (CKD-EPI 2020) (test code = 17908-1) 86 mL/min/1.73 >59 Urea nitrogen/Creatinine [Ma ss Ratio] in Serum or Plasma (test code = 3097-3) 12 9-23 Sodium [Moles/volume] in Ser um or Plasma (test code = 2951-2) 142 mmol/L 134-144 Potassium [Moles/volume] in Serum or Plasma (test code = 2823-3) 4.5 mmol/L 3.5-5.2 Chloride [Moles/volume] in Serum or Plasma (test code = 2075-0) 103 mmol/L 96-106 Carbon dioxide, total [Moles/volume] in Serum or Plasma (test code = 2027-) 23 mmol/L 20-29 Calcium [Mass/volume] in Ser um or Plasma (test code = 67444-4) 9.4 mg/dL 8.7-10.2 Protein [Mass/volume] in Ser um or Plasma (test code = 2885-2) 7.1 g/dL 6.0-8.5 Albumin [Mass/volume] in Ser um or Plasma (test code = 1751-7) 4.8 g/dL 3.9-4.9 Globulin [Mass/volume] in Serum by calculation (test code = 83395-6) 2.3 g/dL 1.5-4.5 Albumin/Globulin [Mass Ratio ] in Serum or Plasma (test code = 1759-0) 2.1 1.2-2.2 Bilirubin.total [Mass/volume ] in Serum or Plasma (test code = 1975-2) 0.6 mg/dL 0.0-1.2 Alkaline phosphatase [Enzymatic activity/volume] in Serum or Plasma (test code = 6768-6) 67 IU/L 44-121 Aspartate aminotransferase [Enzymatic activity/volume] in Serum or Plasma (test code = 1920-8) 15 IU/L 0-40 Alanine aminotransferase [Enzymatic activity/volume] in Serum or Plasma (test code = 1742-6) 15 IU/L 0-32 [facility] W Auto Differential panel - Blood 2022-10-28 [...] immature cells (test code = immature cells) director inpatient headache program Neutrophils [#/volume] in Bl ood by Automated [...] Blood by Automated count (test code = 06662-6) 0 % not estab. Immature granulocytes [#/volume] in Blood by Automated count (test code = 28545-1) 0.0 x10e3/uL 0.0-0.1 Nucleated erythrocytes/100 leukocytes [Ratio] in Blood by Automated count (test code = 67977-2) director inpatient headache program Morphology [Interpretation] in Blood Narrative (test code = 28840-0) director inpatient headache program [facility]wood[facility] Ab [Presence] in Serum by RPR 2022-10-28 00:00:00* Test Item Value Reference Range Interpretation Comme nts Reagin Ab [Presence] in Seru m by RPR (test code = 69919-6) non reactive non reactive [facility]woodHepatitis C virus IgG Ab [Presence] in Serum or Plasma by Homfhjeqfdj1324-73-41 00:00:00* Test Item Value Reference Range Interpretation Comme nts Hepatitis C virus IgG Ab [Presence] in Serum or Plasma by Immunoassay (test code = 65852-0) non reactive non reactive [facility]woodCOMP. METABOLIC PANEL (15043) 2022-10-26 00:48:32* Test Item Value Reference Range Interpretation Comme nts NA (test code = 0057465331) 142 mmol/L 135-145 K (test code = 3238267491) 3.1 mmol/L 3.5-5.0 L CL (test code = 4490706052) 101 mmol/L 98-108 CO2 TOTAL (test code = 3375438488) 31 mmol/L 23-31 AGAP (test code = 6020241244) 10 2-16 BUN (test code = 9932274514) 11 mg/dL 7-23 GLUCOSE (test code = 0484723305) 219 mg/dL 70-110 H CREATININE (test code = 3595669974) 0.84 mg/dL 0.50-1.04 TOTAL BILI (test code = 6169417926) 0.5 mg/dL 0.1-1.1 CALCIUM (test code = 5792472290) 9.7 mg/dL 8.6-10.6 T PROTEIN (test code = 7680535332) 8.9 g/dL 6.3-8.2 H ALBUMIN (test code = 2412068251) 4.9 g/dL 3.5-5.0 ALK PHOS (test code = 2628197114) 63 U/L 34-122 ALTv (test code = 1742-6) 21 U/L 5-35 AST(SGOT) (test code = 7326504385) 24 U/L 13-40 eGFR (test code = 4799487557) 71.8 mL/min/1.73m2 YULY (test code = YULY) [...] imaging tests). Lab Interpretation (test code = 16438-8) [facility]normal [facility] 00:47:31* Test Item Value Reference Range Interpretation Comme nts LIPASE (test code = 4468603241) 247 U/L 0-220 H Lab Interpretation (test cod e = 67947-3) Abnormal [facility] ChildrenCB WITH KDAE3027-23-30 00:44:15* Test Item Value Reference Range Interpretation [...] 33.3 g/dL 31.6-35.1 RDW-SD (test code = 37043-0) 41.4 fL 39.0-49.9 RDW-CV (test code = 788-0) 12.5 % 12.0-15.5 PLT (test code = 777-3) 363 See_Comment H [Automated messa ge] The system which generated this result transmitted reference range: 166 - 358 10*3/?L. The reference range was not used to interpret this result as normal/abnormal. MPV (test code = 40120-0) 8.6 fL 9.5-12.9 L NRBC/100 WBC (test code = 6543169581) 0.0 See_Comment [Automated me ssage] The system which generated this result transmitted reference range: 0.0 - 10.0 /100 WBCs. The reference range was not used to interpret this result as normal/abnormal. NRBC x10^3 (test code = 8251316025) See_Comment [Automated messa ge] The system which generated this result transmitted reference range: 10*3/?L. The reference range was not used to interpret this result as normal/abnormal. GRAN MAT (NEUT) % (test code = 770-8) 63.5 % IMM GRAN % (test code = 6527391479) 0.40 % LYMPH % (test code = 736-9) 28.5 % MONO % (test code = 5905-5) 5.3 % EOS % (test code = 713-8) 1.5 % BASO % (test code = 706-2) 0.8 % GRAN MAT x10^3(ANC) (test code = 0264715436) 8.33 10*3/uL 1.88-7.09 H IMM GRAN x10^3 (test code = 3313054040) 0.05 10*3/uL 0.00-0.06 LYMPH x10^3 (test code = 731-0) 3.74 10*3/uL 1.32-3.29 H MONO x10^3 (test code = 742-7) 0.69 10*3/uL 0.33-0.92 EOS x10^3 (test code = 711-2) 0.19 10*3/uL 0.03-0.39 BASO x10^3 (test code = 704-7) 0.10 10*3/uL 0.01-0.07 H Lab Interpretation (test code = 81954-8) Abnormal [facility] ChildrenUrinal[facility] complete W Reflex Culture panel - [id number] 00:00:00* Test Item Value Reference Range Interpretation [...] Urine by Test strip (test code = 48852-9) trace negative/trace Glucose [Presence] in Urine by Test strip (test code = 83763-1) negative negative Ketones [Presence] in Urine by Test strip (test code = 2514-8) negative negative Hemoglobin [Presence] in Uri ne by Test strip (test code = 5794-3) negative negative Bilirubin.total [Presence] i n Urine by Test strip (test code = 5770-3) negative negative Urobilinogen [Mass/volume] i n Urine by Test strip (test code = 65414-8) 1.0 mg/dL 0.2-1.0 Nitrite [Presence] in Urine by Test strip (test code = 5802-4) negative negative Microscopic observation [Identifier] in Urine sediment by Light microscopy (test code = 97895-3) director inpatient headache program Leukocytes [#/area] in Urine sediment by Microscopy high power field (test code = 5821-4) 0-5 0-5 Erythrocytes [#/area] in Uri ne sediment by Microscopy high power field (test code = 83035-3) 3-10 0-2 A Epithelial cells [#/area] in Urine sediment by Microscopy high power field (test code = 5787-7) 0-10 0-10 Epithelial cells.renal [#/ar ea] in Urine sediment by Microscopy high power field (test code = 06185-9) director inpatient headache program Casts [Presence] in Urine se diment by Light microscopy (test code = 05272-1) none seen none seen Casts [Type] in Urine sedime nt by Light microscopy (test code = 62110-8) director inpatient headache program Unidentified crystals [Prese nce] in Urine sediment by Light microscopy (test code = 5783-6) director inpatient headache program Crystals [type] in Urine sed iment by Light microscopy (test code = 5782-8) director inpatient headache program Mucus [Presence] in Urine se diment by Light microscopy (test code = 8247-9) director inpatient headache program Bacteria [#/area] in Urine s ediment by Microscopy high power field (test code = 5769-5) few none seen/few Yeast [#/area] in Urine sedi ment by Microscopy high power field (test code = 5822-2) director inpatient headache program Trichomonas vaginalis [Prese nce] in Urine sediment by Light microscopy (test code = 5813-1) director inpatient headache program Urine sediment comments by L ight microscopy Narrative (test code = 13000-4) director inpatient headache program urinalysis reflex (test code = urinalysis reflex) comment Bacteria identified in Urine by Culture (test code = 630-4) no growth [facility] ProgramUrinalysis complete W Reflex Culture panel - [id number] 00:00:00* Test Item Value Reference Range Interpretation [...] Urine by Test strip (test code = 85624-7) trace negative/trace Glucose [Presence] in Urine by Test strip (test code = 93433-1) negative negative Ketones [Presence] in Urine by Test strip (test code = 2514-8) negative negative Hemoglobin [Presence] in Uri ne by Test strip (test code = 5794-3) negative negative Bilirubin.total [Presence] i n Urine by Test strip (test code = 5770-3) negative negative Urobilinogen [Mass/volume] i n Urine by Test strip (test code = 51508-2) 1.0 mg/dL 0.2-1.0 Nitrite [Presence] in Urine by Test strip (test code = 5802-4) negative negative Microscopic observation [Identifier] in Urine sediment by Light microscopy (test code = 59578-2) director inpatient headache program Leukocytes [#/area] in Urine sediment by Microscopy high power field (test code = 5821-4) 0-5 0-5 Erythrocytes [#/area] in Uri ne sediment by Microscopy high power field (test code = 78431-1) 3-10 0-2 A Epithelial cells [#/area] in Urine sediment by Microscopy high power field (test code = 5787-7) 0-10 0-10 Epithelial cells.renal [#/ar ea] in Urine sediment by Microscopy high power field (test code = 05529-6) director inpatient headache program Casts [Presence] in Urine se diment by Light microscopy (test code = 23394-7) none seen none seen Casts [Type] in Urine sedime nt by Light microscopy (test code = 74058-0) director inpatient headache program Unidentified crystals [Prese nce] in Urine sediment by Light microscopy (test code = 5783-6) director inpatient headache program Crystals [type] in Urine sed iment by Light microscopy (test code = 5782-8) director inpatient headache program Mucus [Presence] in Urine se diment by Light microscopy (test code = 8247-9) director inpatient headache program Bacteria [#/area] in Urine s ediment by Microscopy high power field (test code = 5769-5) few none seen/few Yeast [#/area] in Urine sedi ment by Microscopy high power field (test code = 5822-2) director inpatient headache program Trichomonas vaginalis [Prese nce] in Urine sediment by Light microscopy (test code = 5813-1) director inpatient headache program Urine sediment comments by L ight microscopy Narrative (test code = 62722-3) director inpatient headache program urinalysis reflex (test code = urinalysis reflex) comment Bacteria identified in Urine by Culture (test code = 630-4) no growth [facility] ProgramHemoglobin.gastrointestinal.lower [Presence] in Stool by Xvcsrdfnzez3679-64-72 00:00:00* Test Item Value Reference Range Interpretation Comme nts occult blood panel, ia, stoo l (test code = occult blood panel, ia, stool) negative [facility] ProgramSCR MAMM BILATERAL SARAH CAD DIGITAL 2021-11-20 12:26:29 Name: , Destiney Zarco : 1970 Sex: F - SCR MAMM BILATERAL SARAH CAD DIGITALBILATERAL DIGITAL SCREENING MAMMOGRAM 3D/2D WITH CAD: 2CLINICAL: Asymptomatic. Digital breast tomosynthesis was performed in addition to routine CC and MLO views. Current mammographic imageswere evaluated by [employer] ImageX BODYer CAD (computer-aided detection) software. Comparison is made to exams dated 10/23/2019 mammogram - [facility] and 10/03/2017 mammogram - [facility]. The tissue of both breasts is heterogeneously dense. This may lower the sensitivity of mammography. There are benign calcifications in both breasts. No suspicious mass, architectural distortion, malignant type calcification, or lymph node abnormality detected. Breast architecture is stable compared to prior exams.IMPRESSION: BENIGNThere is no mammographic evidence of malignancy. Resume annualscreening mammography in one year. (11/18/2022) Snehal Rizvi M.D. scg/penrad:11/20/2021 12:26:29 Vacuum Filter Operator: Greta Shirley MM, [facility] Mammographyletter sent: BIRADS 1-2 Normal Mammogram BI-RADS: 2 Benignpregnancy test, iqtxs1719-47-52 14:37:35* Test Item Value Reference Range Interpretation Comme nts HCG (test code = HCG) negative [facility] ProgramSCR MAMM BILATERAL SARAH CAD DIGITAL 2019-11-07 08:33:03- SCR MAMM BILATERAL SARAH CAD DIGITALBILATERAL DIGITAL SCREENING MAMMOGRAM 3D/2D WITH CAD: 10/23/2019CLINICAL: Asymptomatic. Digital breast tomosynthesis was performed in addition to routine CC and MLOviews. Current mammographic images were evaluated by either a [employer] M-Vu or a D[employer] ImageCheckerCAD (computer aided detection system). No prior [...] 08:33:03 Attending Technologist: Laureen Armendariz MM, [facility] MammographyImaging Technologist: Mignon Rodarte MM, [facility] Mammographyletter sent: BIRADS 1-2 Normal Mammogram BI-RADS: 1 NegativeSCR MAMM BILATERAL SARAH CAD [id number] 08:33:03AMENDMENT: 11/09/2019 Darius Garcia M.D. Comparison mammogram now available from 2018Impression remains the same: There is no mammographic evidence of malignancy. Resume annual screening mammography in one year.Amended BI-RADS: 1 Negative letter sent: BIRADS 1-2 NormalLipid 1995 panel - Serum or [id number] 00:00:00* Test Item Value Reference Range Interpretation [...] = risk ratio LDL/HDL) 2.60 ratio <3.22 [facility]25-Hydroxyvitamin D [Mass/volume] in Serum or [id number] 00:00:00* Test Item Value Reference Range Interpretation Comme nts vitamin D, 25 oh (test code = vitamin D, 25 oh) 20 NG/mL see below L [facility]wood[facility]prehensive [facility] 2000 panel - Serum or [id number] 00:00:00* Test Item Value Reference Range Interpretation [...] (test code = ALT) 11 U/L 5-40 [facility] W Auto Differential panel - Blood 2019-04-26 [...] code = platelet count) 304 K/uL 130-400 [facility]woodFolate [Mass/volume] in Serum or [id number] 00:00:00* Test Item Value Reference Range Interpretation Comme nts folic acid (test code = folic acid) 4.1 ug/L see below L [facility]woodHemoglobin A1c/Hemoglobin.total in Ohnlz4432-37-49 00:00:00* Test Item Value Reference Range Interpretation Comme nts Hemoglobin A1c/Hemoglobin.to trang in Blood (test code = 4548-4) 8.5 % 4.2-5.6 H [facility]wood[facility]inalysis complete panel - Urine 2019-04-25 00:00:00* Test [...] (test code = bacteria) trace negative A [facility]wood[facility]inal[facility] macro (dipstick) panel - Rpyxm0082-66-15 09:47:00* Test Item Value Reference Range Interpretation [...] cloudy Color (test code = Color) yellow [facility]woodThyrotropin [Units/volume] in Serum or Znutet6437-18-09 00:00:00* Test Item Value Reference Range Interpretation Comme nts TSH reflex to free T4 (test code = TSH reflex to free T4) 1.940 uIU/mL 0.400-4.100 [facility]25-Hydroxyvitamin D [Mass/volume] in Serum or Jowtgy0602-59-06 00:00:00* Test Item Value Reference Range Interpretation Comme nts vitamin D, 25 oh (test code = vitamin D, 25 oh) 13 NG/mL see below L [facility]woodFolate+Cyanocobalamin [interpretation] in Serum or [id number] 00:00:00* Test Item Value Reference Range Interpretation Comme nts vitamin B-12 (test code = vi tamin B-12) 669 pg/mL 200-950 folic acid (test code = folic acid) 5.6 ug/L see below L [facility] 2000 panel - Serum or Mbkrsg7025-63-63 00:00:00* Test Item Value Reference Range Interpretation Comme nts glucose (test code = glucose) 191 mg/dL [...] (test code = ALT) 35 U/L 5-40 [facility]woodHemoglobin A1c/Hemoglobin.total in Gspgs9105-67-68 00:00:00* Test Item Value Reference Range Interpretation Comme nts Hemoglobin A1c/Hemoglobin.to trang in Blood (test code = 4548-4) 9.9 % 4.2-5.6 H [facility]wood[facility] complete panel - Urine 2019-02-03 00:00:00* Test [...] crystals (test code = crystals) (note) none [facility]wood[facility] 1996 panel - Serum or Plasma 2019-02-03 [...] risk ratio LDL/HDL) 3.36 ratio <3.22 H [facility]woodCBC W Auto Differential panel - Blood 2019-02-03 [...] code = platelet count) 245 K/uL 130-400 [facility]woodGlucose [Mass/volume] in Capillary oxcqg2391-08-00 11:33:00* Test Item Value Reference Range Interpretation Comme nts Blood Glucose: mg/dl (test c ode = Blood Glucose: mg/dl) 213 [facility] ProgramSA[facility]ENTERU/S PELVIS [id number] 16:10:30PELVIC ULTRASOUND:Location code: [id number] HISTORY: Mixed incontinenceComparison: NoneTECHNIQUE: Transabdominal sonography of [...] mass or free fluid. 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 10224-7Gbjunjpoy department EgklKR8691-51-33K61:05:09Emer ency department [id number] .2.7.2.589205|[id number] lable for patient [id number] brenton Koch RN[address] XbowJaortjkeoYrpcnuhjbGGIV7288 061089VJYHQXEORUWAMUCFMXOCKM65 14-11-03T21:05:091.2.840.44689 0.1.72.3.15|1.2.840.317646.1.1 [id number] Britany Koch RN [facility] 2022-10-25 18:35:18 LvOIptbUKs/JzgRAPveX em6jZraK8B zO6twsI6BgYQZbRPPZTmR1xonlrm/p LE6g2243-06-75U40:35:18Formatt ing of this note might be different from [...] amb without assistance. Appears in no distress. 39691-2Mysqujcvz department Triage tjfzWX4192-12-31S11:40:09Emerg [facility] department Triage noteTXT1.2.840.004067.1.13.104 .2.7.2.501770|[id number] lable for patient jdoe58268-4Ocsyeldyc department [id number] M Rivera RN[address] HdbfHtktyugigLzkexfzuyBEQW2126 [id number] 14-11-03T18:40:091.2.840.71550 0.1.72.3.15|1.2.840.251150.1.1 [id number] Modesta Hood RN [facility]"
--- NOTE | 2023-03-09 21:05 | EDPHYS ---
Physician Documentation [facility] Name: Keturah Cardoso Age: 52 yrs Sex: Female : 1970 Arrival Date: 03/09/2023 Time: 20:45 Bed DX4 Private MD: ED Physician Nirav Olivier HPI: 03/09 21:03 This 52 yrs old Female presents to ER via Ambulatory with complaints of Ear ec2 Pain. 21:07 Patient arrives today for evaluation of bilateral ear pain. Patient reports that she ec2 has been diagnosed with ear infection and has been unable to afford her eardrops. States that she is having pain as well as discharge. Denies any fevers or chills, denies nausea or vomiting.. 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 Flu vaccine is not up to date. - Social history:: Smoking status: Patient denies any tobacco usage or history of. Patient/guardian denies using alcohol, street drugs. ROS: 21:07 Constitutional: as per hpi ec2 Exam: 21:07 Constitutional: GEN: NAD Head: atraumatic Eyes: EOMI Ears: External ears are normal. ec2 Bilateral ear canals with marked erythema, marked erythema at the tympanic membrane's bilaterally. CV: regular rate LUNGS: no respiratory distress ABD: non-distended SKIN: no evidence of rashes MSK: no evidence of trauma NEURO: moves all extremities equally Vital Signs: 20:56 BP 141 / 81; Pulse 77; Resp 16; Temp 98.4(IR); Pulse Ox 100% on R/A; Weight 63.5 kg km8 (R); Height 5 ft. 2 in. (R); Pain 0/10; 20:56 Body Mass Index 25.61 (63.50 kg, 157.48 cm) [facility] 20:56 Pain Scale: Adult km8 MDM: 21:04 Patient medically screened. ec2 21:07 Data reviewed: vital signs. ED course: Patient arrives today for ear complaints. ec2 Examination remarkable for ear findings as noted above. Presentation consistent with otitis media and externa, will start on antibiotic orally and drops. No evidence of for mastoiditis, low suspicion for deep space infection.. Administered Medications: 21:32 Drug: Clindamycin PO 300 mg PO once Route: PO; km8 22:13 Follow up: Response: No adverse reaction 8 22:13 Drug: Ofloxacin Ophthalmic Drops 0.3 % 1 drops Ophthalmic once {Note: bilateral ears km8 per MD.} Route: Ophthalmic; Site: both eyes; 22:14 Follow up: Response: Medication administered at discharge. km8 Disposition Summary: 03/09/23 21:04 Discharge Ordered Notes: Location: Home ec2 Condition: Stable ec2 Diagnosis - Acute serous otitis media, recurrent, bilateral ec2 - Diffuse otitis externa, right ear ec2 - Diffuse otitis externa, left ear ec2 Followup: ec2 - With: Private Physician - When: - Reason: Recheck today's complaints Discharge Instructions: - Discharge Summary Sheet ec2 - Otitis Media, Adult ec2 - Otitis Externa, Hbim-gx-Oqlx ec2 Forms: - Medication Reconciliation Form ec2 - Thank You Letter ec2 - Antibiotic Education ec2 - Prescription Opioid Use ec2 - Patient Portal Instructions ec2 - Leadership Thank You Letter ec2 Prescriptions: - ofloxacin 0.3 % Otic drops - instill 5 drop OTIC route daily for 5 days; 5 milliliter; Refills: 0, Product ec2 Selection Permitted - Clindamycin HCl 300 mg Oral capsule - take 1 capsule ORAL route every 8 hours for 10 days; 30 capsule; Refills: 0, ec2 Product Selection Permitted Signatures: Nirav Olivier MD MD ec2 Bethanie Pérez, RN RN km8
--- NOTE | 2023-03-09 21:05 | ER ---
Nurse's Notes [facility] Name: Keturah Cardoso Age: 52 yrs Sex: Female : 1970 Arrival Date: 03/09/2023 Time: 20:45 Bed DX4 Private MD: Diagnosis: Acute serous otitis media, recurrent, bilateral;Diffuse otitis externa, right ear;Diffuse otitis externa, left ear Presentation: 03/09 20:56 Chief complaint: Patient states: left ear pain,itching starting 1 week ago; pt reports km8 having this problem around Thanksgiving that never seemed to get better completely. Coronavirus screen: Client denies travel out of the [place] in the last 14 days. Ebola Screen: No symptoms or risks identified at this time. Initial Sepsis Screen: Does the patient meet any 2 criteria? No. Patient's initial sepsis screen is negative. Does the patient have a suspected source of infection? No. Patient's initial sepsis screen is negative. Risk Assessment: Do you want to hurt yourself or someone else? Patient reports no desire to harm self or others. Onset of symptoms was March 03, 2023. 20:56 Method Of Arrival: Ambulatory km8 20:56 Acuity: STEPHANY 4 km8 Triage Assessment: 21:01 General: Appears in no apparent distress. uncomfortable, Behavior is calm, cooperative, km8 appropriate for age. Pain: Denies pain. EENT: Reports left ear itching. Neuro: Level of Consciousness is awake, alert, obeys commands, Oriented to person, place, time, situation. Cardiovascular: Denies chest pain, shortness of breath, Capillary refill < 3 seconds Patient's skin is warm and dry. Respiratory: Airway is patent Respiratory effort is even, unlabored, Respiratory pattern is regular, symmetrical. GI: No signs and/or symptoms were reported involving the gastrointestinal system. : No signs and/or symptoms were reported regarding the genitourinary system. Derm: No signs and/or symptoms reported regarding the dermatologic system. Skin is intact, is healthy with good turgor, Skin is dry, Skin is pink, warm \T\ dry. normal, Skin temperature is warm. Musculoskeletal: No signs and/or symptoms reported regarding the musculoskeletal system. Circulation, motion, and sensation intact. Range of motion: intact in all extremities. 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 Flu vaccine is not up to date. - Social history:: Smoking status: Patient denies any tobacco usage or history of. Patient/guardian denies using alcohol, street drugs. Screenin:02 [facility] ED Fall Risk Assessment (Adult) History of falling in the last 3 months, km8 including since admission No falls in past 3 months (0 pts) Confusion or Disorientation No (0 pts) Intoxicated or Sedated No (0 pts) Impaired Gait No (0 pts) Mobility Assist Device Used No (0 pt) Altered Elimination No (0 pt) Score/Fall Risk Level 0 - 2 = Low Risk Oriented to surroundings, Maintained a safe environment, Educated pt \T\ family on fall prevention, incl call for assistance when getting out of bed, Assessed \T\ reinforced patient's understanding of fall precautions. Abuse screen: Denies threats or abuse. Denies injuries from another. Nutritional screening: No deficits noted. Tuberculosis screening: No symptoms or risk factors identified. Assessment: 21:02 General: see triage assessment/notes. km8 Vital Signs: 20:56 BP 141 / 81; Pulse 77; Resp 16; Temp 98.4(IR); Pulse Ox 100% on R/A; Weight 63.5 kg km8 (R); Height 5 ft. 2 in. (R); Pain 0/10; 20:56 Body Mass Index 25.61 (63.50 kg, 157.48 cm) km8 20:56 Pain Scale: Adult km8 ED Course: 20:48 Patient arrived in ED. jj6 20:49 Nirav Olivier MD is Attending Physician. ec2 20:58 Triage completed. km8 21:01 Arm band placed on right wrist. km8 21:02 Patient has correct armband on for positive identification. km8 21:02 No provider procedures requiring assistance completed. Patient did not have IV access km8 during this emergency room visit. 22:13 Provided Education on: d/c teaching. km8 Administered Medications: 21:32 Drug: Clindamycin PO 300 mg PO once Route: PO; km8 22:13 Follow up: Response: No adverse reaction km8 22:13 Drug: Ofloxacin Ophthalmic Drops 0.3 % 1 drops Ophthalmic once {Note: bilateral ears km8 per MD.} Route: Ophthalmic; Site: both eyes; 22:14 Follow up: Response: Medication administered at discharge. km8 Medication: 21:02 VIS not applicable for this client. km8 Outcome: 21:04 Discharge ordered by . ec2 22:13 Discharged to home ambulatory, with significant other, km8 22:13 Condition: good 22:13 Discharge instructions given to patient, significant other, Instructed on discharge instructions, follow up and referral plans. medication usage, Demonstrated understanding of instructions, follow-up care, medications, Prescriptions given X 2, 22:14 Patient left the ED. km8 Signatures: Laureen Negroj6 Nirav Olivier MD MD ec2 Bethanie Pérez RN RN km8
[2023-03-10 04:18] VITALS: BP 141/81; TEMP 98.4; O2SAT 100
== END ==
LOC: ER 20:45
DX: H65.06 Acute serous otitis media, recurrent, bilateral (principal); H60.313 Diffuse otitis externa, bilateral; Z88.1 Allergy status to other antibiotic agents; Z88.5 Allergy status to narcotic agent; Z88.8 Allergy status to other drugs, medicaments and biological substances; Z28.310 Unvaccinated for COVID-19

== ENCOUNTER 2023-05-12 23:30 | Observation (INO) | payer BC ==
--- OUTSIDE RECORDS SUMMARY | 2023-05-12 23:36 | XMS REPORT | Continuity of Care Document ---
Author Name Unknown Address [address] [facility] [address] [place] [address] [facility] thconnect Address [address] [facility] [address] [place] [address] Care Team Providers Care Deputy Commissioner Name Role Phone RONA RODRIGUES Primary Care Physician Unavailab rich Kulkarni Attending Clinician Unavailable Schiffmagnus_Ashley Attending Clinician Unavailable RADIOLOGY Attending Clinician Unavailable Armspapito_B Attending Clinician Unavailable Doctor Unassigned, [place] Attending Clinician U Ya Chaudhry Attending Clinician YA SHIELDS Attending Clinician Unavailab LEIGH Greco Attending Clinician Unavailabl e Moraima Attending Clinician Unavailable DR LITZY JESUS Attending Clinician Unava DR SANKET wetzel BA Attending Clinician Unavailable Cayla Admitting Clinician Unavailable Schiffmagnus_Ashley Admitting Clinician Unavailable Armstronroge_B Admitting Clinician Unavailable YA SHIELDS Admitting Clinician Unavailab rich Valera Admitting Clinician Unavailable DR LITZY JESUS Admitting Clinician UnaDR SANKET collins BA Admitting Clinician Unavailable Payers Payer Name Policy Type Policy Number Effective Date Expirati on Date Source [place] [facility] 4 (O) [id number] [facility] [place] [id number] [facility] [id number] 2022 00:00:00 2023 00:00:00 [facility] [id number] [facility] [place]CHANGE PLAN (HMO) [id number] 2022 00:00:00 Problems Condition Name Condition Details Condition Category Status Onset Date Resolution Date Last Treatment Date Treating Clinician Comments Source Microscopi c hematuria Microscopi c Hematuria Problem Active 2022-02 016 00:00: 00 [facility] Diabetes insipidus Diabetes Insipidus Problem Active 06-21 00:00: 00 [facility] Diabetes mellitus Diabetes Mellitus Problem Active 2018-02 00:00: 00 [facility] Vitamin D deficiency Vitamin D Deficiency Problem Active 2018-02 00:00: 00 [facility] Hyperchole sterolemia Hyperchole sterolemia Problem Active 2018-02 00:00: 00 [facility] Hypertrigl yceridemia Hypertrigl yceridemia Problem Active 2018-02 00:00: 00 [facility] Endometrio sis (clinical) Endometrio sis (Clinical) Problem Active 2018-02 00:00: 00 [facility] 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 Problem Active 2018-02 00:00: 00 [facility] Atrophic vaginitis Atrophic Vaginitis Problem Active 2018-02 00:00: 00 [facility] Folic acid below reference range Folic Acid below Reference Range Problem Active 2018-02 00:00: 00 [facility] Atrophic vaginitis Atrophic vaginitis Disease Active 2018-02 00:00: 00 [facility] Endometrio sis Endometrio sis Disease Active 2018-02 00:00: 00 [facility] BMI 31.0-31.9, adult BMI 31.0-31.9, adult Disease Active 2018-02 0 00:00: 00 [facility] Contracept dorota management Contracept dorota management Disease Active 09-29 00:00: 00 [facility] Obesity (BMI 30.0-34.9) Obesity (BMI 30.0-34.9) Disease Active 09-29 00:00: 00 [facility] Controlled type 2 diabetes mellitus without complicati on Controlled type 2 diabetes mellitus without complicati on Disease Active 09-29 00:00: 00 [facility] Essential hypertensi on, benign Essential hypertensi on, benign Disease Active 09-29 00:00: 00 [facility] History of tubal ligation History of tubal ligation Disease Active 09-29 00:00: 00 [facility] Irregular menstrual cycle Irregular menstrual cycle Disease Active 09-29 00:00: 00 [facility] Secondary diabetes insipidus Secondary Diabetes Insipidus Problem Active 2008-02 00:00: 00 [facility] Allergies, Adverse Reactions, Alerts Allergy Name Allergy Type Status Severity Reaction(s) Onset Date Inactive Date Treating Clinician Comments Source Iodine Propensi ty to adverse reaction s Active Other - See comments 07-18 00:00: 00 Burning pain, feels like her veins are going to explode [facility] IODINE DRUG INGREDI Active Other-Cmnt 07-18 00:00: 00 [facility] Cephalex in Propensi ty to adverse reaction s Active Other - See comments 10-15 00:00: 00 Lumps [facility] CEPHALEX IN DRUG INGREDI Active Other-Cmnt 10-15 00:00: 00 [facility] Morphine Drug Intolera nce Active Itching 03-24 00:00: 00 [facility] MORPHINE DRUG INGREDI Active ITCHING 03-24 00:00: 00 [facility] Morphine Allergy to substanc e Active [facility] Fluconaz ole Allergy to substanc e Active Photos[facility] Magnjacobu m Allergy to substanc e Active [facility] Social History Social Habit Start Date Stop Date Quantity Comments Source Gender identity [facility] Alcohol intake 2022-10-25 00:00:00 2022-10-25 00:00:00 Current non-drinker of alcohol (finding) [facility] History of Social function 2019-09-23 00:00:00 2019-09-23 00:00:00 [facility] Tobacco use and exposure 2017-09-29 00:00:00 2017-09-29 00:00:00 Smokeless tobacco non-user [facility] Sex Assigned At 1970 00:00:00 1970 00:00:00 [facility] Smoking Status Start Date Stop Date Source Never Smoker [facility] U rolog Medications Ordered Medication Name [...] 1 tablet every day by oral route. [facility] acetaminoph en 300 mg-codeine 30 [...] oral route as needed for 7 days. [facility] ketorolac (TORADOL) injection 30 mg 10-26 02:00: 00 10-26 01:21 :00 No 30mg 30 mg, Slow IV Push, ONCE, 1 dose, On Tue10/25/22 at 2100, Routine [facility] HYDROcodone -acetaminop hen (NORCO 5) 5-325 mg tablet 1 tablet 10-26 01:45: 00 10-26 01:49 :00 No 1{tbl} 1 tablet, Oral, ONCE, 1 dose, On Tue10/25/22 at 2045, MELVIN [facility] traMADoL 50 mg tablet 10-25 00:00: 10-29 04:59 :00 No 4647 50mg Take 1 tablet by mouth every 6 (six) hours as needed for Pain (scale 7-10) for up to 3 days. Indication s: acute pain [facility] Ozempic 0.25 mg or 0.5 mg (2 [...] by subcutaneo us route for 90 days. [facility] atorvastati n 10 mg tablet Take 1 tablet every day by oral route in the evening. atorvastati n 10 mg tablet Take 1 tablet every day by oral route in the evening. 08-19 00:00: 00 No atorvastat in 10 mg tablet Take 1 tablet every day by oral route in the evening. [facility] D3-2000 50 mcg (2,000 unit) capsule TAKE 1 TABLET BY MOUTH DAILY D3-2000 50 mcg (2,000 unit) capsule TAKE 1 TABLET BY MOUTH DAILY 08-19 00:00: 00 No D3-2000 50 mcg (2,000 unit) capsule TAKE 1 TABLET BY MOUTH DAILY [facility] lisinopril 5 mg tablet Take 1 tablet every day by oral route in the morning. lisinopril 5 mg tablet Take 1 tablet every day by oral route in the morning. 08-19 00:00: 00 No lisinopril 5 mg tablet Take 1 tablet every day by oral route in the morning. [facility] metformin ER 500 mg tablet,exte nded release 24 hr TAKE 2 TABLETS BY MOUTH TWICE DAILY metformin ER 500 mg tablet,exte nded release 24 hr TAKE 2 TABLETS BY MOUTH TWICE DAILY 08-19 00:00: 00 No metformin ER 500 mg tablet,ext ended release 24 hr TAKE 2 TABLETS BY MOUTH TWICE DAILY [facility] Accu-Chek Guide test strips Check glucose bid Accu-Chek Guide test strips Check glucose bid 619 00:00: 00 No Accu-Chek Guide test strips Check glucose bid [facility] Accu-Chek Guide Me Glucose Meter USE DAILY DIRECTED Accu-Chek Guide Me Glucose Meter USE DAILY DIRECTED 403 00:00: 00 No Accu-Chek Guide Me Glucose Meter USE DAILY DIRECTED [facility] Ozempic 1 mg/dose (4 mg/3 mL) subcutaneou [...] by subcutaneo us route for 90 days. [facility] metFORMIN 1,000 mg tablet 04-10 11:33: 55 Yes metformin 1,000 mg tablet Take 1 tablet twice a day by oral route for 90 days. [facility] metFORMIN 1,000 mg tablet 04-10 11:33: 55 Yes metformin 1,000 mg tablet Take 1 tablet twice a day by oral route for 90 days. [facility] gemfibrozil 600 mg tablet 04-10 11:33: 54 Yes gemfibrozi l 600 mg tablet Take 1 tablet twice a day by oral route as needed for 90 days. [facility] gemfibrozil 600 mg tablet 18 11:33: 54 Yes gemfibrozi l 600 mg tablet Take 1 tablet twice a day by oral route as needed for 90 days. [facility] ergocalcife [facility], vitamin d2, 1,250 mcg (50,000 unit) capsule 218 11:33: 47 Yes Vitamin D2 1,250 mcg (50,000 unit) capsule Take 1 capsule every week by oral route as directed for 56 days. [facility] ergocalcife rol, vitamin d2, 1,250 mcg (50,000 unit) capsule 04-10 11:33: 47 Yes Vitamin D2 1,250 mcg (50,000 unit) capsule Take 1 capsule every week by oral route as directed for 56 days. [facility] desmopressi n 0.2 mg tablet 04-10 11:33: 46 Yes desmopress in 0.2 mg tablet Take 1 tablet every day by oral route in the evening. [facility] desmopressi n 0.2 mg tablet 04-10 11:33: 46 Yes desmopress in 0.2 mg tablet Take 1 tablet every day by oral route in the evening. [facility] MICROGESTIN 1.5/30 1.5-30 mg-mcg per tablet 03-07 00:00: 00 Yes TAKE 1 TABLET BY MOUTH ONCE DAILY CONTINOUS ACTIVE PILL [facility] MICROGESTIN 1.5/30 1.5-30 mg-mcg per tablet 03-07 00:00: 00 Yes TAKE 1 TABLET BY MOUTH ONCE DAILY CONTINOUS ACTIVE PILL [facility] desmopressi n 0.2 mg tablet TAKE ONE (1) TABLET(S) BY MOUTH EVERY EVENING. desmopressi n 0.2 mg tablet TAKE ONE (1) TABLET(S) BY MOUTH EVERY EVENING. No desmopress in 0.2 mg tablet TAKE ONE (1) TABLET(S) BY MOUTH EVERY EVENING. [facility] glipizide 5 mg tablet TAKE ONE (1) TABLET(S) BY MOUTH TWICE A DAY. glipizide 5 mg tablet TAKE ONE (1) TABLET(S) BY MOUTH TWICE A DAY. No glipizide 5 mg tablet TAKE ONE (1) TABLET(S) BY MOUTH TWICE A DAY. [facility] OneTouch UltraSoft Lancets USE DIRECTED DAILY TO TEST BLOOD GLUCOSE LEVELS. OneTouch UltraSoft Lancets USE DIRECTED DAILY TO TEST BLOOD GLUCOSE LEVELS. No OneTouch UltraSoft Lancets USE DIRECTED DAILY TO TEST BLOOD GLUCOSE LEVELS. [facility] terbinafine HCl 250 mg tablet TAKE ONE (1) TABLET(S) BY MOUTH DAILY. terbinafine HCl 250 mg tablet TAKE ONE (1) TABLET(S) BY MOUTH DAILY. No terbinafin e HCl 250 mg tablet TAKE ONE (1) TABLET(S) BY MOUTH DAILY. [facility] tramadol 50 mg tablet TAKE ONE (1) TABLET(S) BY MOUTH EVERY SIX HOURS NEEDED FOR PAIN. tramadol 50 mg tablet TAKE ONE (1) TABLET(S) BY MOUTH EVERY SIX HOURS NEEDED FOR PAIN. No tramadol 50 mg tablet TAKE ONE (1) TABLET(S) BY MOUTH EVERY SIX HOURS NEEDED FOR PAIN. [facility] atorvastati n 10 mg tablet Take 1 tablet every day by oral route in the evening. atorvastati n 10 mg tablet Take 1 tablet every day by oral route in the evening. No 1 Q1D atorvastat in 10 mg tablet Take 1 tablet every day by oral route in the evening. [facility] Program Benadryl Allergy Benadryl Allergy No Benadryl Allergy [facility] Program cholecalcif taryn (vitamin D3) 25 mcg (1,000 unit) capsule Take 1 capsule every day by oral route. cholecalcif taryn (vitamin D3) 25 mcg (1,000 unit) capsule Take 1 capsule every day by oral route. No 1capsul e(s) Q1D cholecalci ferol (vitamin D3) 25 mcg (1,000 unit) capsule Take 1 capsule every day by oral route. [facility] Program desmopressi n 0.2 mg tablet TAKE 1 TABLET BY MOUTH EVERY DAY IN THE EVENING desmopressi n 0.2 mg tablet TAKE 1 TABLET BY MOUTH EVERY DAY IN THE EVENING No desmopress in 0.2 mg tablet TAKE 1 TABLET BY MOUTH EVERY DAY IN THE EVENING [facility] Program glipizide 5 mg tablet TAKE 1 TABLET BY MOUTH ONCE DAILY IN THE MORNING glipizide 5 mg tablet TAKE 1 TABLET BY MOUTH ONCE DAILY IN THE MORNING No glipizide 5 mg tablet TAKE 1 TABLET BY MOUTH ONCE DAILY IN THE MORNING [facility] Januvia 100 mg tablet Take 1 tablet every day by oral route in the morning. Januvia 100 mg tablet Take 1 tablet every day by oral route in the morning. No 1 Q1D Januvia 100 mg tablet Take 1 tablet every day by oral route in the morning. [facility] lisinopril 5 mg tablet Take 1 tablet every day by oral route in the morning. lisinopril 5 mg tablet Take 1 tablet every day by oral route in the morning. No 1 Q1D lisinopril 5 mg tablet Take 1 tablet every day by oral route in the morning. [facility] metformin ER 500 mg tablet,exte nded release 24 hr TAKE 2 TABLETS BY MOUTH TWICE DAILY metformin ER 500 mg tablet,exte nded release 24 hr TAKE 2 TABLETS BY MOUTH TWICE DAILY No metformin ER 500 mg tablet,ext ended release 24 hr TAKE 2 TABLETS BY MOUTH TWICE DAILY [facility] norethindro ne (contracept dorota) 0.35 mg tablet Take 1 tablet every day by oral route. norethindro ne (contracept dorota) 0.35 mg tablet Take 1 tablet every day by oral route. No 1 Q1D norethindr one (contracep tive) 0.35 mg tablet Take 1 tablet every day by oral route. [facility] terbinafine HCl 250 mg tablet Take 1 tablet every day by oral route as directed for 42 days. terbinafine HCl 250 mg tablet Take 1 tablet every day by oral route as directed for 42 days. No 1 Q1D terbinafin e HCl 250 mg tablet Take 1 tablet every day by oral route as directed for 42 days. [facility] triamcinolo ne acetonide 0.1 [...] ROUTE 2 TIMES PER DAY as needed [facility] atorvastati n 10 mg tablet Take 1 tablet every day by oral route in the evening. atorvastati n 10 mg tablet Take 1 tablet every day by oral route in the evening. No 1 Q1D atorvastat in 10 mg tablet Take 1 tablet every day by oral route in the evening. [facility] Benadryl Allergy Benadryl Allergy No Benadryl Allergy [facility] cholecalcif taryn (vitamin D3) 25 mcg (1,000 unit) capsule Take 1 capsule every day by oral route. cholecalcif taryn (vitamin D3) 25 mcg (1,000 unit) capsule Take 1 capsule every day by oral route. No 1capsul e(s) Q1D cholecalci ferol (vitamin D3) 25 mcg (1,000 unit) capsule Take 1 capsule every day by oral route. [facility] D3-2000 50 mcg (2,000 unit) capsule 1 tab po qd D3-2000 50 mcg (2,000 unit) capsule 1 tab po qd No D3-2000 50 mcg (2,000 unit) capsule 1 tab po qd [facility] Program desmopressi n 0.2 mg tablet TAKE 1 TABLET BY MOUTH EVERY DAY IN THE EVENING desmopressi n 0.2 mg tablet TAKE 1 TABLET BY MOUTH EVERY DAY IN THE EVENING No desmopress in 0.2 mg tablet TAKE 1 TABLET BY MOUTH EVERY DAY IN THE EVENING [facility] glipizide 5 mg tablet TAKE 1 TABLET BY MOUTH TWICE DAILY glipizide 5 mg tablet TAKE 1 TABLET BY MOUTH TWICE DAILY No glipizide 5 mg tablet TAKE 1 TABLET BY MOUTH TWICE DAILY [facility] Januvia 100 mg tablet Take 1 tablet every day by oral route in the morning. Januvia 100 mg tablet Take 1 tablet every day by oral route in the morning. No 1 Q1D Januvia 100 mg tablet Take 1 tablet every day by oral route in the morning. [facility] lisinopril 5 mg tablet Take 1 tablet every day by oral route in the morning. lisinopril 5 mg tablet Take 1 tablet every day by oral route in the morning. No 1 Q1D lisinopril 5 mg tablet Take 1 tablet every day by oral route in the morning. [facility] metformin ER 500 mg tablet,exte nded release 24 hr TAKE 2 TABLETS BY MOUTH TWICE DAILY metformin ER 500 mg tablet,exte nded release 24 hr TAKE 2 TABLETS BY MOUTH TWICE DAILY No metformin ER 500 mg tablet,ext ended release 24 hr TAKE 2 TABLETS BY MOUTH TWICE DAILY [facility] norethindro ne (contracept dorota) 0.35 mg tablet Take 1 tablet every day by oral route. norethindro ne (contracept dorota) 0.35 mg tablet Take 1 tablet every day by oral route. No 1 Q1D norethindr one (contracep tive) 0.35 mg tablet Take 1 tablet every day by oral route. [facility] triamcinolo ne acetonide 0.1 % [...] ROUTE 2 TIMES PER DAY as needed [facility] atorvastati n 10 mg tablet Take 1 tablet every day by oral route in the evening. atorvastati n 10 mg tablet Take 1 tablet every day by oral route in the evening. No 1 Q1D atorvastat in 10 mg tablet Take 1 tablet every day by oral route in the evening. [facility] Benadryl Allergy Benadryl Allergy No Benadryl Allergy [facility] cholecalcif taryn (vitamin D3) 25 mcg (1,000 unit) capsule Take 1 capsule every day by oral route. cholecalcif taryn (vitamin D3) 25 mcg (1,000 unit) capsule Take 1 capsule every day by oral route. No 1capsul e(s) Q1D cholecalci ferol (vitamin D3) 25 mcg (1,000 unit) capsule Take 1 capsule every day by oral route. [facility] D3-2000 50 mcg (2,000 unit) capsule 1 tab po qd D3-2000 50 mcg (2,000 unit) capsule 1 tab po qd No D3-2000 50 mcg (2,000 unit) capsule 1 tab po qd [facility] desmopressi n 0.2 mg tablet TAKE 1 TABLET BY MOUTH EVERY DAY IN THE EVENING desmopressi n 0.2 mg tablet TAKE 1 TABLET BY MOUTH EVERY DAY IN THE EVENING No desmopress in 0.2 mg tablet TAKE 1 TABLET BY MOUTH EVERY DAY IN THE EVENING [facility] glipizide 5 mg tablet TAKE 1 TABLET BY MOUTH TWICE DAILY glipizide 5 mg tablet TAKE 1 TABLET BY MOUTH TWICE DAILY No glipizide 5 mg tablet TAKE 1 TABLET BY MOUTH TWICE DAILY [facility] Januvia 100 mg tablet Take 1 tablet every day by oral route in the morning. Januvia 100 mg tablet Take 1 tablet every day by oral route in the morning. No 1 Q1D Januvia 100 mg tablet Take 1 tablet every day by oral route in the morning. [facility] lisinopril 5 mg tablet Take 1 tablet every day by oral route in the morning. lisinopril 5 mg tablet Take 1 tablet every day by oral route in the morning. No 1 Q1D lisinopril 5 mg tablet Take 1 tablet every day by oral route in the morning. [facility] metformin ER 500 mg tablet,exte nded release 24 hr TAKE 2 TABLETS BY MOUTH TWICE DAILY metformin ER 500 mg tablet,exte nded release 24 hr TAKE 2 TABLETS BY MOUTH TWICE DAILY No metformin ER 500 mg tablet,ext ended release 24 hr TAKE 2 TABLETS BY MOUTH TWICE DAILY [facility] norethindro ne (contracept dorota) 0.35 mg tablet Take 1 tablet every day by oral route. norethindro ne (contracept dorota) 0.35 mg tablet Take 1 tablet every day by oral route. No 1 Q1D norethindr one (contracep tive) 0.35 mg tablet Take 1 tablet every day by oral route. [facility] triamcinolo ne acetonide 0.1 [...] ROUTE 2 TIMES PER DAY as needed [facility] Accu-Chek Guide test strips USE DIRECTED ONCE A DAY. Accu-Chek Guide test strips USE DIRECTED ONCE A DAY. No Accu-Chek Guide test strips USE DIRECTED ONCE A DAY. [facility] atorvastati n 10 mg tablet Take 1 tablet every day by oral route in the evening. atorvastati n 10 mg tablet Take 1 tablet every day by oral route in the evening. No 1 Q1D atorvastat in 10 mg tablet Take 1 tablet every day by oral route in the evening. [facility] Benadryl Allergy Benadryl Allergy No [facility]adryl Allergy [facility] cholecalcif taryn (vitamin D3) 25 mcg (1,000 unit) capsule Take 1 capsule every day by oral route. cholecalcif taryn (vitamin D3) 25 mcg (1,000 unit) capsule Take 1 capsule every day by oral route. No 1capsul e(s) Q1D cholecalci ferol (vitamin D3) 25 mcg (1,000 unit) capsule Take 1 capsule every day [facility] oral route. [facility] D3-2000 50 mcg (2,000 unit) capsule 1 tab po qd D3-2000 50 mcg (2,000 unit) capsule 1 tab po qd No D3-2000 50 mcg (2,000 unit) capsule 1 tab po qd [facility] desmopressi n 0.2 mg tablet TAKE ONE (1) TABLET(S) BY MOUTH ONCE EVERY EVENING. desmopressi n 0.2 mg tablet TAKE ONE (1) TABLET(S) BY MOUTH ONCE EVERY EVENING. No desmopress in 0.2 mg tablet TAKE ONE (1) TABLET(S) BY MOUTH ONCE EVERY EVENING. [facility] lisinopril 5 mg tablet Take 1 tablet every day by oral route in the morning. lisinopril 5 mg tablet Take 1 tablet every day by oral route in the morning. No 1 Q1D lisinopril 5 mg tablet Take 1 tablet every day by oral route in the morning. [facility] metformin ER 500 mg tablet,exte nded release 24 hr TAKE 2 TABLETS BY MOUTH TWICE DAILY metformin ER 500 mg tablet,exte nded release 24 hr TAKE 2 TABLETS BY MOUTH TWICE DAILY No metformin ER 500 mg tablet,ext ended release 24 hr TAKE 2 TABLETS BY MOUTH TWICE DAILY [facility] norethindro ne (contracept dorota) 0.35 mg tablet TAKE ONE (1) TABLET(S) BY MOUTH DAILY. norethindro ne (contracept dorota) 0.35 mg tablet TAKE ONE (1) TABLET(S) BY MOUTH DAILY. No norethindr one (contracep tive) 0.35 mg tablet TAKE ONE (1) TABLET(S) BY MOUTH DAILY. [facility] OneTouch UltraSoft Lancets USE DIRECTED DAILY TO TEST BLOOD GLUCOSE LEVELS. OneTouch UltraSoft Lancets USE DIRECTED DAILY TO TEST BLOOD GLUCOSE LEVELS. No OneTouch UltraSoft Lancets USE DIRECTED DAILY TO TEST BLOOD GLUCOSE LEVELS. [facility] Ozempic 1 mg/dose (4 [...] by subcutaneo us route for 90 days. [facility] triamcinolo ne acetonide 0.1 [...] ROUTE 2 TIMES PER DAY as needed [facility] Accu-Chek Guide Me Glucose Meter USE DAILY DIRECTED Accu-Chek Guide Me Glucose Meter USE DAILY DIRECTED No Accu-Chek Guide Me Glucose Meter USE DAILY DIRECTED [facility] Accu-Chek Guide test strips USE DIRECTED ONCE A DAY. Accu-Chek Guide test strips USE DIRECTED ONCE A DAY. No Accu-Chek Guide test strips USE DIRECTED ONCE A DAY. [facility] atorvastati n 10 mg tablet Take 1 tablet every day by oral route in the evening. atorvastati n 10 mg tablet Take 1 tablet every day by oral route in the evening. No 1 Q1D atorvastat in 10 mg tablet Take 1 tablet every day by oral route in the evening. [facility] Benadryl Allergy Benadryl Allergy No Benadryl Allergy [facility] D3-2000 50 mcg (2,000 unit) capsule 1 tab po qd D3-2000 50 mcg (2,000 unit) capsule 1 tab po qd No D3-2000 50 mcg (2,000 unit) capsule 1 tab po qd [facility] desmopressi n 0.2 mg tablet TAKE ONE (1) TABLET(S) BY MOUTH IN THE EVENING. desmopressi n 0.2 mg tablet TAKE ONE (1) TABLET(S) BY MOUTH IN THE EVENING. No desmopress in 0.2 mg tablet TAKE ONE (1) TABLET(S) BY MOUTH IN THE EVENING. [facility] lisinopril 5 mg tablet Take 1 tablet every day by oral route in the morning. lisinopril 5 mg tablet Take 1 tablet every day by oral route in the morning. No 1 Q1D lisinopril 5 mg tablet Take 1 tablet every day by oral route in the morning. [facility] metformin ER 500 mg tablet,exte nded release 24 hr TAKE TWO (2) TABLET(S) BY MOUTH TWICE A DAY. metformin ER 500 mg tablet,exte nded release 24 hr TAKE TWO (2) TABLET(S) BY MOUTH TWICE A DAY. No metformin ER 500 mg tablet,ext ended release 24 hr TAKE TWO (2) TABLET(S) BY MOUTH TWICE A DAY. [facility] norethindro ne (contracept dorota) 0.35 mg tablet TAKE ONE (1) TABLET(S) BY MOUTH DAILY. norethindro ne (contracept dorota) 0.35 mg tablet TAKE ONE (1) TABLET(S) BY MOUTH DAILY. No norethindr one (contracep tive) 0.35 mg tablet TAKE ONE (1) TABLET(S) BY MOUTH DAILY. [facility] OneTouch UltraSoft Lancets USE DIRECTED DAILY TO TEST BLOOD GLUCOSE LEVELS. OneTouch UltraSoft Lancets USE DIRECTED DAILY TO TEST BLOOD GLUCOSE LEVELS. No OneTouch UltraSoft Lancets USE DIRECTED DAILY TO TEST BLOOD GLUCOSE LEVELS. [facility] Ozempic 1 mg/dose (4 mg/3 mL) [...] by subcutaneo us route for 90 days. [facility] Accu-Chek Guide Me Glucose Meter USE DAILY DIRECTED Accu-Chek Guide Me Glucose Meter USE DAILY DIRECTED No Accu-Chek Guide Me Glucose Meter USE DAILY DIRECTED [facility] Accu-Chek Guide test strips Check glucose bid Accu-Chek Guide test strips Check glucose bid No Accu-Chek Guide test strips Check glucose bid [facility] atorvastati n 10 mg tablet Take 1 tablet every day by oral route in the evening. atorvastati n 10 mg tablet Take 1 tablet every day by oral route in the evening. No 1 Q1D atorvastat in 10 mg tablet Take 1 tablet every day by oral route in the evening. [facility] Benadryl Allergy Benadryl Allergy No Benadryl Allergy [facility] D3-2000 50 mcg (2,000 unit) capsule 1 tab po qd D3-2000 50 mcg (2,000 unit) capsule 1 tab po qd No D3-2000 50 mcg (2,000 unit) capsule 1 tab po qd [facility] desmopressi n 0.2 mg tablet TAKE 1 TABLET BY MOUTH EVERY DAY IN THE EVENING desmopressi n 0.2 mg tablet TAKE 1 TABLET BY MOUTH EVERY DAY IN THE EVENING No desmopress in 0.2 mg tablet TAKE 1 TABLET BY MOUTH EVERY DAY IN THE EVENING [facility] lisinopril 5 mg tablet Take 1 tablet every day by oral route in the morning. lisinopril 5 mg tablet Take 1 tablet every day by oral route in the morning. No 1 Q1D lisinopril 5 mg tablet Take 1 tablet every day by oral route in the morning. [facility] metformin ER 500 mg tablet,exte nded release 24 hr TAKE TWO (2) TABLET(S) BY MOUTH TWICE A DAY. metformin ER 500 mg tablet,exte nded release 24 hr TAKE TWO (2) TABLET(S) BY MOUTH TWICE A DAY. No metformin ER 500 mg tablet,ext ended release 24 hr TAKE TWO (2) TABLET(S) BY MOUTH TWICE A DAY. [facility] norethindro ne (contracept dorota) 0.35 mg tablet TAKE ONE (1) TABLET(S) BY MOUTH DAILY. norethindro ne (contracept dorota) 0.35 mg tablet TAKE ONE (1) TABLET(S) BY MOUTH DAILY. No norethindr one (contracep tive) 0.35 mg tablet TAKE ONE (1) TABLET(S) BY MOUTH DAILY. [facility] OneTouch UltraSoft Lancets USE DIRECTED DAILY TO TEST BLOOD GLUCOSE LEVELS. OneTouch UltraSoft Lancets USE DIRECTED DAILY TO TEST BLOOD GLUCOSE LEVELS. No OneTouch UltraSoft Lancets USE DIRECTED DAILY TO TEST BLOOD GLUCOSE LEVELS. [facility] Ozempic 1 mg/dose [...] by subcutaneo us route for 90 days. [facility] Accu-Chek Guide Me Glucose Meter USE DAILY DIRECTED Accu-Chek Guide Me Glucose Meter USE DAILY DIRECTED No Accu-Chek Guide Me Glucose Meter USE DAILY DIRECTED [facility] Accu-Chek Guide test strips Check glucose bid Accu-Chek Guide test strips Check glucose bid No Accu-Chek Guide test strips Check glucose bid [facility] atorvastati n 10 mg tablet Take 1 tablet every day by oral route in the evening. atorvastati n 10 mg tablet Take 1 tablet every day by oral route in the evening. No 1 Q1D atorvastat in 10 mg tablet Take 1 tablet every day by oral route in the evening. [facility] Benadryl Allergy Benadryl Allergy No Benadryl Allergy [facility] D3-2000 50 mcg (2,000 unit) capsule TAKE 1 TABLET BY MOUTH DAILY D3-2000 50 mcg (2,000 unit) capsule TAKE 1 TABLET BY MOUTH DAILY No D3-2000 50 mcg (2,000 unit) capsule TAKE 1 TABLET BY MOUTH DAILY [facility] desmopressi n 0.2 mg tablet TAKE ONE (1) TABLET(S) BY MOUTH EVERY EVENING. desmopressi n 0.2 mg tablet TAKE ONE (1) TABLET(S) BY MOUTH EVERY EVENING. No desmopress in 0.2 mg tablet TAKE ONE (1) TABLET(S) BY MOUTH EVERY EVENING. [facility] fluconazole 150 mg tablet TAKE 1 TABLET BY MOUTH x 1 fluconazole 150 mg tablet TAKE 1 TABLET BY MOUTH x 1 No fluconazol e 150 mg tablet TAKE 1 TABLET BY MOUTH x 1 [facility] lisinopril 5 mg tablet Take 1 tablet every day by oral route in the morning. lisinopril 5 mg tablet Take 1 tablet every day by oral route in the morning. No 1 Q1D lisinopril 5 mg tablet Take 1 tablet every day by oral route in the morning. [facility] metformin ER 500 mg tablet,exte nded release 24 hr TAKE 2 TABLETS BY MOUTH TWICE DAILY metformin ER 500 mg tablet,exte nded release 24 hr TAKE 2 TABLETS BY MOUTH TWICE DAILY No metformin ER 500 mg tablet,ext ended release 24 hr TAKE 2 TABLETS BY MOUTH TWICE DAILY [facility] norethindro ne (contracept dorota) 0.35 mg tablet TAKE ONE (1) TABLET(S) BY MOUTH DAILY. norethindro ne (contracept dorota) 0.35 mg tablet TAKE ONE (1) TABLET(S) BY MOUTH DAILY. No norethindr one (contracep tive) 0.35 mg tablet TAKE ONE (1) TABLET(S) BY MOUTH DAILY. [facility] OneTouch UltraSoft Lancets USE DIRECTED DAILY TO TEST BLOOD GLUCOSE LEVELS. OneTouch UltraSoft Lancets USE DIRECTED DAILY TO TEST BLOOD GLUCOSE LEVELS. No OneTouch UltraSoft Lancets USE DIRECTED DAILY TO TEST BLOOD GLUCOSE LEVELS. [facility] Ozempic 0.25 mg or [...] by subcutaneo us route for 90 days. [facility] Ozempic 1 mg/dose [...] by subcutaneo us route for 90 days. [facility] terbinafine HCl 250 mg tablet Take 1 tablet every day by oral route as directed for 42 days. terbinafine HCl 250 mg tablet Take 1 tablet every day by oral route as directed for 42 days. No 1 Q1D terbinafin e HCl 250 mg tablet Take 1 tablet every day by oral route as directed for 42 days. [facility] Accu-Chek Guide Me Glucose Meter USE DAILY DIRECTED Accu-Chek Guide Me Glucose Meter USE DAILY DIRECTED No Accu-Chek Guide Me Glucose Meter USE DAILY DIRECTED [facility] Accu-Chek Guide test strips Check glucose bid Accu-Chek Guide test strips Check glucose bid No Accu-Chek Guide test strips Check glucose bid [facility] acetaminoph en 300 mg-codeine 30 mg [...] oral route as needed for 7 days. [facility] atorvastati n 10 mg tablet Take 1 tablet every day by oral route in the evening. atorvastati n 10 mg tablet Take 1 tablet every day by oral route in the evening. No 1 Q1D atorvastat in 10 mg tablet Take 1 tablet every day by oral route in the evening. [facility] Benadryl Allergy Benadryl Allergy No Benadryl Allergy [facility] D3-2000 50 mcg (2,000 unit) capsule TAKE 1 TABLET BY MOUTH DAILY D3-2000 50 mcg (2,000 unit) capsule TAKE 1 TABLET BY MOUTH DAILY No D3-2000 50 mcg (2,000 unit) capsule TAKE 1 TABLET BY MOUTH DAILY [facility] desmopressi n 0.2 mg tablet TAKE ONE (1) TABLET(S) BY MOUTH EVERY EVENING. desmopressi n 0.2 mg tablet TAKE ONE (1) TABLET(S) BY MOUTH EVERY EVENING. No desmopress in 0.2 mg tablet TAKE ONE (1) TABLET(S) BY MOUTH EVERY EVENING. [facility] fluconazole 150 mg tablet TAKE ONE (1) TABLET(S) BY MOUTH ONCE. fluconazole 150 mg tablet TAKE ONE (1) TABLET(S) BY MOUTH ONCE. No fluconazol e 150 mg tablet TAKE ONE (1) TABLET(S) BY MOUTH ONCE. [facility] lisinopril 5 mg tablet Take 1 tablet every day by oral route in the morning. lisinopril 5 mg tablet Take 1 tablet every day by oral route in the morning. No 1 Q1D lisinopril 5 mg tablet Take 1 tablet every day by oral route in the morning. [facility] metformin ER 500 mg tablet,exte nded release 24 hr TAKE 2 TABLETS BY MOUTH TWICE DAILY metformin ER 500 mg tablet,exte nded release 24 hr TAKE 2 TABLETS BY MOUTH TWICE DAILY No metformin ER 500 mg tablet,ext ended release 24 hr TAKE 2 TABLETS BY MOUTH TWICE DAILY [facility] norethindro ne (contracept dorota) 0.35 mg tablet TAKE ONE (1) TABLET(S) BY MOUTH DAILY. norethindro ne (contracept dorota) 0.35 mg tablet TAKE ONE (1) TABLET(S) BY MOUTH DAILY. No norethindr one (contracep tive) 0.35 mg tablet TAKE ONE (1) TABLET(S) BY MOUTH DAILY. [facility] OneTouch UltraSoft Lancets USE DIRECTED DAILY TO TEST BLOOD GLUCOSE LEVELS. OneTouch UltraSoft Lancets USE DIRECTED DAILY TO TEST BLOOD GLUCOSE LEVELS. No OneTouch UltraSoft Lancets USE DIRECTED DAILY TO TEST BLOOD GLUCOSE LEVELS. [facility] Ozempic 0.25 mg or [...] by subcutaneo us route for 90 days. [facility] Ozempic 1 mg/dose (4 [...] by subcutaneo us route for 90 days. [facility] terbinafine HCl 250 mg tablet TAKE ONE (1) TABLET(S) BY MOUTH DAILY. terbinafine HCl 250 mg tablet TAKE ONE (1) TABLET(S) BY MOUTH DAILY. No terbinafin e HCl 250 mg tablet TAKE ONE (1) TABLET(S) BY MOUTH DAILY. [facility] tramadol 50 mg tablet TAKE ONE (1) TABLET(S) BY MOUTH EVERY SIX HOURS NEEDED FOR PAIN. tramadol 50 mg tablet TAKE ONE (1) TABLET(S) BY MOUTH EVERY SIX HOURS NEEDED FOR PAIN. No tramadol 50 mg tablet TAKE ONE (1) TABLET(S) BY MOUTH EVERY SIX HOURS NEEDED FOR PAIN. [facility] Accu-Chek Guide Me Glucose Meter USE DAILY DIRECTED Accu-Chek Guide Me Glucose Meter USE DAILY DIRECTED No Accu-Chek Guide Me Glucose Meter USE DAILY DIRECTED [facility] Accu-Chek Guide test strips Check glucose bid Accu-Chek Guide test strips Check glucose bid No Accu-Chek Guide test strips Check glucose bid [facility] acetaminoph en 300 mg-codeine 30 mg [...] oral route as needed for 7 days. [facility] atorvastati n 10 mg tablet Take 1 tablet every day by oral route in the evening. atorvastati n 10 mg tablet Take 1 tablet every day by oral route in the evening. No 1 Q1D atorvastat in 10 mg tablet Take 1 tablet every day by oral route in the evening. [facility] Benadryl Allergy Benadryl Allergy No Benadryl Allergy [facility] D3-2000 50 mcg (2,000 unit) capsule TAKE 1 TABLET BY MOUTH DAILY D3-2000 50 mcg (2,000 unit) capsule TAKE 1 TABLET BY MOUTH DAILY No D3-2000 50 mcg (2,000 unit) capsule TAKE 1 TABLET BY MOUTH DAILY [facility] desmopressi n 0.2 mg tablet TAKE ONE (1) TABLET(S) BY MOUTH EVERY EVENING. desmopressi n 0.2 mg tablet TAKE ONE (1) TABLET(S) BY MOUTH EVERY EVENING. No desmopress in 0.2 mg tablet TAKE ONE (1) TABLET(S) BY MOUTH EVERY EVENING. [facility] lisinopril 5 mg tablet Take 1 tablet every day by oral route in the morning. lisinopril 5 mg tablet Take 1 tablet every day by oral route in the morning. No 1 Q1D lisinopril 5 mg tablet Take 1 tablet every day by oral route in the morning. [facility] metformin ER 500 mg tablet,exte nded release 24 hr TAKE 2 TABLETS BY MOUTH TWICE DAILY metformin ER 500 mg tablet,exte nded release 24 hr TAKE 2 TABLETS BY MOUTH TWICE DAILY No metformin ER 500 mg tablet,ext ended release 24 hr TAKE 2 TABLETS BY MOUTH TWICE DAILY [facility] norethindro ne (contracept dorota) 0.35 mg tablet Take 1 tablet every day by oral route. norethindro ne (contracept dorota) 0.35 mg tablet Take 1 tablet every day by oral route. No 1 Q1D norethindr one (contracep tive) 0.35 mg tablet Take 1 tablet every day by oral route. [facility] OneTouch UltraSoft Lancets USE DIRECTED DAILY TO TEST BLOOD GLUCOSE LEVELS. OneTouch UltraSoft Lancets USE DIRECTED DAILY TO TEST BLOOD GLUCOSE LEVELS. No OneTouch UltraSoft Lancets USE DIRECTED DAILY TO TEST BLOOD GLUCOSE LEVELS. [facility] Ozempic 0.25 mg or [...] by subcutaneo us route for 90 days. [facility] Ozempic 1 mg/dose (4 [...] by subcutaneo us route for 90 days. [facility] terbinafine HCl 250 mg tablet TAKE ONE (1) TABLET(S) BY MOUTH DAILY. terbinafine HCl 250 mg tablet TAKE ONE (1) TABLET(S) BY MOUTH DAILY. No terbinafin e HCl 250 mg tablet TAKE ONE (1) TABLET(S) BY MOUTH DAILY. [facility] tramadol 50 mg tablet TAKE ONE (1) TABLET(S) BY MOUTH EVERY SIX HOURS NEEDED FOR PAIN. tramadol 50 mg tablet TAKE ONE (1) TABLET(S) BY MOUTH EVERY SIX HOURS NEEDED FOR PAIN. No tramadol 50 mg tablet TAKE ONE (1) TABLET(S) BY MOUTH EVERY SIX HOURS NEEDED FOR PAIN. [facility] Accu-Chek Guide Me Glucose Meter USE DAILY DIRECTED Accu-Chek Guide Me Glucose Meter USE DAILY DIRECTED No Accu-Chek Guide Me Glucose Meter USE DAILY DIRECTED [facility] Accu-Chek Guide test strips Check glucose bid Accu-Chek Guide test strips Check glucose bid No Accu-Chek Guide test strips Check glucose bid [facility] acetaminoph en 300 mg-codeine 30 mg [...] oral route as needed for 7 days. [facility] atorvastati n 10 mg tablet Take 1 tablet every day by oral route in the evening. atorvastati n 10 mg tablet Take 1 tablet every day by oral route in the evening. No 1 Q1D atorvastat in 10 mg tablet Take 1 tablet every day by oral route in the evening. [facility] Benadryl Allergy Benadryl Allergy No Benadryl Allergy [facility] D3-2000 50 mcg (2,000 unit) capsule TAKE 1 TABLET BY MOUTH DAILY D3-2000 50 mcg (2,000 unit) capsule TAKE 1 TABLET BY MOUTH DAILY No D3-2000 50 mcg (2,000 unit) capsule TAKE 1 TABLET BY MOUTH DAILY [facility] desmopressi n 0.2 mg tablet TAKE ONE (1) TABLET(S) BY MOUTH EVERY EVENING. desmopressi n 0.2 mg tablet TAKE ONE (1) TABLET(S) BY MOUTH EVERY EVENING. No desmopress in 0.2 mg tablet TAKE ONE (1) TABLET(S) BY MOUTH EVERY EVENING. [facility] lisinopril 5 mg tablet Take 1 tablet every day by oral route in the morning. lisinopril 5 mg tablet Take 1 tablet every day by oral route in the morning. No 1 Q1D lisinopril 5 mg tablet Take 1 tablet every day by oral route in the morning. [facility] metformin ER 500 mg tablet,exte nded release 24 hr TAKE 2 TABLETS BY MOUTH TWICE DAILY metformin ER 500 mg tablet,exte nded release 24 hr TAKE 2 TABLETS BY MOUTH TWICE DAILY No metformin ER 500 mg tablet,ext ended release 24 hr TAKE 2 TABLETS BY MOUTH TWICE DAILY [facility] norethindro ne (contracept dorota) 0.35 mg tablet Take 1 tablet every day by oral route. norethindro ne (contracept dorota) 0.35 mg tablet Take 1 tablet every day by oral route. No 1 Q1D norethindr one (contracep tive) 0.35 mg tablet Take 1 tablet every day by oral route. [facility] OneTouch UltraSoft Lancets USE DIRECTED DAILY TO TEST BLOOD GLUCOSE LEVELS. OneTouch UltraSoft Lancets USE DIRECTED DAILY TO TEST BLOOD GLUCOSE LEVELS. No OneTouch UltraSoft Lancets USE DIRECTED DAILY TO TEST BLOOD GLUCOSE LEVELS. [facility] Ozempic 0.25 mg or [...] by subcutaneo us route for 90 days. [facility] Ozempic 1 mg/dose [...] by subcutaneo us route for 90 days. [facility] tramadol 50 mg tablet TAKE ONE (1) TABLET(S) BY MOUTH EVERY SIX HOURS NEEDED FOR PAIN. tramadol 50 mg tablet TAKE ONE (1) TABLET(S) BY MOUTH EVERY SIX HOURS NEEDED FOR PAIN. No tramadol 50 mg tablet TAKE ONE (1) TABLET(S) BY MOUTH EVERY SIX HOURS NEEDED FOR PAIN. [facility] Accu-Chek Guide Me Glucose Meter USE DAILY DIRECTED Accu-Chek Guide Me Glucose Meter USE DAILY DIRECTED No Accu-Chek Guide Me Glucose Meter USE DAILY DIRECTED [facility] Accu-Chek Guide test strips Check glucose bid Accu-Chek Guide test strips Check glucose bid No Accu-Chek Guide test strips Check glucose bid [facility] atorvastati n 10 mg tablet Take 1 tablet every day by oral route in the evening. atorvastati n 10 mg tablet Take 1 tablet every day by oral route in the evening. No 1 Q1D atorvastat in 10 mg tablet Take 1 tablet every day by oral route in the evening. [facility] Benadryl Allergy Benadryl Allergy No Benadryl Allergy [facility] D3-2000 50 mcg (2,000 unit) capsule TAKE 2 TABLETS BY MOUTH DAILY D3-2000 50 mcg (2,000 unit) capsule TAKE 2 TABLETS BY MOUTH DAILY No D3-2000 50 mcg (2,000 unit) capsule TAKE 2 TABLETS BY MOUTH DAILY [facility] desmopressi n 0.2 mg tablet TAKE 1 TABLET BY MOUTH EVERY DAY IN THE EVENING desmopressi n 0.2 mg tablet TAKE 1 TABLET BY MOUTH EVERY DAY IN THE EVENING No desmopress in 0.2 mg tablet TAKE 1 TABLET BY MOUTH EVERY DAY IN THE EVENING [facility] famotidine 20 mg tablet famotidine 20 mg tablet No famotidine 20 mg tablet [facility] levofloxaci n 500 mg tablet levofloxaci n 500 mg tablet No levofloxac in 500 mg tablet [facility] lisinopril 5 mg tablet Take 1 tablet every day by oral route in the morning. lisinopril 5 mg tablet Take 1 tablet every day by oral route in the morning. No 1 Q1D lisinopril 5 mg tablet Take 1 tablet every day by oral route in the morning. [facility] metformin ER 500 mg tablet,exte nded release 24 hr TAKE 2 TABLETS BY MOUTH TWICE DAILY metformin ER 500 mg tablet,exte nded release 24 hr TAKE 2 TABLETS BY MOUTH TWICE DAILY No metformin ER 500 mg tablet,ext ended release 24 hr TAKE 2 TABLETS BY MOUTH TWICE DAILY [facility] norethindro ne (contracept dorota) 0.35 mg tablet Take 1 tablet every day by oral route. norethindro ne (contracept dorota) 0.35 mg tablet Take 1 tablet every day by oral route. No norethindr one (contracep tive) 0.35 mg tablet Take 1 tablet every day by oral route. [facility] OneTouch UltraSoft Lancets USE DIRECTED DAILY TO TEST BLOOD GLUCOSE LEVELS. OneTouch UltraSoft Lancets USE DIRECTED DAILY TO TEST BLOOD GLUCOSE LEVELS. No OneTouch UltraSoft Lancets USE DIRECTED DAILY TO TEST BLOOD GLUCOSE LEVELS. [facility] Ozempic 1 mg/dose (4 [...] by subcutaneo us route for 90 days. [facility] tramadol 50 mg tablet TAKE ONE (1) TABLET(S) BY MOUTH EVERY SIX HOURS NEEDED FOR PAIN. tramadol 50 mg tablet TAKE ONE (1) TABLET(S) BY MOUTH EVERY SIX HOURS NEEDED FOR PAIN. No tramadol 50 mg tablet TAKE ONE (1) TABLET(S) BY MOUTH EVERY SIX HOURS NEEDED FOR PAIN. [facility] Vitamin D3 125 mcg (5,000 unit) tablet Take 1 tablet every day by oral route for 90 days. Vitamin D3 125 mcg (5,000 unit) tablet Take 1 tablet every day by oral route for 90 days. No 1 Q1D Vitamin D3 125 mcg (5,000 unit) tablet Take 1 tablet every day by oral route for 90 days. [facility] Immunizations Ordered Immunization Name Filled Immunization Name Date Status Comments Source pneumococcal polysaccharide PPV23 pneumococcal polysaccharide PPV23 2020-01-28 12:22:00 Completed [facility] pneumococcal polysaccharide PPV23 pneumococcal polysaccharide PPV23 2020-01-28 12:22:00 Completed [facility] pneumococcal polysaccharide PPV23 pneumococcal polysaccharide PPV23 2020-01-28 12:22:00 [facility] pneumococcal polysaccharide PPV23 pneumococcal polysaccharide PPV23 2020-01-28 12:22:00 [facility]pleted [facility] pneumococcal polysaccharide PPV23 pneumococcal polysaccharide PPV23 2020-01-28 12:22:00 Completed [facility] pneumococcal polysaccharide PPV23 pneumococcal polysaccharide PPV23 2020-01-28 12:22:00 Completed [facility] pneumococcal polysaccharide PPV23 pneumococcal polysaccharide PPV23 2020-01-28 12:22:00 Completed [facility] pneumococcal polysaccharide PPV23 pneumococcal polysaccharide PPV23 2020-01-28 12:22:00 Completed [facility] pneumococcal polysaccharide PPV23 pneumococcal polysaccharide PPV23 2020-01-28 12:22:00 Completed [facility] Tdap Tdap 2020-01-28 12:20:00 Completed [facility] Tdap Tdap 2020-01-28 12:20:00 Completed [facility] Tdap Tdap 2020-01-28 12:20:00 Completed [facility] Tdap Tdap 2020-01-28 12:20:00 Completed [facility] Tdap Tdap 2020-01-28 12:20:00 Completed [facility] Tdap Tdap 2020-01-28 12:20:00 Completed [facility] Tdap Tdap 2020-01-28 12:20:00 Completed [facility] Tdap Tdap 2020-01-28 12:20:00 Completed [facility] Tdap Tdap 2020-01-28 12:20:00 Completed [facility] influenza, unspecified formulation influenza, unspecified formulation Unknown Completed [facility] COVID-19 (SARS-COV-2) vaccine, unspecified COVID-19 (SARS-COV-2) vaccine, unspecified Unknown Completed [facility] Tdap Tdap Unknown Completed [facility] pneumococcal polysaccharide PPV23 pneumococcal polysaccharide PPV23 Unknown Completed [facility] pneumococcal polysaccharide PPV23 pneumococcal polysaccharide PPV23 Unknown Completed [facility] Tdap Tdap Unknown Completed [facility] pneumococcal polysaccharide PPV23 pneumococcal polysaccharide PPV23 Unknown Completed [facility] Tdap Tdap Unknown Completed [facility] Vital Signs Vital Name Observation Time Observation Value Comments S ource Height 2023-02-23 00:00:00 61 [in_i] [place] [facility] [facility] BP Diastolic 2023-02-23 00:00:00 83 mm[Hg] Vincenzo agorda [facility] BP Systolic 2023-02-23 00:00:00 136 mm[Hg] Rogel torrie [facility] BMI (Body Mass Index) 2023-02-23 00:00:00 26.7 kg/m2 [place] [facility] Body Weight 2023-02-23 00:00:00 2258 [oz_av] Nicolette yenny [facility] BP Diastolic 2022-12-06 00:00:00 72 mm[Hg] Rosario stoalirio [facility] Body Weight 2022-12-06 00:00:00 159 [lb_av] Rosario ston [facility] BP Systolic 2022-12-06 00:00:00 134 mm[Hg] Isabella ton [facility] Height 2022-12-06 00:00:00 60 [in_i] Isabellachris on [facility] BMI (Body Mass Index) 2022-12-06 00:00:00 31.1 kg/m2 [facility] BP Diastolic 2022-11-22 00:00:00 46 mm[Hg] Vincenzo jonesrda [facility] Body Weight 2022-11-22 00:00:00 2417.6 [oz_av] [place] [facility] BMI (Body Mass Index) 2022-11-22 00:00:00 28.5 kg/m2 [place] [facility] BP Systolic 2022-11-22 00:00:00 137 mm[Hg] Juan F diamonda [facility] Height 2022-11-22 00:00:00 61 [in_i] Laura orda [facility] Height 2022-11-01 00:00:00 61 [in_i] Laura orda [facility] Body Weight 2022-11-01 00:00:00 154 [lb_av] Vincenzo jonesrda [facility] BMI (Body Mass Index) 2022-11-01 00:00:00 29.1 kg/m2 [place] [facility] BP Systolic 2022-11-01 00:00:00 130 mm[Hg] Juan F diamonda [facility] BP Diastolic 2022-11-01 00:00:00 72 mm[Hg] Vincezno jonesrda [facility] BP Diastolic 2022-10-27 00:00:00 70 mm[Hg] Vincenzo jonesrda [facility] Body Weight 2022-10-27 00:00:00 2438 [oz_av] Il yenny [facility] BMI (Body Mass Index) 2022-10-27 00:00:00 28.8 kg/m2 Rachelle [facility] BP Systolic 2022-10-27 00:00:00 140 mm[Hg] Juan F diamonda [facility] Height 2022-10-27 00:00:00 61 [in_i] [facility] Systolic blood pressure 2022-10-26 01:30:00 139 mm[Hg] [facility] Diastolic blood pressure 2022-10-26 01:30:00 83 mm[Hg] [facility] Heart rate 2022-10-26 01:30:00 80 /min [facility] Respiratory rate 2022-10-26 01:30:00 14 /min [facility] Oxygen saturation in Arterial blood by Pulse oximetry 2022-10-26 01:30:00 97 /min [facility] Body temperature 2022-10-25 23:37:00 37.22 Renu [facility] Body height 2022-10-25 23:37:00 157.5 cm [facility] Body weight 2022-10-25 23:37:00 72.122 kg [facility] BMI 2022-10-25 23:37:00 29.08 kg/m2 [facility] BP Diastolic 2022-09-15 00:00:00 77 mm[Hg] Vincenzo jonesrdney [facility] Height 2022-09-15 00:00:00 61 [in_i] Laura goldstein [facility] BMI (Body Mass Index) 2022-09-15 00:00:00 30.1 kg/m2 [place] [facility] BP Systolic 2022-09-15 00:00:00 122 mm[Hg] Rogel torrie [facility] Body Weight 2022-09-15 00:00:00 2553 [oz_av] Nicolette tagorda [facility] BP Diastolic 2022-08-09 00:00:00 77 mm[Hg] [place] [facility] Height 2022-08-09 00:00:00 61 [in_i] [place] [facility] BMI (Body Mass Index) 2022-08-09 00:00:00 31.4 kg/m2 [place] [facility] BP Systolic 2022-08-09 00:00:00 134 mm[Hg] Rogel torrie [facility] Body Weight 2022-08-09 00:00:00 2663 [oz_av] Nicolette florezorda [facility] BP Diastolic 2022-07-05 00:00:00 71 mm[Hg] [place] [facility] Height 2022-07-05 00:00:00 61 [in_i] Matanika orda [facility] BMI (Body Mass Index) 2022-07-05 00:00:00 31 kg/m2 [place] [facility] BP Systolic 2022-07-05 00:00:00 130 mm[Hg] Rogel torrie [facility] Body Weight 2022-07-05 00:00:00 2629 [oz_av] Nicolette florezorda [facility] BP Diastolic 2022-05-05 00:00:00 89 mm[Hg] [place] [facility] Height 2022-05-05 00:00:00 61 [in_i] Matanika orda [facility] BMI (Body Mass Index) 2022-05-05 00:00:00 31.2 kg/m2 [place] [facility] BP Systolic 2022-05-05 00:00:00 139 mm[Hg] Rogel torrie [facility] Body Weight 2022-05-05 00:00:00 2641 [oz_av] Ma tagorda [facility] BP Diastolic 2022-01-04 00:00:00 80 mm[Hg] [place] [facility] Height 2022-01-04 00:00:00 61 [in_i] [place] [facility] BMI (Body Mass Index) 2022-01-04 00:00:00 31.2 kg/m2 [place] [facility] BP Systolic 2022-01-04 00:00:00 140 mm[Hg] Rogel torrie [facility] Body Weight 2022-01-04 00:00:00 2642 [oz_av] Nicolette tagorda [facility] BP Diastolic 2021-09-21 00:00:00 75 mm[Hg] [place] [facility] Height 2021-09-21 00:00:00 61 [in_i] [place] [facility] BMI (Body Mass Index) 2021-09-21 00:00:00 30.7 kg/m2 [place] [facility] BP Systolic 2021-09-21 00:00:00 144 mm[Hg] Rogel torrie [facility] Body Weight 2021-09-21 00:00:00 2596 [oz_av] Nicolette tagorda [facility] BP Diastolic 2021-05-25 00:00:00 78 mm[Hg] [place] [facility] Height 2021-05-25 00:00:00 61 [in_i] [place] [facility] BMI (Body Mass Index) 2021-05-25 00:00:00 30.4 kg/m2 [place] [facility] BP Systolic 2021-05-25 00:00:00 134 mm[Hg] Rogel torrie [facility] Body Weight 2021-05-25 00:00:00 2576 [oz_av] Nicolette tagorda [facility] BP Diastolic 2021-02-20 00:00:00 79 mm[Hg] [place] [facility] Height 2021-02-20 00:00:00 61 [in_i] [place] [facility] BMI (Body Mass Index) 2021-02-20 00:00:00 30.3 kg/m2 [place] [facility] BP Systolic 2021-02-20 00:00:00 131 mm[Hg] Rogel torrie [facility] Body Weight 2021-02-20 00:00:00 2561.6 [oz_av] [place] [facility] BP Diastolic 2020-05-05 00:00:00 73 mm[Hg] [place] [facility] Height 2020-05-05 00:00:00 61 [in_i] Matanika orda [facility] BMI (Body Mass Index) 2020-05-05 00:00:00 30.6 kg/m2 [place] [facility] BP Systolic 2020-05-05 00:00:00 125 mm[Hg] Juan F diamonda [facility] Body Weight 2020-05-05 00:00:00 2592 [oz_av] Nicolette florezorda [facility] BP Diastolic 2020-01-28 00:00:00 76 mm[Hg] Mat karenrda [facility] Height 2020-01-28 00:00:00 61 [in_i] Matanika orda [facility] BMI (Body Mass Index) 2020-01-28 00:00:00 30.8 kg/m2 [place] [facility] BP Systolic 2020-01-28 00:00:00 130 mm[Hg] Rogel torrie [facility] Body Weight 2020-01-28 00:00:00 2609.6 [oz_av] [place] [facility] Height 2019-11-02 00:00:00 61 [in_i] Matanika orda [facility] BP Diastolic 2019-07-30 00:00:00 82 mm[Hg] [place] [facility] Height 2019-07-30 00:00:00 61 [in_i] Matanika orda [facility] BMI (Body Mass Index) 2019-07-30 00:00:00 31.5 kg/m2 [place] [facility] BP Systolic 2019-07-30 00:00:00 131 mm[Hg] Orgel torrie [facility] Body Weight 2019-07-30 00:00:00 2665 [oz_av] Ma tagorda [facility] BP Diastolic 2019-04-30 00:00:00 78 mm[Hg] [place] [facility] Height 2019-04-30 00:00:00 61 [in_i] Matanika orda [facility] BMI (Body Mass Index) 2019-04-30 00:00:00 32.4 kg/m2 [place] [facility] BP Systolic 2019-04-30 00:00:00 131 mm[Hg] Rogel torrie [facility] Body Weight 2019-04-30 00:00:00 171.7 [lb_av] [place] [facility] BP Diastolic 2019-04-25 00:00:00 83 mm[Hg] Mat karenrda [facility] Height 2019-04-25 00:00:00 61 [in_i] Matanika orda [facility] BMI (Body Mass Index) 2019-04-25 00:00:00 32.1 kg/m2 [place] [facility] BP Systolic 2019-04-25 00:00:00 136 mm[Hg] Rogel torrie [facility] Body Weight 2019-04-25 00:00:00 169.8 [lb_av] [place] [facility] BP Diastolic 2019-03-05 00:00:00 93 mm[Hg] [place] [facility] Height 2019-03-05 00:00:00 61 [in_i] Matanika orda [facility] BMI (Body Mass Index) 2019-03-05 00:00:00 31.7 kg/m2 [place] [facility] BP Systolic 2019-03-05 00:00:00 150 mm[Hg] Rogel torrie [facility] Body Weight 2019-03-05 00:00:00 168 [lb_av] [place] [facility] BP Diastolic 2019-02-02 00:00:00 90 mm[Hg] Vincenzo stone [facility] Height 2019-02-02 00:00:00 61 [in_i] Laura goldstein [facility] BMI (Body Mass Index) 2019-02-02 00:00:00 32 kg/m2 [place] [facility] BP Systolic 2019-02-02 00:00:00 150 mm[Hg] Juan F brownlee [facility] Body Weight 2019-02-02 00:00:00 169.4 [lb_av] [place] [facility] Procedures Procedure Date / Time Performed Performing Clinician Source MAMMO, screening, bilateral 2022-11-01 00:00[facility]BD[facility] PELVIS WO CONTRAST 2022-10-26 00:26:00 Ya Shields [facility] LIPASE 2022-10-26 00:15:00 Ya Shields Un [facility] COMP. METABOLIC PANEL (84749) 2022-10-26 00:15:00 Ya Shields [facility] CBC WITH DIFF 2022-10-26 00:15:00 [facility] 2022-10-26 00:15:00 Ya Shields Un [facility] RAPID STREP SCREEN FOR GROUP A 2022-10-26 00:15:00 Ya Shields [facility] RAPID INFLUENZA A/B 2022-10-26 00:15:00 Ya Shields [facility] CONSENT/REFUSAL FOR DIAGNOSIS AND TREATMENT 2022-10-25 23:28:59 Doctor Unassigned, [place] [facility] NOTICE OF PRIVACY PRACTICES 2022-10-25 23:28:23 Doctor Unassigned, [place] [facility] MAMMO, screening, digital, bilateral 2021-05-25 00:00:00 [facility] MAMMO, screening, bilateral 2019-02-02 00:00:00 [place] [facility] CHEST X-RAY 2019-02-02 00:00:00 [place] [facility] Tubal Ligation [place] [facility] Hernia Repair W/mesh [place] [facility]ectomy [place] [facility] Cholecystectomy [place] [facility] Plan of Care Planned Activity Planned Date Details Comments Source Diagnostic Test Pending 2022-12-06 00:00:00 urinalysis, dipstick [code = urinalysis, dipstick] [facility] Urology Diagnostic Test Pending 2022-11-22 00:00:00 HbA1c (hemoglobin A1c), blood [code = HbA1c (hemoglobin A1c), blood] [place] [facility] Diagnostic Test Pending 2022-11-22 00:00:00 CMP, serum or plasma [code = CMP, serum or plasma] [place] [facility] Diagnostic Test Pending 2022-11-22 00:00:00 CBC w/ auto diff [code = CBC w/ auto diff] [facility] Diagnostic Test Pending 2022-11-22 00:00:00 vitamin D, 25-hydroxy, total, serum [code = vitamin D, 25-hydroxy, total, serum] [facility] Start Date/Time End Date/Time Encounter Type Admission Type Attending Critical Access Hospital Care Facility Care Department Encounter ID Source 2023-04-16 00:00:00 2023-04-16 00:00:00 Outpatient Stacik_Rona [facility] [id number] [place] 2023-03-12 00:00:00 2023-03-12 00:00:00 Outpatient Lezak_Hueya [facility] [id number] [facility] 2023-02-25 00:00:00 2023-02-25 00:00:00 Outpatient Schiffman_Z [facility] [id number] [facility] Urology 2023-02-23 00:00:00 2023-02-23 00:00:00 Outpatient Lezak_Kayla [facility] [id number] [facility] 2023-02-23 00:00:00 2023-02-23 00:00:00 BRANDEN Hoffman: [id number] [facility], [place] [address] , Ph. [facility] Y[facility]ani [facility] [id number] [place] 2023-02-22 00:00:00 2023-02-22 00:00:00 Outpatient Richzak_Rona [facility] [id number] [facility] 2023-01-28 00:00:00 2023-01-28 00:00:00 Outpatient Stacik_Rona [facility] [id number] [facility] 2023-01-07 00:00:00 2023-01-07 00:00:00 Outpatient Schiffman_Z [facility] [id number] [facility] Urology 2022-12-31 00:00:00 2022-12-31 00:00:00 Outpatient R RADIOLOGY [facility] [id number] [facility] 2022-12-24 00:00:00 2022-12-24 00:00:00 Outpatient Richdelontek_Rona [facility] [id number] [facility] 2022-12-06 00:00:00 2022-12-06 00:00:00 Outpatient Schiffman_Z [facility] [id number] [facility] 2022-12-06 00:00:00 2022-12-06 00:00:00 Outpatient Schiffman_Z [facility] [id number] [facility] 2022-12-06 00:00:00 2022-12-06 00:00:00 Otoniel Morrow MD: [id number] [address], [place] [address] , [facility]. [facility] [place] [facility] [id number] [facility] 2022-12-05 00:00:00 2022-12-05 00:00:00 Outpatient Schiffman_Z [facility] [id number] [facility] 2022-11-25 00:00:00 2022-11-25 00:00:00 Outpatient Schiffman_Z [facility] [id number] [facility] 2022-11-25 00:00:00 2022-11-25 00:00:00 Outpatient Schiffman_Z [facility] [id number] [facility] 2022-11-23 00:00:00 2022-11-23 00:00:00 Outpatient Lezak_Kayla [facility] [id number] [facility] 2022-11-22 00:00:00 2022-11-22 00:00:00 Outpatient Lezak_Kayla [facility] [id number] [facility] 2022-11-22 00:00:00 2022-11-22 00:00:00 BRNADEN Hoffman: [id number] [place] [address] , Ph. [facility] [id number] [facility] 2022-11-19 00:00:00 2022-11-19 00:00:00 Outpatient Lezak_Kayla [facility] [id number] [facility] 2022-11-16 00:00:00 2022-11-16 00:00:00 Outpatient Armstrong_B [facility] [id number] [facility] 2022-11-11 00:00:00 2022-11-11 00:00:00 Outpatient Lezak_Kayla [facility] [id number] [facility] 2022-11-01 00:00:00 2022-11-01 00:00:00 Outpatient Armstrong_B [facility] [id number] [facility] Urology 2022-11-01 00:00:00 2022-11-01 00:00:00 Outpatient Armstrong_B [facility] [id number] [facility] Urology 2022-11-01 00:00:00 2022-11-01 00:00:00 Outpatient Armstrong_B [facility] [id number] [facility] U[facility] 2022-11-01 00:00:00 2022-11-01 00:00:00 Bonny boyer MD: [id number] [facility] [address], [place] [address] , Ph. [phone] [facility] Yarsani [facility] Gyn [place] [id number] [facility] 2022-10-27 00:00:00 2022-10-27 00:00:00 Outpatient Lezak_Kayla [facility] [id number] [facility] 2022-10-27 00:00:00 2022-10-27 00:00:00 Outpatient Lezak_Kayla [facility] [id number] [facility] 2022-10-27 00:00:00 2022-10-27 00:00:00 Outpatient Lezak_Kayla [facility] [id number] [facility] 2022-10-27 00:00:00 2022-10-27 00:00:00 Outpatient Lezak_Kayla [facility] [id number] [facility] 2022-10-27 00:00:00 2022-10-27 00:00:00 Outpatient Lezak_Kayla [facility] [id number] [facility] 2022-10-27 00:00:00 2022-10-27 00:00:00 Outpatient Lezak_Kayla [facility] [id number] [facility] 2022-10-27 00:00:00 2022-10-27 00:00:00 BRANDEN Hoffman: [id number] [address], [place] [address] , Ph. [facility] [id number] [facility] 2022-10-26 00:00:00 2022-10-26 00:00:00 Patient Secure Msg Doctor Unassigned, [place] [facility] [id number] [facility] 2022-10-25 18:40:00 2022-10-25 21:05:00 Emergency Ya Shields [facility] [id number] [facility] 2022-10-25 18:40:00 2022-10-25 21:05:00 Emergency X [facility]RY[facility]AL [facility] ERT [id number] [facility] 2022-09-17 15:03:42 2022-09-17 15:03:42 Outpatient [facility] [id number] Isaiah F Moo 2022-09-15 00:00:00 2022-09-15 00:00:00 BRANDEN Hoffman: [id number], [place] [address] , Ph. [facility] [id number] [facility] 2022-09-07 00:00:00 2022-09-07 00:00:00 [facility] [id number] [facility] 2022-09-07 00:00:00 2022-09-07 00:00:00 Outpatient Lezak_Kayla [facility] [id number] [facility] 2022-09-07 00:00:00 2022-09-07 00:00:00 Outpatient Lezak_Kayla [facility] [id number] [facility] 2022-08-09 00:00:00 2022-08-09 00:00:00 Outpatient Lezak_Kayla [facility] [id number] [facility] 2022-08-09 00:00:00 2022-08-09 00:00:00 Outpatient Lezak_Kayla [facility] [id number] [facility] 2022-08-09 00:00:00 2022-08-09 00:00:00 BRANDEN Hoffman: [id number] [place] [address] , Ph. [facility] Yarsani [facility] [id number] [facility] 2022-07-05 00:00:00 2022-07-05 00:00:00 Outpatient Lezak_Kayla [facility] [id number] [facility] 2022-07-05 00:00:00 2022-07-05 00:00:00 Outpatient Lezak_Kayla [facility] [id number] [facility] 2022-07-05 00:00:00 2022-07-05 00:00:00 Rona Rodrigues PA: [id number] [place] [address] , Ph. [facility] Yarsani [facility] [id number] [facility] 2022-05-27 00:00:00 2022-05-27 00:00:00 Outpatient Lezak_Kayla [facility] [id number] [facility] 2022-05-05 00:00:00 2022-05-05 00:00:00 Outpatient Lezak_Kayla [facility] [id number] [facility] 2022-05-05 00:00:00 2022-05-05 00:00:00 Outpatient Lezak_Kayla [facility] [id number] [facility] 2022-05-05 00:00:00 2022-05-05 00:00:00 Rona Rodrigues PA: [address] [address] , Ph. [facility] [id number] [facility] 2022-01-04 00:00:00 2022-01-04 00:00:00 Outpatient Lezak_Kayla [facility] [id number] [facility] 2022-01-04 00:00:00 2022-01-04 00:00:00 BRANDEN Hoffman: [id number] [address] , Ph. [facility] [id number] [facility] 2021-10-06 00:00:00 2021-10-06 00:00:00 Outpatient Lezak_Kayla [facility] [id number] [facility] 2021-09-21 00:00:00 2021-09-21 00:00:00 Outpatient Lezak_Kayla [facility] [id number] [facility] 2021-09-21 00:00:00 2021-09-21 00:00:00 BRANDEN Hoffman: [id number] [place] [address] , Ph. [facility] [place] [facility] [place] [facility] [id number] [facility] 2021-09-17 00:00:00 2021-09-17 00:00:00 Outpatient Lezak_Kayla [facility] [id number] [facility] 2021-09-09 11:24:00 2021-09-09 11:24:00 Outpatient Lezak_Kayla [facility] [id number] [facility] 2021-05-25 02:12:00 2021-05-25 02:12:00 Outpatient Lezak_Kayla [facility] [id number] [facility] 2021-05-25 00:00:00 2021-05-25 00:00:00 BRANDEN Hoffman: [address] [place] [address] , Ph. [facility] [place] [facility] [place] [facility] [id number] [facility] 2021-03-30 02:57:00 2021-03-30 02:57:00 Outpatient Lezak_Kayla [facility] [id number] [facility] 2021-02-20 04:09:00 2021-02-20 04:09:00 Outpatient Lezak_Kayla [facility] [id number] [facility] 2021-02-20 00:00:00 2021-02-20 00:00:00 TARIQ SalinasP-: [address], [place] [address] , Ph. [facility] [id number] [facility] 2021-02-18 11:07:00 2021-02-18 11:07:00 Outpatient Lezak_Kayla [facility] [id number] [facility] 2021-02-10 11:25:00 2021-02-10 11:25:00 Outpatient Lezak_Kayla [facility] [id number] [facility] 2020-05-05 02:08:00 2020-05-05 02:08:00 Outpatient Lezak_Kayla [facility] [id number] [facility] 2020-05-05 00:00:00 2020-05-05 00:00:00 BRANDEN Hoffman: [id number], [place] [address] , Ph. [facility] Yarsani [facility] [id number] [facility] 2020-04-21 02:24:00 2020-04-21 02:24:00 Outpatient Lezak_Kayla [facility] [id number] [facility] 2020-02-18 01:03:00 2020-02-18 01:03:00 Outpatient Lezak_Kayla [facility] [id number] [facility] 2020-01-28 04:34:00 2020-01-28 04:34:00 Outpatient Lezak_Kayla [facility] [id number] [facility] 2020-01-28 00:00:00 2020-01-28 00:00:00 BRANDEN Hoffman: [id number], [place], [place] [address] , Ph. [facility] Yarsani [facility] [id number] [facility] 2020-01-14 01:02:00 2020-01-14 01:02:00 Outpatient Lezak_Kayla [facility] [id number] [id number] [facility] 2019-12-09 01:01:00 2019-12-09 01:01:00 Outpatient Lezak_Kayla [facility] [id number] [facility] 2019-12-06 09:30:00 2019-12-06 09:30:00 Outpatient LEIGH SHARIF [facility] [id number] [facility] 2019-11-07 10:25:00 2019-11-07 10:25:00 Outpatient Lezak_Kayla [facility] [id number] [facility] 2019-11-03 12:22:00 2019-11-03 12:22:00 Outpatient Lezak_Kayla [facility] [id number] [facility] 2019-11-02 12:04:00 2019-11-02 12:04:00 Outpatient Lezak_Kayla [facility] [id number] [facility] 2019-11-02 00:00:00 2019-11-02 00:00:00 BRANDEN Hoffman: [address], [address], [place] [address] , Ph. [facility] [place] [facility] [id number] [facility] 2019-11-01 01:23:00 2019-11-01 01:23:00 Outpatient Lezak_Kayla [facility] [id number] [facility] 2019-09-18 03:08:00 2019-09-18 03:08:00 Outpatient Lezak_Kayla [facility] [id number] [facility] 2019-07-30 05:15:00 2019-07-30 05:15:00 Outpatient Lezak_Kayla [facility] [id number] [facility] 2019-07-30 00:00:00 2019-07-30 00:00:00 Rona Rodrigues PA: [address] [address] , Ph. [facility] [place] [facility] [id number] [facility] 2019-07-10 12:30:00 2019-07-10 12:30:00 Outpatient Lezak_Kayla [facility] [id number] [facility] 2019-06-05 12:38:00 2019-06-05 12:38:00 Outpatient Lezak_Kayla [facility] [id number] [id number] [facility] 2019-05-01 03:08:00 2019-05-01 03:08:00 Outpatient Lezak_Kayla [facility] [id number] [id number] [facility] 2019-04-30 02:20:00 2019-04-30 02:20:00 Outpatient Lezak_Kayla [facility] [id number] [facility] 2019-04-30 00:00:00 2019-04-30 00:00:00 Rona Rodrigues PA: [address] [address] , Ph. [facility] [place] [facility] - [facility] [id number] [facility] 2019-04-25 05:58:00 2019-04-25 05:58:00 Outpatient Lezak_Hueya [facility] [id number] [id number] [facility] 2019-04-25 00:00:00 2019-04-25 00:00:00 [place] Rodrigues, PA: [address], [address], [place] [address] , Ph. [facility] [place] [facility] - [facility] [place] [id number] [facility] 2019-03-06 11:54:00 2019-03-06 11:54:00 Outpatient Palermo_Kai tlin [facility] [id number] [id number] [facility] 2019-03-05 12:06:00 2019-03-05 12:06:00 Outpatient Palermo_Kai tlin [facility] [id number] [id number] [facility] 2019-03-05 00:00:00 2019-03-05 00:00:00 Jared Esquivel MD: [address] [place] [address] , Ph. 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 [facility] [place] [facility] [place] [facility] - [facility] [place] [id number] [facility] 2017-12-23 16:52:00 2017-12-23 23:59:[address] [facility] [id number] [facility] 2014-04-20 16:59:00 2014-04-20 19:05:00 Emergency [facility] [id number] [facility] Results Test Description Test Time Test Comments Results Result Co mments Source [facility] 2000 panel - Serum or [id number] 00:00:00* Test Item Value Reference Range Interpretation Comme nts Glucose [Mass/volume] in Ser um or Plasma (test code = 2345-7) 85 mg/dL 70-99 Urea nitrogen [Mass/volume] in Serum or Plasma (test code = 3094-0) 10 mg/dL 6-24 Creatinine [Mass/volume] in Serum or Plasma (test code = 2160-0) 0.86 mg/dL 0.57-1.00 Glomerular filtration rate/1.73 sq M.predicted [Volume Rate/Area] in Serum, Plasma or Blood by Creatinine-based formula (CKD-EPI 2020) (test code = 80421-8) 82 mL/min/1.73 >59 Urea nitrogen/Creatinine [Ma ss Ratio] in Serum or Plasma (test code = 3097-3) 12 9-23 Sodium [Moles/volume] in Ser um or Plasma (test code = 2951-2) 140 mmol/L 134-144 Potassium [Moles/volume] in Serum or Plasma (test code = 2823-3) 4.2 mmol/L 3.5-5.2 Chloride [Moles/volume] in Serum or Plasma (test code = 5-0) 103 mmol/L 96-106 Carbon dioxide, total [Moles/volume] in Serum or Plasma (test code = 2027-) 23 mmol/L 20-29 Calcium [Mass/volume] in Ser um or Plasma (test code = 92036-3) 9.7 mg/dL 8.7-10.2 Protein [Mass/volume] in Ser um or Plasma (test code = 2885-2) 7.6 g/dL 6.0-8.5 Albumin [Mass/volume] in Ser um or Plasma (test code = 1751-7) 4.5 g/dL 3.9-4.9 Globulin [Mass/volume] in Serum by calculation (test code = 07135-3) 3.1 g/dL 1.5-4.5 Albumin/Globulin [Mass Ratio ] in Serum or Plasma (test code = 1759-0) 1.5 1.2-2.2 Bilirubin.total [Mass/volume ] in Serum or Plasma (test code = 1975-2) 0.5 mg/dL 0.0-1.2 Alkaline phosphatase [Enzymatic activity/volume] in Serum or Plasma (test code = 6768-6) 75 IU/L 44-121 Aspartate aminotransferase [Enzymatic activity/volume] in Serum or Plasma (test code = 1920-8) 11 IU/L 0-40 Alanine aminotransferase [Enzymatic activity/volume] in Serum or Plasma (test code = 1742-6) 8 IU/L 0-32 [facility] CenterHemoglobin A1c/Hemoglobin.total in [id number] 00:00:00* Test Item Value Reference Range Interpretation Comme nts Hemoglobin A1c/Hemoglobin.to trang in Blood (test code = 4548-4) 6.1 % 4.8-5.6 H [facility]25-Hydroxyvitamin D3+25- Hydroxyvitamin D2 [Mass/volume] in Serum or [id number] 00:00:00* Test Item Value Reference Range Interpretation Comme nts 25-Hydroxyvitamin D3+25-Hydroxyvitamin D2 [Mass/volume] in Serum or Plasma (test code = 75951-7) 12.9 NG/mL 30.0-100.0 L [facility] CenterUrinalysis macro (dipstick) panel - Fpoln6256-28-76 15:06:00* Test Item Value Reference Range Interpretation Comme nts leukocytes (test code = leukocytes) negative neg urobilinogen (test code = urobilinogen) 0.2 E.U./dL sm amt (.5-1mg/dL) protein (test code = protein) negative See_Comment [Automated [employer]] The system which generated this result transmitted reference range: <=150 mg/d. The reference range was not used to interpret this result as normal/abnormal. pH (test code = pH) 6.5 4.5-8 blood (test code = blood) trace-intact See_Comment A [Automated [employer]] The system which generated this result transmitted reference range: <=3 RBC. The reference range was not used to interpret this result as normal/abnormal. specific gravity (test code = specific gravity) 1.020 1.005-1.025 ketone (test code = ketone) negative none bilirubin (test code = bilirubin) negative neg glucose (test code = glucose) negative See_Comment [Automated [employer]] The system which generated this result transmitted reference range: <=130 mg/d. The reference range was not used to interpret this result as normal/abnormal. color (test code = color) yellow yellow clarity (test code = clarity) clear clear or cloudy nitrite (test code = nitrite) negative neg [facility] vaginosis and vaginitis DNA panel - Vaginal fluid by Probe with signal ahjyfxqibylai9952-76-16 00:00:00* Test Item Value Reference Range Interpretation [...] (test code = trichomonas, naat) negative negative [facility] Programpap, IG + CT/NG + HR [id number] 00:00:00* Test Item Value Reference Range Interpretation Comme nts source: (test code = source:) unspecified slides: (test code = slides:) 1 LMP: (test code = LMP:) not given specimen adequacy: (test code = specimen adequacy:) (note) interpretation: (test code = interpretation:) nilm/no epith. abnormality;see below technical staff engineer: (test code = technical staff engineer:) SCOTT christine(ascp) IAC location: (test code = [...] code = chlamydia, naat, thinprep) negative negative [facility] Program[facility]lamydia trachomatis and Neisseria gonorrhoeae and Trichomonas vaginalis DNA panel - Specimen by MIGUEL with probe [id number] 00:00:00* Test Item Value Reference Range Interpretation Comme nts Chlamydia trachomatis rRNA [Presence] in Specimen by MIGUEL with probe detection (test code = 52178-5) negative negative Neisseria gonorrhoeae rRNA [Presence] in Specimen by MIGUEL with probe detection (test code = 50692-5) negative negative Trichomonas vaginalis rRNA [Presence] in Specimen by MIGUEL with probe detection (test code = 58096-0) negative negative [facility]HIV 1 and 2 RNA panel - Serum or Plasma by MIGUEL with probe [id number] 00:00:00* Test Item Value Reference Range Interpretation Comme nts HIV 1 RNA [Presence] in Seru m or Plasma by MIGUEL with probe detection (test code = 28638-9) non reactive non reactive HIV 2 RNA [Presence] in Seru m or Plasma by MIGUEL with probe detection (test code = 14220-9) non reactive non reactive [facility] ProgramComprehensive metabolic 2000 panel - Serum or [id number] 00:00:00* Test Item Value Reference Range Interpretation Comme nts Glucose [Mass/volume] in Ser um or Plasma (test code = 2345-7) 91 mg/dL 70-99 Urea nitrogen [Mass/volume] in Serum or Plasma (test code = 3094-0) 10 mg/dL 6-24 Creatinine [Mass/volume] in Serum or Plasma (test code = 216-0) 0.83 mg/dL 0.57-1.00 Glomerular filtration rate/1.73 sq M.predicted [Volume Rate/Area] in Serum, Plasma or Blood by Creatinine-based formula (CKD-EPI 2020) (test code = 52869-2) 86 mL/min/1.73 >59 Urea nitrogen/Creatinine [Ma ss Ratio] in Serum or Plasma (test code = 3097-3) 12 9-23 Sodium [Moles/volume] in Ser um or Plasma (test code = 2951-2) 142 mmol/L 134-144 Potassium [Moles/volume] in Serum or Plasma (test code = 2823-3) 4.5 mmol/L 3.5-5.2 Chloride [Moles/volume] in Serum or Plasma (test code = 207-0) 103 mmol/L 96-106 Carbon dioxide, total [Moles/volume] in Serum or Plasma (test code = 2027-) 23 mmol/L 20-29 Calcium [Mass/volume] in Ser um or Plasma (test code = 75043-7) 9.4 mg/dL 8.7-10.2 Protein [Mass/volume] in Ser um or Plasma (test code = 2885-2) 7.1 g/dL 6.0-8.5 Albumin [Mass/volume] in Ser um or Plasma (test code = 1751-7) 4.8 g/dL 3.9-4.9 Globulin [Mass/volume] in Serum by calculation (test code = 49124-1) 2.3 g/dL 1.5-4.5 Albumin/Globulin [Mass Ratio ] [...] (test code = 1742-6) 15 IU/L 0-32 [facility] W Auto Differential panel - Blood 2022-10-28 [...] immature cells (test code = immature cells) ceo Neutrophils [#/volume] in Bl ood by Automated [...] Blood by Automated count (test code = 50341-5) 0 % not estab. Immature granulocytes [#/volume] in Blood by Automated count (test code = 10286-6) 0.0 x10e3/uL 0.0-0.1 Nucleated erythrocytes/100 leukocytes [Ratio] in Blood by Automated count (test code = 55913-5) ceo Morphology [Interpretation] in Blood Narrative (test code = 28585-8) ceo [facility] ProgramReagin Ab [Presence] in Serum by RPR 2022-10-28 00:00:00* Test Item Value Reference Range Interpretation Comme nts Reagin Ab [Presence] in Seru m by RPR (test code = 51780-1) non reactive non reactive [facility] ProgramHepatitis C virus IgG Ab [Presence] in Serum or Plasma by [id number] 00:00:00* Test Item Value Reference Range Interpretation Comme nts Hepatitis C virus IgG Ab [Presence] in Serum or Plasma by Immunoassay (test code = 57845-1) non reactive non reactive [facility] ProgramCOMP. METABOLIC PANEL (30864) 2022-10-26 00:48:32* Test Item Value Reference Range Interpretation Comme nts NA (test code = 5617370899) 142 mmol/L 135-145 K (test code = 4058473865) 3.1 mmol/L 3.5-5.0 L CL (test code = 5935342522) 101 mmol/L 98-108 CO2 TOTAL (test code = 8704470525) 31 mmol/L 23-31 AGAP (test code = 9751067842) 10 2-16 BUN (test code = 2041821133) 11 mg/dL 7-23 GLUCOSE (test code = 3491232379) 219 mg/dL 70-110 H CREATININE (test code = 3101828116) 0.84 mg/dL 0.50-1.04 TOTAL BILI (test code = 1547708282) 0.5 mg/dL 0.1-1.1 CALCIUM (test code = 8471783227) 9.7 mg/dL 8.6-10.6 T PROTEIN (test code = 0145941630) 8.9 g/dL 6.3-8.2 H ALBUMIN (test code = 2679173183) 4.9 g/dL 3.5-5.0 ALK PHOS (test code = 2619428442) 63 U/L 34-122 ALTv (test code = 1742-6) 21 U/L 5-35 AST(SGOT) (test code = 6523126897) 24 U/L 13-40 eGFR (test code = 1497758886) 71.8 mL/min/1.73m2 YULY (test code = YULY) [...] imaging tests). Lab Interpretation (test code = 88550-7) [facility]* Test Item Value Reference Range Interpretation Comme nts LIPASE (test code = 7593033550) 247 U/L 0-220 H Lab Interpretation (test cod e = 48233-0) [facility]normal [facility] [id number] 00:44:15* Test Item Value Reference Range Interpretation [...] 33.3 g/dL 31.6-35.1 RDW-SD (test code = 57224-2) 41.4 fL 39.0-49.9 RDW-CV (test code = 788-0) 12.5 % 12.0-15.5 PLT (test code = 777-3) 363 See_Comment H [Automated messa ge] The system which generated this result transmitted reference range: 166 - 358 10*3/?L. The reference range was not used to interpret this result as normal/abnormal. MPV (test code = 91589-7) 8.6 fL 9.5-12.9 L NRBC/100 WBC (test code = 5836115645) 0.0 See_Comment [Automated me ssage] The system which generated this result transmitted reference range: 0.0 - 10.0 /100 WBCs. The reference range was not used to interpret this result as normal/abnormal. NRBC x10^3 (test code = 7651938564) See_Comment [Automated messa ge] The system which generated this result transmitted reference range: 10*3/?L. The reference range was not used to interpret this result as normal/abnormal. GRAN MAT (NEUT) % (test code = 770-8) 63.5 % IMM GRAN % (test code = 8549960779) 0.40 % LYMPH % (test code = 736-9) 28.5 % MONO % (test code = 5905-5) 5.3 % EOS % (test code = 713-8) 1.5 % BASO % (test code = 706-2) 0.8 % GRAN MAT x10^3(ANC) (test code = 5769312539) 8.33 10*3/uL 1.88-7.09 H IMM GRAN x10^3 (test code = 0820914057) 0.05 10*3/uL 0.00-0.06 LYMPH x10^3 (test code = 731-0) 3.74 10*3/uL 1.32-3.29 H MONO x10^3 (test code = 742-7) 0.69 10*3/uL 0.33-0.92 EOS x10^3 (test code = 711-2) 0.19 10*3/uL 0.03-0.39 BASO x10^3 (test code = 704-7) 0.10 10*3/uL 0.01-0.07 H Lab Interpretation (test code = 58932-6) [facility]normal [facility] BranchUrinal[facility] complete W Reflex Culture panel - [id number] 00:00:00* Test Item Value Reference Range Interpretation [...] Urine by Test strip (test code = 19598-4) trace negative/trace Glucose [Presence] in Urine by Test strip (test code = 02215-0) negative negative Ketones [Presence] in Urine by Test strip (test code = 2514-8) negative negative Hemoglobin [Presence] in Uri ne by Test strip (test code = 5794-3) negative negative Bilirubin.total [Presence] i n Urine by Test strip (test code = 5770-3) negative negative Urobilinogen [Mass/volume] i n Urine by Test strip (test code = 48372-9) 1.0 mg/dL 0.2-1.0 Nitrite [Presence] in Urine by Test strip (test code = 5802-4) negative negative Microscopic observation [Identifier] in Urine sediment by Light microscopy (test code = 07228-7) ceo Leukocytes [#/area] in Urine sediment by Microscopy high power field (test code = 5821-4) 0-5 0-5 Erythrocytes [#/area] in Uri ne sediment by Microscopy high power field (test code = 75563-0) 3-10 0-2 A Epithelial cells [#/area] in Urine sediment by Microscopy high power field (test code = 5787-7) 0-10 0-10 Epithelial cells.renal [#/ar ea] in Urine sediment by Microscopy high power field (test code = 98940-0) ceo Casts [Presence] in Urine se diment by Light microscopy (test code = 54732-1) none seen none seen Casts [Type] in Urine sedime nt by Light microscopy (test code = 70872-4) ceo Unidentified crystals [Prese nce] in Urine sediment by Light microscopy (test code = 5783-6) ceo Crystals [type] in Urine sed iment by Light microscopy (test code = 5782-8) ceo Mucus [Presence] in Urine se diment by Light microscopy (test code = 8247-9) ceo Bacteria [#/area] in Urine s ediment by Microscopy high power field (test code = 5769-5) few none seen/few Yeast [#/area] in Urine sedi ment by Microscopy high power field (test code = 5822-2) ceo Trichomonas vaginalis [Prese nce] in Urine sediment by Light microscopy (test code = 5813-1) ceo Urine sediment comments by L ight microscopy Narrative (test code = 79738-2) ceo urinalysis reflex (test code = urinalysis reflex) comment Bacteria identified in Urine by Culture (test code = 630-4) no growth [place] [facility] ProgramUrinalysis complete W Reflex Culture panel - [id number] 00:00:00* Test Item Value Reference Range Interpretation [...] Urine by Test strip (test code = 08223-8) trace negative/trace Glucose [Presence] in Urine by Test strip (test code = 02727-9) negative negative Ketones [Presence] in Urine by Test strip (test code = 2514-8) negative negative Hemoglobin [Presence] in Uri ne by Test strip (test code = 5794-3) negative negative Bilirubin.total [Presence] i n Urine by Test strip (test code = 5770-3) negative negative Urobilinogen [Mass/volume] i n Urine by Test strip (test code = 63886-9) 1.0 mg/dL 0.2-1.0 Nitrite [Presence] in Urine by Test strip (test code = 5802-4) negative negative Microscopic observation [Identifier] in Urine sediment by Light microscopy (test code = 20321-1) ceo Leukocytes [#/area] in Urine sediment by Microscopy high power field (test code = 5821-4) 0-5 0-5 Erythrocytes [#/area] in Uri ne sediment by Microscopy high power field (test code = 82054-0) 3-10 0-2 A Epithelial cells [#/area] in Urine sediment by Microscopy high power field (test code = 5787-7) 0-10 0-10 Epithelial cells.renal [#/ar ea] in Urine sediment by Microscopy high power field (test code = 46456-1) ceo Casts [Presence] in Urine se diment by Light microscopy (test code = 31269-7) none seen none seen Casts [Type] in Urine sedime nt by Light microscopy (test code = 99660-4) ceo Unidentified crystals [Prese nce] in Urine sediment by Light microscopy (test code = 5783-6) ceo Crystals [type] in Urine sed iment by Light microscopy (test code = 5782-8) ceo Mucus [Presence] in Urine se diment by Light microscopy (test code = 8247-9) ceo Bacteria [#/area] in Urine s ediment by Microscopy high power field (test code = 5769-5) few none seen/few Yeast [#/area] in Urine sedi ment by Microscopy high power field (test code = 5822-2) ceo Trichomonas vaginalis [Prese nce] in Urine sediment by Light microscopy (test code = 5813-1) ceo Urine sediment comments by L ight microscopy Narrative (test code = 47523-8) ceo urinalysis reflex (test code = urinalysis reflex) comment Bacteria identified in Urine by Culture (test code = 630-4) no growth [place] [facility] ProgramHemoglobin.gastrointestinal.lower [Presence] in Stool by Heoxoekmgoz2676-72-74 00:00:00* Test Item Value Reference Range Interpretation Comme nts occult blood panel, ia, stoo l (test code = occult blood panel, ia, stool) negative [place] [facility] ProgramSCR MAMM BILATERAL SARAH CAD DIGITAL 2021-11-20 12:26:29 Name: Destiney : 1970 Sex: F - SCR MAMM BILATERAL SARAH CAD DIGITALBILATERAL DIGITAL SCREENING MAMMOGRAM 3D/2D WITH CAD: 2CLINICAL: Asymptomatic. Digital breast tomosynthesis was performed in addition to routine CC and MLO views. Current mammographic imageswere evaluated by [employer] CAD (computer-aided detection) software. Comparison is made to exams dated 10/23/2019 mammogram - [facility] and 10/03/2017 mammogram - [facility]. The tissue of both breasts is heterogeneously dense. This may lower the sensitivity of mammography. There are benign calcifications in both breasts. No suspicious mass, architectural distortion, malignant type calcification, or lymph node abnormality detected. Breast architecture is stable compared to prior exams.IMPRESSION: BENIGNThere is no mammographic evidence of malignancy. Resume annualscreening mammography in one year. (11/18/2022) Snehal taveras/penrad:11/20/2021 12:26:29 Basket Mender: Greta Shirley MM, [facility] Mammographyletter sent: BIRADS 1-2 Normal Mammogram BI-RADS: 2 Benignpregnancy test, wzhsm8365-32-12 14:37:35* Test Item Value Reference Range Interpretation Comme nts HCG (test code = HCG) negative [facility] ProgramSCR MAMM BILATERAL SARAH CAD DIGITAL 2019-11-07 08:33:03- SCR MAMM BILATERAL SARAH CAD DIGITALBILATERAL DIGITAL SCREENING MAMMOGRAM 3D/2D WITH CAD: 10/23/2019CLINICAL: Asymptomatic. Digital breast tomosynthesis was performed in addition to routine CC and MLOviews. Current mammographic images were evaluated by either a [employer] M-Vu or a [employer] have it!erCAD (computer aided detection system). No prior exams [...] 08:33:03 Attending Technologist: Laureen Armendariz MM, [facility] MammographyImaging Technologist: Mignon Rodarte MM, [facility] Mammographyletter sent: BIRADS 1-2 Normal Mammogram BI-RADS: 1 NegativeSCR MAMM BILATERAL SARAH CAD [id number] 08:33:03AMENDMENT: 11/09/2019 Darius Garcia M.D. Comparison mammogram now available from 2018Impression remains the same: There is no mammographic evidence of malignancy. Resume annual screening mammography in one year.Amended BI-RADS: 1 Negative letter sent: BIRADS 1-2 NormalLipid 1995 panel - Serum or Sdxcvo3335-13-81 00:00:00* Test Item Value Reference Range Interpretation [...] = risk ratio LDL/HDL) 2.60 ratio <3.22 [facility] Ieevvop86-Sioyxoepszzeod D [Mass/volume] in Serum or [id number] 00:00:00* Test Item Value Reference Range Interpretation Comme nts vitamin D, 25 oh (test code = vitamin D, 25 oh) 20 NG/mL see below L [facility] ProgramComprehensive metabolic 2000 panel - Serum or Mnfjdt6470-16-11 00:00:00* Test Item Value Reference Range Interpretation [...] (test code = ALT) 11 U/L 5-40 [facility] W Auto Differential panel - Blood 2019-04-26 [...] code = platelet count) 304 K/uL 130-400 [facility] CenterFolate [Mass/volume] in Serum or Swonkq8313-03-43 00:00:00* Test Item Value Reference Range Interpretation Comme nts folic acid (test code = folic acid) 4.1 ug/L see below L [facility] CenterHemoglobin A1c/Hemoglobin.total in Rqhtl9398-03-30 00:00:00* Test Item Value Reference Range Interpretation Comme nts Hemoglobin A1c/Hemoglobin.to trang in Blood (test code = 4548-4) 8.5 % 4.2-5.6 H [facility] CenterUrinalysis complete panel - Urine 2019-04-25 00:00:00* [...] (test code = bacteria) trace negative A [facility] CenterUrinalysis macro (dipstick) panel - [id number] 09:47:00* Test Item Value Reference Range Interpretation [...] cloudy Color (test code = Color) yellow [facility] CenterThyrotropin [Units/volume] in Serum or Risejh5708-57-42 00:00:00* Test Item Value Reference Range Interpretation Comme nts TSH reflex to free T4 (test code = TSH reflex to free T4) 1.940 uIU/mL 0.400-4.100 [facility]25-Hydroxyvitamin D [Mass/volume] in Serum or Hxidbg7371-21-33 00:00:00* Test Item Value Reference Range Interpretation Comme nts vitamin D, 25 oh (test code = vitamin D, 25 oh) 13 NG/mL see below [facility] CenterFolate+Cyanocobalamin [interpretation] in Serum or [id number] 00:00:00* Test Item Value Reference Range Interpretation Comme nts vitamin B-12 (test code = vi tamin B-12) 669 pg/mL 200-950 folic acid (test code = folic acid) 5.6 ug/L see below L [facility] CenterComprehensive metabolic 2000 panel - Serum or [id number] 00:00:00* Test Item Value Reference Range Interpretation [...] (test code = ALT) 35 U/L 5-40 [facility] CenterHemoglobin A1c/Hemoglobin.total in [id number] 00:00:00* Test Item Value Reference Range Interpretation Comme nts Hemoglobin A1c/Hemoglobin.to trang in Blood (test code = 4548-4) 9.9 % 4.2-5.6 H [facility] CenterUrinalysis complete panel - Urine 2019-02-03 00:00:00* [...] crystals (test code = crystals) (note) none [facility] CenterLipid 1996 panel - Serum or Plasma [...] risk ratio LDL/HDL) 3.36 ratio <3.22 [facility] CenterCBC W Auto Differential panel - Blood [...] code = platelet count) 245 K/uL 130-400 [facility] CenterGlucose [Mass/volume] in Capillary [id number] 11:33:00* Test Item Value Reference Range Interpretation Comme nts Blood Glucose: mg/dl (test c ode = Blood Glucose: mg/dl) 213 [facility]/S PELVIS [id number] 16:10:30PELVIC ULTRASOUND:Location code: [id number] HISTORY: Mixed incontinenceComparison: NoneTECHNIQUE: Transabdominal sonography of [...] mass or free fluid. IMPRESSION:No acute sonographic abnormality.[facility] [id number] 16:10:30PELVIC ULTRASOUND:Location code: [id number] HISTORY: Mixed incontinenceComparison: NoneTECHNIQUE: Transabdominal sonography of [...] Date/Time Note Provider Source 2022-10-25 21:02:39 GNXMWWiOOxVJlDgQaHbK K5M2b9qQrg qJCdKQulDPxQ/d00d4sKu5j6UhyhWO [id number]:02:39Formatt ing of this note might be different [...] encouraged to follow up with pcp and LIQUID LOADER.Advised to seek medical attention for new/prolonged/worsening of symptoms,Symptoms improved.No adverse reaction to meds given in ER noted upon discharge.PIV d'cd, dressing to site, catheter in tact.Awake, alert oriented, resp reg unlabored, skin w/d, pt leaving amb with steady gait, in no apparent distress. 29776-4Lbjhhimke department MbaeJD7415-18-80P57:05:09Emer ency department [id number] .[id number] lable for patient [id number] brenton Koch RN[address] CllzZhcozehijGtmtzgprrPXLK0139 [id number] 14-11-03T21:05:091.2.840.82778 0.1.72.3.15|1.2.840.052548.1.1 [id number] Britany Koch RN [facility] 2022-10-25 18:35:18 LvOIptbUKs/JzgRAPveX zo4wZlmQ2D fC5khiD4SsMFGxIMSKLdC0rsbcxc/p JN4t6376-37-83J87:35:18Formatt ing of this note might be different [...] amb without assistance. Appears in no distress. 71606-0Yjqyquded department Triage wkzcFT5551-94-65A06:40:09[facility] Triage [id number] .[id number] lable for patient zrbv99535-7Txvwnyqnb department [id number] M Rivera RN[address] NksjAeefqhxzuGoqkpocskQATW7880 [id number] 14-11-038:40:[id number] 0.1.72.3.15|1.2.840.399468.1.1 [id number] Modesta Hood RN [facility]"
[2023-05-13] MEDS ORDERED: ASPIRIN 81 MG CHEWABLE TABLET ONE (00:16)
[2023-05-13] MEDS ORDERED: ONDANSETRON 4 MG/2 ML VIAL ONE (00:17)
[2023-05-13] MEDS ORDERED: MORPHINE 4 MG/ML SYR ONE (00:17)
[2023-05-13] MEDS ORDERED: DIAZEPAM 5 MG TABLET ONE (00:17)
[2023-05-13] MEDS ORDERED: NA CHLORIDE 0.9% 1,000 ML ONE (00:17)
[2023-05-13 00:23] LABS: Absolute Basophils 0.1 K/uL (0-0.5); Absolute Eosinophils 0.2 K/uL (0-0.5); Absolute Neutrophil 7.5 K/uL (1.8-8.0); Basophils % 0.9 % (0-1.3); Eosinophils % 1.4 % (0-4.4); Hematocrit 43.7 % (36.0-45.0); Hemoglobin 14.9 g/dL (12.0-15.0); Lymphocytes % 25.6 % (15.3-44.8); MCH 30.3 pg (27.0-35.0); MCV 89.2 fL (80-100); MPV 6.7 fL (7.6-11.3); Monocytes % 8.4 % (3.3-12.3); Neutrophils % 63.7 % (41.7-73.7); Nucleated Red Blood Cells % 0.1 % (0-0); Platelets 312 thou/uL (152-406); Red Cell Distribution Width 13.5 % (12.1-15.2)
[2023-05-13 00:34] LABS: PT Prothrombin Time 11.1 SECONDS (9.5-12.5); Protime INR 1.01
[2023-05-13 00:56] LABS: Albumin 3.9 g/dL (3.4-5.0); Albumin/Globulin Ratio 0.9 (1.1-1.8); Anion Gap 8.9 mEq/L (5.0-15.0); Bilirubin Direct 0.1 mg/dL (0-0.2); Bilirubin Indirect, Calculated 0.4 mg/dL (0.2-0.8); Bilirubin Total 0.5 mg/dL (0.2-1.0); Globulin 4.3 g/dL (2.3-3.5); Magnesium 2.5 mg/dL (1.6-2.4); Potassium 2.9 mEq/L (3.5-5.1); Protein, Total 8.2 g/dL (6.4-8.2); Troponin High Sensitivity 3.7 pg/mL (<58.9)
[2023-05-13] MEDS ORDERED: TRAMADOL HCL 50 MG TAB ONE (02:10)
[2023-05-13] MEDS ORDERED: FENTANYL CITR 100 MCG/2 ML ONE (02:11)
[2023-05-13] MEDS ORDERED: ACETAMINOPHEN 500 MG TAB ONE (03:18)
[2023-05-13] MEDS ORDERED: KETOROLAC 30 MG/ML INJ ONE (03:18)
[2023-05-13] MEDS ORDERED: METOCLOPRAMIDE 10 MG/2mL INJ ONE (03:19)
[2023-05-13] MEDS ORDERED: POTASSIUM 25 MEQ EFFERV TAB ONE (04:14)
[2023-05-13] MEDS ORDERED: ONDANSETRON 4 MG/2 ML VIAL IV PRN (04:40)
--- NOTE | 2023-05-13 04:42 | EDPHYS ---
Physician Documentation [facility] Name: Keturah Cardoso Age: 52 yrs Sex: Female : 1970 Arrival Date: 05/12/2023 Time: 23:30 Bed 14 Private MD: Rossy Rodrigues ED Physician Huber Shah HPI: 05/11 23:37 This 52 yrs old Female presents to ER via Unassigned with complaints of Chest sp4 Pain, Leg numbness. 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 Flu vaccine is not up to date. - Social history:: Smoking status: Patient denies any tobacco usage or history of. ROS: 04:57 Constitutional: Negative for fever, chills, and weight loss, positive acute chest pain, sp4 positive acute headache, positive acute right lower extremity weakness 04:57 All other systems are negative, Exam: 05/11 23:58 ECG was reviewed by the Attending Physician. EKG at 2339 sp4 05/12 04:57 Constitutional: This is a well developed, well nourished patient who is awake, alert, sp4 and in no acute distress. Head/Face: Normocephalic, atraumatic. Eyes: Pupils equal round and reactive to light, extra-ocular motions intact. Lids and lashes normal. Conjunctiva and sclera are not injected. Cornea within normal limits. Periorbital areas with no swelling, redness, or edema. ENT: Nares patent. No nasal discharge, no septal abnormalities noted. Tympanic membranes are normal and external auditory canals are clear. Oropharynx with no redness, swelling, or masses, exudates, or evidence of obstruction, uvula midline. Mucous membranes moist. Neck: Trachea midline, no thyromegaly or masses palpated, and no cervical lymphadenopathy. Supple, full range of motion without nuchal rigidity, or vertebral point tenderness. Chest/axilla: Normal chest wall appearance and motion. Nontender with no deformity. No lesions are appreciated. Cardiovascular: Regular rate and rhythm with a normal S1 and S2. No gallops, murmurs, or rubs. Normal PMI, no JVD. No pulse deficits. Respiratory: Lungs have equal breath sounds bilaterally, clear to auscultation and percussion. No rales, rhonchi or wheezes noted. No increased work of breathing, no retractions or nasal flaring. Abdomen/GI: Soft, with normal bowel sounds. No distension or tympany. No guarding or rebound. No evidence of tenderness throughout. Back: No spinal tenderness. No costovertebral tenderness. Skin: Warm, dry with normal turgor. Normal color with no rashes, no lesions, and no evidence of cellulitis. MS/ Extremity: Pulses equal, no cyanosis. Neurovascular intact. Full, normal range of motion. There is Right foot drop. Neuro: Awake and alert, GCS 15, oriented to person, place, time, and situation. Cranial nerves II-XII grossly intact. Motor strength -there is a right foot drop otherwise strength 5 out of 5 bilateral. decreased sensation bilateral lower extremities. Psych: Awake, alert, with orientation to person, place and time. Behavior, mood, and affect are within normal limits Vital Signs: 05/11 23:58 BP 132 / 86; Pulse 95; Resp 16; Temp 98; Pulse Ox 99% ; vc1 05/12 00:00 BP 145 / 77; Pulse 76; Resp 16; Pulse Ox 100% on R/A; km8 01:00 BP 122 / 73; Pulse 63; Resp 16; Pulse Ox 97% on R/A; km8 02:10 BP 131 / 78; Pulse 66; Resp 16; Pulse Ox 96% ; Pain 9/10; jj7 03:00 BP 135 / 83; Pulse 72; Resp 16; Pulse Ox 99% on R/A; km8 04:00 BP 114 / 70; Pulse 88; Resp 16; Pulse Ox 97% on R/A; Pain 5/10; km8 05:18 BP 145 / 78; Pulse 87; Resp 16; Temp 98; Pulse Ox 100% ; jj7 02:10 Pain Scale: Adult jj7 04:00 Pain Scale: Adult km8 NIH Stroke Scale Scores: 04:57 NIHSS Score: 0 sp4 Lauro Coma Score: 04:57 Eye Response: spontaneous(4). Motor Response: obeys commands(6). Verbal Response: sp4 oriented(5). Total: 15. MDM: 05/11 23:38 Patient medically screened. sp4 05/12 04:48 HEART Score: History: Moderately Suspicious (1), ECG: Normal (0), Age: > 45 and < 65 sp4 years (1), Risk Factors: > or = 3 Risk factors for atherosclerotic disease (2), Troponin: < or = 1 x Normal Limit (0), Total Score = 4. The patient was given aspirin in the Emergency Department. Data reviewed: vital signs, nurses notes, old medical records, lab test result(s), EKG, radiologic studies, CT scan, plain films. ED course: EXAM: XR Chest, 1 View CLINICAL HISTORY: The patient is 52 years old and is Female; CHEST PAIN TECHNIQUE: Frontal view of the chest. COMPARISON: No relevant prior studies available. FINDINGS: LUNGS: Unremarkable. No consolidation. PLEURAL SPACE: Unremarkable. No pneumothorax. HEART: Unremarkable. No cardiomegaly. MEDIASTINUM: Unremarkable. Normal mediastinal contour. BONES/JOINTS: Unremarkable. No acute fracture. UPPER ABDOMEN: Unremarkable as visualized. IMPRESSION: No acute cardiopulmonary process. Electronically signed by: Sandra Dee MD 05/13/2023 12:32 AM. 05/11 23:38 Order name: Basic Metabolic Panel; Complete Time: 02:53 sp4 05/11 23:38 Order name: CBC with Diff; Complete Time: 02:53 sp4 05/11 23:38 Order name: D-Dimer; Complete Time: 02:53 sp4 05/11 23:38 Order name: LFT's; Complete Time: 02:53 sp4 05/11 23:38 Order name: Magnesium; Complete Time: 02:53 sp4 05/11 23:38 Order name: NT PRO-BNP; Complete Time: 02:53 sp4 05/11 23:38 Order name: PT-INR; Complete Time: 02:53 sp4 05/11 23:38 Order name: Troponin HS; Complete Time: 02:53 sp4 05/11 23:58 Order name: Glucose, Ancillary Testing; Complete Time: 02:53 EDMS 05/12 02:54 Order name: Troponin High Sensitivity; Complete Time: 04:21 sp4 05/12 04:43 Order name: T4 Free sp4 05/12 04:43 Order name: TSH sp4 05/12 04:43 Order name: CRP sp4 05/12 04:48 Order name: Basic Metabolic Panel EDMS 05/12 04:48 Order name: Basic Metabolic Panel EDMS 05/12 04:48 Order name: Basic Metabolic Panel EDMS 05/12 04:48 Order name: CBC with Automated Diff EDMS 05/12 04:48 Order name: CBC with Automated Diff EDMS 05/12 04:48 Order name: CBC with Automated Diff EDMS 05/12 04:48 Order name: Troponin High Sensitivity EDMS 05/12 04:48 Order name: Troponin High Sensitivity EDMS 05/12 04:48 Order name: Troponin High Sensitivity EDMS 05/12 04:48 Order name: Troponin High Sensitivity EDMS 05/12 04:50 Order name: SARS RAPID sp4 05/12 04:50 Order name: Influenza Screen (a \T\ B) 4 05/11 23:38 Order name: XRAY Chest (1 view) sp4 05/12 04:37 Order name: CT Head Brain wo Cont sp4 05/12 04:37 Order name: CT Chest Abdomen Pelvis W/O Contrast sp4 05/11 23:38 Order name: EKG; Complete Time: 23:39 sp4 05/12 04:48 Order name: CONS Physician Consult EDWV 05/11 23:38 Order name: Cardiac monitoring; Complete Time: 23:58 sp4 05/11 23:38 Order name: EKG - Nurse/Tech; Complete Time: 23:54 sp4 05/11 23:38 Order name: IV Saline Lock; Complete Time: 00:12 sp4 05/11 23:38 Order name: Labs collected and sent; Complete Time: 00:12 sp4 05/11 23:38 Order name: O2 Per Protocol; Complete Time: 23:58 sp4 05/11 23:38 Order name: O2 Sat Monitoring; Complete Time: 23:58 sp4 EC/21 23:58 Rate is 88 beats/min. Rhythm is regular, Normal Sinus Rhythm. QRS [place] is Normal. MD sp4 interval is normal. QRS interval is normal. QT interval is normal. No Q waves. T waves are Normal. No ST changes noted. Clinical impression: Normal ECG. Interpreted by me. Reviewed by me. Administered Medications: 05/12 00:36 Drug: Diazepam PO 5 mg PO once Route: PO; 03:38 Follow up: Response: No adverse reaction 00:36 Not Given (pt allergicc): morphineor iv 4 mg IVP once over 4 mins 00:36 Drug: Ondansetron IVP 4 mg IVP once; over 2 minutes Route: IVP; Site: right antecubital;8 03:38 Follow up: Response: No adverse reaction 00:36 Drug: Aspirin PO Chewable Tablet 324 mg PO once; 81 mg tablets x 4 Route: PO; 03:37 Follow up: Response: No adverse reaction 00:36 Drug: NS 0.9% IV 1000 ml IV at 1 bolus Per protocol; 1000 mL bolus Route: IV; Rate: 1 km8 bolus; Site: right antecubital; 03:37 Follow up: IV Status: Completed infusion; IV Intake: 1000ml 02:20 Drug: fentaNYL (PF) IVP 50 mcg IVP once Route: IVP; Site: right antecubital; jj7 03:37 Follow up: Response: No adverse reaction 02:20 Drug: traMADol PO 100 mg PO once Route: PO; j7 03:37 Follow up: Response: No adverse reaction 03:37 Drug: Ketorolac IVP 30 mg IVP once Route: IVP; Site: right antecubital; km8 04:22 Follow up: Response: No adverse reaction; Pain is decreased 03:37 Drug: metoCLOPramide IVP 10 mg IVP once; over 1 to 2 minutes Route: IVP; Site: right km8 antecubital; 04:22 Follow up: Response: No adverse reaction; Pain is decreased 03:37 Drug: Acetaminophen PO 1000 mg PO once Route: PO; 8 04:22 Follow up: Response: No adverse reaction; Pain is decreased 04:20 Drug: Potassium Chloride PO 40 mEq PO once Route: PO; km8 04:56 Follow up: Response: No adverse reaction 8 Point of Care Testing: Blood Glucose: 05/11 23:58 Blood Glucose: 144 mg/dL; vc1 Ranges: Critical Glucose Levels:Adult <50 mg/dl or >400 mg/dl <40 mg/dl or >180 mg/dl Disposition Summary: 05/13/23 04:42 Hospitalization Ordered Notes: Hospitalization Status: Observation sp4 Provider: Deondre Davila sp4 Location: Telemetry/MedSurg (observation) sp4 Condition: Stable sp4 Problem: new sp4 Symptoms: have improved sp4 Bed/Room Type: Standard sp4 Room Assignment: 412(05/13/23 05:01) rv1 Diagnosis - Angina pectoris, unspecified sp4 - Right lower extremity weakness, right foot drop, mononeuritis multiplex , acute sp4 onset headache, bilateral lower extremity numbness Forms: - Medication Reconciliation Form sp4 - SBAR form sp4 - Leadership Thank You Letter sp4 NIH Stroke Scale - NIH Stroke Score Date: 05/13/2023 Time: 04:57 Total Score = 0 10. Dysarthria (speech clarity - read or repeat words) - 0(Normal) 11. Extinction and Inattention (visual/tactile/auditory/spatial/personal) - 0(No abnormality) 1a. Level of Consciousness (LOC) - 0(Alert) 1b. Level of Consciousness (LOC) (Month \T\ Age) - 0(Both) 1c. LOC Commands (Open \T\ Closes Eyes/Automatic Furnace Operator) - 0(Both) 2. Best Gaze (Lateral Gaze Paresis) - 0(Normal) 3. Visual Field Loss - 0(No visual loss) 4. Facial Palsy - 0(Normal) 5a. Left Arm: Motor (10-second hold) - 0(No drift) 5b. Right Arm: Motor (10-second hold) - 0(No drift) 6a. Left Leg: Motor (5-second hold - always test supine) - 0(No drift) 6b. Right Leg: Motor (5-second hold - always test supine) - 0(No drift) 7. Limb Ataxia (finger/nose \T\ heel/bolanos - test with eyes open) - 0(Absent) 8. Sensory Loss (pinprick arms/legs/face) - 0(Normal) 9. Best Language: Aphasia (description/naming/reading) - 0(No aphasia) Initials: sp4 Signatures: Dispatcher [employer] EDMS Trinidad Sharma RN RN vc1 Doris Meyer RN RN jj7 Apryl Estrada rv1 Huber Shah MD MD sp4 Bethanie Pérez RN RN km8 Corrections: (The following items were deleted from the chart) 05/12 05:01 04:42 sp4 rv1
--- NOTE | 2023-05-13 04:42 | ER ---
Nurse's Notes [facility] Name: Keturah Cardoso Age: 52 yrs Sex: Female : 1970 Arrival Date: 05/12/2023 Time: 23:30 Bed 14 Private MD: Rossy Rodrigues Diagnosis: Angina pectoris, unspecified;Right lower extremity weakness, right foot drop, mononeuritis multiplex , acute onset headache, bilateral lower extremity numbness Presentation: 05/11 23:59 Chief complaint: Patient states: chest pain since 1. Coronavirus screen: Client denies vc1 travel out of the [place] in the last 14 days. At this time, the client does not indicate any symptoms associated with coronavirus-19. Ebola Screen: Patient negative for fever greater than or equal to 101.5 degrees Fahrenheit, and additional compatible Ebola Virus Disease symptoms Patient denies exposure to infectious person. Patient denies travel to an Ebola-affected area in the 21 days before illness onset. No symptoms or risks identified at this time. Initial Sepsis Screen: Does the patient meet any 2 criteria? No. Patient's initial sepsis screen is negative. Does the patient have a suspected source of infection? No. Patient's initial sepsis screen is negative. Risk Assessment: Do you want to hurt yourself or someone else? Patient reports no desire to harm self or others. Onset of symptoms was May 12, 2023 at 13:00. 23:59 Method Of Arrival: Ambulatory vc1 23:59 Acuity: STEPHANY 3 vc1 Triage Assessment: 05/12 00:10 General: Appears in no apparent distress. uncomfortable, Behavior is anxious. Pain: vc1 Complains of pain in anterior aspect of left upper chest Pain radiates to left breast Pain currently is 9 out of 10 on a pain scale. Quality of pain is described as sharp, Pain began suddenly, Is continuous, Noted to be crying. EENT: No deficits noted. No signs and/or symptoms were reported regarding the EENT system. Neuro: Level of Consciousness is awake, alert, obeys commands, Oriented to person, place, time, situation, Appropriate for age. Cardiovascular: Reports chest pain, Heart tones S1 S2 Patient's skin is warm and dry. Chest pain is described as severe, quality is sharp, began suddenly. Respiratory: Airway is patent Respiratory effort is even, unlabored, Respiratory pattern is regular, symmetrical. GI: No deficits noted. No signs and/or symptoms were reported involving the gastrointestinal system. : No deficits noted. No signs and/or symptoms were reported regarding the genitourinary system. Derm: No deficits noted. No signs and/or symptoms reported regarding the dermatologic system. Musculoskeletal: No deficits noted. No signs and/or symptoms reported regarding the musculoskeletal system. 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 Flu vaccine is not up to date. - Social history:: Smoking status: Patient denies any tobacco usage or history of. Screenin:16 [facility] ED Fall Risk Assessment (Adult) History of falling in the last 3 months, vc1 including since admission No falls in past 3 months (0 pts) Confusion or Disorientation No (0 pts) Intoxicated or Sedated No (0 pts) Impaired Gait No (0 pts) Mobility Assist Device Used No (0 pt) Altered Elimination No (0 pt) Score/Fall Risk Level 0 - 2 = Low Risk Oriented to surroundings, Maintained a safe environment, Educated pt \T\ family on fall prevention, incl call for assistance when getting out of bed. Abuse screen: Denies threats or abuse. Nutritional screening: No deficits noted. Tuberculosis screening: No symptoms or risk factors identified. Assessment: 00:16 General: Appears uncomfortable, well groomed, well developed, well nourished, Behavior me1 is cooperative, appropriate for age, anxious, Reports left upper chest pain that started at 1 pm and has continued intermittently. At worst pain is a 10. Pain: Complains of pain in chest and anterior aspect of left upper chest Pain radiates to left breast Pain currently is 3 out of 10 on a pain scale. at worst was 10 out of 10 on a pain scale. Quality of pain is described as sharp, Pain began at 1 pm. Is intermittent. Neuro: Level of Consciousness is awake, alert, obeys commands, Oriented to person, place, time, situation, Appropriate for age. Cardiovascular: Capillary refill < 3 seconds Patient's skin is warm and dry. Cardiovascular: Reports chest pain. Respiratory: Airway is patent Respiratory effort is even, unlabored, Respiratory pattern is regular, symmetrical. Derm: Skin is pink, warm \T\ dry. 00:20 General: Appears in no apparent distress. comfortable, Behavior is calm, cooperative, km8 appropriate for age. Pain: Complains of pain in head Pain currently is 8 out of 10 on a pain scale. Neuro: Level of Consciousness is awake, alert, obeys commands, Oriented to person, place, time, situation. Cardiovascular: Patient's skin is warm and dry. Respiratory: Airway is patent Respiratory effort is even, unlabored, Respiratory pattern is regular, symmetrical. 01:00 Reassessment: Patient appears in no apparent distress at this time. No changes from km8 previously documented assessment. Patient and/or family updated on plan of care and expected duration. Pain level reassessed. Patient is alert, oriented x 3, equal unlabored respirations, skin warm/dry/pink. 02:10 Reassessment: ASSUMED CARE OF PT. PT LYING IN BED. C/O HEADACHE AND CP. VS STABLE. jj7 ORDERED MEDS GIVEN. 03:00 Reassessment: Patient appears in no apparent distress at this time. No changes from km8 previously documented assessment. Patient and/or family updated on plan of care and expected duration. Pain level reassessed. Patient is alert, oriented x 3, equal unlabored respirations, skin warm/dry/pink. 04:00 Reassessment: Patient appears in no apparent distress at this time. No changes from km8 previously documented assessment. Patient and/or family updated on plan of care and expected duration. Pain level reassessed. Patient is alert, oriented x 3, equal unlabored respirations, skin warm/dry/pink. 04:22 Reassessment: Patient appears in no apparent distress at this time. Patient and/or km8 family updated on plan of care and expected duration. Pain level reassessed. Patient is alert, oriented x 3, equal unlabored respirations, skin warm/dry/pink. Patient states feeling better. Patient states symptoms have improved. 04:34 Reassessment: upon update from Dr. Shah pt stated concern still for right leg km8 numbness and weakness that was not reported to this nurse or Dr. Shah previously; pt reports right leg numbness and tingling starting at 1330 on 05/12/23 when the chest pain started. Vital Signs: 05/11 23:58 BP 132 / 86; Pulse 95; Resp 16; Temp 98; Pulse Ox 99% ; vc1 05/12 00:00 BP 145 / 77; Pulse 76; Resp 16; Pulse Ox 100% on R/A; km8 01:00 BP 122 / 73; Pulse 63; Resp 16; Pulse Ox 97% on R/A; km8 02:10 BP 131 / 78; Pulse 66; Resp 16; Pulse Ox 96% ; Pain 9/10; jj7 03:00 BP 135 / 83; Pulse 72; Resp 16; Pulse Ox 99% on R/A; km8 04:00 BP 114 / 70; Pulse 88; Resp 16; Pulse Ox 97% on R/A; Pain 5/10; km8 05:18 BP 145 / 78; Pulse 87; Resp 16; Temp 98; Pulse Ox 100% ; jj7 02:10 Pain Scale: Adult jj7 04:00 Pain Scale: Adult km8 Lauro Coma Score: 04:57 Eye Response: spontaneous(4). Motor Response: obeys commands(6). Verbal Response: sp4 oriented(5). Total: 15. NIH Stroke Scale Scores: 04:57 NIHSS Score: 0 sp4 ED Course: 05/11 23:32 Patient arrived in ED. mr 23:35 Rossy Rodrigues is Private Physician. mr 23:37 Huber Shah MD is Attending Physician. sp4 23:54 Ling Rocha, RN is Primary Nurse. me1 23:58 Arm band placed on right wrist. EKG completed in triage. Results shown to MD. vc1 23:58 Patient has correct armband on for positive identification. Bed in low position. Call vc1 light in reach. coffee taster on. Pulse ox on. NIBP on. 05/12 00:05 Triage completed. vc1 00:12 XRAY Chest (1 view) In Process Unspecified. EDMS 00:12 Initial lab(s) drawn, by me, sent to lab. Inserted saline lock: 22 gauge in right me1 antecubital area, using aseptic technique. 00:16 Provided Education on: POC. Verbalized understanding. . me1 00:16 No provider procedures requiring assistance completed. Patient maintains SpO2 me1 saturation greater than 95% on room air. 02:24 Warm blanket given. jj7 04:39 Deondre Davila MD is Hospitalizing Provider. sp4 04:51 CT Head Brain wo Cont In Process Unspecified. EDMS 04:51 CT Chest Abdomen Pelvis W/O Contrast In Process Unspecified. EDMS 05:15 Influenza Screen (a \T\ B) Sent. jj7 05:15 SARS RAPID Sent. jj7 06:02 Patient admitted, IV remains in place. jj7 Administered Medications: 00:36 Drug: Diazepam PO 5 mg PO once Route: PO; km8 03:38 Follow up: Response: No adverse reaction km8 00:36 Not Given (pt allergicc): morphineor iv 4 mg IVP once over 4 mins km8 00:36 Drug: Ondansetron IVP 4 mg IVP once; over 2 minutes Route: IVP; Site: right antecubital;km8 03:38 Follow up: Response: No adverse reaction km8 00:36 Drug: Aspirin PO Chewable Tablet 324 mg PO once; 81 mg tablets x 4 Route: PO; km8 03:37 Follow up: Response: No adverse reaction km8 00:36 Drug: NS 0.9% IV 1000 ml IV at 1 bolus Per protocol; 1000 mL bolus Route: IV; Rate: 1 km8 bolus; Site: right antecubital; 03:37 Follow up: IV Status: Completed infusion; IV Intake: 1000ml km8 02:20 Drug: fentaNYL (PF) IVP 50 mcg IVP once Route: IVP; Site: right antecubital; jj7 03:37 Follow up: Response: No adverse reaction km8 02:20 Drug: traMADol PO 100 mg PO once Route: PO; jj7 03:37 Follow up: Response: No adverse reaction km8 03:37 Drug: Ketorolac IVP 30 mg IVP once Route: IVP; Site: right antecubital; km8 04:22 Follow up: Response: No adverse reaction; Pain is decreased km8 03:37 Drug: metoCLOPramide IVP 10 mg IVP once; over 1 to 2 minutes Route: IVP; Site: right [facility] antecubital; 04:22 Follow up: Response: No adverse reaction; Pain is decreased [facility] 03:37 Drug: Acetaminophen PO 1000 mg PO once Route: PO; 8 04:22 Follow up: Response: No adverse reaction; Pain is decreased [facility] 04:20 Drug: Potassium Chloride PO 40 mEq PO once Route: PO; 8 04:56 Follow up: Response: No adverse reaction [facility] Medication: 00:18 VIS not applicable for this client. vc1 Point of Care Testing: Blood Glucose: 05/11 23:58 Blood Glucose: 144 mg/dL; vc1 Ranges: Intake: 05/12 03:37 IV: 1000ml; Total: 1000ml. [facility] Outcome: 04:42 Decision to Hospitalize by Provider. sp4 06:02 Admitted to Med/surg accompanied by nurse, via wheelchair, room 412, Report called to [facility] REPORT FAXED TO 4TH FLOOR 06:02 Condition: improved 06:02 Patient left the ED. jj7 NIH Stroke Scale - NIH Stroke Score Date: 05/13/2023 Time: 04:57 Total Score = 0 10. Dysarthria (speech clarity - read or repeat words) - 0(Normal) 11. Extinction and Inattention (visual/tactile/auditory/spatial/personal) - 0(No abnormality) 1a. Level of Consciousness (LOC) - 0(Alert) 1b. Level of Consciousness (LOC) (Month \T\ Age) - 0(Both) 1c. LOC Commands (Open \T\ Closes Eyes/Claim Review Medical Director) - 0(Both) 2. Best Gaze (Lateral Gaze Paresis) - 0(Normal) 3. Visual Field Loss - 0(No visual loss) 4. Facial Palsy - 0(Normal) 5a. Left Arm: Motor (10-second hold) - 0(No drift) 5b. Right Arm: Motor (10-second hold) - 0(No drift) 6a. Left Leg: Motor (5-second hold - always test supine) - 0(No drift) 6b. Right Leg: Motor (5-second hold - always test supine) - 0(No drift) 7. Limb Ataxia (finger/nose \T\ heel/bolanos - test with eyes open) - 0(Absent) 8. Sensory Loss (pinprick arms/legs/face) - 0(Normal) 9. Best Language: Aphasia (description/naming/reading) - 0(No aphasia) Initials: sp4 Signatures: Dispatcher [employer] EDMilagros Maldonado, Reg Reg Trinidad Cadena, RN RN vc1 Doris Meyer RN RN jj7 Huber Shah MD MD sp4 Ling Rocha RN RN me1 Bethanie Pérez RN RN km8 Corrections: (The following items were deleted from the chart) 04:36 00:20 Neuro: Level of Consciousness is awake, alert, obeys commands, Oriented km8 to person, place, time, situation, km8 06:25 06:25 Patient left the ED. jj7 jj7
[2023-05-13 05:14] LABS: C-Reactive Protein < 2.90 mg/L (<3.00)
[2023-05-13 05:41] LABS: SARS-CoV-2 Antigen CONTROL BLUE LINE VIS/BG OK; SARS-CoV-2 Antigen Rapid Res Negative (Negative)
[2023-05-13] MEDS: CYANOCOBALAMIN 1000MCG/ML INJ SQ ONE ×2 (06:15→09:39)
--- NOTE | 2023-05-13 06:23 | P.HP ---
Certification for Inpatient Patient admitted to: Observation With expected LOS: <2 Midnights Practitioner: I am a practitioner with admitting privileges, knowledge of patient current condition, hospital course, and medical plan of care. Services: Services provided to patient in accordance with Admission requirements found in Title 42 Section 412.3 of the Code of Federal Regulations Patient History Date of Service: 05/13/23 Reason for admission: Chest pain, foot drop. History of Present Illness: 52-year-old female patient with medical history significant for diabetes type 2, hypertension, hyperlipidemia was evaluated for episode of chest pain. She reports persistent chest pain located in the mid chest region radiates into the lower chest region/upper abdomen region on the left. Pain is rated 10 out of 10 in intensity and she reported that she was diagnosed with angina previously. She has not had any recent cardiac workup. She denies episode of nausea, vomiting, fever, chills. She also reports leg weakness and foot drop on the right foot. There is numbness in the second and third toe of the right foot. She also feels that she is having a slapping kind of gait. No actual fall episode. Allergies morphine Allergy (Severe, Verified 08/14/11 07:33) Shortness of breath cephalexin monohydrate [From Keflex] Allergy (Unknown, Verified 08/15/11 11:41) Rash Home Medications: Cholecalciferol (Vitamin D3) [Vitamin D] 1,000 unit PO TUESDAY-Tuesday08/13/11 Desmopressin Acetate [Ddavp] 0.1 mg NS BEDTIME 08/13/11 Insulin Glargine Human [Lantus] 15 unit SQ BEDTIME 08/13/11 Metformin HCl 1,000 mg PO BIDWM 08/13/11 Ranitidine HCl [Zantac 75] 75 mg PO BID 08/13/11 Sulfamethoxazole/Trimethoprim [Bactrim Ds Tablet] 1 each PO BID #0 tablet 08/20/11 Tramadol HCl [Ultram] 50 mg PO TIDP PRN #0 tablet 08/20/11 - Past Medical/Surgical History Diabetic: Yes - Social History Alcohol use: No CD- Drugs: No Caffeine use: Yes Review of Systems General: Unremarkable Eyes: Unremarkable ENT: Unremarkable Respiratory: Unremarkable Cardiovascular: Chest Pain Gastrointestinal: Unremarkable Genitourinary: Unremarkable Musculoskeletal: Foot Pain, As per HPI Integumentary: Unremarkable Neurological: Unremarkable Lymphatics: Unremarkable Physical Examination - Physical Exam General: Alert, Oriented x3 HEENT: Atraumatic Neck: Supple Respiratory: Normal air movement Cardiovascular: Regular rate/rhythm, Normal S1 S2 Gastrointestinal: Soft and benign Musculoskeletal: No swelling Neurological: Normal speech, Normal strength at 5/5 x4 extr - Studies Laboratory Data (last 24 hrs) 05/13/23 05/13/23 05/13/23 00:09 00:09 00:09 WBC 11.70 H Hgb 14.9 Hct 43.7 Plt Count 312 PT 11.1 INR 1.01 Sodium 141 Potassium 2.9 L BUN 9 Creatinine 0.89 Glucose 93 Magnesium 2.5 H Total Bilirubin 0.5 AST 9 L ALT 17 Alkaline Phosphatase 76 Assessment and Plan - Plan Chest pain: Concerning for possible ACS. Will trend troponin, have on telemetry and obtain lipid panel. Will continue aspirin therapy. Will have cardiology evaluate as needed. Foot drop: Concerns for possible neurologic event secondary to vitamin deficiency discharge diabetic neuropathy. Will have vitamin B12 injection given. Will consult neurology for management recommendation. Diabetes type 2: We will monitor blood sugar ACHS, continue sliding scale insulin for glucose management and carb restricted diet. Long-acting insulin to be continued as per outpatient prescription. Hypertension: We will monitor vital signs per unit protocol and continue outpatient antihypertensive medications. Hyperlipidemia: Continue statin therapy. Hyponatremia: Patient is on outpatient desmopressin dose. Will monitor sodium level as per daily labs. Desmopressin dose to be held. Prophylaxis: Lovenox for DVT prophylaxis. CODE STATUS: Full code. Disposition: We will manage her multiple medical issues and she will be discha rged once deemed clinically stable and cleared for ACS. - Advance Directives Does patient have a Living Will: No Does patient have a Durable POA for Healthcare: No
[2023-05-13 06:57] VITALS: O2SAT 100
[2023-05-13] MEDS: INSULIN REGULAR (HUMAN) 100 UNIT/ML SQ SCH (07:30)
[2023-05-13] MEDS: NA CHLORIDE 0.9% 1,000 ML IV SCH (09:31)
[2023-05-13] MEDS: ACETAMINOPHEN 500 MG TAB PO PRN (09:37)
[2023-05-13] MEDS: ENOXAPARIN 40 MG/0.4 ML SQ SCH (09:38)
--- NOTE | 2023-05-13 09:56 | RAD REPORT ---
EXAM DESCRIPTION: CT - Chest Abd Pelvis Wo Con - 05/13/2023 6:34 am CLINICAL HISTORY: The patient is 52 years old and is Female; right lower extremity weakness TECHNIQUE: Axial computed tomography images of the chest, abdomen and pelvis without intravenous con trast. Sagittal and coronal reformatted images were created and reviewed. This CT exam was perfor med using one or more of the following dose reduction techniques: automated exposure control, adjus tment of the mA and/or kV according to patient size, and/or use of iterative reconstruction technique . COMPARISON: CT abdomen and pelvis August 21, 2016. FINDINGS: CHEST: Lungs: 5 mm nodule in the left lung apex. No pulmonary consolidation or ground glass opacities to suggest pneumonia. Pleural space: No pleural effusion or pneumothorax. Heart: Unremarkable. No cardiomegaly. No significant pericardial effusion. No significant c oronary artery calcifications. ABDOMEN: Liver: Unremarkable. Gallbladder and bile ducts: Cholecystectomy without biliary dilatation. Pancreas: Unremarkable. No ductal dilation. Spleen: Unremarkable. No splenomegaly. Adrenals: Unremarkable. No mass. Kidneys and ureters: Unremarkable. No obstructing stones. No hydronephrosis. Stomach and bowel: No bowel dilatation or obstruction. No bowel wall thickening. Previous small bowel resection/anastomosis. Possible small adhesions between the anastomosis in the anterior abdominal wall. PELVIS: Appendix: Appendectomy. Right lower quadrant mesenteric surgical clips anterior to the right psoa s muscle. Bladder: Unremarkable. No stones. Reproductive: Unremarkable as visualized. CHEST, ABDOMEN and PELVIS: Intraperitoneal space: Unremarkable. No significant fluid collection. No free air. Bones/joints: No vertebral compression fracture. No central canal stenosis. Minimal scoliosis. No acute fracture in the pelvis or proximal femora. No acute sternal fracture. No sternoclavicular joint dislocation. No acute rib fracture visualized. Soft tissues: Unremarkable. Vasculature: Unremarkable. No aortic aneurysm. Lymph nodes: Unremarkable. No enlarged lymph nodes. IMPRESSION: 1. 5 mm left upper lobe solid pulmonary nodule. Per Fleischner Society Guidelines, if patient is low risk for malignancy, no routine follow-up imaging is recommended. If patient is high r isk for malignancy, a non-contrast Chest CT at 12 months is optional. If performed and the nodule is stable at 12 months, no further follow-up is recommended. These guidelines do not apply to immunocompromised patients and patients with cancer. Follow up in pa tients with significant comorbidities as clinically warranted. For lung cancer screening, adhere to L chelsey-RADS guidelines. Reference: Radiology. 2017; 284(1):228-43. 2. No acute intra-abdominal obstructive or inflammatory process identified. 3. Postoperative changes as above. Electronically signed by: Kati Willis MD 05/13/2023 05:16 AM CDT Due to temporary technical issues with the PACS/Fluency reporting system, reports are being signed by the in house radiologist without review as a courtesy to ensure prompt reporting. The interpreting r adiologist is fully responsible for the content of the report.
--- NOTE | 2023-05-13 09:56 | RAD REPORT ---
EXAM DESCRIPTION: CT - Head Brain Wo Cont - 05/13/2023 6:34 am CLINICAL HISTORY: The patient is 52 years old and is Female; right lower leg weakness TECHNIQUE: Axial computed tomography images of the head/brain without intravenous contrast. Sagitt al and coronal reformatted images were created and reviewed. This CT exam was performed using one o r more of the following dose reduction techniques: automated exposure control, adjustment of the mA and/or kV according to patient size, and/or use of iterative reconstruction technique. COMPARISON: December 30, 2022. FINDINGS: Brain: Unremarkable. No hemorrhage. No significant white matter disease. No edema. Ventricles: Unremarkable. No ventriculomegaly. Bones/joints: Unremarkable. No acute skull fracture. Soft tissues: Unremarkable. Sinuses: Unremarkable as visualized. No acute sinusitis. Mastoid air cells: No significant mastoid fluid. IMPRESSION: No acute intracranial findings. No hemorrhage. Electronically signed by: Kati Willis MD 05/13/2023 05:07 AM CDT Due to temporary technical issues with the PACS/Fluency reporting system, reports are being signed by the in house radiologist without review as a courtesy to ensure prompt reporting. The interpreting r adiologist is fully responsible for the content of the report.
--- NOTE | 2023-05-13 10:09 | RAD REPORT ---
EXAM DESCRIPTION: RAD - Chest Single View - 05/13/2023 12:10 am CLINICAL HISTORY: The patient is 52 years old and is Female; CHEST PAIN TECHNIQUE: Frontal view of the chest. COMPARISON: No relevant prior studies available. FINDINGS: LUNGS: Unremarkable. No consolidation. PLEURAL SPACE: Unremarkable. No pneumothorax. HEART: Unremarkable. No cardiomegaly. MEDIASTINUM: Unremarkable. Normal mediastinal contour. BONES/JOINTS: Unremarkable. No acute fracture. UPPER ABDOMEN: Unremarkable as visualized. IMPRESSION: No acute cardiopulmonary process. Electronically signed by: Sandra Dee MD 05/13/2023 12:32 AM CDT Due to temporary technical issues with the PACS/Fluency reporting system, reports are being signed by the in house radiologist without review as a courtesy to ensure prompt reporting. The interpreting r adiologist is fully responsible for the content of the report.
[2023-05-13 11:03] VITALS: BMI 22.8
[2023-05-13 12:29] VITALS: TEMP 98
--- NOTE | 2023-05-13 13:04 | P.PN ---
Date of Service: 05/13/23 Pt seen and examined. She denies any chest pain. Pt complains of right foot drop. Pt reports that she fell on her knees 2 weeks ago. No evidence of trauma on her right knee. Consulted Neurology. Pt will need EMG.
[2023-05-13] MEDS: POTASSIUM CL SA 10 MEQ TAB PO SCH (13:46)
--- NOTE | 2023-05-13 16:21 | P.DS ---
Admission Date: 05/13/23 Discharge Date: 05/13/23 Disposition: ROUTINE DISCHARGE Discharge Condition: GOOD Reason for Admission: Chest pain, foot drop. Brief History of Present Illness: 52-year-old female patient with medical history significant for diabetes type 2, hypertension, hyperlipidemia was evaluated for episode of chest pain. She reports persistent chest pain located in the mid chest region radiates into the lower chest region/upper abdomen region on the left. Pain is rated 10 out of 10 in intensity and she reported that she was diagnosed with angina previously. She has not had any recent cardiac workup. She denies episode of nausea, vomiting, fever, chills. She also reports leg weakness and foot drop on the right foot. There is numbness in the second and third toe of the right foot. She also feels that she is having a slapping kind of gait. No actual fall episode. Hospital Course: Pt is a 52yo female with past medical history significant for diabetes type 2, hypertension, and hyperlipidemia who presented with chest pain and right foot drop. The chest pain was located in the mid chest region, radiated into the lower chest region/upper abdomen region on the left with severity of 10 out of 10 in intensity. Pt reported that she was diagnosed with angina previously. She also reported falling on her knees 2 weeks ago. It was subsequently followed by weakness in her leg. She felt like dragging her feet around. On admission, troponin was negative x3 and chest apin resolved. We consulted Neurology for right foot drop. The Neurologist diagnosed her with trauma to peroneal nerve. P was advised to wear right AFO brace for the right foot drop and follow up with neurology in clinic. She was in NAD prior to discharge. Vital Signs/Physical Exam: Temp Pulse Resp BP Pulse Ox 98 F 77 16 136/59 L 94 05/13/23 12:00 05/13/23 12:00 05/13/23 12:00 05/13/23 12:00 05/13/23 12:00 Laboratory Data at Discharge: WBC 11.70 thou/uL (4.3-10.9) H 05/13/23 00:09 Hgb 14.9 g/dL (12.0-15.0) 05/13/23 00:09 Hct 43.7 % (36.0-45.0) 05/13/23 00:09 Plt Count 312 thou/uL (152-406) 05/13/23 00:09 PT 11.1 SECONDS (9.5-12.5) 05/13/23 00:09 INR 1.01 05/13/23 00:09 Sodium 141 mEq/L (136-145) 05/13/23 00:09 Potassium 2.9 mEq/L (3.5-5.1) L 05/13/23 00:09 BUN 9 mg/dL (7-18) 05/13/23 00:09 Creatinine 0.89 mg/dL (0.55-1.02) 05/13/23 00:09 Glucose 93 mg/dL (74-106) 05/13/23 00:09 Magnesium 2.5 mg/dL (1.6-2.4) H 05/13/23 00:09 Total Bilirubin 0.5 mg/dL (0.2-1.0) 05/13/23 00:09 AST 9 U/L (15-37) L 05/13/23 00:09 ALT 17 U/L (13-56) 05/13/23 00:09 Alkaline Phosphatase 76 U/L (45-117) 05/13/23 00:09 Home Medications: Cholecalciferol (Vitamin D3) [Vitamin D] 1,000 unit PO TUESDAY-Tuesday08/13/11 Desmopressin Acetate [Ddavp] 0.1 mg NS BEDTIME 08/13/11 Metformin HCl 1,000 mg PO BIDWM 08/13/11 Ranitidine HCl [Zantac 75] 75 mg PO BID PRN 08/13/11 Potassium Chloride 20 meq PO DAILY 5 Days #5 tab 05/13/23 New Medications: Potassium Chloride 20 meq PO DAILY 5 Days #5 tab Physician Discharge Instructions: Continue ad lizeth activity. Wear the right foot AFO and continue physical therapy. Follow up with PCP and neurology within 2 weeks in clinic. Diet: AHA Activity: Ad lizeth Followup: John Otero MD [ASSOCIATE-ACTIVE - CAN ADMIT] - (call for an appointment for 3-4 weeks if no issues.) RONA AGUILAR PA [Primary Care Provider] -
[2023-05-13 16:34] VITALS: BP 127/57
[2023-05-13] MEDS: ACETAMIN/CAFFEINE/BUTALB TAB PO ONE (17:16)
--- NOTE | 2023-05-13 20:16 | CON ---
Reason For Consultation: Consultation called because of the right footdrop. History Of Present Illness: Ms. Cardoso is a 52-year-old patient with insulin-dependent diabetes [place] itus and hypertension along with dyslipidemia who came to [facility] on 05/13/2023 with valerie re sternal chest pain and is being worked up for angina. Regarding the footdrop, she apparently fell about 2 weeks ago, hitting both knees, but more on the right side. Subsequently, she has had diffic ulty elevating her right foot and has had numbness between the second and the third toes of the right foot. In addition, there is numbness in the anterior leg. Symptoms have remained fairly stable sin ce onset. She is able to push the foot down, but has difficulty lifting or elevating the foot. Sin e hospitalization, her workup did include a head CT scan which showed no acute ischemic or hemorrhagi c changes. Laboratory Studies: Showed slightly elevated white cell count of 11.7 and RBC slightly elevated to 4 .9, otherwise essentially unremarkable. Normal INR of 1.01. Her blood glucose ranged from 83 and di d go up to 144. Otherwise, she was hypokalemic with potassium 2.9. Liver function studies unremarka ble. TSH normal 1.84, free T4 normal at 0.88, and COVID testing was negative. Chest, abdomen, and p flory CT scan did not show any significant abnormality. She did have appendectomy with the mesenteri c surgical clips. Past Medical History: As noted. Allergies: MORPHINE AND CEPHALEXIN. Medications: Vitamin D 1000 units Tuesday through . Desmopressin 0.1 mg at night. Lantus in sulin 15 units at bedtime. Metformin 1000 mg twice daily. Zantac 75 mg twice daily. Bactrim DS, an d tramadol 50 mg 3 times daily as needed. Social History: Patient lives with the . No alcohol, tobacco, or IV drug use. Caffeinated b everages, she admits to drinking. Family History: Noncontributory. Review of Systems: Besides the right footdrop and the chest pain, she denies any fevers or chills. No nausea or vomitin g. Mild myalgias in the right lower extremity and arthralgias as well. Otherwise, negative on a 10 point systems review. Physical Examination: Vital Signs: Blood pressure 127/57, pulse 71, respiratory rate 16, temperature 98, oxygen saturation 97%. Weight 125 pounds. Height 5 feet 2 inches, BMI 22.9. General: Ms. Carodso is sitting at the side of the bed. Her is sitting in a chair beside the bed. HEENT: She appears normocephalic, atraumatic. Sclerae anicteric. Oropharynx pink and moist. Neck: Supple. Chest: Clear. Heart: Regular. Extremities: Show no significant clubbing, cyanosis, or edema. Neurological: On cranial nerves, she has no focal deficits. Motor; upper extremity, no focal defici ts there. In the lower extremity, no significant foot dorsiflexion noted around 0 to 1, plantar flex ion at least 4/5. She is able to stand on both tiptoes, but has poor balance issues and had to be as sisted, so she did not fall, proximally mild weakness in the right lower extremity with perhaps relat ed to anticipation of falling. Sensation; decreased sensation in the right anterior leg and then bet ween the big toe and the third toe on the right foot. Cord reflexes are intact. In the L4, she has 2+ on the left and right and on the heels, 1+ bilaterally, 2+ in the upper extremities at the biceps and brachioradialis. For gait, she will be ambulated with the physical therapist and she has a shelli age gait. Her ability to ambulate will improve with the right AFO. Assessment And Plan: Ms. Cardoso is a 52-year-old patient with diabetes mellitus, hypertension, and h as hypokalemia. She has a right footdrop after falling likely impacting the fibular head on the righ t and affecting the peroneal nerve causing a footdrop. She should use the right AFO. Also, she will benefit from physical therapy in an outpatient basis especially if she is able to go to outpatient t herapy close to her home and perhaps her can help facilitate that. She may apply the Voltare n cream to the right lateral knee twice daily. If the area becomes painful, may consider gabapentin 100 mg twice daily. After discharge, she may follow up in Dr. Otero's clinic within the month. ARELIS/ANDREWS Voice ID: [id number] Report ID: [id number]
--- NOTE | 2023-05-16 14:28 | EKG ---
Test Date: 2023-05-12 Test Time: 23:39:53 Shipping And Receiving: TAMMIE MEASUREMENT RESULTS: Intervals: Rate: 88 [place]: 132 QRSD: 92 QT: 374 QTc: 452 [place]: P: 67 [place]: 132 QRS: 57 T: 63 INTERPRETIVE STATEMENTS: Normal sinus rhythm Normal ECG Compared to ECG 08/13/2011 06:21:42 No significant changes Electronically Signed On 05-16-23 14:17:19 CDT by Pop Suero
== END 2023-05-13 18:46 | disposition home or self-care (01) ==
LOC: ER 23:30 → 4TH 05-13 04:40
PROVIDERS: ADMIT Internal Medicine Nephrology; ATTEND Hospitalist
DX: E11.9 Type 2 diabetes mellitus without complications (principal); M21.371 Foot drop, right foot; E78.5 Hyperlipidemia, unspecified; E87.1 Hypo-osmolality and hyponatremia; I10 Essential (primary) hypertension; R53.1 Weakness; Z88.5 Allergy status to narcotic agent; Z91.81 History of falling; Z88.1 Allergy status to other antibiotic agents; R07.9 Chest pain, unspecified; Z11.52 Encounter for screening for COVID-19
CPT/HCPCS: 96361; 93005; 85025; 80048; 36415; 83735; 85610; 82947 ×4; 85379; 80076; 84443; 84484 ×5; 84439; 83880; 86140; 87804 ×2; 70450; 71250; 74176; 71045; 96375; 96374; 99285; 87811; J3420; J2765; J1650; J3010; J2405; J7030 ×2; G0378 ×2

== ENCOUNTER 2024-12-05 19:41 | Emergency (ER) | payer BC, OTHER ==
--- OUTSIDE RECORDS SUMMARY | 2024-12-05 19:49 | XMS REPORT | Continuity of Care Document ---
Author Name Unknown Address [address] [facility] [place] [address] [facility] [place] Address [address] [facility] [address] [place] [address] Care Team Providers Care Braider Setter Name Role Phone ANDRES MORTENSEN Primary Care Physician Unavailab le DOCTOR UNASSIGNED, NO NAME Attending Clinician U LUCIUS Dos Santos Attending Clinician Unavailable LUCIUS CROSS Attending Clinician Unavailable ROSSY RODRIGUES Attending Clinician Unavailable MARCOS CHAMBERS Attending Clinician Unavailable RADHA FERNANDO Attending Clinician Unavailable Radha Fernando NP Attending Clinician DR ANDRES MORTENSEN Attending Clinician Unavailable [id number] Attending Clinician Unavailable [id number] Attending Clinician Unavailable RADHA, DR ROEL FORDE Attending Clinician Raya vailable GARCIA, DR ROEL FORDE Attending Clinician Raya vailable IRIS, DR MADERA Attending Clinician Unavailable FIESVIN, DR MADERA Attending Clinician Unavailable ARIN DIAZ Attending Clinician Unavailable Cayla Attending Clinician Unavailable Jill Attending Clinician Unavailable RADIOLOGY Attending Clinician Unavailable Cruz Attending Clinician Unavailable Doctor Unassigned, [place] Attending Clinician U navailable Alyson EDWARDS, Ya Camarena Attending Clinician YA SHIELDS Attending Clinician Unavailab LEIGH Greco Attending Clinician Unavailchristina Valera Attending Clinician Unavailable EDIN, DR LITZY ELLER Attending Clinician Unava ilable BA, DR COLES Attending Clinician Unavailable KARIN SEVILLA Attending Clinician UnavailKARIN Piper Attending Clinician UnavailRENATO Thorpe Attending Clinician Unavailable DOCTOR UNASSIGNED, NO NAME Admitting Clinician U navailable BLAISE BRANDT Admitting Clinician Unavailchristina MORTENSEN, DR CAMPOS Admitting Clinician Unavailable RADHA, DR ROEL FORDE Admitting Clinician Raya vailable IRIS, DR MADERA Admitting Clinician Unavailable Cayla Admitting Clinician Unavailable Jill Admitting Clinician Unavailable Cruz Admitting Clinician Unavailable YA SHIELDS Admitting Clinician Unavailab rich Valera Admitting Clinician Unavailable EDIN, DR LITZY ELLER Admitting Clinician Unava ilable BA, DR COLES Admitting Clinician Unavailable EMERGENCY ROOM, EMERGENCY Admitting Clinician Un available Payers Payer Name Policy Type Policy Number Effective Date Expirati on Date Source [facility] [id number] 2023 00:00:00 [facility] [id number] 2024 00:00:00 [facility] [id number] 2023 00:00:00 [place] [id number] 2023 00:00:00 [facility] 4 (O) [id number] [facility] [place] [facility] [place] ([facility]) [id number] [facility] [id number] 2022 00:00:00 2023 00:00:00 [facility] ([facility] [id number] [facility] ([facility]) [id number] 2022 00:00:00 Problems Condition Name Condition Details Condition Category Status Onset Date Resolution Date Last Treatment Date Treating Clinician Comments Source Hypertensi ve disorder Hypertensi ve Disorder Problem Active 2023-02 0-07 00:00: 00 [facility] Type 2 diabetes mellitus Type 2 Diabetes Mellitus Problem Active 08-23 00:00: 00 [facility] Hyperlipid emia Hyperlipid emia Problem Active 08-23 00:00: 00 [facility] Mixed anxiety and depressive disorder Mixed Anxiety and Depressive Disorder Problem Active 08-23 00:00: 00 [facility] Folic acid deficiency Folic Acid Deficiency Problem Active 05-10 00:00: 00 [facility] Essential hypertensi on Essential Hypertensi on Problem Active 05-10 00:00: 00 [facility] Microscopi c hematuria Microscopi c Hematuria Problem Active 2022-02 0-16 00:00: 00 [facility] Diabetes insipidus Diabetes Insipidus Problem Active 5 00:00: 00 [facility] Diabetes mellitus Diabetes Mellitus Problem Active 2018-02 00:00: 00 [facility] Vitamin D deficiency Vitamin D Deficiency Problem Active 2018-02 00:00: 00 [facility] Hyperchole sterolemia Hyperchole sterolemia Problem Active 2018-02 00:00: 00 [facility] Hypertrigl yceridemia Hypertrigl yceridemia Problem Active 2018-02 00:00: 00 [facility] Endometrio sis (clinical) Endometrio sis (Clinical) Problem Active 2018-02 00:00: 00 [facility] 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 Problem Active 2018-02 00:00: 00 [facility] Atrophic vaginitis Atrophic Vaginitis Problem Active 2018-02 00:00: 00 [facility] Folic acid below reference range Folic Acid below Reference Range Problem Active 2018-02 00:00: 00 [facility] Atrophic vaginitis Atrophic vaginitis Disease Active 2018-02 00:00: 00 [facility] Endometrio sis Endometrio sis Disease Active 2018-02 00:00: 00 [facility] BMI 31.0-31.9, adult BMI 31.0-31.9, adult Disease Active 2018-02 00:00: 00 [facility] Contracept dorota management Contracept dorota management Disease Active 09-29 00:00: 00 [facility] Obesity (BMI 30.0-34.9) Obesity (BMI 30.0-34.9) Disease Active 09-29 00:00: 00 [facility] Controlled type 2 diabetes mellitus without complicati on Controlled type 2 diabetes mellitus without complicati on Disease Active 09-29 00:00: 00 [facility] Essential hypertensi on, benign Essential hypertensi on, benign Disease Active 09-29 00:00: 00 [facility] History of tubal ligation History of tubal ligation Disease Active 09-29 00:00: 00 [facility] Irregular menstrual cycle Irregular menstrual cycle Disease Active 09-29 00:00: 00 [facility] Secondary diabetes insipidus Secondary Diabetes Insipidus Problem Active 2008-02 00:00: 00 [facility] Chronic kidney disease due to type 2 diabetes mellitus TYPE 2 DIABETES MELLITUS WITH DIABETIC CHRONIC KIDNEY DISEASE active [id number] SNOMED-CT Problem 2018-05-26 11:20:21 [facility] Neurohypop hyseal diabetes insipidus CENTRAL DIABETES INSIPIDUS active [id number] SNOMED-CT Problem 2018-05-26 11:20:21 [facility] Chronic kidney disease stage 2 CHRONIC KIDNEY DISEASE, STAGE 2 (MILD) active [id number] SNOMED-CT Problem 2018-01-07 12:04:28 [facility] Seasonal allergic rhinitis OTHER SEASONAL ALLERGIC RHINITIS active [id number] SNOMED-CT Problem 2018-01-07 12:05:06 [facility] Allergies, Adverse Reactions, Alerts Allergy Name Allergy Type Status Severity Reaction(s) Onset Date Inactive Date Treating Clinician Comments Source FLUCONAZ OLE DRUG INGREDI Active Other-Cmnt 04-25 00:00: 00 [facility] Fluconaz ole Propensi ty to adverse reaction s Active Other - See comments 04-25 00:00: 00 Blisters [facility] Iodine Propensi ty to adverse reaction s Active Other - See comments 07-18 00:00: 00 Burning pain, feels like her veins are going to explode [facility] IODINE DRUG INGREDI Active Other-Cmnt 07-18 00:00: 00 [facility] Cephalex in Propensi ty to adverse reaction s Active Other - See comments 10-15 00:00: 00 Lumps [facility] CEPHALEX IN DRUG INGREDI Active Other-Cmnt 10-15 00:00: 00 [facility] Morphine Drug Intolera nce Active Itching 03-24 00:00: 00 [facility] MORPHINE DRUG INGREDI Active ITCHING 03-24 00:00: 00 [facility] Morphine DA Active Unknown 05-22 00:00: 00 [facility] KEFLEX Drug allergy (disorde r) Active Hives, Rash [facility] Morphine Allergy to substanc e Active [facility] Fluconaz ole Allergy to substanc e Active Photosensiti vity [facility] Magnesiu m Allergy to substanc e Active [facility] MORPHINE DA Active SEVERE Rash; Hives [facility] KEFLEX DA Active SEVERE Rash; Hives [facility] MORPHINE Drug allergy (disorde r) Active Hives, Rash [facility] Social History Social Habit Start Date Stop Date Quantity Comments Source [facility] Alcoholic beverage intake 2023-03-15 00:00:00 2023-03-15 00:00:00 Current non-drinker of alcohol (finding) [facility] Alcohol intake 2022-10-25 00:00:00 2022-10-25 00:00:00 Current non-drinker of alcohol (finding) [facility] History of Social function 2019-09-23 00:00:00 2019-09-23 00:00:00 [facility] Tobacco use and exposure 2017-09-29 00:00:00 2017-09-29 00:00:00 Smokeless tobacco non-user [facility] Sex assigned at 1970 00:00:00 1970 00:00:00 [facility] Smoking Status Start Date Stop Date Source Never smoker (Never Smoked) Medications Ordered Medication Name Filled Medication Name Start Date Stop Date Current Medication? Ordering Clinician Indication Dosage Frequency Signature (SIG) Comments Components Source ketorolac (TORADOL) injection 30 mg 04-25 16:30: 00 04-25 17:38 :00 No 30mg 30 mg, Slow IV Push, ONCE, 1 dose, On Tue04/25/24 at 1030, MELVIN [facility] sodium chloride (NS) injection 5 mL 04-25 16:15: 52 Yes 5mL 5 mL, Intravenou s, PRN, Starting on Tue04/25/24 at 1015, Until Discontinu ed, Routine, IV line flushing [facility] amoxicillin -pot clavulanate 500-125 mg tablet 04-25 00:00: 00 Yes [id number] 500mg Take 1 tablet by mouth every 8 (eight) hours. [facility] norethindro ne (contracept dorota) 0.35 mg tablet Take 1 tablet every day by oral route. norethindro ne (contracept dorota) 0.35 mg tablet Take 1 tablet every day by oral route. 11-01 00:00: 00 No norethindr one (contracep tive) 0.35 mg tablet Take 1 tablet every day by oral route. [facility] acetaminoph en 300 mg-codeine 30 mg [...] oral route as needed for 7 days. [facility] ketorolac (TORADOL) injection 30 mg 10-26 02:00: 00 10-26 01:21 :00 No 30mg 30 mg, Slow IV Push, ONCE, 1 dose, On Tue10/25/22 at 2100, Routine [facility] HYDROcodone -acetaminop hen (NORCO 5) 5-325 mg tablet 1 tablet 10-26 01:45: 00 10-26 01:49 :00 No 1{tbl} 1 tablet, Oral, ONCE, 1 dose, On Tue10/25/22 at 2045, MELVIN [facility] Ozempic 0.25 mg or 0.5 mg [...] [facility] atorvastati n 10 mg tablet Take 1 tablet every day by oral route in the evening. atorvastati n 10 mg tablet Take 1 tablet every day by oral route in the evening. 08-19 00:00: 00 No atorvastat in 10 mg tablet Take 1 tablet every day by oral route in the evening. [facility] D3-2000 50 mcg (2,000 unit) capsule TAKE 1 TABLET BY MOUTH DAILY D3-2000 50 mcg (2,000 unit) capsule TAKE 1 TABLET BY MOUTH DAILY 08-19 00:00: 00 No D3-2000 50 mcg (2,000 unit) capsule TAKE 1 TABLET BY MOUTH DAILY [facility] lisinopril 5 mg tablet Take 1 tablet every day by oral route in the morning. lisinopril 5 mg tablet Take 1 tablet every day by oral route in the morning. 08-19 00:00: 00 No lisinopril 5 mg tablet Take 1 tablet every day by oral route in the morning. [facility] metformin ER 500 mg tablet,exte nded release 24 hr TAKE 2 TABLETS BY MOUTH TWICE DAILY metformin ER 500 mg tablet,exte nded release 24 hr TAKE 2 TABLETS BY MOUTH TWICE DAILY 08-19 00:00: 00 No metformin ER 500 mg tablet,ext ended release 24 hr TAKE 2 TABLETS BY MOUTH TWICE DAILY [facility] Accu-Chek Guide test strips Check glucose bid Accu-Chek Guide test strips Check glucose bid 08-09 00:00: 00 No Accu-Chek Guide test strips Check glucose bid [facility] Accu-Chek Guide Me Glucose Meter USE DAILY DIRECTED Accu-Chek Guide Me Glucose Meter USE DAILY DIRECTED 05-24 00:00: 00 No Accu-Chek Guide Me Glucose Meter USE DAILY DIRECTED [facility] Ozempic 1 mg/dose (4 mg/3 mL) subcutaneou s pen injector Inject 1 mg every week by subcutaneou s route for 90 days. Ozempic 1 mg/dose (4 mg/3 mL) subcutaneou s pen injector Inject 1 mg every week by subcutaneou s route for 90 days. 2021-02 00:00: 00 No Ozempic 1 mg/dose (4 mg/3 mL) subcutaneo us pen injector Inject 1 mg every week by subcutaneo us route for 90 days. [facility] metFORMIN 1,000 mg tablet 04-10 11:33: 55 Yes metformin 1,000 mg tablet Take 1 tablet twice a day by oral route for 90 days. [facility] gemfibrozil 600 mg tablet 18 11:33: 54 Yes gemfibrozi l 600 mg tablet Take 1 tablet twice a day by oral route as needed for 90 days. [facility] ergocalcife rol, vitamin d2, 1,250 mcg (50,000 unit) capsule 18 11:33: 47 Yes Vitamin D2 1,250 mcg (50,000 unit) capsule Take 1 capsule every week by oral route as directed for 56 days. [facility] MICROGESTIN 1.5/30 1.5-30 mg-mcg per tablet 1-15 00:00: 00 Yes TAKE 1 TABLET BY MOUTH ONCE DAILY CONTINOUS ACTIVE PILL [facility] metFORMIN HCl 500MG Oral Tablet, Extended Release metFORMIN HCl 500MG Oral Tablet, Extended Release 6 00:00: 00 Yes 1TABLET metFORMIN HCl 500MG Oral Tablet, Extended Release 08/11/2018 Unknown BY MOUTH Twice A Day 1 TABLET [id number] RxNorm TAKE 1 TABLET BY MOUTH TWICE DAILY [facility] metFORMIN HCl 500MG Oral Tablet, Extended Release metFORMIN HCl 500MG Oral Tablet, Extended Release 08-11 00:00: 00 Yes 1TABLET metFORMIN HCl 500MG Oral Tablet, Extended Release 08/11/2018 Unknown BY MOUTH Twice A Day 1 TABLET [id number] RxNorm TAKE 1 TABLET BY MOUTH TWICE DAILY [facility] Desmopressi n 0.2MG Oral Tablet Desmopressi n 0.2MG Oral Tablet -05 00:00: 00 Yes 1TABLET Desmopress in 0.2MG Oral Tablet 05/26/2018 Unknown BY MOUTH Evening 1 TABLET RxNorm TAKE 1 TABLET BY MOUTH Evening [facility] metFORMIN HCl 500MG Oral Tablet, Extended Release metFORMIN HCl 500MG Oral Tablet, Extended Release -05 00:00: 00 Yes 1TABLET metFORMIN HCl 500MG Oral Tablet, Extended Release 05/26/2018 Unknown BY MOUTH Twice A Day 1 TABLET [id number] RxNorm TAKE 1 TABLET BY MOUTH Twice A Day [facility] Microgestin 1.5/30 30MCG-1.5MG Oral Tablet Microgestin 1.5/30 30MCG-1.5MG Oral Tablet 05-26 00:00: 00 Yes 1TABLET Microgesti n 1.5/30 30MCG-1.5M G Oral Tablet 05/26/2018 Unknown BY MOUTH Daily 1 TABLET [id number] RxNorm TAKE 1 TABLET BY MOUTH Daily [facility] metFORMIN HCl 500MG Oral Tablet, Extended Release metFORMIN HCl 500MG Oral Tablet, Extended Release 05-26 00:00: 00 Yes 1TABLET metFORMIN HCl 500MG Oral Tablet, Extended Release 05/26/2018 Unknown BY MOUTH Twice A Day 1 TABLET [id number] RxNorm TAKE 1 TABLET BY MOUTH Twice A Day [facility] Desmopressi n 0.2MG Oral Tablet Desmopressi n 0.2MG Oral Tablet 03-17 00:00: 00 05-26 00:00 :00 No 1TABLET Desmopress in 0.2MG Oral Tablet 03/17/2018 05/26/2018 BY MOUTH Daily 1 TABLET RxNorm TAKE 1 TABLET BY MOUTH Daily [facility] metFORMIN HCl 500MG Oral Tablet, Extended Release metFORMIN HCl 500MG Oral Tablet, Extended Release 2017-02 00:00: 00 08-11 00:00 :00 No 1TABLET metFORMIN HCl 500MG Oral Tablet, Extended Release 01/10/2018 08/11/2018 BY MOUTH Twice A Day 1 TABLET [id number] RxNorm TAKE 1 TABLET BY MOUTH Twice A Day [facility] Aspirin 81MG Oral Tablet, Enteric Coated Aspirin 81MG Oral Tablet, Enteric Coated 2017-02 00:00: 00 Yes 1TABLET Aspirin 81MG Oral Tablet, Enteric Coated 01/09/2018 Unknown BY MOUTH Daily 1 TABLET [id number] RxNorm TAKE 1 TABLET BY MOUTH Daily [facility] Julyl 1.5/30 30MCG-1.5MG Oral Tablet Julyl 1.530 30MCG-1.5MG Oral Tablet 2017-02 00:00: 00 05-26 00:00 :00 No 1TABLET Junel 1.5/30 30MCG-1.5M G Oral Tablet 01/09/2018 05/26/2018 BY MOUTH Daily 1 TABLET [id number] RxNorm TAKE 1 TABLET BY MOUTH Daily [facility] Desmopressi n 0.2MG Oral Tablet Desmopressi n 0.2MG Oral Tablet 2017-02 00:00: 00 03-17 00:00 :00 No 1TABLET Desmopress in 0.2MG Oral Tablet 01/09/2018 03/17/2018 BY MOUTH Daily 1 TABLET RxNorm TAKE 1 TABLET BY MOUTH Daily [facility] metFORMIN HCl 500MG Oral Tablet, Extended Release metFORMIN HCl 500MG Oral Tablet, Extended Release 2017-02 00:00: 00 01-10 00:00 :00 No 1TABLET metFORMIN HCl 500MG Oral Tablet, Extended Release 01/09/2018 01/10/2018 BY MOUTH Every Morning 1 TABLET [id number] RxNorm TAKE 1 TABLET BY MOUTH Every Morning [facility] desmopressi n 0.2 mg tablet TAKE ONE (1) TABLET(S) BY MOUTH EVERY EVENING. desmopressi n 0.2 mg tablet TAKE ONE (1) TABLET(S) BY MOUTH EVERY EVENING. No desmopress in 0.2 mg tablet TAKE ONE (1) TABLET(S) BY MOUTH EVERY EVENING. [facility] glipizide 5 mg tablet TAKE ONE (1) TABLET(S) BY MOUTH TWICE A DAY. glipizide 5 mg tablet TAKE ONE (1) TABLET(S) BY MOUTH TWICE A DAY. No glipizide 5 mg tablet TAKE ONE (1) TABLET(S) BY MOUTH TWICE A DAY. [facility] OneTouch UltraSoft Lancets USE DIRECTED DAILY TO TEST BLOOD GLUCOSE LEVELS. OneTouch UltraSoft Lancets USE DIRECTED DAILY TO TEST BLOOD GLUCOSE LEVELS. No OneTouch UltraSoft Lancets USE DIRECTED DAILY TO TEST BLOOD GLUCOSE LEVELS. [facility] terbinafine HCl 250 mg tablet TAKE ONE (1) TABLET(S) BY MOUTH DAILY. terbinafine HCl 250 mg tablet TAKE ONE (1) TABLET(S) BY MOUTH DAILY. No terbinafin e HCl 250 mg tablet TAKE ONE (1) TABLET(S) BY MOUTH DAILY. [facility] tramadol 50 mg tablet TAKE ONE (1) TABLET(S) BY MOUTH EVERY SIX HOURS NEEDED FOR PAIN. tramadol 50 mg tablet TAKE ONE (1) TABLET(S) BY MOUTH EVERY SIX HOURS NEEDED FOR PAIN. No tramadol 50 mg tablet TAKE ONE (1) TABLET(S) BY MOUTH EVERY SIX HOURS NEEDED FOR PAIN. [facility] atorvastati n 10 mg tablet TAKE ONE (1) TABLET(S) BY MOUTH ONCE IN THE EVENING. atorvastati n 10 mg tablet TAKE ONE (1) TABLET(S) BY MOUTH ONCE IN THE EVENING. No 1 Q1D atorvastat in 10 mg tablet TAKE ONE (1) TABLET(S) BY MOUTH ONCE IN THE EVENING. [facility] Benadryl Allergy Benadryl Allergy No Benadryl Allergy [facility] desmopressi n 0.2 mg tablet TAKE 1 TABLET BY MOUTH EVERY DAY IN THE EVENING desmopressi n 0.2 mg tablet TAKE 1 TABLET BY MOUTH EVERY DAY IN THE EVENING No desmopress in 0.2 mg tablet TAKE 1 TABLET BY MOUTH EVERY DAY IN THE EVENING [facility] ibuprofen 800 mg tablet TAKE 1 TABLET BY MOUTH EVERY 8 HOURS NEEDED FOR PAIN ibuprofen 800 mg tablet TAKE 1 TABLET BY MOUTH EVERY 8 HOURS NEEDED FOR PAIN No ibuprofen 800 mg tablet TAKE 1 TABLET BY MOUTH EVERY 8 HOURS NEEDED FOR PAIN [facility] Ozempic 1 mg/dose (4 mg/3 mL) subcutaneou s pen injector INJECT ONE (1) MG UNDER THE SKIN ONCE WEEKLY. Ozempic 1 mg/dose (4 mg/3 mL) subcutaneou s pen injector INJECT ONE (1) MG UNDER THE SKIN ONCE WEEKLY. No 1mg Q1W Ozempic 1 mg/dose (4 mg/3 mL) subcutaneo us pen injector INJECT ONE (1) MG UNDER THE SKIN ONCE WEEKLY. [facility] Accu-Chek Fastclix Lancet Drum USE ONE (1) LANCET ONCE A DAY TO CHECK GLUCOSE. Accu-Chek Fastclix Lancet Drum USE ONE (1) LANCET ONCE A DAY TO CHECK GLUCOSE. No Accu-Chek Fastclix Lancet Drum USE ONE (1) LANCET ONCE A DAY TO CHECK GLUCOSE. [facility] PreviDent 5000 Booster Plus 1.1 % dental paste BRUSH THE TEETH TWICE A DAY. DO NOT EAT OR DRINK FOR 30 MINS AFTER. PreviDent 5000 Booster Plus 1.1 % dental paste BRUSH THE TEETH TWICE A DAY. DO NOT EAT OR DRINK FOR 30 MINS AFTER. No PreviDent 5000 Booster Plus 1.1 % dental paste BRUSH THE TEETH TWICE A DAY. DO NOT EAT OR DRINK FOR 30 MINS AFTER. [facility] D3-2000 50 mcg (2,000 unit) capsule TAKE 1 TABLET BY MOUTH DAILY D3-2000 50 mcg (2,000 unit) capsule TAKE 1 TABLET BY MOUTH DAILY No D3-2000 50 mcg (2,000 unit) capsule TAKE 1 TABLET BY MOUTH DAILY [facility] OneTouch Delica Plus Lancet 33 gauge OneTouch Delica Plus Lancet 33 gauge No OneTouch Delica Plus Lancet 33 gauge [facility] OneTouch Verio Flex Meter USE DAILY DIRECTED. OneTouch Verio Flex Meter USE DAILY DIRECTED. No OneTouch Verio Flex Meter USE DAILY DIRECTED. [facility] OneTouch Verio test strips CHECK GLUCOSE TWICE A DAY. OneTouch Verio test strips CHECK GLUCOSE TWICE A DAY. No OneTouch Verio test strips CHECK GLUCOSE TWICE A DAY. [facility] Deblitane 0.35 mg tablet TAKE ONE (1) TABLET(S) BY MOUTH ONCE A DAY. Deblitane 0.35 mg tablet TAKE ONE (1) TABLET(S) BY MOUTH ONCE A DAY. No Deblitane 0.35 mg tablet TAKE ONE (1) TABLET(S) BY MOUTH ONCE A DAY. [facility] Immunizations Ordered Immunization Name Filled Immunization Name Date Status Comments Source pneumococcal polysaccharide PPV23 pneumococcal polysaccharide PPV23 2015-11-03 00:00:00 Completed [facility] tetanus toxoid, adsorbed tetanus toxoid, adsorbed 2015-11-03 00:00:00 Completed [facility] influenza, unspecified formulation influenza, unspecified formulation Unknown Completed [facility] COVID-19 (SARS-COV-2) vaccine, unspecified COVID-19 (SARS-COV-2) vaccine, unspecified Unknown Completed [facility] Tdap Tdap Unknown Completed [facility] pneumococcal polysaccharide PPV23 pneumococcal polysaccharide PPV23 Unknown Completed [facility] zoster recombinant zoster recombinant Unknown Completed [facility] pneumococcal polysaccharide PPV23 pneumococcal polysaccharide PPV23 Unknown Completed [facility] Tdap Tdap Unknown Completed [facility] Vital Signs Vital Name Observation Time Observation Value Comments S ource BP Systolic 2024-11-19 00:00:00 145 mm[Hg] Rogel torrie [facility] BP Diastolic 2024-11-19 00:00:00 72 mm[Hg] Vincenzo agorda [facility] Body Weight 2024-11-19 00:00:00 2292 [oz_av] Ma tagorda [facility] Height 2024-11-19 00:00:00 61 [in_i] Laura orda [facility] BMI (Body Mass Index) 2024-11-19 00:00:00 27.1 kg/m2 [facility] BMI (Body Mass Index) 2024-05-01 00:00:00 24.9 kg/m2 [facility] BP Diastolic 2024-05-01 00:00:00 82 mm[Hg] Vincenzo jonesrda [facility] Height 2024-05-01 00:00:00 61 [in_i] Laura andujara [facility] Body Weight 2024-05-01 00:00:00 131.6 [lb_av] M atagorda [facility] BP Systolic 2024-05-01 00:00:00 143 mm[Hg] Rogelney diamonda [facility] Systolic blood pressure 2024-04-25 20:05:06 146 mm[Hg] [facility] Diastolic blood pressure 2024-04-25 20:05:06 81 mm[Hg] [facility] Heart rate 2024-04-25 20:05:06 79 /min [facility] Body temperature 2024-04-25 20:05:06 37.28 Renu [facility] Respiratory rate 2024-04-25 20:05:06 20 /min [facility] Oxygen saturation in Arterial blood by Pulse oximetry 2024-04-25 20:05:06 97 /min [facility] Body height 2024-04-25 15:51:[address] [facility] Body weight 2024-04-25 15:51:[address] [facility] BMI 2024-04-25 15:51:00 24.56 kg/m2 [facility] BP Diastolic 2024-04-18 00:00:00 83 mm[Hg] Mat agorda [facility] Height 2024-04-18 00:00:00 61 [in_i] Laura orda [facility] Body Weight 2024-04-18 00:00:00 2089 [oz_av] Nicolette tagorda [facility] BMI (Body Mass Index) 2024-04-18 00:00:00 24.7 kg/m2 [facility] BP Systolic 2024-04-18 00:00:00 135 mm[Hg] Rogel torrie [facility] Height 2023-11-28 00:00:00 61 [in_i] Laura orda [facility] Body Weight 2023-11-28 00:00:00 1969 [oz_av] Nicolette tagorda [facility] BMI (Body Mass Index) 2023-11-28 00:00:00 23.3 kg/m2 [facility] BP Diastolic 2023-11-28 00:00:00 68 mm[Hg] Mat agorda [facility] BP Systolic 2023-11-28 00:00:00 133 mm[Hg] Rogel torrie [facility] Systolic Blood Pressure 2023-10-23 12:28:00 133 mm[Hg] Diastolic Blood Pressure 2023-10-23 12:28:00 78 mm[Hg] Oxygen Saturation 2023-10-23 12:28:00 97 % Heart Rate 2023-10-23 12:28:00 87.0 /min Respiratory Rate 2023-10-23 12:28:00 17 /min Body Temperature 2023-10-23 12:28:00 36.7 Renu Body Mass Index 2023-10-23 11:59:00 21.03 kg/m2 [facility] Blood Pressure 2023-10-23 11:59:00 119 mm[Hg] Diastolic Blood Pressure 2023-10-23 11:59:00 61 mm[Hg] Body Height 2023-10-23 11:59:00 157.4800 cm Oxygen Saturation 2023-10-23 11:59:00 99 % Heart Rate 2023-10-23 11:59:00 93.0 /min Respiratory Rate 2023-10-23 11:59:00 19 /min Body Temperature 2023-10-23 11:59:00 36.6 Renu Body Weight 2023-10-23 11:59:00 52.16 kg Height 2023-09-21 16:49:00 157.48 CM Weight 2023-09-21 16:49:00 56.81 KG Height 2023-09-21 16:49:00 157.48 CM Weight 2023-09-21 16:49:00 56.81 KG Height 2023-09-16 19:47:00 157.48 CM Weight 2023-09-16 19:47:00 56.8 KG BP Systolic 2023-08-24 00:00:00 106 mm[Hg] Rogel torrie [facility] Body Weight 2023-08-24 00:00:00 2025 [oz_av] Nicolette tagorda [facility] Height 2023-08-24 00:00:00 61 [in_i] Matag orda [facility] BMI (Body Mass Index) 2023-08-24 00:00:00 23.9 kg/m2 [facility] BP Diastolic 2023-08-24 00:00:00 69 mm[Hg] Mat agorda [facility] BMI (Body Mass Index) 2023-07-20 00:00:00 25.6 kg/m2 [facility] BP Diastolic 2023-07-20 00:00:00 78 mm[Hg] Mat ag[place]a [facility] BP Systolic 2023-07-20 00:00:00 124 mm[Hg] Rogel torrie [facility] Body Weight 2023-07-20 00:00:00 2164 [oz_av] Nicolette tagorda [facility] Height 2023-07-20 00:00:00 61 [in_i] Laura andujara [facility] Height 2023-05-18 00:00:00 61 [in_i] Laura andujara [facility] BP Systolic 2023-05-18 00:00:00 129 mm[Hg] Juan F brownlee [facility] Body Weight 2023-05-18 00:00:00 2124.8 [oz_av] [facility] BMI (Body Mass Index) 2023-05-18 00:00:00 25.1 kg/m2 [facility] BP Diastolic 2023-05-18 00:00:00 80 mm[Hg] Vincenzo jonesrda [facility] Height 2023-02-23 00:00:00 61 [in_i] Laura andujara [facility] BP Diastolic 2023-02-23 00:00:00 83 mm[Hg] iVncenzo poea [facility] BP Systolic 2023-02-23 00:00:00 136 mm[Hg] Juan F diamonda [facility] BMI (Body Mass Index) 2023-02-23 00:00:00 26.7 kg/m2 Rachelle [facility] Body Weight 2023-02-23 00:00:00 2258 [oz_av] Nicolette yenny [facility] BP Diastolic 2022-12-06 00:00:00 72 mm[Hg] Rosario ston [facility] Body Weight 2022-12-06 00:00:00 159 [lb_av] Rosario ston [facility] BP Systolic 2022-12-06 00:00:00 134 mm[Hg] Isabella lópez [facility] Height 2022-12-06 00:00:00 60 [in_i] Kenna on [facility] BMI (Body Mass Index) 2022-12-06 00:00:00 31.1 kg/m2 [facility] BP Diastolic 2022-11-22 00:00:00 46 mm[Hg] Vincenzo jonesrda [facility] Body Weight 2022-11-22 00:00:00 2417.6 [oz_av] [facility] BMI (Body Mass Index) 2022-11-22 00:00:00 28.5 kg/m2 [facility] BP Systolic 2022-11-22 00:00:00 137 mm[Hg] Rogel torrie [facility] Height 2022-11-22 00:00:00 61 [in_i] Matanika orda [facility] Height 2022-11-01 00:00:00 61 [in_i] Matanika orda [facility] Body Weight 2022-11-01 00:00:00 154 [lb_av] Vincenzo jonesrda [facility] BMI (Body Mass Index) 2022-11-01 00:00:00 29.1 kg/m2 [facility] BP Systolic 2022-11-01 00:00:00 130 mm[Hg] Rogel torrie [facility] BP Diastolic 2022-11-01 00:00:00 72 mm[Hg] Mat ag[place]a [facility] BP Diastolic 2022-10-27 00:00:00 70 mm[Hg] Vincenzo jonesrda [facility] Body Weight 2022-10-27 00:00:00 2438 [oz_av] Nicolette ramon [facility] BMI (Body Mass Index) 2022-10-27 00:00:00 28.8 kg/m2 [facility] BP Systolic 2022-10-27 00:00:00 140 mm[Hg] Rogel torrie [facility] Height 2022-10-27 00:00:00 61 [in_i] Matanika orda [facility] Systolic blood pressure 2022-10-26 01:30:00 139 mm[Hg] [facility] Diastolic blood pressure 2022-10-26 01:30:00 83 mm[Hg] [facility] Heart rate 2022-10-26 01:30:00 80 /min [facility] Respiratory rate 2022-10-26 01:30:00 14 /min [facility] Oxygen saturation in Arterial blood by Pulse oximetry 2022-10-26 01:30:00 97 /min [facility] Body temperature 2022-10-25 23:37:00 37.22 Renu [facility] Body height 2022-10-25 23:37:[address] [facility] Body weight 2022-10-25 23:37:[address] [facility] BMI 2022-10-25 23:37:00 29.08 kg/m2 [facility] BP Diastolic 2022-09-15 00:00:00 77 mm[Hg] Mat agorda [facility] Height 2022-09-15 00:00:00 61 [in_i] Matag orda [facility] BMI (Body Mass Index) 2022-09-15 00:00:00 30.1 kg/m2 [facility] BP Systolic 2022-09-15 00:00:00 122 mm[Hg] Rogel torrie [facility] Body Weight 2022-09-15 00:00:00 2553 [oz_av] Ma tagorda [facility] BP Diastolic 2022-08-09 00:00:00 77 mm[Hg] Mat agorda [facility] Height 2022-08-09 00:00:00 61 [in_i] Matag orda [facility] BMI (Body Mass Index) 2022-08-09 00:00:00 31.4 kg/m2 [facility] BP Systolic 2022-08-09 00:00:00 134 mm[Hg] Rogel torrie [facility] Body Weight 2022-08-09 00:00:00 2663 [oz_av] Ma tagorda [facility] BP Diastolic 2022-07-05 00:00:00 71 mm[Hg] Mat agorda [facility] Height 2022-07-05 00:00:00 61 [in_i] [place] orda [facility] BMI (Body Mass Index) 2022-07-05 00:00:00 31 kg/m2 [facility] BP Systolic 2022-07-05 00:00:00 130 mm[Hg] Rogel torrie [facility] Body Weight 2022-07-05 00:00:00 2629 [oz_av] Nicolette tagorda [facility] BP Diastolic 2022-05-05 00:00:00 89 mm[Hg] Mat agorda [facility] Height 2022-05-05 00:00:00 61 [in_i] Mat[place] orda [facility] BMI (Body Mass Index) 2022-05-05 00:00:00 31.2 kg/m2 [facility] BP Systolic 2022-05-05 00:00:00 139 mm[Hg] Rogel torrie [facility] Body Weight 2022-05-05 00:00:00 2641 [oz_av] Nicolette tagorda [facility] BP Diastolic 2022-01-04 00:00:00 80 mm[Hg] Mat agorda [facility] Height 2022-01-04 00:00:00 61 [in_i] [place] orda [facility] BMI (Body Mass Index) 2022-01-04 00:00:00 31.2 kg/m2 [facility] BP Systolic 2022-01-04 00:00:00 140 mm[Hg] Rogel torrie [facility] Body Weight 2022-01-04 00:00:00 2642 [oz_av] Nicolette tagorda [facility] BP Diastolic 2021-09-21 00:00:00 75 mm[Hg] Mat agorda [facility] Height 2021-09-21 00:00:00 61 [in_i] Mat[place] orda [facility] BMI (Body Mass Index) 2021-09-21 00:00:00 30.7 kg/m2 [facility] BP Systolic 2021-09-21 00:00:00 144 mm[Hg] Rogel torrie [facility] Body Weight 2021-09-21 00:00:00 2596 [oz_av] Nicolette tagorda [facility] BP Diastolic 2021-05-25 00:00:00 78 mm[Hg] Mat agorda [facility] Height 2021-05-25 00:00:00 61 [in_i] Matag orda [facility] BMI (Body Mass Index) 2021-05-25 00:00:00 30.4 kg/m2 [facility] BP Systolic 2021-05-25 00:00:00 134 mm[Hg] Rogel torrie [facility] Body Weight 2021-05-25 00:00:00 2576 [oz_av] Ma tagorda [facility] BP Diastolic 2021-02-20 00:00:00 79 mm[Hg] Mat agorda [facility] Height 2021-02-20 00:00:00 61 [in_i] Matag orda [facility] BMI (Body Mass Index) 2021-02-20 00:00:00 30.3 kg/m2 [facility] BP Systolic 2021-02-20 00:00:00 131 mm[Hg] Rogel torrie [facility] Body Weight 2021-02-20 00:00:00 2561.6 [oz_av] [facility] BP Diastolic 2020-05-05 00:00:00 73 mm[Hg] Mat agorda [facility] Height 2020-05-05 00:00:00 61 [in_i] [place] or[place] [facility] BMI (Body Mass Index) 2020-05-05 00:00:00 30.6 kg/m2 [facility] BP Systolic 2020-05-05 00:00:00 125 mm[Hg] Rogel torrie [facility] Body Weight 2020-05-05 00:00:00 2592 [oz_av] Ma tagorda [facility] BP Diastolic 2020-01-28 00:00:00 76 mm[Hg] Mat agorda [facility] Height 2020-01-28 00:00:00 61 [in_i] [place] [facility] BMI (Body Mass Index) 2020-01-28 00:00:00 30.8 kg/m2 [facility] BP Systolic 2020-01-28 00:00:00 130 mm[Hg] Rogel torrie [facility] Body Weight 2020-01-28 00:00:00 2609.6 [oz_av] [facility] Height 2019-11-02 00:00:00 61 [in_i] [place] [facility] BP Diastolic 2019-07-30 00:00:00 82 mm[Hg] Mat agorda [facility] Height 2019-07-30 00:00:00 61 [in_i] [place] [facility] BMI (Body Mass Index) 2019-07-30 00:00:00 31.5 kg/m2 [facility] BP Systolic 2019-07-30 00:00:00 131 mm[Hg] Rogel torrie [facility] Body Weight 2019-07-30 00:00:00 2665 [oz_av] Ma tagorda [facility] BP Diastolic 2019-04-30 00:00:00 78 mm[Hg] Mat agorda [facility] Height 2019-04-30 00:00:00 61 [in_i] [place] [facility] BMI (Body Mass Index) 2019-04-30 00:00:00 32.4 kg/m2 [facility] BP Systolic 2019-04-30 00:00:00 131 mm[Hg] Rogel torrie [facility] Body Weight 2019-04-30 00:00:00 171.7 [lb_av] M atagorda [facility] BP Diastolic 2019-04-25 00:00:00 83 mm[Hg] Mat agorda [facility] Height 2019-04-25 00:00:00 61 [in_i] [place] [facility] BMI (Body Mass Index) 2019-04-25 00:00:00 32.1 kg/m2 [facility] BP Systolic 2019-04-25 00:00:00 136 mm[Hg] Rogel torrie [facility] Body Weight 2019-04-25 00:00:00 169.8 [lb_av] [facility] BP Diastolic 2019-03-05 00:00:00 93 mm[Hg] [facility] agorda [facility] Height 2019-03-05 00:00:00 61 [in_i] [facility] orda [facility] BMI (Body Mass Index) 2019-03-05 00:00:00 31.7 kg/m2 [facility] BP Systolic 2019-03-05 00:00:00 150 mm[Hg] Rogel torrie [facility] Body Weight 2019-03-05 00:00:00 168 [lb_av] [facility] karenrda [facility] BP Diastolic 2019-02-02 00:00:00 90 mm[Hg] [facility] karenrda [facility] Height 2019-02-02 00:00:00 61 [in_i] [facility] con [facility] BMI (Body Mass Index) 2019-02-02 00:00:00 32 kg/m2 [facility] BP Systolic 2019-02-02 00:00:00 150 mm[Hg] Rogelney diamonda [facility] Body Weight 2019-02-02 00:00:00 169.4 [lb_av] [facility] Procedures Procedure Date / Time Performed Performing Clinician Source MAMMO, screening, digital, bilateral 2024-11-19 00:00:00 [facility] L[facility] 2024-04-25 17:34:00 Radha Fernando [facility] COMP. METABOLIC PANEL (32150) 2024-04-25 17:34:00 Radha Fernando [facility] CBC WITH DIFF 2024-04-25 17:34:00 Radha Fernando [facility] URINALYSIS 2024-04-25 17:34:00 Radha Fernando [facility] INFLUENZA A/B RSV COVID NAAT 2024-04-25 17:34:00 Radha Fernando [facility] MAMMO, screening, digital, bilateral 2023-05-18 00:00:00 [facility] MAMMO, screening, bilateral 2022-11-01 00:00:00 [facility] CT ABDOMEN PELVIS WO CONTRAST 2022-10-26 00:26:00 Ya Shields [facility] LIPASE 2022-10-26 00:15:00 Ya Shields Un [facility] COMP. METABOLIC PANEL (81058) 2022-10-26 00:15:00 Ya Shields [facility] CBC WITH DIFF 2022-10-26 00:15:00 [facility] 2022-10-26 00:15:00 Ya Shields Un [facility] RAPID STREP SCREEN FOR GROUP A 2022-10-26 00:15:00 Ya Shields [facility] RAPID INFLUENZA A/B 2022-10-26 00:15:00 Ya Shields [facility] CONSENT/REFUSAL FOR DIAGNOSIS AND TREATMENT 2022-10-25 23:28:59 Doctor Unassigned, [place] [facility] NOTICE OF PRIVACY PRACTICES 2022-10-25 23:28:23 Doctor Unassigned, [place] [facility] MAMMO, screening, digital, bilateral 2021-05-25 00:00:00 [facility] MAMMO, screening, bilateral 2019-02-02 00:00:00 [facility] CHEST X-RAY 2019-02-02 00:00:00 [place] [facility] Tubal Ligation [facility] Hernia Repair W/mesh [place] [facility] Appendectomy [facility] Cholecystectomy [facility] Plan of Care Planned Activity Planned Date Details Comments Source Diagnostic Test Pending 2022-12-06 00:00:00 urinalysis, dipstick [code = urinalysis, dipstick] [facility] Urology Encounters Start Date/Time End Date/Time Encounter Type Admission Type Attending [facility] Care Facility Care Department Encounter ID Source 2010-04-11 00:00:00 Inpatient O DOCTOR UNASSIGNED, NO [facility] MPU [id number] [facility] 2010-04-02 00:01:00 Inpatient O DOCTOR UNASSIGNED, NO [facility] DENNIS [id number] [facility] 2024-11-28 15:34:00 2024-11-28 15:34:00 Outpatient ROSSY NEWBERRY [facility] [id number] [facility] 2024-11-19 00:00:00 2024-11-19 00:00:00 BRANDEN Hoffman: [address] [place] [address] , Ph. [facility] [address] 0929 [facility] 2024-05-01 00:00:00 2024-05-01 00:00:00 Bonny boyer M.D.: [address], [place] [address] , Ph. 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 [facility] [address] 0226 [place] [facility] 2023-11-28 00:00:00 2023-11-28 00:00:00 BRANDEN Hoffman: [id number] [address] [place] [address] [address] [facility] [address] 1007 [place] [facility] 2023-10-23 11:28:00 2023-10-23 13:05:00 Emergency E ANDRES MORTENSEN [id number] [facility] EMERGENCY ROOM [id number] [facility] 2023-10-23 11:28:00 2023-10-23 11:28:00 Acute stress reaction 10/23/2023 SNOMED-CT [id number] 2023-09-21 16:32:00 2023-09-21 19:00:00 Emergency E ROEL GARCIA [facility] [id number] [facility] 2023-09-21 16:32:00 2023-09-21 19:00:00 Emergency E ROEL GARCIA [facility] ECC [id number] [facility] 2023-09-16 19:46:00 2023-09-16 20:57:00 Outpatient E FIAZ, BILAL FIAZ, BILAL [facility] [id number] [facility] 2023-09-16 19:46:00 2023-09-16 19:46:00 Outpatient E FIAZ, BILAL FIAZ, [facility] [id number] [facility] 2023-08-24 00:00:00 2023-08-24 00:00:00 BRANDEN Hoffman: [id number] [place] [address] , Ph. [facility] [address] 0703 [facility] 2023-08-08 14:30:00 2023-08-08 14:30:00 Outpatient ARIN DIAZ [facility] [id number] [facility] 2023-07-20 00:00:00 2023-07-20 00:00:00 Darline Haines MD: [id number] [place] [address] , [address] [facility] [address] 0529 [facility] 2023-07-08 09:07:00 2023-07-08 09:07:00 Outpatient ROSSY NEWBERRY [facility] [id number] [facility] 2023-05-18 00:00:00 2023-05-18 00:00:00 BRANDEN Hoffman: [address] [place] [address] , Ph. Cayla [facility] [address] 0327 [facility] 2023-02-23 00:00:00 2023-02-23 00:00:00 BRANDEN Hoffman: [address] [place] [address] , Ph. [facility] [id number] [facility] 2022-12-31 00:00:00 2022-12-31 00:00:00 Outpatient R RADIOLOGY [facility] [id number] [facility] 2022-12-06 00:00:00 2022-12-06 00:00:00 Otoniel Morrow MD: [id number] [facility] [address], [place] [address] , Ph. [facility] PA - [id number] [facility] 2022-11-22 00:00:00 2022-11-22 00:00:00 BRANDEN Hoffman: [id number] [address] [place] [address] , [address] [facility] [id number] [facility] 2022-11-01 00:00:00 2022-11-01 00:00:00 Bonny boyer MD: [address], [place] [address] , Ph. 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 [facility] [id number] [facility] 2022-10-26 00:00:00 2022-10-26 00:00:00 Patient Secure Msg Doctor Unassigned, [place] [facility] [id number] [facility] 2022-10-25 18:40:00 2022-10-25 21:05:00 Emergency Ya Shields [facility] [id number] [facility] 2022-10-25 18:40:00 2022-10-25 21:05:00 Emergency X YA SHIELDS [facility] ERT [id number] [facility] 2022-09-17 15:03:42 2022-09-17 15:03:42 Outpatient SFA [facility] [id number] Isaiah Cortés 2022-09-15 00:00:00 2022-09-15 00:00:00 BRANDEN Hoffman: [address] [address] , Ph. [facility] [id number] [facility] 2022-08-09 00:00:00 2022-08-09 00:00:00 BRANDEN Hoffman: [address] [address] , Ph. [facility] [id number] [facility] 2022-07-05 00:00:00 2022-07-05 00:00:00 BRANDEN Hoffman: [address] [address] , Ph. [facility] [id number] [facility] 2022-05-05 00:00:00 2022-05-05 00:00:00 BRANDEN Hoffman: [address], [place] [address] [address] [facility] [id number] [facility] 2022-01-04 00:00:00 2022-01-04 00:00:00 Rossy Rodrigues PA: [address], [address], [place] [address] , Ph. [facility] [id number] [facility] 2021-09-21 00:00:00 2021-09-21 00:00:00 Rossy Rodrigues PA: [address], [address], [place] [address] , Ph. [facility] [id number] [facility] 2021-05-25 00:00:00 2021-05-25 00:00:00 Rossy Rodrigues PA: [address], [address], [place] [address] , Ph. [facility] [id number] [facility] 2021-02-20 00:00:00 2021-02-20 00:00:00 LASHAWN Salinas: [address], [address], [place] [address] , Ph. [facility] [id number] [facility] 2020-05-05 00:00:00 2020-05-05 00:00:00 BRANDEN Hoffman: [address], [address], [place] [address] , Ph. [facility] HOP [facility] [id number] [facility] 2020-01-28 00:00:00 2020-01-28 00:00:00 BRANDEN Hoffman: [address], [place] [address] , Ph. [facility] [id number] [facility] 2019-12-06 09:30:00 2019-12-06 09:30:00 Outpatient Veronica FREEMAN LEIGH [facility] [id number] [facility] 2019-11-02 00:00:00 2019-11-02 00:00:00 BRANDEN Hoffman: [address], [place] [address] , [facility]. [facility] [id number] [facility] 2019-07-30 00:00:00 2019-07-30 00:00:00 Rossy Rodrigues PA: [address], [place] [address] , Ph. [facility] [id number] [facility] 2019-04-30 00:00:00 2019-04-30 00:00:00 BRANDEN Hoffman: [address], [place] [address] , Ph. [facility] [id number] [facility] 2019-04-25 00:00:00 2019-04-25 00:00:00 Rossy Rodrigues PA: [address], [place] [address] , Ph. [facility] [id number] [facility] 2019-03-05 00:00:00 2019-03-05 00:00:00 Jared Esquivel MD: [address], [place] [address] , Ph. 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 [facility] [id number] [facility] 2017-12-23 16:52:00 2017-12-23 23:59:00 Outpatient LITZY CRAVEN [facility] RAD [id number] [facility] 2014-04-20 16:59:00 2014-04-20 19:05:00 Emergency E KARLOS BETTSG [facility] ECC [id number] [facility] 2010-03-24 00:02:00 2010-03-24 05:38:00 Emergency X KARIN SEVILLA [facility] ERT [id number] [address] [place] [address] 2010-03-20 14:21:00 2010-03-20 17:00:00 Emergency ER RENATO POWELL [facility] [id number] [facility] Results Test Description Test Time Test Comments Results Result Co mments Source [facility], [id number] 18:27:20* Test Item Value Reference Range Interpretation Comme nts LIPASE (test code = 6737855079) 271 U/L 0-220 H Lab Interpretation (test cod e = 01070-5) Abnormal [facility] Center[facility] with [id number] 18:13:55* Test Item Value Reference Range Interpretation Comme nts WBC (test code = 6690-2) 10.09 4.30-11.10 RBC (test code = 789-8) 4.55 3.93-5.25 HGB (test code = 718-7) 14.1 g/dL 11.6-15.0 HCT (test code = 4544-3) 42.6 % 35.7-45.2 MCV (test code = 787-2) 93.6 fL 80.6-95.5 MCH (test code = 785-6) 31.0 pg 25.9-32.8 MCHC (test code = 786-4) 33.1 g/dL 31.6-35.1 RDW-SD (test code = 20296-1) 42.0 fL 39.0-49.9 RDW-CV (test code = 788-0) 12.1 % 12.0-15.5 PLT (test code = 777-3) 202 166-358 MPV (test code = 07124-1) 8.9 fL 9.5-12.9 L NRBC/100 WBC (test code = 1397869454) 0.0 0.0-10.0 NRBC x10^3 (test code = 0732556254) See_Comment [Automated messa ge] The system which generated this result transmitted reference range: 10*3/?L. The reference range was not used to interpret this result as normal/abnormal. GRAN MAT (NEUT) % (test code = 770-8) 66.3 % IMM GRAN % (test code = 1730928260) 0.30 % LYMPH % (test code = 736-9) 26.9 % MONO % (test code = 5905-5) 5.6 % EOS % (test code = 713-8) 0.5 % BASO % (test code = 706-2) 0.4 % GRAN MAT x10^3(ANC) (test code = 7032965400) 6.69 10*3/uL 1.88-7.09 IMM GRAN x10^3 (test code = 5860883054) 0.03 10*3/uL 0.00-0.06 LYMPH x10^3 (test code = 731-0) 2.71 10*3/uL 1.32-3.29 MONO x10^3 (test code = 742-7) 0.57 10*3/uL 0.33-0.92 EOS x10^3 (test code = 711-2) 0.05 10*3/uL 0.03-0.39 BASO x10^3 (test code = 704-7) 0.04 10*3/uL 0.01-0.07 Lab Interpretation (test code = 81068-5) Abnormal [facility] Center[facility]yt[facility] report of Cervical or vaginal smear or scraping Cyto stain.thin [id number] 00:00:00* Test Item Value Reference Range Interpretation Comme nts Cytology report of Cervical or vaginal smear or scraping Cyto stain (test code = 85758-9) Comment A Statement of adequacy [Interpretation] of Cervical or vaginal smear or scraping by Cyto stain (test code = 58929-4) Comment Health Workers who read Cyto sta in of Cervical or vaginal smear or scraping (test code = 30016-5) Comment Pathologist who read Cyto st ain of Cervical or vaginal smear or scraping (test code = 27622-5) Comment Microscopic observation [Loulou ntifier] in Specimen by Other stain (test code = 74610-1) . Diagnosis ICD code [Identifi er] (test code = 80872-4) Comment Service comment 01 (test cod e = 8251-1) Comment Cytology report of Cervical or vaginal smear or scraping Cyto stain.thin prep (test code = 72620-3) Comment Human papilloma virus 16+18+31+33+35+39+45+51+52+56+58+59+ 66+68 DNA [Presence] in Cervix by Probe with signal amplification (test code = 95259-4) Negative negative HPV genotype reflex (test co de = HPV genotype reflex) Comment Chlamydia trachomatis rRNA [Presence] in Cervix by MIGUEL with probe detection (test code = 66682-1) Negative negative Neisseria gonorrhoeae rRNA [Presence] in Cervix by MIGUEL with probe detection (test code = 60394-8) Negative negative [facility] Auto Differential panel - Blood 2024-04-19 00:00:00* Test Item Value Reference Range Interpretation Comme nts Leukocytes [#/volume] in Blo od by Automated count (test code = 6690-2) 8.9 x10e3/uL 3.4-10.8 Erythrocytes [#/volume] in Blood by Automated count (test code = 789-8) 4.75 x10e6/uL 3.77-5.28 Hemoglobin [Mass/volume] in Blood (test code = 718-7) 14.9 g/dL 11.1-15.9 Hematocrit [Volume Fraction] of Blood by Automated count (test code = 4544-3) 45.4 % 34.0-46.6 MCV [Entitic volume] by Automated count (test code = 787-2) 96 fL 79-97 MCH [Entitic mass] by Automa zee count (test code = 785-6) 31.4 pg 26.6-33.0 MCHC [Mass/volume] by Automa zee count (test code = 786-4) 32.8 g/dL 31.5-35.7 Erythrocyte distribution wid th [Ratio] by Automated count (test code = 788-0) 12.0 % 11.7-15.4 Platelets [#/volume] in Bloo d by Automated count (test code = 777-3) 250 x10e3/uL 150-450 Neutrophils/100 leukocytes i n Blood by Automated count (test code = 770-8) 62 % not estab. Lymphocytes/100 leukocytes i n Blood by Automated count (test code = 736-9) 30 % not estab. Monocytes/100 leukocytes in Blood by Automated count (test code = 5905-5) 6 % not estab. Eosinophils/100 leukocytes i n Blood by Automated count (test code = 713-8) 1 % not estab. Basophils/100 leukocytes in Blood by Automated count (test code = 706-2) 1 % not estab. immature cells (test code = immature cells) STATIONARY ENGINEER Neutrophils [#/volume] in Bl ood by Automated count (test code = 751-8) 5.6 x10e3/uL 1.4-7.0 Lymphocytes [#/volume] in Bl ood by Automated count (test code = 731-0) 2.6 x10e3/uL 0.7-3.1 Monocytes [#/volume] in Bloo d by Automated count (test code = 742-7) 0.5 x10e3/uL 0.1-0.9 Eosinophils [#/volume] in Bl ood by Automated count (test code = 711-2) 0.1 x10e3/uL 0.0-0.4 Basophils [#/volume] in Bloo d by Automated count (test code = 704-7) 0.1 x10e3/uL 0.0-0.2 Immature granulocytes/100 leukocytes in Blood by Automated count (test code = 52422-8) 0 % not estab. Immature granulocytes [#/volume] in Blood by Automated count (test code = 97308-4) 0.0 x10e3/uL 0.0-0.1 Nucleated erythrocytes/100 leukocytes [Ratio] in Blood by Automated count (test code = 46868-4) STATIONARY ENGINEER Morphology [Interpretation] in Blood Narrative (test code = 30514-5) STATIONARY ENGINEER [facility] ProgramComprehensive metabolic 2000 panel - Serum or [id number] 00:00:00* Test Item Value Reference Range Interpretation Comme nts Glucose [Mass/volume] in Ser um or Plasma (test code = 2345-7) 84 mg/dL 70-99 Urea nitrogen [Mass/volume] in Serum or Plasma (test code = 3094-0) 12 mg/dL 6-24 Creatinine [Mass/volume] in Serum or Plasma (test code = 2160-0) 0.82 mg/dL 0.57-1.00 Glomerular filtration rate/1.73 sq M.predicted [Volume Rate/Area] in Serum, Plasma or Blood by Creatinine-based formula (CKD-EPI 2020) (test code = 54513-5) 87 mL/min/1.73 >59 Urea nitrogen/Creatinine [Ma ss Ratio] in Serum or Plasma (test code = 3097-3) 15 9-23 Sodium [Moles/volume] in Ser um or Plasma (test code = 2951-2) 142 mmol/L 134-144 Potassium [Moles/volume] in Serum or Plasma (test code = 2823-3) 4.2 mmol/L 3.5-5.2 Chloride [Moles/volume] in Serum or Plasma (test code = 2075-0) 103 mmol/L 96-106 Carbon dioxide, total [Moles/volume] in Serum or Plasma (test code = 2027-9) 23 mmol/L 20-29 Calcium [Mass/volume] in Ser um or Plasma (test code = 66348-6) 9.7 mg/dL 8.7-10.2 Protein [Mass/volume] in Ser um or Plasma (test code = 2885-2) 7.2 g/dL 6.0-8.5 Albumin [Mass/volume] in Ser um or Plasma (test code = 1751-7) 4.6 g/dL 3.8-4.9 Globulin [Mass/volume] in Serum by calculation (test code = 54605-3) 2.6 g/dL 1.5-4.5 Bilirubin.total [Mass/volume ] in Serum or Plasma (test code = 1975-2) 1.0 mg/dL 0.0-1.2 Alkaline phosphatase [Enzymatic activity/volume] in Serum or Plasma (test code = 6768-6) 68 IU/L 44-121 Aspartate aminotransferase [Enzymatic activity/volume] in Serum or Plasma (test code = 1920-8) 15 IU/L 0-40 Alanine aminotransferase [Enzymatic activity/volume] in Serum or Plasma (test code = 1742-6) 9 IU/L 0-32 [facility] Center[facility]/Hemoglobin.total in [id number] 00:00:00* Test Item Value Reference Range Interpretation Comme nts Hemoglobin A1c/Hemoglobin.to trang in Blood (test code = 4548-4) 5.6 % 4.8-5.6 [facility] CenterReagin Ab [Presence] in Serum by RPR 2024-04-19 00:00:00* Test Item Value Reference Range Interpretation Comme nts Reagin Ab [Presence] in Seru m by RPR (test code = 90838-6) Non Reactive non reactive [facility]25-Hydroxyvitamin D3+25- Hydroxyvitamin D2 [Mass/volume] in Serum or [id number] 00:00:00* Test Item Value Reference Range Interpretation Comme nts 25-Hydroxyvitamin D3+25-Hydroxyvitamin D2 [Mass/volume] in Serum or Plasma (test code = 89864-0) 19.0 NG/mL 30.0-100.0 L [facility] CenterHIV 1 and 2 tests - Meaningful Use [id number] 00:00:00* Test Item Value Reference Range Interpretation Comme nts HIV 1+2 Ab+HIV1 p24 Ag [Presence] in Serum or Plasma by Immunoassay (test code = 31197-9) Non Reactive non reactive [facility] CenterHepatitis C virus IgG Ab [Presence] in Serum or Plasma by [id number] 00:00:00* Test Item Value Reference Range Interpretation Comme nts Hepatitis C virus IgG Ab [Presence] in Serum or Plasma by Immunoassay (test code = 49843-4) Non Reactive non reactive [facility] CenterDIRECT [id number] 12:58:00* Test Item Value Reference Range Interpretation Comme nts DIRECT BILI (test code = 1968-7) 0.20 mg/dL 0-0.2 URINALYSIS WITH [id number] 19:47:00* Test Item Value Reference Range Interpretation Comme nts COLOR (test code = COLU) ORANGE YELLOW A CLARITY (test code = CLA) CLOUDY CLEAR A GLUCOSE UR (test code = UA GLUCOSE) NEGATIVE NEGATIVE BILI UR (test code = BILE) NEGATIVE NEGATIVE KETONES UR (test code = RAJIV) NEGATIVE NEGATIVE SP GRAVITY (test code = SPGR) 1.006 1.005-1.030 PH UR (test code = PH) 7.0 4.5-8.0 PROTEIN UR (test code = PU) 1+ NEGATIVE A UROBIL UR (test code = UROQ) 1.0 EU/dL 0.2-1.0 NITRITE UR (test code = NITRITE) NEGATIVE NEGATIVE BLOOD UR (test code = UA BLOOD) 3+ NEGATIVE A LEUK ES UR (test code = LEUK) 1+ NEGATIVE A WBC UR (test code = UWBC) 10 /HPF 0-5 H RBC UR (test code = URBC) 2 /HPF 0-2 EPITH UR (test code = UEPC) FEW /LPF FEW BACTERIA UR (test code = UBACT) FEW /HPF NONE A CAST UR (test code = CAST) /LPF NONE CRYSTAL UR (test code = CRYU) / LPF NONE MUCUS UR (test code = MUC) / HPF NONE AMORPH UR (test code = TRUNG) / HPF NONE TRICH UR (test code = UTRICH) /HPF NONE YEAST UR (test code = UY) /HPF NONE SPERM UR (test code = USPERM) /HPF NONE SARS-CoV (RAPID ANTIGEN)2023-09-21 18:59:00* Test Item Value Reference Range Interpretation Comme nts SARS-CoV (ANTIGEN) (test code = COVAG) NEGATIVE NEGATIVE COVID AG (test code = COVAGC) This test has been marketed under the FDA Emergency Use Authorization (EUA) to meet challenges of the COVID-19 pandemic. The validation standards normally enforced by the FDA and the [employer] the [employer] (CAP) are more stringent than those required for this test. Therefore, the result should be interpreted with caution and close attention to other clinical and epidemiological data [id number] 18:34:00* Test Item Value Reference Range Interpretation Comme nts CPK (test code = 32A) 41 IU/L 34-145 COMPREHENSIVE METABOLIC [id number] 18:34:00* Test Item Value Reference Range Interpretation Comme nts GLUCOSE (test code = 06D) 70 mg/dL 75-100 L SODIUM (test code = 01A) 142 mmol/L 136-145 POTASSIUM (test code = 01B) 3.6 mmol/L 3.6-5.1 CHLORIDE (test code = 04A) 105 mmol/L 98-107 CO2 (test code = 02A) 31 mmol/L 20-31 ANION GAP (test code = ANG) 9.4 mmol/L BUN (test code = 05D) 8 mg/dL 9-23 L CREATININE (test code = 03E) 0.8 mg/dL 0.6-1.0 GFR (test code = GFR) 89 mL/min/1.73m\\S\\2 >=90 L EGFR (test code = EGFR) eGFR BY CKD-EPI CALCULATION IS NOT RECOMMENDED FOR PATIENTS UNDER 18 YEARS OF AGE. BUN/CREA (test code = BCR) 10 12-20 L CALCIUM (test code = 09D) 9.3 mg/dL 8.3-10.6 BILI TOTAL (test code = 11A) 0.9 mg/dL 0.2-1.0 PROTEIN (test code = 07D) 7.4 g/dL 5.7-8.2 ALBUMIN (test code = 08D) 4.7 g/dL 3.2-4.8 GLOBULIN (test code = GLB) 2.7 g/dL 1.5-3.8 ALB/GLOB (test code = AGRR) 1.7 1.0-2.6 ALK PHOS (test code = 35A) 58 IU/L 46-116 AST (test code = 30A) 12 IU/L <=33 ALT (test code = 31A) 7 IU/L 10-49 L LIPASE [id number] 18:34:00* Test Item Value Reference Range Interpretation Comme nts LIPASE (test code = 60A) 56 IU/L 12-53 H BRAIN NATRIURETIC [id number] 18:21:00* Test Item Value Reference Range Interpretation Comme nts BNP (test code = A74) 4 pg/mL <=100 TROPONIN [id number] 18:15:00* Test Item Value Reference Range Interpretation Comme nts TROPONIN I (test code = A84) 2.95 pg/mL 0.00-45.20 PRO TIME AND [id number] 18:12:00* Test Item Value Reference Range Interpretation Comme nts PT (test code = TT) 11.4 s 9.8-13.6 INR (test code = INR) 1.0 INRH (test code = INRH) SUGGESTED THERAPEUTIC RANGE FOR INR: 2.5 - 3.5 For Patients with Prosthetic Valves or Patients with recurrent Thromboembolic Events 2.0 - 3.0 For Most Other Applications PTT (test code = PTT) 26.3 s 20.2-38.0 PTTH (test code = PTTH) To monitor the effectiveness of heparin, we offer the Anti-Xa (Heparin Assay). It can be used for either unfractionated or LMW Heparin. Order Code is ANTI-XA CBC (INCLUDES AUTOMATED DIFFERENTIAL)2023-09-21 18:03:00* Test Item Value Reference Range Interpretation Comme nts WBC (test code = WBC) 9.4 10\\S\\3/uL 4.5-11.0 RBC (test code = RBC) 4.77 10\\S\\6/uL 4.20-5.60 HGB (test code = HBG) 14.2 g/dL 12.0-15.5 HCT (test code = HCT) 43.9 % 35.0-44.0 MCV (test code = MCV) 92.0 fL 81.0-99.0 MCH (test code = MCH) 29.8 pg 27.0-31.0 MCHC (test code = MCHC) 32.3 g/dL 32.0-36.0 RDW (test code = RDW) 12.6 % 11.5-14.5 PLT (test code = PLT) 293 10\\S\\3/uL 130-400 MPV (test code = MPV) 8.5 fL 9.4-12.4 L NEUTROP # (test code = NE#) 5.8 10\\S\\3/uL 1.6-8.0 LYMPH # (test code = LY#) 2.7 10\\S\\3/uL 1.1-3.5 MONOCYTE # (test code = MO#) 0.8 10\\S\\3/uL 0.0-1.1 EOSINOPH # (test code = EO#) 0.1 10\\S\\3/uL 0.0-0.7 BASOPHIL # (test code = BA#) 0.1 10\\S\\3/uL 0.0-0.3 IG # (test code = IG#) 0.02 10\\S\\3/uL 0.00-0.06 NRBC # (test code = NRBC#) 0.00 10\\S\\3/uL 0.00-0.01 NEUTROPH % (test code = NE%) 61.3 % 35.0-73.0 LYMPH % (test code = LY%) 28.4 % 20.0-55.0 MONO % (test code = MO%) 8.0 % 2.5-10.0 EOSINOPH % (test code = EO%) 1.5 % 0.0-5.0 BASOPHIL % (test code = BA%) 0.6 % 0.0-2.0 IG % (test code = IG%) 0.2 % 0.0-0.8 NRBC% (test code = NRBC%) 0.0 % 0.0-0.2 MANDIFF (test code = MDIFF) NO GLUCOMETER GLUCOSE- LAB USE [id number] 20:35:00* Test Item Value Reference Range Interpretation Comme nts GLUCOMETER (test code = GMG) 150 mg/dL 70-100 H Meter ID: [id number]: [id number] [address] rapid flu (A+B)2023-07-20 16:50:00* Test Item Value Reference Range Interpretation Comme nts Flu (test code = Flu) negative [facility] group A, [id number] 16:47:00* Test Item Value Reference Range Interpretation Comme nts Strep (test code = Strep) negative [facility] ProgramCB [facility] Auto Differential panel - Blood 2023-02-18 00:00:00* Test Item Value Reference Range Interpretation Comme nts Leukocytes [#/volume] in Blo od by Automated count (test code = 6690-2) 11.7 x10e3/uL 3.4-10.8 H Erythrocytes [#/volume] in Blood by Automated count (test code = 789-8) 4.85 x10e6/uL 3.77-5.28 Hemoglobin [Mass/volume] in Blood (test code = 718-7) 14.6 g/dL 11.1-15.9 Hematocrit [Volume Fraction] of Blood by Automated count (test code = 4544-3) 44.2 % 34.0-46.6 MCV [Entitic volume] by Automated count (test code = 787-2) 91 fL 79-97 MCH [Entitic mass] by Automa zee count (test code = 785-6) 30.1 pg 26.6-33.0 MCHC [Mass/volume] by Automa zee count (test code = 786-4) 33.0 g/dL 31.5-35.7 Erythrocyte distribution wid th [Ratio] by Automated count (test code = 788-0) 13.1 % 11.7-15.4 Platelets [#/volume] in Bloo d by Automated count (test code = 777-3) 345 x10e3/uL 150-450 Neutrophils/100 leukocytes i n Blood by Automated count (test code = 770-8) 67 % not estab. Lymphocytes/100 leukocytes i n Blood by Automated count (test code = 736-9) 25 % not estab. Monocytes/100 leukocytes in Blood by Automated count (test code = 5905-5) 6 % not estab. Eosinophils/100 leukocytes i n Blood by Automated count (test code = 713-8) 1 % not estab. Basophils/100 leukocytes in Blood by Automated count (test code = 706-2) 1 % not estab. immature cells (test code = immature cells) manufacturing engineer Neutrophils [#/volume] in Bl ood by Automated count (test code = 751-8) 7.8 x10e3/uL 1.4-7.0 H Lymphocytes [#/volume] in Bl ood by Automated count (test code = 731-0) 3.0 x10e3/uL 0.7-3.1 Monocytes [#/volume] in Bloo d by Automated count (test code = 742-7) 0.7 x10e3/uL 0.1-0.9 Eosinophils [#/volume] in Bl ood by Automated count (test code = 711-2) 0.1 x10e3/uL 0.0-0.4 Basophils [#/volume] in Bloo d by Automated count (test code = 704-7) 0.1 x10e3/uL 0.0-0.2 Immature granulocytes/100 leukocytes in Blood by Automated count (test code = 55047-5) 0 % not estab. Immature granulocytes [#/volume] in Blood by Automated count (test code = 60524-5) 0.0 x10e3/uL 0.0-0.1 Nucleated erythrocytes/100 leukocytes [Ratio] in Blood by Automated count (test code = 09911-2) manufacturing engineer Morphology [Interpretation] in Blood Narrative (test code = 99450-2) manufacturing engineer [facility] Out[facility] ProgramComprehensive metabolic 2000 panel - Serum or [id number] 00:00:00* Test Item Value Reference Range Interpretation [...] Creatinine-based formula (CKD-EPI 2020) (test code = 38847-5) 82 mL/min/1.73 >59 Urea nitrogen/Creatinine [Ma ss [...] in Serum or Plasma (test code = 2027-9) 23 mmol/L 20-29 Calcium [Mass/volume] in Ser um or Plasma (test code = 52051-3) 9.7 mg/dL 8.7-10.2 Protein [Mass/volume] in Ser um or Plasma (test code = 2885-2) 7.6 g/dL 6.0-8.5 Albumin [Mass/volume] in Ser um or Plasma (test code = 1751-7) 4.5 g/dL 3.9-4.9 Globulin [Mass/volume] in Serum by calculation (test code = 08303-9) 3.1 g/dL 1.5-4.5 Albumin/Globulin [Mass Ratio ] [...] (test code = 1742-6) 8 IU/L 0-32 [facility] CenterHem[facility] A1c/Hemoglobin.total in [id number] 00:00:00* Test Item Value Reference Range Interpretation Comme nts Hemoglobin A1c/Hemoglobin.to trang in Blood (test code = 4548-4) 6.1 % 4.8-5.6 H [facility]25-Hydroxyvitamin D3+25- Hydroxyvitamin D2 [Mass/volume] in Serum or [id number] 00:00:00* Test Item Value Reference Range Interpretation Comme [facility] 25-Hydroxyvitamin D3+25-Hydroxyvitamin D2 [Mass/volume] in Serum or Plasma (test code = 24952-3) 12.9 NG/mL 30.0-100.0 L [facility] CenterUrinalysis macro (dipstick) panel - [id number] 15:06:00* Test Item Value Reference Range Interpretation Comme nts leukocytes (test code = leukocytes) negative neg urobilinogen (test code = urobilinogen) 0.2 E.U./dL sm amt (.5-1mg/dL) protein (test code = protein) negative See_Comment [Automated messa ge] The system which generated this result transmitted reference range: <=150 mg/d. The reference range was not used to interpret this result as normal/abnormal. pH (test code = pH) 6.5 4.5-8 blood (test code = blood) trace-intact See_Comment A [Automated messa ge] The system which generated this result transmitted reference range: <=3 RBC. The reference range was not used to interpret this result as normal/abnormal. specific gravity (test code = specific gravity) 1.020 1.005-1.025 ketone (test code = ketone) negative none bilirubin (test code = bilirubin) negative neg glucose (test code = glucose) negative See_Comment [Automated messa ge] The system which generated this result transmitted reference range: <=130 mg/d. The reference range was not used to interpret this result as normal/abnormal. color (test code = color) yellow yellow clarity (test code = clarity) clear clear or cloudy nitrite (test code = nitrite) negative neg [facility] vaginosis and vaginitis DNA panel - Vaginal fluid by Probe with signal [id number] 00:00:00* Test Item Value Reference Range Interpretation [...] (test code = trichomonas, naat) negative negative [facility], IG + CT/NG + HR [id number] 00:00:00* Test Item Value Reference Range Interpretation Comme nts source: (test code = source:) unspecified slides: (test code = slides:) 1 LMP: (test code = LMP:) not given specimen adequacy: (test code = specimen adequacy:) (note) interpretation: (test code = interpretation:) nilm/no epith. abnormality;see below glost tile shader: (test code = glost tile shader:) SCOTT christine(ascp) IAC location: (test code = [...] code = chlamydia, naat, thinprep) negative negative [facility] ProgramChlamydia trachomatis and Neisseria gonorrhoeae and Trichomonas vaginalis DNA panel - Specimen by MIGUEL with probe [id number] 00:00:00* Test Item Value Reference Range Interpretation Comme nts Chlamydia trachomatis rRNA [Presence] in Specimen by MIGUEL with probe detection (test code = 47018-0) negative negative Neisseria gonorrhoeae rRNA [Presence] in Specimen by MIGUEL with probe detection (test code = 74476-6) negative negative Trichomonas vaginalis rRNA [Presence] in Specimen by MIGUEL with probe detection (test code = 09411-7) negative [facility] - Serum or Plasma by MIGUEL with probe [id number] 00:00:00* Test Item Value Reference Range Interpretation Comme nts HIV 1 RNA [Presence] in Seru m or Plasma by MIGUEL with probe detection (test code = 01945-7) non reactive non reactive HIV 2 RNA [Presence] in Seru m or Plasma by MIGUEL with probe detection (test code = 82637-4) non reactive non reactive [facility] - Serum or [id number] 00:00:00* Test Item Value Reference Range Interpretation [...] Creatinine-based formula (CKD-EPI 2020) (test code = 45246-6) 86 mL/min/1.73 >59 Urea nitrogen/Creatinine [Ma ss [...] Ser um or Plasma (test code = 98206-9) 9.4 mg/dL 8.7-10.2 Protein [Mass/volume] in Ser um or Plasma (test code = 2885-2) 7.1 g/dL 6.0-8.5 Albumin [Mass/volume] in Ser um or Plasma (test code = 1751-7) 4.8 g/dL 3.9-4.9 Globulin [Mass/volume] in Serum by calculation (test code = 90574-3) 2.3 g/dL 1.5-4.5 Albumin/Globulin [Mass Ratio ] [...] (test code = 1742-6) 15 IU/L 0-32 [facility] W Auto Differential panel - Blood 2022-10-28 [...] immature cells (test code = immature cells) manufacturing engineer Neutrophils [#/volume] in Bl ood by Automated [...] Blood by Automated count (test code = 72318-8) 0 % not estab. Immature granulocytes [#/volume] in Blood by Automated count (test code = 14889-6) 0.0 x10e3/uL 0.0-0.1 Nucleated erythrocytes/100 leukocytes [Ratio] in Blood by Automated count (test code = 98495-7) manufacturing engineer Morphology [Interpretation] in Blood Narrative (test code = 48946-7) manufacturing engineer [facility] [Presence] in Serum by RPR 2022-10-28 00:00:00* Test Item Value Reference Range Interpretation Comme nts Reagin Ab [Presence] in Seru m by RPR (test code = 97611-6) non reactive non reactive [facility] CenterHepatitis C virus IgG Ab [Presence] in Serum or Plasma by Ukvdvevpkhm8031-44-00 00:00:00* Test Item Value Reference Range Interpretation Comme nts Hepatitis C virus IgG Ab [Presence] in Serum or Plasma by Immunoassay (test code = 13568-9) non reactive non reactive [facility] CenterCOMP. METABOLIC PANEL (45889) 2022-10-26 00:48:32* Test Item Value Reference Range Interpretation Comme nts NA (test code = 9257603246) 142 mmol/L 135-145 K (test code = 9797081278) 3.1 mmol/L 3.5-5.0 L CL (test code = 7378172861) 101 mmol/L 98-108 CO2 TOTAL (test code = 5946678225) 31 mmol/L 23-31 AGAP (test code = 5098979667) 10 2-16 BUN (test code = 0040655492) 11 mg/dL 7-23 GLUCOSE (test code = 8523989845) 219 mg/dL 70-110 H CREATININE (test code = 4370743452) 0.84 mg/dL 0.50-1.04 TOTAL BILI (test code = 4349740169) 0.5 mg/dL 0.1-1.1 CALCIUM (test code = 6463484942) 9.7 mg/dL 8.6-10.6 T PROTEIN (test code = 9214557939) 8.9 g/dL 6.3-8.2 H ALBUMIN (test code = 4560777931) 4.9 g/dL 3.5-5.0 ALK PHOS (test code = 7820841559) 63 U/L 34-122 ALTv (test code = 1742-6) 21 U/L 5-35 AST(SGOT) (test code = 9639354748) 24 U/L 13-40 eGFR (test code = 3115167812) 71.8 mL/min/1.73m2 YULY (test code = YULY) [...] imaging tests). Lab Interpretation (test code = 58764-3) [facility]* Test Item Value Reference Range Interpretation Comme nts LIPASE (test code = 6879096202) 247 U/L 0-220 H Lab Interpretation (test cod e = 96801-4) [facility]normal [facility] CenterCBC WITH [id number] 00:44:15* Test Item Value Reference Range Interpretation [...] 33.3 g/dL 31.6-35.1 RDW-SD (test code = 76570-6) 41.4 fL 39.0-49.9 RDW-CV (test code = 788-0) 12.5 % 12.0-15.5 PLT (test code = 777-3) 363 See_Comment H [Automated messa ge] The system which generated this result transmitted reference range: 166 - 358 10*3/?L. The reference range was not used to interpret this result as normal/abnormal. MPV (test code = 23190-0) 8.6 fL 9.5-12.9 L NRBC/100 WBC (test code = 0633423141) 0.0 See_Comment [Automated [employer] ssage] The system which generated this result transmitted reference range: 0.0 - 10.0 /100 WBCs. The reference range was not used to interpret this result as normal/abnormal. NRBC x10^3 (test code = 3443957530) See_Comment [Automated messa ge] The system which generated this result transmitted reference range: 10*3/?L. The reference range was not used to interpret this result as normal/abnormal. GRAN MAT (NEUT) % (test code = 770-8) 63.5 % IMM GRAN % (test code = 9567697656) 0.40 % LYMPH % (test code = 736-9) 28.5 % MONO % (test code = 5905-5) 5.3 % EOS % (test code = 713-8) 1.5 % BASO % (test code = 706-2) 0.8 % GRAN MAT x10^3(ANC) (test code = 0437300650) 8.33 10*3/uL 1.88-7.09 H IMM GRAN x10^3 (test code = 5251027522) 0.05 10*3/uL 0.00-0.06 LYMPH x10^3 (test code = 731-0) 3.74 10*3/uL 1.32-3.29 H MONO x10^3 (test code = 742-7) 0.69 10*3/uL 0.33-0.92 EOS x10^3 (test code = 711-2) 0.19 10*3/uL 0.03-0.39 BASO x10^3 (test code = 704-7) 0.10 10*3/uL 0.01-0.07 H Lab Interpretation (test code = 24985-4) Abnormal [facility] CenterUrinalysis complete W Reflex Culture panel - [id number] 00:00:00* Test Item Value Reference Range Interpretation [...] Urine by Test strip (test code = 15538-5) trace negative/trace Glucose [Presence] in Urine by Test strip (test code = 47282-6) negative negative Ketones [Presence] in Urine by Test strip (test code = 2514-8) negative negative Hemoglobin [Presence] in Uri ne by Test strip (test code = 5794-3) negative negative Bilirubin.total [Presence] i n Urine by Test strip (test code = 5770-3) negative negative Urobilinogen [Mass/volume] i n Urine by Test strip (test code = 47581-4) 1.0 mg/dL 0.2-1.0 Nitrite [Presence] in Urine by Test strip (test code = 5802-4) negative negative Microscopic observation [Identifier] in Urine sediment by Light microscopy (test code = 33888-5) manufacturing engineer Leukocytes [#/area] in Urine sediment by Microscopy high power field (test code = 5821-4) 0-5 0-5 Erythrocytes [#/area] in Uri ne sediment by Microscopy high power field (test code = 97605-4) 3-10 0-2 A Epithelial cells [#/area] in Urine sediment by Microscopy high power field (test code = 5787-7) 0-10 0-10 Epithelial cells.renal [#/ar ea] in Urine sediment by Microscopy high power field (test code = 47815-8) manufacturing engineer Casts [Presence] in Urine se diment by Light microscopy (test code = 36596-7) none seen none seen Casts [Type] in Urine sedime nt by Light microscopy (test code = 40641-5) manufacturing engineer Unidentified crystals [Prese nce] in Urine sediment by Light microscopy (test code = 5783-6) manufacturing engineer Crystals [type] in Urine sed iment by Light microscopy (test code = 5782-8) manufacturing engineer Mucus [Presence] in Urine se diment by Light microscopy (test code = 8247-9) manufacturing engineer Bacteria [#/area] in Urine s ediment by Microscopy high power field (test code = 5769-5) few none seen/few Yeast [#/area] in Urine sedi ment by Microscopy high power field (test code = 5822-2) manufacturing engineer Trichomonas vaginalis [Prese nce] in Urine sediment by Light microscopy (test code = 5813-1) manufacturing engineer Urine sediment comments by L ight microscopy Narrative (test code = 13240-0) manufacturing engineer urinalysis reflex (test code = urinalysis reflex) comment Bacteria identified in Urine by Culture (test code = 630-4) no growth [facility] ProgramHemoglobin.gastrointestinal.lower [Presence] in Stool by Lwtvyzduuon2605-93-48 00:00:00* Test Item Value Reference Range Interpretation Comme nts occult blood panel, ia, stoo l (test code = occult blood panel, ia, stool) negative [facility] ProgramSCR MAMM BILATERAL SARAH CAD DIGITAL 2021-11-20 12:26:29 Name: , Destiney Zarco : 1970 Sex: F - SCR MAMM BILATERAL SARAH CAD DIGITALBILATERAL DIGITAL SCREENING MAMMOGRAM 3D/2D WITH CAD: 11/17/2021LINICAL: Asymptomatic. Digital breast tomosynthesis was performed in addition to routine CC and MLO views. Current mammographic imageswere evaluated by WaveRx ImageC-Note CAD (computer-aided detection) software. Comparison is made to exams dated 10/23/2019 mammogram - [facility] and 10/03/2017 mammogram - [facility]. The tissue of both breasts is heterogeneously dense. This may lower the sensitivity of mammography. There are benign calcifications in both breasts. No suspicious mass, architectural distortion, malignant type calcification, or lymph node abnormality detected. Breast architecture is stable compared to prior exams.IMPRESSION: BENIGNThere is no mammographic evidence of malignancy. Resume annualscreening mammography in one year. (11/18/2022) Snehal taveras/penrad:11/20/2021 12:26:29 [employer]: Greta Shirley MM, [facility] Mammographyletter sent: BIRADS 1-2 Normal Mammogram BI-RADS: 2 BenignSCR MAMM BILATERAL SARAH CAD DIGITAL 2021-11-20 12:26:29 Name: Destiney : 1970 Sex: F - SCR MAMM BILATERAL SARAH CAD DIGITALBILATERAL DIGITAL SCREENING MAMMOGRAM 3D/2D WITH CAD: 2CLINICAL: Asymptomatic. Digital breast tomosynthesis was performed in addition to routine CC and MLO views. Current mammographic images were evaluated by Dy[employer]o CAD (computer-aided detection) software. Comparison is madeto exams dated 10/23/2019 mammogram - [facility] and 10/03/2017 mammogram - [facility]. The tissue of both breasts is heterogeneously dense. This may lower the sensitivity of mammography. There are benign calcifications in both breasts. No suspicious mass, architectural distortion,malignant type calcification, or lymph node abnormality detected. Breast architecture is stable compared to prior exams.IMPRESSION: BENIGNThere is no mammographic evidence of malignancy. Resume annual screening mammography in one year. (11/18/2022) Snehal taveras/matthew:11/20/2021 12:26:29 [employer]: Greta Shirley MM, [facility]ammographyletter sent: BIRADS 1-2 Normal Mammogram BI-RADS: 2 Benignpregnancy test, epsic8510-87-65 14:37:35* Test Item Value Reference Range Interpretation Comme nts HCG (test code = HCG) negative [facility] ProgramSCR MAMM BILATERAL SARAH CAD DIGITAL 2019-11-07 08:33:03- SCR MAMM BILATERAL SARAH CAD DIGITALBILATERAL DIGITAL SCREENING MAMMOGRAM 3D/2D WITH CAD: 10/23/2019CLINICAL: Asymptomatic. Digital breast tomosynthesis was performed in addition to routine CC and MLOviews. Current mammographic images were evaluated by either a HireVue M-Vu or a RecipharmCheCarnegie Mellon UniversityerCAD (computer aided detection system). No prior exams [...] 08:33:03 Attending Technologist: Laureen Armendariz MM, [facility] MammographyImaging Technologist: Mignon Rodarte MM, [facility] Mammographyletter sent: BIRADS 1-2 Normal Mammogram BI-RADS: 1 NegativeSCR MAMM BILATERAL SARAH CAD [id number] 08:33:03AMENDMENT: 11/09/2019 Darius Garcia M.D. Comparison mammogram now available from 2018Impression remains the same: There is no mammographic evidence of malignancy. Resume annual screening mammography in one year.Amended BI-RADS: 1 Negative letter sent: BIRADS 1-2 NormalSCR MAMM BILATERAL SARAH CAD [id number] 08:33:03 Name: Destiney : 1970 Sex: F - SCR MAMM BILATERAL SARAH CAD DIGITALBILATERAL DIGITAL SCREENING MAMMOGRAM 3D/2D WITH CAD: 10/23/2019CLINICAL: Asymptomatic. Digital breast tomosynthesis was performed in addition to routine CC and MLO views. Current mammographic images were evaluated by either a H[employer]ue M-Vu or a WaveRx ImageChecker CAD (computer aided detection system). No [...] 08:33:03 Attending Technologist: Laureen Armendariz MM, [facility] MammographyImaging Technologist: Mignon Rodarte MM, [facility]ography[facility] sent: BIRADS 1-2 Normal Mammogram BI- RADS: 1 NegativeSCR MAMM BILATERAL SARAH CAD [id number] 08:33:03 Name: Destiney : 1970 Sex: FAMENDMENT: 11/09/2019 Darius Garcia M.D. Comparison mammogram now available from 2018Impression remains the same: There is no mammographic evidence of malignancy. Resume annual screening mammography in one year.Amended BI-RADS: 1 Negative letter sent: BIRADS 1-2 NormalLipid 1996 panel - Serum or Plasma 2019-04-26 00:00:00* Test Item Value Reference Range [...] = risk ratio LDL/HDL) 2.60 ratio <3.22 [facility] Isamfns20-Xdylqebnwldatn D [Mass/volume] in Serum or [id number] 00:00:00* Test Item Value Reference Range Interpretation Comme nts vitamin D, 25 oh (test code = vitamin D, 25 oh) 20 NG/mL see below L [facility] CenterComprehensive metabolic 2000 panel - Serum or Wakqbw7509-97-07 00:00:00* Test Item Value Reference Range Interpretation [...] (test code = ALT) 11 U/L 5-40 [facility] CenterCBC W Auto Differential panel [...] code = platelet count) 304 K/uL 130-400 [facility] CenterFolate [Mass/volume] in Serum or [id number] 00:00:00* Test Item Value Reference Range Interpretation Comme nts folic acid (test code = folic acid) 4.1 ug/L see below L [facility] CenterHemoglobin A1c/Hemoglobin.total in Naocj9092-27-93 00:00:00* Test Item Value Reference Range Interpretation Comme nts Hemoglobin A1c/Hemoglobin.to trang in Blood (test code = 4548-4) 8.5 % 4.2-5.6 H [facility] CenterUrinalysis complete panel - Urine [...] (test code = bacteria) trace negative A [facility] CenterUrinalysis macro (dipstick) panel - [id number] 09:47:00* Test Item Value Reference Range Interpretation [...] cloudy Color (test code = Color) yellow [facility] CenterThyrotropin [Units/volume] in Serum or [id number] 00:00:00* Test Item Value Reference Range Interpretation Comme nts TSH reflex to free T4 (test code = TSH reflex to free T4) 1.940 uIU/mL 0.400-4.100 [facility]25-Hydroxyvitamin D [Mass/volume] in Serum or Tjhsbs9283-94-38 00:00:00* Test Item Value Reference Range Interpretation Comme nts vitamin D, 25 oh (test code = vitamin D, 25 oh) 13 NG/mL see below L [facility] ProgramFolate+Cyanocobalamin [interpretation] in Serum or Flhwe4310-08-35 00:00:00* Test Item Value Reference Range Interpretation Comme nts vitamin B-12 (test code = vi tamin B-12) 669 pg/mL 200-950 folic acid (test code = folic acid) 5.6 ug/L see below L [facility] CenterComprehensive metabolic 2000 panel - Serum or Meethq3972-26-75 00:00:00* Test Item Value Reference Range Interpretation [...] (test code = ALT) 35 U/L 5-40 [facility] CenterHemoglobin A1c/Hemoglobin.total in Kuder7801-19-85 00:00:00* Test Item Value Reference Range Interpretation Comme nts Hemoglobin A1c/Hemoglobin.to trang in Blood (test code = 4548-4) 9.9 % 4.2-5.6 H [facility] CenterUrinalysis complete panel - Urine [...] crystals (test code = crystals) (note) none [facility] CenterLipid 1996 panel - Serum [...] risk ratio LDL/HDL) 3.36 ratio <3.22 H [facility] ProgramCBC W Auto Differential panel - Blood 2019-02-03 [...] code = platelet count) 245 K/uL 130-400 [facility] HospitalGlucose [Mass/volume] in Capillary [id number] 11:33:00* Test Item Value Reference Range Interpretation Comme nts Blood Glucose: mg/dl (test c ode = Blood Glucose: mg/dl) 213 [facility]-U/S PELVIS [id number] 16:10:30PELVIC ULTRASOUND:Location code: [id number] HISTORY: Mixed incontinenceComparison: NoneTECHNIQUE: Transabdominal sonography of [...] mass or free fluid. IMPRESSION:No acute sonographic abnormality.[facility]-U/S [id number] 16:10:30PELVIC ULTRASOUND:Location code: [id number] HISTORY: Mixed incontinenceComparison: NoneTECHNIQUE: Transabdominal sonography of [...] sonographic abnormality. Notes Date/Time Note Provider Source 2024-04-25 14:05:44 Patient discharged to home. Patient given printed and verbal discharge instructions regarding diagnosis. Instructed to follow up with PCP. Patient verbalized understanding of instructions. Patient awake, alert, oriented, respirations even and unlabored, skin warm and dry, color appropriate for race. No adverse reaction to meds given in ER noted upon discharge. PIV removed. Discussed medications. Advised to seek medical attention for new/prolonged/worsening of symptoms, patient ambulated from unit with steady gait in no apparent distress. [facility] Jung Ba RN [facility] 2024-04-25 09:47:52 Patient states: "I"ve had the crud since tuesday. Yesterday I started hurting in my ear and scratchy in my throat. I work at the [employer] and all my kids were sick" Pmhx: DM, DI, endometriosis, FM, [facility] ADAM [id number] 13:52:16 No Data Found ADAM [id number] 13:52:16 ADAM [id number] 13:52:16 ADAM [id number] 21:02:39 Pt given printed and verbal discharge instructions regarding abdominal pain, encouraged hydration. 1 Prescriptions sent to pharmacy. Discussed ibuprofen and to take with food to avoid GI distress. Discussed tramadol side affects and to avoid driving/operating machinery/or engaging in activities requiring alertness while taking. 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 Advised to seek medical attention for new/prolonged/worsening of symptoms, Symptoms improved. No adverse reaction to meds given in ER noted upon discharge. PIV d'cd, dressing to site, catheter in tact. Awake, alert oriented, resp reg unlabored, skin w/d, pt leaving amb with steady gait, in no apparent distress. Britany Koch [facility] 18:35:18 CC: patient presents to the ER with complaints of abdominal pain that began 2 weeks ago and a sore throat that began two days ago. Patient states she has been exposed to strep throat recently, patient states she has taken OTC ibuprofen without relief. Denies NVD, states she feels like she is starting an endometriosis attack. PMHx: see history Awake, alert, oriented, resp reg unlabored, skin warm and dry, color appropriate for race, moves all ext without difficulty, amb without assistance. Appears in no distress. T [facility]
[2024-12-05 20:23] LABS: Sqamous Epithelial <5 /HPF (None Seen); Urine Crystals Unidentified Few /HPF (None Seen); Urine Culture Reflex Order REFLEXED; Urine Microscopic Reflex YN ORDER UMIC; Urine WBC Clump Rare /HPF (None Seen); Urine Yeast (Budding) Trace /HPF (None Seen)
--- NOTE | 2024-12-05 23:09 | EDPHYS ---
Physician Documentation [facility] Name: Keturah Cardoso Age: 54 yrs Sex: Female : 1970 Arrival Date: 12/05/2024 Time: 19:41 Bed 12 Private MD: ED Physician Charlie Lux HPI: 12/05 20:09 This 54 yrs old Female presents to ER via Ambulatory with complaints of tt7 dysuria. 20:09 Patient reports 3 days of dysuria and urinary hesitancy, she has also been having some tt7 vaginal itching and some sticky light green color vaginal discharge that she states has a chemical odor to it. Patient had previous trichomonas infection several months ago. Other medical history includes hypertension, hyperlipidemia, endometriosis, diabetes. 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 - Infectious Disease History:: Denies. - Social history:: Smoking status: Patient denies any tobacco usage or history of. ROS: 20:11 Constitutional: negative for fever. Cardiovascular: negative for chest pain. tt7 Respiratory: negative for shortness of breath. Abdomen/GI: negative for abdominal pain, nausea, vomiting, diarrhea. MS/Extremity: negative for injury and deformity. Skin: negative for rash. Neuro: negative for focal weakness. 20:11 : Positive for urinary symptoms, vaginal discharge, vaginal itching, Exam: 21:30 Constitutional: vital signs reviewed, well appearing. Head/Face: normocephalic, tt7 atraumatic. Eyes: no conjunctival injection, anicteric sclerae. ENT: mucus membranes moist. Neck: trachea midline, no JVD, no meningismus. Cardiovascular: regular rate and rhythm, no lower extremity edema. Respiratory: normal respiratory effort, no accessory muscle use. Abdomen/GI: soft, nondistended, nontender, no guarding or rebound, negative Bustillos's sign, no McBurney point tenderness. Back: normal ROM. 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 Normal external genitalia. Speculum exam with closed cervical os, small amount of thick green colored vaginal discharge present, no bleeding noted. No adnexal or cervical motion tenderness. Skin: warm, dry, intact, normal turgor, normal color, no rash. MS/ Extremity: normal ROM of extremities, no gross deformities. Neuro: alert and oriented with appropriate mental status, normal speech, follows commands, no focal neurologic deficits. Psych: appropriate mood and affect. Vital Signs: 19:56 BP 141 / 83; Pulse 76; Resp 16; Temp 98.4; Pulse Ox 100% ; Weight 61.23 kg; Height 5 dd2 ft. 2 in. ; Pain 8/10; 22:09 BP 113 / 61; Pulse 74; Resp 16; Pulse Ox 97% on R/A; jb4 23:02 BP 125 / 64; Pulse 67; Resp 16; Pulse Ox 96% ; jb4 19:56 Body Mass Index 24.69 (61.23 kg, 157.48 cm) dd2 19:56 Pain Scale: Adult dd2 MDM: 19:48 Medical Screening Exam initiated tt7 20:11 Differential Diagnosis Urethritis, acute cystitis, vaginitis, chlamydia infection, tt7 gonorrhea infection, trichomonas infection, . Data reviewed: vital signs, nurses notes, old medical records, lab test result(s). 22:27 ED course: Patient well-appearing and has stable vital signs, pelvic exam demonstrates tt7 green-colored vaginal discharge but no cervical motion tenderness, urinalysis, wet prep, and gonorrhea/chlamydia probe ordered. Urinalysis does show evidence of infection. 23:09 ED course: Trichomonas seen on wet prep, GNC probe still pending, plan to treat the tt7 patient for acute cystitis and trichomonas vulvovaginitis with 7-day course of ciprofloxacin and metronidazole. Return precautions discussed. Gynecology follow-up provided. After completion of the patient's emergency department evaluation, I do not suspect a life-threatening or disabling process. Patient is medically stable and not in need of emergent medical intervention. I had a detailed discussion with the patient regarding the historical points, exam findings, emergency department evaluation, diagnostic results, and the discharge diagnosis. I instructed the patient on outpatient management of their condition. I discussed the need for outpatient follow-up with a primary care physician. I informed the patient on return precautions, including the need to return to the ED if symptoms do not improve, worsen, or if there are any questions or concerns that arise at home. The patient was discharged in stable condition. 12/05 20:02 Order name: UA Rfx Frandy Cult if indicated; Complete Time: 21:28 tt7 12/05 20:04 Order name: Wet Prep; Complete Time: 23:02 tt7 12/05 20:04 Order name: Test, Urine; Complete Time: 21:28 tt7 12/05 20:05 Order name: GC (Rogelio/Chl) Probe VAGINAL (Do not order if pt is under 13, order Culture tt7 instead) 12/05 20:29 Order name: Urine Culture EDMS 12/05 20:03 Order name: Pelvic Exam Setup; Complete Time: 20:14 tt7 Administered Medications: 23:27 Drug: metroNIDAZOLE PO 500 mg PO once Route: PO; vc1 23:28 Follow up: Response: Medication administered at discharge. vc1 23:28 Drug: Ciprofloxacin PO 500 mg PO once Route: PO; vc1 23:28 Follow up: Response: Medication administered at discharge. vc1 Disposition: 23:10 Co-signature as Attending Physician, Charlie Lux DO. tt7 Disposition Summary: 12/05/24 23:08 Discharge Ordered Notes: Location: Home tt7 Problem: new tt7 Symptoms: are unchanged tt7 Condition: Stable tt7 Diagnosis - Trichomonal vulvovaginitis tt7 - Acute cystitis without hematuria tt7 Followup: tt7 - With: Emergency Department - When: As needed - Reason: Followup: tt7 - With: Kaley Arzate MD - When: 2 - 3 days - Reason: Recheck today's complaints Discharge Instructions: - Discharge Summary Sheet tt7 - Trichomoniasis tt7 - Urinary Tract Infection, Adult, [id number] tt7 Forms: - Medication Reconciliation Form tt7 - Antibiotic Education tt7 - Prescription Opioid Use tt7 - Patient Portal Instructions tt7 - Leadership Thank You Letter tt7 Prescriptions: - Flagyl 500 mg Oral Tablet - take 1 tablet ORAL route every 12 hours for 7 days; 14 tablet; Refills: 0, tt7 Product Selection Permitted - Cipro 500 mg Oral Tablet - take 1 tablet ORAL route every 12 hours for 7 days; 14 tablet; Refills: 0, tt7 Product Selection Permitted Signatures: Dispatcher [employer] Trinidad Ramesh RN RN vc1 GRAHAM STEVENS RN RN dd2 Charlie Lux DO DO tt7 Corrections: (The following items were deleted from the chart) 19:59 19:56 Immunization history: dd2 dd2
--- NOTE | 2024-12-05 23:09 | ER ---
Nurse's Notes [facility] Name: Keturah Cardsoo Age: 54 yrs Sex: Female : 1970 Arrival Date: 12/05/2024 Time: 19:41 Bed 12 Private MD: Diagnosis: Trichomonal vulvovaginitis;Acute cystitis without hematuria Presentation: 12/05 19:54 Chief complaint: Patient states: ONLY PUTTING OUT SMALL AMOUNT OF URINATING X 3 DAYS. dd2 PT REPORTS BURNING WITH URINATION AND VAGINAL ITCHING. Coronavirus screen: At this time, the client does not indicate any symptoms associated with coronavirus-19. Ebola Screen: No symptoms or risks identified at this time. Risk Assessment: Do you want to hurt yourself or someone else? Patient reports no desire to harm self or others. Onset of symptoms was December 02, 2024. 19:54 Method Of Arrival: Ambulatory dd2 19:54 Acuity: STEPHANY 3 dd2 19:56 Initial Sepsis Screen: Does the patient meet any 2 criteria? No. Patient's initial dd2 sepsis screen is negative. Does the patient have a suspected source of infection? No. Patient's initial sepsis screen is negative. Triage Assessment: 19:56 General: Appears in no apparent distress. uncomfortable, Behavior is calm, cooperative, dd2 appropriate for age. Pain: Complains of pain in posterior aspect of right lateral abdomen, anterior aspect of right lateral abdomen, posterior aspect of left lateral abdomen and anterior aspect of left lateral abdomen. : Reports burning with urination, inability to void, vaginal itching. 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 - Infectious Disease History:: Denies. - Social history:: Smoking status: Patient denies any tobacco usage or history of. Screenin:02 [facility] ED Fall Risk Assessment (Adult) History of falling in the last 3 months, jb4 including since admission No falls in past 3 months (0 pts) Confusion or Disorientation No (0 pts) Intoxicated or Sedated No (0 pts) Impaired Gait No (0 pts) Mobility Assist Device Used No (0 pt) Altered Elimination No (0 pt) Score/Fall Risk Level 0 - 2 = Low Risk Oriented to surroundings, Maintained a safe environment. Abuse screen: Denies threats or abuse. Nutritional screening: No deficits noted. Tuberculosis screening: No symptoms or risk factors identified. Assessment: 21:07 Reassessment: Patient appears in no apparent distress at this time. Patient and/or jb4 family updated on plan of care and expected duration. Pain level reassessed. Patient is alert, oriented x 3, equal unlabored respirations, skin warm/dry/pink. 22:09 Reassessment: Patient appears in no apparent distress at this time. Patient and/or jb4 family updated on plan of care and expected duration. Pain level reassessed. Patient is alert, oriented x 3, equal unlabored respirations, skin warm/dry/pink. 23:02 Reassessment: Patient appears in no apparent distress at this time. Patient and/or jb4 family updated on plan of care and expected duration. Pain level reassessed. Patient is alert, oriented x 3, equal unlabored respirations, skin warm/dry/pink. 23:30 Reassessment: Patient appears in no apparent distress at this time. Patient and/or vc1 family updated on plan of care and expected duration. Pain level reassessed. Patient is alert, oriented x 3, equal unlabored respirations, skin warm/dry/pink. Vital Signs: 19:56 BP 141 / 83; Pulse 76; Resp 16; Temp 98.4; Pulse Ox 100% ; Weight 61.23 kg; Height 5 dd2 ft. 2 in. ; Pain 8/10; 22:09 BP 113 / 61; Pulse 74; Resp 16; Pulse Ox 97% on R/A; jb4 23:02 BP 125 / 64; Pulse 67; Resp 16; Pulse Ox 96% ; jb4 19:56 Body Mass Index 24.69 (61.23 kg, 157.48 cm) dd2 19:56 Pain Scale: Adult dd2 ED Course: 19:47 Patient arrived in ED. gm2 19:48 Charlie Lux DO is Attending Physician. tt7 19:56 Triage completed. dd2 19:56 Arm band placed on left wrist. dd2 20:02 Patient has correct armband on for positive identification. Bed in low position. Call jb4 light in reach. Side rails up X 1. Provided Education on: plan of care. 20:02 No provider procedures requiring assistance completed. jb4 22:09 Jared Elam, RN is Primary Nurse. jb4 23:07 Kaley Arzate MD is Referral Physician. tt7 23:29 IV discontinued, intact, bleeding controlled, No redness/swelling at site. Pressure vc1 dressing applied. Administered Medications: 23:27 Drug: metroNIDAZOLE PO 500 mg PO once Route: PO; vc1 23:28 Follow up: Response: Medication administered at discharge. vc1 23:28 Drug: Ciprofloxacin PO 500 mg PO once Route: PO; vc1 23:28 Follow up: Response: Medication administered at discharge. vc1 Medication: 20:02 VIS not applicable for this client. jb4 Outcome: 23:08 Discharge ordered by . tt7 23:29 Discharged to home ambulatory, vc1 23:29 Condition: stable 23:29 Discharge instructions given to patient, Instructed on discharge instructions, follow up and referral plans. medication usage, Demonstrated understanding of instructions, follow-up care, medications, Prescriptions given X 2, 23:31 Patient left the ED. vc1 Signatures: Jared Elam, RN RN jb4 Trinidad Sharma RN RN vc1 Katja [place] gm2 GRAHAM STEVENS RN RN dd2 Charlie Lux DO DO tt7 Corrections: (The following items were deleted from the chart) 19:56 19:54 Chief complaint: dd2 dd2 19:59 19:56 Immunization history: dd2 dd2
[2024-12-05] MEDS ORDERED: CIPROFLOXACIN HCL 500 MG TAB ONE (23:17)
[2024-12-05 23:55] VITALS: TEMP 98.4
[2024-12-06 00:23] VITALS: BP 125/64; O2SAT 96
== END 2024-12-05 23:31 | disposition home or self-care (01) ==
LOC: ER 19:41
DX: A59.01 Trichomonal vulvovaginitis (principal); N30.00 Acute cystitis without hematuria
CPT/HCPCS: 81001; 81025; 87077; 87086; 87088; 87186; 87210; 87490; 87590; 99283